=== PATIENT | male | born 1965 | race Caucasian/White ===

== ENCOUNTER 2018-09-20 13:46 | Observation (INO) | payer SELFPAY ==
[~2018-09-20] VITALS: Ht 185.4 cm; Wt 76.5 kg
--- NOTE | 2018-09-20 13:46 | NUR ---
PT UNABLE TO TELL ME PAST MEDICAL HISTORY.
[2018-09-20 14:01] LABS: BASOPHILS % (AUTO) 0 % (0-10); EOSINOPHILS # (AUTO) 0.1 10^3/uL (0.0-0.3); EOSINOPHILS % (AUTO) 2 % (0-10); HEMATOCRIT 42 % (40-54); HEMOGLOBIN 13.5 G/DL (13.3-17.7); LYMPHOCYTES # (AUTO) 1.4 X 10^3 (1.0-4.0); LYMPHOCYTES % (AUTO) 32 % (12-44); MEAN CORPUSCULAR HEMOGLOBIN 28 PG (25-34); MEAN CORPUSCULAR HGB CONC 32 G/DL (32-36); MEAN CORPUSCULAR VOLUME 87 FL (80-99); MEAN PLATELET VOLUME 10.7 FL (7.4-10.4); MONOCYTES # (AUTO) 0.5 X 10^3 (0.0-1.0); MONOCYTES % (AUTO) 11 % (0-12); NEUTROPHILS # (AUTO) 2.4 X 10^3 (1.8-7.8); NEUTROPHILS % (AUTO) 55 % (42-75); PLATELET COUNT 143 10^3/uL (130-400); RED CELL DISTRIBUTION WIDTH 13.1 % (10.0-14.5); WHITE BLOOD COUNT 4.3 10^3/uL (4.3-11.0)
[2018-09-20 14:14] LABS: ALANINE AMINOTRANSFERASE 16 U/L (0-55); ALBUMIN 3.5 GM/DL (3.2-4.5); ALKALINE PHOSPHATASE 77 U/L (40-136); AMYLASE 25 U/L (25-125); BILIRUBIN,TOTAL 0.3 MG/DL (0.1-1.0); BUN/CREATININE RATIO 16; CALCIUM 8.7 MG/DL (8.5-10.1); CARBON DIOXIDE 26 MMOL/L (21-32); CHLORIDE 106 MMOL/L (98-107); CREATININE SERUM 0.86 MG/DL (0.60-1.30); GFR ESTIMATED > 60; GLUCOSE 137 MG/DL (70-105); LIPASE 10 U/L (8-78); POTASSIUM 3.5 MMOL/L (3.6-5.0); SODIUM 142 MMOL/L (135-145)
[2018-09-20] MEDS ORDERED: DEXTROSE 50% 50 ML (IMS) SYR ONE (14:24)
--- NOTE | 2018-09-20 14:26 | NUR ---
PT WILL OPEN EYES WHEN TALKED TOO BUT MUMBLES WHEN HE TRYS TO SPEAK. MOVES ALL EXT.
[2018-09-20] MEDS ORDERED: DEXTROSE 50% 50 ML (IMS) SYR IV ONE (14:30)
--- NOTE | 2018-09-20 14:37 | Diagnostic Imaging Report ---
INDICATION: Unresponsive. Time of exam 2:28 PM The heart size is normal. The pulmonary vascularity is unremarkable. The lungs are clear. No infiltrate, effusion or pneumothorax is detected. Impression: No acute cardiopulmonary process is detected. Dictated by: Dictated on workstation # [id number]
--- NOTE | 2018-09-20 14:49 | NUR ---
RACHEL REPORTS PT IS TALKING TO HIM ET IS A/OX3
--- NOTE | 2018-09-20 15:02 | Diagnostic Imaging Report ---
CLINICAL INDICATION: Patient is unresponsive. Patient is diabetic. Face diaphoretic. EXAM: Axial CT scan of the brain performed without IV contrast. COMPARISON: None. FINDINGS: There is no definite CT evidence of acute cerebral infarct, intracranial hemorrhage, or gross mass effect. The brain parenchymal volume appears appropriate for patient's age. There are patchy and focal areas of low-attenuation white matter changes involving both cerebral hemispheres predominantly involving the posterior frontal lobes and parietal lobes. There is a possible area of low-attenuation involving the left middle cerebellar peduncle. There is normal [place]-white matter distinction. There is no significant midline shift or herniation. There is no evidence of hydrocephalus. The basal cisterns are unremarkable. The skull, extracranial soft tissue, and orbits are unremarkable. The paranasal sinuses are unremarkable. Temporal bones show no significant abnormality. IMPRESSION: 1: There is no definite CT evidence of interval acute cerebral infarction, intracranial hemorrhage, or mass seen. There are patchy areas of low attenuation changes involving both cerebral hemispheres with no comparison study to evaluate for chronicity. These areas have the appearance of being chronic given the low density appearance. If there is clinical concern for acute cerebral infarction, MRI of the brain would better evaluate. 2: Suspected chronic small vessel ischemic changes. Results of this report was discussed with Dr. Louis Givens via the telephone on 09/20/2018 at 1555 hrs. Dictated by: Dictated on workstation # [id number]
--- NOTE | 2018-09-20 15:10 | NUR ---
PT WILL WAKE UP MUMBLES ET WILL ANSWER SOME QUESTIONS. CONTINUES TO BE VERY DROWSY. RACHEL NOTIFIED.
--- NOTE | 2018-09-20 15:23 | NUR ---
PT TOLD RACHEL HIS NORMAL BLOOD SUGAR IS 300-700
--- NOTE | 2018-09-20 15:26 | ED General ---
General Chief Complaint: Glucose Problems Stated Complaint: DIABETIC ISSUES Nursing Triage Note: EMS CALLED TO PT'S HOUSE WHEN HE WAS FOUND UNRESPONSIVE. KNOWN DIABETIC. UPON EMS ARRIVAL PT UNRSPONSIVE WITH SNOROUS RESPIERATION. D50IV GIVEN. UPON ARRIVAL PT WILL OPEN HIS EYES WHEN TALKED TO BUT MUMBULES. VSS. PT FACE IS DIAPHORETIC. Nursing Sepsis Screen: No Definite Risk Source of Information: Patient, EMS Exam Limitations: No Limitations History of Present Illness Date Seen by Provider: September 20, 2018 Time Seen by Provider: 13:45 Initial Comments 52-year-old male patient was brought to the emergency room by [facility] for being found unresponsive with a blood sugar of 28 on arrival by EMS. They started an IV and gave half an amp of D50 and a liter of saline and the patient started to started her to come to. On arrival to the emergency room the patient was able to open his eyes and had purposeful movements but mumbled for speech. His initial blood sugar was normal. The patient is still diaphoretic at this time. He is a patient of [facility]. It is unsure of how long the patient was unresponsive. Associated Systoms: Diaphoresis Allergies and Home Medications Allergies Coded Allergies: Penicillins (Verified Allergy, Unknown, 09/20/18) Home Medications Unable to Obtain Active Prescriptions or Reported Meds Patient Home Medication List Home Medication List Reviewed: Yes Review of Systems Review of Systems Constitutional: see HPI; No chills, No fever Psychiatric/Neurological: See HPI, Other (lethargic) Hematologic/Lymphatic: See HPI, Other (hypoglycemia) All Other Systems Reviewed Negative Unless Noted: Yes Past Iosgych-Vrzqxi-Osqoym Hx Past Med/Social Hx: Reviewed Nursing Past Med/Soc Hx Patient Social History Recent Foreign Travel: No Contact w/Someone Who Travel: No Recent Infectious Disease Expo: No Family Medical History Reviewed Nursing Family Hx Physical Exam Vital Signs Vital Signs - First Documented 09/20/18 13:46 Temp 95.5 Pulse 76 Resp 16 B/P (MAP) 120/87 (98) Pulse Ox 97 O2 Delivery Room Air Capillary Refill : Less Than 3 Seconds Height, Weight, BMI Height: 5'8.00" Weight: 160lbs. oz. [id number]; BMI Method:Estimated General Appearance: No Apparent Distress, WD/WN HEENT: PERRL/EOMI, TMs Normal, Normal ENT Inspection, Pharynx Normal Neck: Full Range of Motion, Normal Inspection, Non Tender, Supple, Carotid Bruit Respiratory: Chest Non Tender, Lungs Clear, Normal Breath Sounds, No Accessory Muscle Use, No Respiratory Distress Cardiovascular: Regular Rate, Rhythm, No Edema, No Gallop, No JVD, No Murmur, Normal Peripheral Pulses Extremity: Normal Capillary Refill Neurologic/Psychiatric: Alert, Oriented x3, Normal Mood/Affect Skin: Normal Color, Warm/Dry Progress/Results/Core Measures Suspected Sepsis Recent Fever Within 48 Hours: No Infection Criteria Present: None New/Unexplained Altered Menta: No Sepsis Screen: No Definite Risk SIRS Temperature:95.5 Pulse: 76 Respiratory Rate: 16 Laboratory Tests 09/20/18 13:45: White Blood Count 4.3 Blood Pressure 120 /87 Mean: 98 Laboratory Tests 09/20/18 13:45: Creatinine 0.86, Platelet Count 143, Total Bilirubin 0.3 Results/Orders Lab Results Laboratory Tests Test 09/20/18 13:45 09/20/18 13:50 09/20/18 14:14 09/20/18 15:20 Range/Units White Blood Count 4.3 4.3-11.0 10^3/uL Red Blood Count 4.78 4.35-5.85 10^6/uL Hemoglobin 13.5 13.3-17.7 G/DL Hematocrit 42 40-54 % Mean Corpuscular Volume 87 80-99 FL Mean Corpuscular Hemoglobin 28 25-34 PG Mean Corpuscular Hemoglobin Concent 32 32-36 G/DL Red Cell Distribution Width 13.1 10.0-14.5 % Platelet Count 143 130-400 10^3/uL Mean Platelet Volume 10.7 H 7.4-10.4 FL Neutrophils (%) (Auto) 55 42-75 % Lymphocytes (%) (Auto) 32 12-44 % Monocytes (%) (Auto) 11 0-12 % Eosinophils (%) (Auto) 2 0-10 % Basophils (%) (Auto) 0 0-10 % Neutrophils # (Auto) 2.4 1.8-7.8 X 10^3 Lymphocytes # (Auto) 1.4 1.0-4.0 X 10^3 Monocytes # (Auto) 0.5 0.0-1.0 X 10^3 Eosinophils # (Auto) 0.1 0.0-0.3 10^3/uL Basophils # (Auto) 0.0 0.0-0.1 10^3/uL Sodium Level 142 135-145 MMOL/L Potassium Level 3.5 L 3.6-5.0 MMOL/L Chloride Level 106 98-107 MMOL/L Carbon Dioxide Level 26 21-32 MMOL/L Anion Gap 10 5-14 MMOL/L Blood Urea Nitrogen 14 7-18 MG/DL Creatinine 0.86 0.60-1.30 MG/DL Estimat Glomerular Filtration Rate > 60 BUN/Creatinine Ratio 16 Glucose Level 137 H 70-105 MG/DL Calcium Level 8.7 8.5-10.1 MG/DL Corrected Calcium 9.1 8.5-10.1 MG/DL Total Bilirubin 0.3 0.1-1.0 MG/DL Aspartate Amino Transf (AST/SGOT) 14 5-34 U/L Alanine Aminotransferase (ALT/SGPT) 16 0-55 U/L Alkaline Phosphatase 77 40-136 U/L Troponin I < 0.028 <0.028 NG/ML Total Protein 6.0 L 6.4-8.2 GM/DL Albumin 3.5 3.2-4.5 GM/DL Amylase Level 25 25-125 U/L Lipase 10 8-78 U/L Glucometer 128 H 106 182 H 70-110 MG/DL Test 09/20/18 16:32 09/20/18 20:49 09/20/18 21:05 Range/Units Glucometer 172 H 263 H 70-110 MG/DL Urine Color YELLOW Urine Clarity CLEAR Urine pH 7 5-9 Urine Specific [place] 1.015 L 1.016-1.022 Urine Protein 1+ H NEGATIVE Urine Glucose (UA) 4+ H NEGATIVE Urine Ketones NEGATIVE NEGATIVE Urine Nitrite NEGATIVE NEGATIVE Urine Bilirubin NEGATIVE NEGATIVE Urine Urobilinogen NORMAL NORMAL MG/DL Urine Leukocyte Esterase 1+ H NEGATIVE Urine RBC (Auto) NEGATIVE NEGATIVE Urine RBC 0-2 /HPF Urine WBC RARE /HPF Urine Squamous Epithelial Cells 0-2 /HPF Urine Crystals NONE /LPF Urine Bacteria NEGATIVE /HPF Urine Casts NONE /LPF Urine Mucus SMALL H /LPF Urine Culture Indicated NO Urine Opiates Screen NEGATIVE NEGATIVE Urine Oxycodone Screen NEGATIVE NEGATIVE Urine Methadone Screen NEGATIVE NEGATIVE Urine Propoxyphene Screen NEGATIVE NEGATIVE Urine Barbiturates Screen NEGATIVE NEGATIVE Ur Tricyclic Antidepressants Screen NEGATIVE NEGATIVE Urine Phencyclidine Screen NEGATIVE NEGATIVE Urine Amphetamines Screen POSITIVE H NEGATIVE Urine Methamphetamines Screen POSITIVE H NEGATIVE Urine Benzodiazepines Screen NEGATIVE NEGATIVE Urine Cocaine Screen NEGATIVE NEGATIVE Urine Cannabinoids Screen NEGATIVE NEGATIVE My Orders Orders - RACHEL REID Comprehensive Metabolic Panel (09/20/18 13:51) Lipase (09/20/18 13:51) Amylase (09/20/18 13:51) Ua Culture If Indicated (09/20/18 13:51) Ed Iv/Invasive Line Start (09/20/18 13:51) Cbc With Automated Diff (09/20/18 13:51) Ct Head Wo-R/O Stroke (09/20/18 14:17) Chest 1 View, Ap/Pa Only (09/20/18 14:17) Ekg Tracing (09/20/18 14:17) Troponin I (09/20/18 14:17) D50w (Emergency) Syringe (Dextrose 50% 5 (09/20/18 14:30) D50w (Emergency) Syringe (Dextrose 50% 5 (09/20/18 14:24) Medications Given in ED Current Medications Medications Dose Ordered Sig/Perico Route Start Time Stop Time Status Last Admin Dose Admin Dextrose 50 ml ONCE ONCE IV 09/20/18 14:30 09/20/18 14:31 DC 09/20/18 14:31 50 ML Vital Signs/I&O 09/20/18 09/20/18 09/20/18 09/20/18 13:46 15:55 17:01 17:02 Temp 95.5 96.5 Pulse 76 67 73 Resp 16 16 20 B/P (MAP) 120/87 (98) 117/82 (94) 130/80 Pulse Ox 97 99 O2 Delivery Room Air Room Air Room Air Room Air 09/20/18 09/20/18 19:19 20:00 Temp 97.2 97.2 Pulse 81 81 Resp 18 18 B/P (MAP) 145/81 (102) 145/81 (102) Pulse Ox 97 97 O2 Delivery Room Air Room Air Capillary Refill : Less Than 3 Seconds Blood Pressure Mean: 98 Point of Care Testing Finger Stick Blood Glucose: 182 Progress Note : Time: 15:50 Progress Note I have seen and evaluated the patient. He is more alert at this time and reports that his average blood sugar is 300-600. Dr. Winn discussed admission with Dr. Waldron at this time. Dr. Waldron agrees to admit the patient as an observation status to the fourth floor. She recommends using D5NS at 100 mL an hour and sliding scale insulin. Patient agrees with plan of care and plans for admission. ECG Initial ECG Impression Date: September 20, 2018 Initial ECG Impression Time: 14:23 Initial ECG Rate: 65 Initial ECG Rhythm: Normal Sinus Initial ECG Intervals: Normal Initial ECG Impression: Normal Initial ECG Comparisson: No Previous ECG Available Departure Communication (Admissions) Time/Spoke to Admitting Phy: 15:50 Chivo Impression Primary Impression: Hypoglycemic event in diabetes Disposition: ADMITTED INPATIENT Condition: Stable Admissions Decision to Admit Reason: Admit from ER (General) Decision to Admit/Date: September 20, 2018 Time/Decision to Admit Time: 16:13 Departure-Patient Inst. Referrals: NO,LOCAL PHYSICIAN (PCP/Family) Primary Care Physician Scripts Unable to Obtain Active Prescriptions or Reported Meds RACHEL REID September 20, 2018 15:26
--- OUTSIDE RECORDS SUMMARY | 2018-09-20 16:41 | XMS REPORT | Continuity of Care Document ---
Demographics x Preferred Language Unknown Marital Status Unknown Christian Affiliation Unknown Race Unknown Ethnic Group Unknown Author Organization Unknown Address Unknown Allergies There is no data. Medications There is no data. Problems There is no data. Procedures There is no data. Results There is no data. Encounters ACCT No. Visit Date/Time Discharge Status Pt. Type Provider Facility Loc./Unit Complaint [id number] 09/08/2018 12:50:00 09/08/2018 23:59:59 [facility]
--- NOTE | 2018-09-20 16:48 | NUR ---
LACEY GASTON WAS admitted to room 406-1, with an admitting diagnosis of HYPOGLYCEMIA, on 09/20/18 from ED via , accompanied by STAFF.LACEY GASTON introduced to surroundings, call light, bed controls, phone, TV, temperature control, lights, meal times, smoking policy, visitor policy, side rail policy, bathrooms and showers. Patient Rights given to patient in the handbook.LACEY GASTON verbalizes understanding that [facility] is not responsible for the loss or damage to any personal effects or valuables that are kept in the patients posession during their hospitalization. The following Patient Care Plans were discussed with the PT: Discharge Planning, KNOWLEDGE DEFICIT, INEFFECTIVE MANAGEMENT, and ANXIETY. LACEY GASTON verbalizes understanding of Interdisciplinary Patient Education.
[2018-09-20 17:02] VITALS: BP 130/80
[2018-09-20] MEDS ORDERED: CATHETER FLUSH 10 ML SYR IV PRN (17:15)
[2018-09-20] MEDS ORDERED: D5 NS 1000 ML IV SOLUTION 1,000 ML IV SCH (17:15)
[2018-09-20 19:19] VITALS: BP 145/81
[2018-09-20] MEDS ORDERED: inSUlin ASPART (NovoLOG) 1 UNIT/0.01 ML (CHARGE PER UNIT) SC SCH (19:30)
--- OUTSIDE RECORDS SUMMARY | 2018-09-20 19:31 | XMS REPORT | Continuity of Care Document ---
Demographics x Preferred Language Unknown Marital Status Unknown Rastafarian Affiliation Unknown Race Unknown Ethnic Group Unknown Author Organization Unknown Address Unknown Allergies There is no data. Medications There is no data. Problems There is no data. Procedures There is no data. Results There is no data. Encounters ACCT No. Visit Date/Time Discharge Status Pt. Type Provider Facility Loc./Unit Complaint [id number] 09/08/2018 12:50:00 09/08/2018 23:59:59 [facility]
[2018-09-20 20:00] VITALS: BP 145/81
[2018-09-20 21:17] LABS: BILIRUBIN,URINE NEGATIVE (NEGATIVE); CLARITY,URINE CLEAR; COLOR,URINE YELLOW; GLUCOSE, URINE (UA) 4+ (NEGATIVE); KETONES,URINE NEGATIVE (NEGATIVE); LEUKOCYTE ESTERASE ,URINE 1+ (NEGATIVE); NITRITE,URINE NEGATIVE (NEGATIVE); PH,URINE 7 (5-9); PROTEIN,URINE 1+ (NEGATIVE); UROBILINOGEN,URINE NORMAL (NORMAL)
--- NOTE | 2018-09-20 21:23 | NUR ---
pt requesting that his gabapentin be restarted for neuropathy-pt states he takes gabapentin 800 mg TID PO this rn called dr myers-she agreed to restart the gabapentin 800mg TID PO-order read back & she agreed
[2018-09-20 21:25] LABS: BACTERIA,URINE NEGATIVE /HPF; RBC,URINE 0-2 /HPF; SQUAMOUS EPITHELIAL CELL,UR 0-2 /HPF; WBC,URINE RARE /HPF
[2018-09-20 21:30] LABS: AMPHETAMINE SCREEN, URINE POSITIVE (NEGATIVE); BARBITURATE SCREEN URINE NEGATIVE (NEGATIVE); BENZODIAZEPINES SCREEN URINE NEGATIVE (NEGATIVE); CANNABINOID SCREEN, URINE NEGATIVE (NEGATIVE); COCAINE SCREEN URINE NEGATIVE (NEGATIVE); METHADONE STAT NEGATIVE (NEGATIVE); METHAMPHETAMINE SCREEN URINE S POSITIVE (NEGATIVE); OPIATE SCREEN URINE NEGATIVE (NEGATIVE); OXYCODONE STAT NEGATIVE (NEGATIVE); PROPOXYPHENE STAT NEGATIVE (NEGATIVE); TRICYCLIC ANTIDEPRESSANTS SCRE NEGATIVE (NEGATIVE)
[2018-09-20] MEDS ORDERED: GABAPENTIN 400 MG (NEURONTIN) CAP PO SCH (21:30)
--- NOTE | 2018-09-20 23:40 | NUR ---
2144-PT REQUESTED HS SNACK-2 PACKS OF GUILLAUME CRACKERS & A PEANUT BUTTER PACK GIVEN TO PT. 2149-PT CALLED THIS RN INTO THE ROOM. PT STATES THAT HE WILL BE LEAVING AMA. THIS RN SPOKE WITH PT, ADVISED HIM THAT IT WOULD BE IN HIS BEST INTEREST TO FOLLOW DR. IZAGUIRRE'S ORDERS TO STAY & BE TREATED. PT REPORTS "MY BLOOD SUGAR WAS IN THE 20'S, IT'S NOW UNDER CONTROL. THERE IS NO SINCE IN ME STAYING HERE AND CREATING A BILL FOR ME OR THE STATE [facility] TO NOT PAY. I HAVE HAD GOOD CARE HERE BUT I NEED TO LEAVE." PT GOES ON TO INFORM THIS RN THAT HIS GIRLFRIEND IS IN HER 20'S (REFERRING TO AGE) & THAT HES UP SET THAT SHE IS NOT BEEN IN TO SEE HIM. "I THINK SHE IS AT HOME HAVING A [employer] PART[employer] & CHEATING ON ME. I'M GOING TO BUST HER ASS." 2200-THIS RN CALLED DR. IZAGUIRRE TO INFORM HER THAT PT IS GOING AMA. 2211-PT SIGNED AMA PAPER AFTER THIS RN DISCUSSED THE FORM WITH THE PT. 2234-PT CALLED [place] [employer] FOR A RIDE-PT HUNG UP THE PHONE & SAID "FUCK IT I'M WALKING HOME, I'M NOT WAITING ON THEM" THIS RN ASKED THE PT IF HE WOULD WAIT LONG ENOUGH FOR THIS RN TO GET THE TELEPHONE NUMBER OF THE [employer] [facility] IN [facility]. PT STATED "NOPE I'M LEAVING THIS FUCKING PLACE. THANK YOU FOR ALL YOUR HELP" 2236-PT LEFT AMA
== END 2018-09-20 22:37 | disposition left against medical advice (07) ==
LOC: ER 13:48 → 4TH 16:00 → UNDOADMOB 16:00 → EEVIPCON 16:00 → 4TH 16:50 → UNDODISOB 22:37
PROVIDERS: ADMIT Family Medicine; ATTEND Family Medicine
DX: E11.65 Type 2 diabetes mellitus with hyperglycemia (principal); Z79.4 Long term (current) use of insulin; Z88.0 Allergy status to penicillin
CPT/HCPCS: 36415; 70450; 71045; 80053; 80306; 81000; 82150; 82962; 83690; 84484; 85025; 93005; 96374

== ENCOUNTER 2019-11-30 00:02 | Emergency (ER) | payer SELFPAY ==
[~2019-11-30] VITALS: Ht 185 cm; Wt 82.8 kg
--- OUTSIDE RECORDS SUMMARY | 2019-11-30 00:09 | XMS REPORT | Continuity of Care Document ---
Demographics x Preferred Language Unknown Marital Status Unknown Judaism Affiliation Unknown Race Unknown Ethnic Group Unknown Author Organization Unknown Address Unknown Phone Unavailable Allergies Active Description Code Type Severity Reaction Onset Reported/Identified Relationship to Patient Clinical Status Yes No Known Drug Allergies [id number] Drug Allergy Unknown N/A 09/20/2018 Yes Penicillins [id number] Drug Aller gy Unknown N/A 09/20/2018 Medications There is no data. Problems Date Dx Coded Attending Type Code Diagnosis Diagnosed By 09/20/2018 BENNY IZAGUIRRE MD, Ot E11.6 5 TYPE 2 DIABETES MELLITUS WITH HYPERGLYCE 09/20/2018 BENNY IZAGUIRRE MD, Ot Z79.4 CUSTODIAL (CURRENT) USE OF INSULIN 09/20/2018 BENNY IZAGUIRRE MD, Ot Z88.0 ALLERGY STATUS TO PENICILLIN Procedures There is no data. Results Test Result Range Complete blood count (CBC) with automate d white blood cell (WBC) differential - 09/20/18 13:45 Blood leukocytes automated count (number/volume) 4.3 10*3/uL 4.3-11.0 Blood erythrocytes automated count (number/volume) 4.78 10*6/uL 4.35-5.85 Venous blood hemoglobin measurement (mass/volume) 13.5 g/dL 13.3-17.7 Blood hematocrit (volume fraction) 42 % 40-54 Automated erythrocyte mean corpuscular volume 87 [ foz_us] 80-99 Automated erythrocyte mean corpuscular h emoglobin (mass per erythrocyte) 28 pg 25-34 Automated erythrocyte mean corpuscular h emoglobin concentration measurement (mass/volume) 32 g/dL 32-36 Automated erythrocyte distribution width ratio 13. 1 % 10.0- 14.5 Automated blood platelet count (count/volume) 143 10*3/uL 130-400 Automated blood platelet mean volume measurement 10.7 [foz_us] 7.4-10.4 Automated blood neutrophils/100 leukocytes 55 % 42-75 Automated blood lymphocytes/100 leukocytes 32 % 12-44 Blood monocytes/100 leukocytes 11 % 0-12 Automated blood eosinophils/100 leukocytes 2 % 0-10 Automated blood basophils/100 leukocytes 0 % 0-10 Blood neutrophils automated count (number/volume) 2.4 10*3 1.8-7.8 Blood lymphocytes automated count (number/volume) 1.4 10*3 1.0-4.0 Blood monocytes automated count (number/volume) 0. 5 10*3 0.0-1.0 Automated eosinophil count 0.1 10*3/uL 0 .0-0.3 Automated blood basophil count (count/volume) 0.0 10*3/uL 0.0-0.1 Comprehensive metabolic panel - 09/20/18 13:45 Serum or plasma sodium measurement (moles/volume) 142 mmol/L 135-145 Serum or plasma potassium measurement (moles/volume) 3.5 mmol/L 3.6-5.0 Serum or plasma chloride measurement (moles/volume) 106 mmol/L 98-107 Carbon dioxide 26 mmol/L 21-32 Serum or plasma anion gap determination (moles/volume) 10 mmol/L 5-14 Serum or plasma urea nitrogen measurement (mass/volume ) 14 mg/dL 7-18 Serum or plasma creatinine measurement (mass/volume) 0.86 mg/dL 0.60-1.30 Serum or plasma urea nitrogen/creatinine mass ratio 16 NRG Serum or plasma creatinine measurement w ith calculation of estimated glomerular filtration rate > NRG Serum or plasma glucose measurement (mass/volume) 137 mg/dL 70-105 Serum or plasma calcium measurement (mass/volume) 8.7 mg/dL 8.5-10.1 Serum or plasma total bilirubin measurement (mass/volu me) 0.3 mg/dL 0.1-1.0 Serum or plasma alkaline phosphatase sylvester surement (enzymatic activity/volume) 77 U/L 40-136 Serum or plasma aspartate aminotransfera se measurement (enzymatic activity/volume) 14 U/L 5-34 Serum or plasma alanine aminotransferase measurement (enzymatic activity/volume) 16 U/L 0-55 Serum or plasma protein measurement (mass/volume) 6.0 g/dL 6.4-8.2 Serum or plasma albumin measurement (mass/volume) 3.5 g/dL 3.2-4.5 CALCIUM CORRECTED 9.1 mg/dL 8.5-10.1 Serum or plasma amylase measurement (enz ymatic activity/volume) - 09/20/18 13:45 Serum or plasma amylase measurement (enzymatic activit y/volume) 25 U/L 25-125 Lipase - 09/20/18 13:45 Lipase 10 U/L 8-78 Serum or plasma troponin i.cardiac measu rement (mass/volume) - 09/20/18 13:45 Serum or plasma troponin i.cardiac measurement (mass/v olume) < ng/mL <0.028 Capillary blood glucose measurement by g lucometer (mass/volume) - 09/20/18 13:50 Capillary blood glucose measurement by glucometer (mas s/volume) 128 mg/dL 70-110 Capillary blood glucose measurement by g lucometer (mass/volume) - 09/20/18 14:14 Capillary blood glucose measurement by glucometer (mas s/volume) 106 mg/dL 70-110 Capillary blood glucose measurement by g lucometer (mass/volume) - 09/20/18 15:20 Capillary blood glucose measurement by glucometer (mas s/volume) 182 mg/dL 70-110 Capillary blood glucose measurement by g lucometer (mass/volume) - 09/20/18 16:32 Capillary blood glucose measurement by glucometer (mas s/volume) 172 mg/dL 70-110 Capillary blood glucose measurement by g lucometer (mass/volume) - 09/20/18 20:49 Capillary blood glucose measurement by glucometer (mas s/volume) 263 mg/dL 70-110 Complete urinalysis with reflex to cultu re - 09/20/18 21:05 Urine color determination YELLOW NRG Urine clarity determination CLEAR NR G Urine pH measurement by test strip 7 5-9 Specific gravity of urine by test strip 1.015 1.016-1.022 Urine protein assay by test strip, semi-quantitative 1+ NEGATIVE Urine glucose detection by automated test strip 4+ NEGATIVE Erythrocytes detection in urine sediment by light micr oscopy NEGATIVE NEGATIVE Urine ketones detection by automated test strip NE GATIVE NEGATIVE Urine nitrite detection by test strip NEGATIVE NEGATIVE Urine total bilirubin detection by test strip NEGA TIVE NEGATIVE Urine urobilinogen measurement by automated test strip (mass/volume) NORMAL NORMAL Urine leukocyte esterase detection by dipstick 1+ NEGATIVE Automated urine sediment erythrocyte cou nt by microscopy (number/high power field) [HPF] NRG Automated urine sediment leukocyte count by microscopy (number/high power field) RARE NRG Bacteria detection in urine sediment by light microsco py NEGATIVE NRG Squamous epithelial cells detection in u rine sediment by light microscopy 0-2 NRG Crystals detection in urine sediment by light microsco py NONE NRG Casts detection in urine sediment by light microscopy NONE NRG Mucus detection in urine sediment by light microscopy SMALL NRG Complete urinalysis with reflex to culture NO NRG Urine drug screening test - 09/20/18 21: 05 Urine phencyclidine detection by screening method NEGATIVE NEGATIVE Urine benzodiazepines detection by screening method NEGATIVE NEGATIVE Urine cocaine detection NEGATIVE NEGATI VE Urine amphetamines detection by screening method P OSITIVE NEGATIVE Urine methamphetamine detection by screening method POSITIVE NEGATIVE Urine cannabinoids detection by screening method N EGATIVE NEGATIVE Urine opiates detection by screening method NEGATI VE NEGATIVE Urine barbiturates detection NEGATIVE N EGATIVE Screening urine tricyclic antidepressants detection NEGATIVE NEGATIVE Urine methadone detection by screening method NEGA TIVE NEGATIVE Urine oxycodone detection NEGATIVE NEGA TIVE Urine propoxyphene detection NEGATIVE N EGATIVE LIPID PANEL - 02/08/19 10:59 CHOLESTEROL, TOTAL 199 mg/dL <200 HDL CHOLESTEROL 44 mg/dL >40 TRIGLYCERIDES 149 mg/dL <150 LDL-CHOLESTEROL 129 mg/dL (calc) NRG CHOL/HDLC RATIO 4.5 (calc) <5.0 NON HDL CHOLESTEROL 155 mg/dL (calc) <13 0 Encounters ACCT No. Visit Date/Time Discharge Status Pt. Type Provider Facility Loc./Unit Complaint [id number] 11/19/2019 13:20:00 11/19/2019 23:59: 59 [facility] Outpatient [facility] [id number] 02/08/2019 09:40:00 Document Registration [id number] 09/20/2018 16:00:00 019 22:37:00 DIS Inpatient BENNY IZAGUIRRE MD [facility] 4TH HYPOGLYCEMIC EVENT
[2019-11-30 00:11] VITALS: BP 129/89
[2019-11-30] MEDS ORDERED: INSU100V16 SQ (00:19)
[2019-11-30] MEDS ORDERED: GABA800T10 PO (00:19)
[2019-11-30] MEDS ORDERED: INSU100V6 SQ (00:19)
[2019-11-30] MEDS ORDERED: CLIN300C11 PO (00:26)
--- NOTE | 2019-11-30 01:07 | ED General ---
General Chief Complaint: Skin/Wound Problems Stated Complaint: RT FOOT PAIN,RT LEG SWOLLEN,DIABETIC Nursing Triage Note: RIGHT FOOT WOUND Nursing Sepsis Screen: No Definite Risk Source of Information: Patient Exam Limitations: No Limitations History of Present Illness Date Seen by Provider: Nov 30, 2019 Time Seen by Provider: 00:10 Initial Comments This 53-year-old gentleman with diabetes presents with a diabetic foot ulcer on the right distal foot. He is presently homeless and rides his bike and walks often. He has follow-up appointments scheduled with [facility] but his sister who has a medical background told him to be seen promptly for this worsening ulcer. The ulcer is about the size of a nickel on the plantar surface of his right foot. He denies any fever. He was prescribed clindamycin by the clinic and he is presently taking that. Allergies and Home Medications Allergies Coded Allergies: Penicillins (Verified Allergy, Unknown, 09/20/18) Home Medications Gabapentin 800 Mg Tablet, 800 MG PO TID, (Reported) Insulin Aspart 100 Unit/1 Ml Susp, 10 UNIT SQ AC, (Reported) Patient Home Medication List Home Medication List Reviewed: Yes Review of Systems Review of Systems Constitutional: no symptoms reported EENTM: no symptoms reported Respiratory: no symptoms reported Cardiovascular: no symptoms reported Gastrointestinal: no symptoms reported Genitourinary: no symptoms reported Musculoskeletal: no symptoms reported Skin: see HPI Psychiatric/Neurological: No Symptoms Reported Hematologic/Lymphatic: No Symptoms Reported Past Cnuehpk-Kimalt-Rjpoyk Hx Past Med/Social Hx: Reviewed Nursing Past Med/Soc Hx Patient Social History Alcohol Use: Denies Use Recreational Drug Use: No Smoking Status: Current Everyday Smoker Type Used: Cigarettes 2nd Hand Smoke Exposure: Yes Recent Foreign Travel: No Contact w/Someone Who Travel: No Recent Infectious Disease Expo: No Recent Hopitalizations: No Physical Abuse: No Sexual Abuse: No Mistreated: No Fear: No Immunizations Up To Date Tetanus Booster (TDap): Unknown Seasonal Allergies Seasonal Allergies: No Past Medical History Surgeries: No Respiratory: No Cardiac: No Neurological: No Genitourinary: No Gastrointestinal: No Musculoskeletal: No Endocrine: Yes Diabetes, Insulin dep HEENT: No Cancer: No Psychosocial: Yes Depression Integumentary: Yes (diabetic foot ulcer) Blood Disorders: No Adverse Reaction/Blood Tranf: No Family Medical History Patient reports no known family medical history. Physical Exam Vital Signs Vital Signs - First Documented 11/30/19 00:11 Temp 36.8 Pulse 96 Resp 18 B/P (MAP) 129/89 (102) Pulse Ox 98 O2 Delivery Room Air Capillary Refill : Less Than 3 Seconds Height, Weight, BMI Height: 6'1.00" Weight: 168lbs. 9.0oz. 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 Skin: Normal Color, Warm/Dry Progress/Results/Core Measures Suspected Sepsis Recent Fever Within 48 Hours: No Infection Criteria Present: Documented Infection New/Unexplained Altered Menta: No Sepsis Screen: No Definite Risk SIRS Temperature: Pulse: 96 Respiratory Rate: 18 Blood Pressure 129 /89 Mean: 102 Results/Orders Lab Results Laboratory Tests Test 11/30/19 00:26 Range/Units Glucometer 93 70-110 MG/DL My Orders Orders - MICHELLE VALLECILLO MD Foot, Right, 3 View (11/30/19 00:22) Accucheck Stat ONCE (11/30/19 00:22) Vital Signs/I&O 11/30/19 00:11 Temp 36.8 Pulse 96 Resp 18 B/P (MAP) 129/89 (102) Pulse Ox 98 O2 Delivery Room Air Capillary Refill : Less Than 3 Seconds Blood Pressure Mean: 102 Point of Care Testing Finger Stick Blood Glucose: 93 Blood Glucose Action Taken: Dr Vallecillo notified Progress Note : Progress Note No bony destruction was noted on x-rays. Patient was given contact information for the wound care clinic and encouraged to set up an appointment as soon as possible. He was encouraged to fill out director of patient financial services forms as well to expedite affordable care. Diagnostic Imaging Diagonstic Imaging: Xray Comments Right foot x-ray viewed by me. Report not yet available. No bony involvement identified. Ulcer evident on the x-ray. Departure Impression Primary Impression: Diabetic foot ulcer Qualified Codes: E11.621 - Type 2 diabetes mellitus with foot ulcer; L97.412 - Non-pressure chronic ulcer of right heel and midfoot with fat layer exposed Disposition: 01 HOME, SELF-CARE Condition: Improved Departure-Patient Inst. Decision time for Depature: 01:03 Referrals: [facility] (PCP/Family) Primary Care Physician ALEXSANDER SCRUGGS MD Patient Instructions: Diabetic Foot Ulcer (DC) Add. Discharge Instructions: Complete clindamycin as previously prescribed. Keep your follow-up appointment at the clinic and establish with wound care as soon as possible. Please complete the financial assistance package for the hospital and call the wound care clinic promptly in the morning to arrange an appointment. The wound care clinic is located on the first floor of the hospital and can be contacted at [phone]. Keep weight and pressure off of the ball of your foot as much as possible. Keep the wound clean and dry. Return to care if you have worsening symptoms including fevers. Keep your blood sugars tightly controlled. Avoid walking in bare feet, especially on dirty, hot, or sharp surfaces such as roads, lawns, etc. All discharge instructions reviewed with patient and/or family. Voiced understanding. Copy Copies To 1: MARCIE MCCULLOUGH DO Copies To 2: ALEXSANDER SCRUGGS MD, JOSHUA T MD Nov 30, 2019 01:06
--- NOTE | 2019-11-30 06:56 | Diagnostic Imaging Report ---
Indication: Right foot pain 3 views the right foot show no fracture, dislocation or osteolytic change. Impression: Negative right foot Dictated by: Dictated on workstation # [id number]
== END 2019-11-30 01:13 | disposition home or self-care (01) ==
LOC: EDUNIT# 00:02 → ER 00:06
DX: E11.621 Type 2 diabetes mellitus with foot ulcer (principal); L97.519 Non-pressure chronic ulcer of other part of right foot with unspecified severity; F17.210 Nicotine dependence, cigarettes, uncomplicated; Z88.0 Allergy status to penicillin; Z79.4 Long term (current) use of insulin
CPT/HCPCS: 73630; 82962

== ENCOUNTER 2020-09-02 12:04 | Inpatient (IN) | payer SELFPAY ==
[~2020-09-02] VITALS: Ht 185.5 cm; Wt 80.2 kg
[~2020-09-02 12:04] MED LIST: CLIN300C12 PO; GABA800T10 PO; INSU100V16 SQ; INSU100V6 SQ
[2020-09-02] MEDS ORDERED: ONDANSETRON 4 MG (ZOFRAN) ORAL DISSOLVE TAB PO PRN (13:30)
[2020-09-02] MEDS ORDERED: PHARMACY TO DOSE IV SCH (13:30)
[2020-09-02] MEDS ORDERED: CATHETER FLUSH 10 ML SYR IV PRN (13:45)
[2020-09-02 13:55] LABS: BASOPHILS % (AUTO) 0 % (0-10); EOSINOPHILS # (AUTO) 0.1 10^3/uL (0.0-0.3); EOSINOPHILS % (AUTO) 1 % (0-10); HEMATOCRIT 41 % (40-54); HEMOGLOBIN 13.3 g/dL (13.3-17.7); LYMPHOCYTES # (AUTO) 2.1 10^3/uL (1.0-4.0); LYMPHOCYTES % (AUTO) 35 % (12-44); MEAN CORPUSCULAR HEMOGLOBIN 29 pg (25-34); MEAN CORPUSCULAR HGB CONC 32 g/dL (32-36); MEAN CORPUSCULAR VOLUME 92 fL (80-99); MEAN PLATELET VOLUME 10.8 fL (9.0-12.2); MONOCYTES # (AUTO) 0.7 10^3/uL (0.0-1.0); MONOCYTES % (AUTO) 12 % (0-12); NEUTROPHILS # (AUTO) 3.1 10^3/uL (1.8-7.8); NEUTROPHILS % (AUTO) 52 % (42-75); PLATELET COUNT 166 10^3/uL (130-400); WHITE BLOOD COUNT 5.9 10^3/uL (4.3-11.0)
[2020-09-02] MEDS: NS IV 1000 ML 1,000 ML IV SCH (14:02)
[2020-09-02] MEDS: CEFEPIME INJECTION 1,000 MG in WATER (STERILE) FOR INJECTION 10 ML IV SCH ×2 (14:02→19:49)
[2020-09-02] MEDS: ACETAMINOPHEN 500 MG TAB (TYLENOL) PO SCH ×2 (14:07→21:14)
[2020-09-02 14:29] VITALS: BP 128/78
[2020-09-02 14:53] LABS: ALANINE AMINOTRANSFERASE 25 U/L (0-55); ALBUMIN 3.6 GM/DL (3.2-4.5); ALKALINE PHOSPHATASE 133 U/L (40-136); BILIRUBIN,TOTAL 0.4 MG/DL (0.1-1.0); BUN/CREATININE RATIO 12; CARBON DIOXIDE 26 MMOL/L (21-32); CHLORIDE 98 MMOL/L (98-107); CREATININE SERUM 1.15 MG/DL (0.60-1.30); GFR ESTIMATED > 60; GLUCOSE 374 MG/DL (70-105); POTASSIUM 4.1 MMOL/L (3.6-5.0); SODIUM 135 MMOL/L (135-145); TOTAL PROTEIN 7.1 GM/DL (6.4-8.2)
[2020-09-02] MEDS ORDERED: VANCOMYCIN 1500 MG/NS 500 ML IVPB IV NR ×2 (15:00)
[2020-09-02] MEDS ORDERED: INSU100I55 SQ (15:12)
[2020-09-02] MEDS ORDERED: INSU100I10 SQ (15:12)
[2020-09-02 15:37] VITALS: BP 130/79
[2020-09-02] MEDS: inSUlin ASPART (NovoLOG) 1 UNIT/0.01 ML (CHARGE PER UNIT) SC SCH ×2 (17:04→21:13)
--- NOTE | 2020-09-02 17:28 | Diagnostic Imaging Report ---
INDICATION: Diabetic wound FINDINGS: There is no soft tissue gas or opaque foreign body. No fracture or bony destructive process is apparent. We do note some swelling over the 5th toe. IMPRESSION: No gas or foreign body. Swelling about the 5th toe. No bony destruction or acute osseous pathology. Dictated by: Dictated on workstation # [id number]
--- NOTE | 2020-09-02 17:48 | Consultation - Surgery ---
History of Present Illness History of Present Illness Patient Consulted On(madyson/time) 09/02/20 17:43 Date Seen by Provider: Sep 02, 2020 Time Seen by Provider: 17:43 History of Present Illness Consult requested by Dr. Mares for left fifth toe ischemia Patient is a 54-year-old male diabetic insulin-dependent poorly controlled who has had 5 days of cellulitis and left fifth toe discoloration. Patient states that he was started on antibiotics which helped a little bit with the redness around the area however the toe continued to worsen. It was worsening today therefore he was admitted to the hospital after failing outpatient therapy. Patient states that he does have moderate pain if the toe was touched. Holding is still makes a little bit better. He has had a little bit of drainage from the area. He also has some warmth to the top of the foot where the redness is but he states. Patient states that his blood sugars have not been under control. He is insulin-dependent he states. Patient does not check his blood sugars very often he states and is not compliant. Patient also with recent methamphetamine and marijuana use 4 days ago. He has had regular use for multiple years. He also smokes approximately half a pack of cigarettes per day. Patient previously had to have right fourth toe amputated for similar reason he states. Currently he denies any nausea vomiting fever sweats chills shortness of breath or chest pain. Allergies and Home Medications Allergies Coded Allergies: Penicillins (Verified Allergy, Unknown, 09/20/18) Home Medications Clindamycin HCl 300 Mg Capsule, 300 MG PO QID, (Reported) FILLED 08-31-2020 #20 Last Action: Reviewed Insulin Aspart 100 Unit/1 Ml Insuln.pen, 6 UNIT SQ AC, (Reported) Last Action: Reviewed Insulin Glargine,Hum.rec.anlog 100 Unit/1 Ml Insuln.pen, 30 UNIT SQ HS, (Reported) Last Action: Reviewed Patient Home Medication List Home Medication List Reviewed: Yes Past Usfnknp-Sstvfh-Debnox Hx Patient Social History Smoking Status: Current Everyday Smoker Type Used: Cigarettes 2nd Hand Smoke Exposure: Yes Recent Hopitalizations: No Alcohol Use?: No Substance type: Methamphetamine, Marijuana Have you traveled recently?: No Immunizations Up To Date Tetanus Booster (TDap): Unknown Seasonal Allergies Seasonal Allergies: No Surgeries History of Surgeries: Yes (Right fourth toe amputation) Respiratory History of Respiratory Disorde: No Cardiovascular History of Cardiac Disorders: No Neurological History of Neurological Disord: No Genitourinary History of Genitourinary Disor: No Gastrointestinal History of Gastrointestinal Di: No Musculoskeletal History of Musculoskeletal Dis: No Endocrine History of Endocrine Disorders: Yes Endocrine Disorders: Diabetes, Insulin dep HEENT History of HEENT Disorders: No Cancer History of Cancer: No Psychosocial History of Psychiatric Problem: Yes Behavioral Health Disorders: Depression Integumentary History of Skin or Integumenta: Yes (diabetic foot ulcer) Blood Transfusions History of Blood Disorders: No Adverse Reaction to a Blood Tr: No Reviewed Nursing Assessment Reviewed/Agree w Nursing PMH: Yes Family Medical History Significant Family History: No Pertinent Family Hx Family Medial History: Patient reports no known family medical history. Review of Systems-General Constitutional: No chills, No diaphoresis EENTM: No blurred vision, No double vision Respiratory: No cough, No dyspnea on exertion Cardiovascular: No chest pain, No edema Gastrointestinal: No abdominal pain, No nausea, No vomiting Genitourinary: No decreased output, No discharge Musculoskeletal: other (Left foot pain) Skin: other (Cellulitis left dorsal foot, left fifth toe ischemic with ulceration) Psychiatric/Neurological: Denies Anxiety, Denies Depressed, Denies Emotional Problems All Other Systems Reviewed Negative Unless Noted: Yes (Negative excepted noted.) Physical Exam-General Problems Physical Exam Vital Signs Vital Signs - First Documented 09/02/20 09/02/20 14:28 14:29 Temp 36.5 Pulse 82 Resp 18 B/P (MAP) 128/78 (95) Pulse Ox 96 O2 Delivery Room Air Capillary Refill : General Appearance: no apparent distress, thin HEENT: PERRL/EOMI, normal ENT inspection Neck: non-tender, supple Respiratory: chest non-tender, no respiratory distress, no accessory muscle use Cardiovascular: regular rate, rhythm, no JVD Gastrointestinal: non tender, soft, no organomegaly Rectal: deferred Back: no CVA tenderness, no vertebral tenderness Extremities: other (Left dorsum of foot with cellulitis changes. 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 as tested, alert, normal mood/affect, or iented x 3 Skin: normal color, warm/dry Lymphatic: no adenopathy Data Review Labs Laboratory Tests 09/02/20 13:45: White Blood Count 5.9, Red Blood Count 4.52, Hemoglobin 13.3, Hematocrit 41, Mean Corpuscular Volume 92, Mean Corpuscular Hemoglobin 29, Mean Corpuscular Hemoglobin Concent 32, Red Cell Distribution Width 12.5, Platelet Count 166, Mean Platelet Volume 10.8, Immature Granulocyte % (Auto) 0, Neutrophils (%) ( Auto) 52, Lymphocytes (%) (Auto) 35, Monocytes (%) (Auto) 12, Eosinophils (%) (Auto) 1, Basophils (%) (Auto) 0, Neutrophils # (Auto) 3.1, Lymphocytes # (Auto) 2.1, Monocytes # (Auto) 0.7, Eosinophils # (Auto) 0.1, Basophils # (Auto) 0.0, Immature Granulocyte # (Auto) 0.0, Sodium Level 135, Potassium Level 4.1, Chloride Level 98, Carbon Dioxide Level 26, Anion Gap 11, Blood Urea Nitrogen 14, Creatinine 1.15, Estimat Glomerular Filtration Rate > 60, BUN/Creatinine Ratio 12, Glucose Level 374H, Calcium Level 9.0, Corrected Calcium 9.3, Total Bilirubin 0.4, Aspartate Amino Transf (AST/SGOT) 19, Alanine Aminotransferase (ALT/SGPT) 25, Alkaline Phosphatase 133, C-Reactive Protein High Sensitivity 4.72H, Total Protein 7.1, Albumin 3.6 09/02/20 15:42: Glucometer 305H Assessment/Plan Assessment/Plan Assessment/Plan Left foot cellulitis Left fifth ischemic toe with ulceration Insulin-dependent diabetes Tobacco abuse Illicit drug use Patient failed outpatient management with oral antibiotics. Patient has been started on antibiotics. I do not feel the left fifth toe is salvageable we discussed amputation left fifth toe all other indicated procedures. Patient understands risk and benefits and wishes to proceed. Patient n.p.o. after midnight. Patient needs to be have close glucose control. He is noncompliant outpatient reinforced the need to be monitoring and keeping this in check. Also discussed cessation of tobacco and illicit drugs. Patient n.p.o. after midnight for procedure tomorrow. ALLEN SILVERMAN DO Sep 02, 2020 17:48
--- NOTE | 2020-09-02 19:10 | Diagnostic Imaging Report ---
INDICATION: Diabetic with foot ulcer. FINDINGS: Real-time color Doppler imaging shows normal flow from the common femoral level through the popliteal level. Triphasic flow with normal peak velocities. There is monophasic flow noted in the anterior tibial artery with velocity of 106 cm/s. There is also monophasic flow at the dorsalis pedis artery in the foot with velocity of 55. The posterior tibial artery remains triphasic at 95 cm/s. IMPRESSION: The major vessels are widely patent. 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 Dictated by: Dictated on workstation # [id number]
[2020-09-02 19:35] VITALS: BP 109/67
[2020-09-03] VITALS (13 sets, daily range): BP systolic 96–131; BP diastolic 62–82
[2020-09-03] MEDS: CEFEPIME INJECTION 1,000 MG in WATER (STERILE) FOR INJECTION 10 ML IV SCH ×4 (01:13→19:42)
[2020-09-03] MEDS: VANCOMYCIN 1250 MG/NS 250 ML IVPB IV SCH ×4 (02:51→16:33)
[2020-09-03] MEDS: NS IV 1000 ML 1,000 ML IV SCH ×3 (02:51→19:42)
[2020-09-03] MEDS: ACETAMINOPHEN 500 MG TAB (TYLENOL) PO SCH ×3 (06:12→22:07)
[2020-09-03] MEDS: inSUlin ASPART (NovoLOG) 1 UNIT/0.01 ML (CHARGE PER UNIT) SC SCH ×4 (06:12→21:15)
[2020-09-03] MEDS ORDERED: PROPOFOL INJECTION 50 ML IV ONE (08:34)
[2020-09-03] MEDS ORDERED: MIDAZOLAM 2 MG/2 ML (VERSED) VIAL ONE (08:35)
[2020-09-03] MEDS ORDERED: LIDOCAINE/EPI 1%-1:100,000 (XYLOCAINE) 20ML ONE (08:39)
--- NOTE | 2020-09-03 08:59 | History & Physical ---
KAL DUMAS,MED STUDENT 09/03/20 0859: HPI History of Present Illness: Upon interview patient is sleepy but moderately conversational. He reports he has had noticed redness/change in color of his toe for around a week. He had been taking antibiotics as an outpatient to help with the infection, and says it may have helped a little but didn't resolve the problem. At follow up he was admitted to the hospital from clinic due to increasing discoloration/ischemia. Today he reports no pain, no other areas of discoloration/ischemia. Feels his L foot may be slightly swollen, but otherwise feels fine. Source: patient Exam Limitations: no limitations Attending Physician Cruz Love MD [facility] [place] Consult Date of Admission Sep 02, 2020 at 13:07 Home Medications Home Medications Reviewed patient Home Medication Reconciliation performed by pharmacy medication reconciliations manufacturing technician and/or nursing. Patients Allergies have been reviewed. Allergies Coded Allergies: Penicillins (Verified Allergy, Unknown, 09/20/18) WRB-Ettymk-Fqwuja Hx Patient Social History Smoking Status: Current Everyday Smoker 2nd Hand Smoke Exposure: Yes Recent Hopitalizations: No Alcohol Use?: No Substance type: Methamphetamine, Marijuana Tobacco type used: Cigarettes Have you traveled recently?: No Immunizations Up To Date Tetanus Booster (TDap): Unknown Past Medical History DM2 - insulin dependent Amputation of R 4th Toe Depression Hx Drug Use (Amphetamine/Marijuana) Family Medical History Significant Family History: No Pertinent Family Hx Family History: Patient reports no known family medical history. Review of Systems ([facility]) Constitutional: No chills, No diaphoresis, No fever, No malaise EENTM: No hearing loss, No vision loss Respiratory: No cough, No short of breath Cardiovascular: No chest pain, No edema Gastrointestinal: No abdominal pain, No constipation, No diarrhea, No nausea Genitourinary: No dysuria, No pain Musculoskeletal: No back pain, No joint swelling, No muscle pain Skin: change in color (red/dark discoloration of L fifth toe) Psychiatric/Neurological: Denies Anxiety, Denies Depressed, Denies Headache Reviewed Test Results Reviewed Test Results Lab Laboratory Tests Test 09/02/20 13:45 09/02/20 15:42 09/02/20 21:08 09/03/20 05:10 Range/Units White Blood Count 5.9 4.3-11.0 10^3/uL Red Blood Count 4.52 4.30-5.52 10^6/uL Hemoglobin 13.3 13.3-17.7 g/dL Hematocrit 41 40-54 % Mean Corpuscular Volume 92 80-99 fL Mean Corpuscular Hemoglobin 29 25-34 pg Mean Corpuscular Hemoglobin Concent 32 32-36 g/dL Red Cell Distribution Width 12.5 10.0-14.5 % Platelet Count 166 130-400 10^3/uL Mean Platelet Volume 10.8 9.0-12.2 fL Immature Granulocyte % (Auto) 0 % Neutrophils (%) (Auto) 52 42-75 % Lymphocytes (%) (Auto) 35 12-44 % Monocytes (%) (Auto) 12 0-12 % Eosinophils (%) (Auto) 1 0-10 % Basophils (%) (Auto) 0 0-10 % Neutrophils # (Auto) 3.1 1.8-7.8 10^3/uL Lymphocytes # (Auto) 2.1 1.0-4.0 10^3/uL Monocytes # (Auto) 0.7 0.0-1.0 10^3/uL Eosinophils # (Auto) 0.1 0.0-0.3 10^3/uL Basophils # (Auto) 0.0 0.0-0.1 10^3/uL Immature Granulocyte # (Auto) 0.0 0.0-0.1 10^3/uL Sodium Level 135 135-145 MMOL/L Potassium Level 4.1 3.6-5.0 MMOL/L Chloride Level 98 98-107 MMOL/L Carbon Dioxide Level 26 21-32 MMOL/L Anion Gap 11 5-14 MMOL/L Blood Urea Nitrogen 14 7-18 MG/DL Creatinine 1.15 0.60-1.30 MG/DL Estimat Glomerular Filtration Rate > 60 BUN/Creatinine Ratio 12 Glucose Level 374 H 70-105 MG/DL Calcium Level 9.0 8.5-10.1 MG/DL Corrected Calcium 9.3 8.5-10.1 MG/DL Total Bilirubin 0.4 0.1-1.0 MG/DL Aspartate Amino Transf (AST/SGOT) 19 5-34 U/L Alanine Aminotransferase (ALT/SGPT) 25 0-55 U/L Alkaline Phosphatase 133 40-136 U/L C-Reactive Protein High Sensitivity 4.72 H 0.00-0.50 MG/DL Total Protein 7.1 6.4-8.2 GM/DL Albumin 3.6 3.2-4.5 GM/DL Glucometer 305 H 120 H 202 H 70-110 MG/DL Radiology Date of Exam:09/02/20 US LEFT LOW EXT ARTERIAL [id number] INDICATION: Diabetic with foot ulcer. FINDINGS: Real-time color Doppler imaging shows normal flow from the common femoral level through the popliteal level. Triphasic flow with normal peak velocities. There is monophasic flow noted in the anterior tibial artery with velocity of 106 cm/s. There is also monophasic flow at the dorsalis pedis artery in the foot with velocity of 55. The posterior tibial artery remains triphasic at 95 cm/s. IMPRESSION: The major vessels are widely patent. 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 Dictated on workstation # [id number] Dict: 09/02/20 1631 Trans: 09/02/20 1909 [facility] [id number] Interpreted by: JOO CARDOZA MD Date of Exam:09/02/20 FOOT, LEFT, 2 VIEW INDICATION: Diabetic wound FINDINGS: There is no soft tissue gas or opaque foreign body. No fracture or bony destructive process is apparent. We do note some swelling over the 5th toe. IMPRESSION: No gas or foreign body. Swelling about the 5th toe. No bony destruction or acute osseous pathology. Dictated by: Dictated on workstation # [id number] Dict: 09/02/20 1720 Trans: 09/02/20 1741 AC [id number] Interpreted by: JOSE J JOLLY Electronically signed by: JOSE J JOLLY 09/02/20 1437 Physical Exam-([facility]) Physical Exam Vital Signs VS - Last 72 Hours, by Label 09/02/20 09/02/20 09/02/20 09/02/20 14:28 14:29 15:37 19:35 Temp 36.5 36.3 36.2 Pulse 82 78 79 Resp 18 14 18 B/P (MAP) 128/78 (95) 130/79 (96) 109/67 (81) Pulse Ox 96 97 97 O2 Delivery Room Air Room Air Room Air Room Air 09/02/20 09/03/20 09/03/20 09/03/20 19:50 00:12 03:57 07:57 Temp 36.6 36.2 35.9 Pulse 72 72 63 Resp 17 17 16 B/P (MAP) 131/82 (98) 122/78 (93) 113/72 (86) Pulse Ox 95 96 96 O2 Delivery Room Air Room Air Room Air Room Air 09/03/20 09/03/20 09/03/20 09/03/20 08:00 12:07 12:07 12:15 Temp 36.2 Resp 16 14 B/P (MAP) 103/63 (76) 96/62 (73) Pulse Ox 100 100 O2 Delivery Room Air OxyMask OxyMask OxyMask O2 Flow Rate 8 8 6 09/03/20 09/03/20 09/03/20 09/03/20 12:25 12:25 12:35 12:45 Resp 14 14 14 B/P (MAP) 113/77 (89) 120/77 (91) 114/75 (88) Pulse Ox 99 98 97 O2 Delivery OxyMask OxyMask OxyMask Room Air O2 Flow Rate 4 6 2 Capillary Refill : General Appearance: no apparent distress Eyes: Bilateral Eye Normal Inspection HEENT: No scleral icterus (R), No scleral icterus (L) Neck: non-tender, full range of motion Respiratory: lungs clear, normal breath sounds Cardiovascular: regular rate, rhythm, no edema, no JVD Gastrointestinal: normal bowel sounds, non tender Back: no CVA tenderness Extremities: normal range of motion, other (L fifth toe with inflammation/discoloration) Neurologic/Psychiatric: alert, normal mood/affect, oriented x 3 Assessment/Plan Assessment/Plan (1) Foot infection Status: Acute Assessment & Plan: Surgery consulted for Left fifth toe cellulitis/ulceration with ischemia, with plans for amputation. Patient currently on Vancomycin and Cefepime, without signs of disease spread or systemic infection. CRUZ LOVE MD 09/03/20 1554: HPI History of Present Illness: Time Seen by Provider: 14:00 Home Medications Allergies Coded Allergies: Penicillins (Verified Allergy, Unknown, 09/20/18) LBY-Bklera-Ihdyqd Hx Family Medical History Family History: Patient reports no known family medical history. Assessment/Plan Assessment/Plan Admission Status: Inpatient Order (span 2 midnights) Reason for Inpatient Admission: Osteomyelitis and surgery (1) Foot infection Status: Acute Assessment & Plan: Surgery consulted for Left fifth toe cellulitis/ulceration with ischemia, with plans for amputation. Patient currently on Vancomycin and Cefepime, without signs of disease spread or systemic infection. (2) Osteomyelitis due to type 2 diabetes mellitus Status: Acute Assessment & Plan: s/p amputation (3) Diabetes mellitus Status: Chronic Assessment & Plan: Possible other type of DMI than type II with thin body habitus and family history of juvenile diabetes. Diabetic diet, resume home insulin. Sliding scale insulin as needed. Qualifiers: Qualified Codes: E11.621 - Type 2 diabetes mellitus with foot ulcer; L97.509 - Non-pressure chronic ulcer of other part of unspecified foot with unspecified severity; Z79.4 - group home (current) use of insulin Supervisory-Addendum Brief Verification & Attestation Participated in pt care: history, MDM, physical Personally performed: exam, history, MDM Care discussed with: Medical Student Procedures: n/a I personally saw patient and did my own history and exam. I saw patient after surgery and foot was dressed. Patient denied concerns. KAL DUMAS,MED STUDENT Sep 03, 2020 08:59 CRUZ LOVE MD Sep 03, 2020 15:54
[2020-09-03] MEDS ORDERED: LACTATED RINGERS 1,000 ML IV SCH (11:05)
[2020-09-03] MEDS ORDERED: fentaNYL INJ 100 MCG/2 ML AMP ONE (11:29)
[2020-09-03] MEDS ORDERED: ONDANSETRON 4 MG/2 ML (SDV) Z0FRAN ONE (11:36)
[2020-09-03] MEDS ORDERED: SEVOFLURANE (ULTANE) 15 ML INHAL SOLN ONE (11:36)
[2020-09-03] MEDS ORDERED: LIDOCAINE PF 2% 5 ML (XYLOCAINE) VIAL ONE (11:36)
[2020-09-03] MEDS ORDERED: PHENYLEPHRINE 100 MCG/ML 10 ML (ANESTHESIA) SYR ONE (11:45)
[2020-09-03] MEDS: inSUlin ASPART (NovoLOG) 1 UNIT/0.01 ML (CHARGE PER UNIT) SQ SCH ×2 (13:14→16:33)
--- NOTE | 2020-09-03 16:45 | Anesthesia-General Post-Op ---
General Patient Condition Mental Status/LOC: Same as Preop Cardiovascular: Satisfactory Nausea/Vomiting: Absent Respiratory: Satisfactory Pain: Controlled Complications: Absent Post Op Complications Complications None Follow Up Care/Instructions Patient Instructions None needed. Anesthesia/Patient Condition Patient Condition Patient is doing well, no complaints, stable vital signs, no apparent adverse anesthesia problems. No complications reported per nursing. ELISEO STEELE CRNA Sep 03, 2020 16:45
[2020-09-03] MEDS ORDERED: KETOROLAC 30 MG/ML VIAL IVP PRN (20:30)
[2020-09-04 00:52] VITALS: BP 114/72
[2020-09-04] MEDS: CEFEPIME INJECTION 1,000 MG in WATER (STERILE) FOR INJECTION 10 ML IV SCH ×4 (00:56→18:29)
--- NOTE | 2020-09-04 00:59 | OPERATIVE REPORT ---
DATE OF SERVICE: 09/03/2020 PREOPERATIVE DIAGNOSIS: Left fifth toe open wound and ischemia. POSTOPERATIVE DIAGNOSIS: Left fifth toe open wound and ischemia. PROCEDURE: Left foot block and left fifth toe amputation. SURGEON: Allen Yun DO ANESTHESIA: LMA with left foot block. ESTIMATED BLOOD LOSS: Minimal. COMPLICATIONS: None. INDICATIONS: The patient is a 54-year-old male who is an insulin-dependent diabetic. He presented with ischemic and ulcerated left fifth toe. This does not appear to be salvageable. The patient was discussed management options and wished to proceed with procedure. Consent was signed and on the chart. DESCRIPTION OF PROCEDURE: The patient was taken to the operating suite. Left ankle and foot were prepped and draped in a sterile fashion. Timeout was performed. A left foot block was performed on the medial and lateral aspect of the ankle and on the proximal dorsum of the foot providing adequate nerve block. A 15 blade scalpel was then used to circumferentially cut around the left fifth toe at the base, removing all the ischemic appearing tissue. Cautery was then used to dissect down through the subcutaneous tissues to where the metatarsal head is and the left fifth toe was then amputated completely. No other evidence of any infection present. Good bleeding tissue present. The wound was then irrigated with copious amounts of irrigation and packed with iodoform gauze and sterile bandage was applied. The patient tolerated procedure well without any complications. He was taken to the recovery room in stable condition. Job ID: [id number] DocumentID: [id number] Dictated Date: 09/03/2020 22:01:00 Design Drafter Date: 09/04/2020 00:58:25 Dictated By: ALLEN YUN DO
[2020-09-04] MEDS ORDERED: TROUGH ORDER-PHARMACY XX NR (02:00)
[2020-09-04] MEDS: VANCOMYCIN 1250 MG/NS 250 ML IVPB IV SCH ×4 (02:10→15:33)
[2020-09-04 03:38] VITALS: BP 116/77
[2020-09-04] MEDS: NS IV 1000 ML 1,000 ML IV SCH ×2 (05:47→15:33)
[2020-09-04] MEDS: inSUlin ASPART (NovoLOG) 1 UNIT/0.01 ML (CHARGE PER UNIT) SC SCH ×4 (06:55→20:46)
[2020-09-04] MEDS: ACETAMINOPHEN 500 MG TAB (TYLENOL) PO SCH ×3 (06:56→21:40)
[2020-09-04] MEDS: inSUlin ASPART (NovoLOG) 1 UNIT/0.01 ML (CHARGE PER UNIT) SQ SCH ×3 (06:56→17:59)
[2020-09-04 08:22] LABS: HEMOGLOBIN 12.7 g/dL (13.3-17.7); MEAN PLATELET VOLUME 10.7 fL (9.0-12.2); WHITE BLOOD COUNT 5.4 10^3/uL (4.3-11.0)
--- NOTE | 2020-09-04 11:04 | Progress Note ---
KAL DUMAS,MED STUDENT 09/04/20 1104: Subjective Subjective/Events-last exam Reports he is doing well today, slept well. Normal appetite, denies nausea/vomiting. Pain in L foot is 4/10, but doesn't want any Tylenol/Toradol at this time. He is amenable to taking whatever insulin dosing is needed today. Review of Systems General: No Chills, No Night Sweats HEENT: No Head Aches Pulmonary: No Dyspnea Cardiovascular: No: Chest Pain, Palpitations Gastrointestinal: No: Nausea, Vomiting, Abdominal Pain Genitourinary: No Dysuria Musculoskeletal: foot pain (4/10 pain in L foot) Neurological: No: Weakness, Numbness Objective Exam Last Set of Vital Signs Vital Signs Date Time Temp Pulse Resp B/P (MAP) Pulse Ox O2 Delivery O2 Flow Rate FiO2 09/04/20 08:00 96 Room Air 09/04/20 03:38 36.4 73 16 116/77 (90) 09/03/20 12:35 2 Capillary Refill : I&O Intake and Output 09/04/20 00:00 Intake Total 3594.5 ml Output Total 550 ml Balance 3044.5 ml Intake Oral 1200 ml IV Total 2394.5 ml Output Urine Total 550 ml # Voids 3 General: Alert, Oriented X3, No Acute Distress HEENT: Atraumatic Neck: Supple, No JVD Lungs: Clear to Auscultation Heart: Regular Rate, Normal S1, Normal S2 Abdomen: Normal Bowel Sounds Extremities: No Edema, Other (L foot wrapped, no erythema/edema appreciated) Skin: No Rashes Neuro: Normal Speech, Normal Tone Psych/Mental Status: Mental Status NL, Mood NL Results/Procedures Lab Laboratory Tests 09/03/20 12:14: Glucometer 259H 09/03/20 16:17: Glucometer 316H 09/03/20 20:06: Glucometer 57*L 09/03/20 21:01: Glucometer 94 09/04/20 01:10: Vancomycin Level Trough 10.9 09/04/20 06:47: Glucometer 352H 09/04/20 08:17: White Blood Count 5.4, Red Blood Count 4.31, Hemoglobin 12.7L, Hematocrit 40, Mean Corpuscular Volume 92, Mean Corpuscular Hemoglobin 30, Mean Corpuscular Hemoglobin Concent 32, Red Cell Distribution Width 12.4, Platelet Count 180, Mean Platelet Volume 10.7 Microbiology 09/02/20 MRSA Screen - Final, Complete MRSA not isolated 09/02/20 Blood Culture - Preliminary, Resulted No growth Radiology Date of Exam:09/02/20 US LEFT LOW EXT ARTERIAL [id number] INDICATION: Diabetic with foot ulcer. FINDINGS: Real-time color Doppler imaging shows normal flow from the common femoral level through the popliteal level. Triphasic flow with normal peak velocities. There is monophasic flow noted in the anterior tibial artery with velocity of 106 cm/s. There is also monophasic flow at the dorsalis pedis artery in the foot with velocity of 55. The posterior tibial artery remains triphasic at 95 cm/s. IMPRESSION: The major vessels are widely patent. 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 Dictated on workstation # [id number] Dict: 09/02/20 1631 Trans: 09/02/20 1909 [facility] [id number] Interpreted by: JOO CARDOZA MD Date of Exam:09/02/20 FOOT, LEFT, 2 VIEW INDICATION: Diabetic wound FINDINGS: There is no soft tissue gas or opaque foreign body. No fracture or bony destructive process is apparent. We do note some swelling over the 5th toe. IMPRESSION: No gas or foreign body. Swelling about the 5th toe. No bony destruction or acute osseous pathology. Dictated by: Dictated on workstation # [id number] Dict: 09/02/20 1720 Trans: 09/02/20 174 [facility] [id number] Interpreted by: JOSE J JOLLY Electronically signed by: JOSE J JOLLY 09/02/20 483 Assessment/Plan Assessment/Plan (1) Foot infection Status: Acute Assessment & Plan: S/p amputation of L 5th toe. Patient currently on Vancomycin and Cefepime, without signs of disease spread or systemic infection. (2) Osteomyelitis due to type 2 diabetes mellitus Status: Acute Assessment & Plan: s/p amputation (3) Diabetes mellitus Status: Chronic Assessment & Plan: Possible other type of DMI than type II with thin body habitus and family history of juvenile diabetes. Diabetic diet, resume home insulin. Sliding scale insulin as needed. 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 Patient currently on Vancomycin and Cefepime, without signs of disease spread or systemic infection. 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 Supervisory-Addendum Brief Verification & Attestation Participated in pt care: history, MDM, physical Personally performed: exam Care discussed with: Medical Student Procedures: n/a I personally saw and examined this patient and did my own history and exam which confirmed that documented by the medical student. I directed the plan of care as documented. KAL DUMAS,MED STUDENT Sep 04, 2020 11:04 CRUZ LOVE MD Sep 04, 2020 15:16
[2020-09-04 11:28] VITALS: BP 118/71
--- NOTE | 2020-09-04 13:08 | Progress Note - Surgery ---
Subjective Date Seen by a Provider: Sep 04, 2020 Time Seen by a Provider: 13:06 Subjective/Events-last exam Patient states he is doing okay. He still has moderate pain in the left foot which he states is not under control. He like to have something stronger. No other complaints. He states the redness is improved. No new complaints. Denies any nausea vomiting fever sweats chills shortness of breath or chest pain. Objective Exam Vital Signs Date Time Temp Pulse Resp B/P (MAP) Pulse Ox O2 Delivery O2 Flow Rate FiO2 09/04/20 11:28 36.5 71 16 118/71 (87) 95 Room Air 09/04/20 08:00 96 Room Air 09/04/20 03:38 36.4 73 16 116/77 (90) 96 Room Air 09/04/20 00:52 36.9 72 16 114/72 (86) 96 Room Air 09/03/20 20:25 Room Air 09/03/20 19:27 36.5 77 16 121/71 (88) 98 Room Air 09/03/20 16:05 36.2 70 16 110/66 (81) 97 Room Air 09/03/20 13:46 36.4 69 14 114/65 (81) 96 Room Air I & O 09/04/20 07:00 Intake Total 2982.5 ml Output Total 1125 ml Balance 1857.5 ml Capillary Refill : General Appearance: No Apparent Distress, WD/WN HEENT: PERRL/EOMI Neck: Full Range of Motion Respiratory: Chest Non Tender, No Accessory Muscle Use, No Respiratory Distress Cardiovascular: Regular Rate, Rhythm, No JVD Gastrointestinal: normal bowel sounds, non tender Extremity: Other (Left fifth toe open wound after amputation nice and clean no signs of infection, surrounding erythema decreased) Neurologic/Psychiatric: Alert, Oriented x3, No Motor/Sensory Deficits, Normal Mood/Affect, 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 Norm as Tested Skin: Normal Color, Warm/Dry Lymphatic: No Adenopathy Results Lab Laboratory Tests 09/03/20 16:17: Glucometer 316H 09/03/20 20:06: Glucometer 57*L 09/03/20 21:01: Glucometer 94 09/04/20 01:10: Vancomycin Level Trough 10.9 09/04/20 06:47: Glucometer 352H 09/04/20 08:17: White Blood Count 5.4, Red Blood Count 4.31, Hemoglobin 12.7L, Hematocrit 40, Mean Corpuscular Volume 92, Mean Corpuscular Hemoglobin 30, Mean Corpuscular Hemoglobin Concent 32, Red Cell Distribution Width 12.4, Platelet Count 180, Mean Platelet Volume 10.7 09/04/20 11:31: Glucometer 356H Microbiology 09/02/20 MRSA Screen - Final, Complete MRSA not isolated 09/02/20 Blood Culture - Preliminary, Resulted No growth Assessment/Plan Assessment/Plan Assessment/Plan Left foot cellulitis Left fifth ischemic toe with ulceration, status post left fifth amputation Insulin-dependent diabetes Tobacco abuse Illicit drug use Patient with continued daily wound care. Wound looks good likely home tomorrow but will need close follow-up secondary to wound care needs. Likely need home health unless he has some me that can help him with dressing changes. Pain control ALLEN SILVERMAN DO Sep 04, 2020 13:08
[2020-09-04 16:07] VITALS: BP 119/76
--- NOTE | 2020-09-04 16:43 | Consultation-Cardiology ---
HPI-Cardiology Cardiology Consultation: Date of Consultation 09/04/20 Time Seen by a Provider: 12:30 Date of Admission Attending Physician Yaz Mares MD Admitting Physician [facility] Consulting Physician OLMAN AVILES MD, MA, FACP, FACC, [facility], [facility] Physician requesting consult: Dr Mares HPI: Chief Complaint: Reason for consultation: PAD HPI 54 yo man with DM II, insulin requiring, and chronic tobacco use who was admitted with several days of progressive discoloration of the L 5th toe, was diagnosed with osteomyelitis and has had that toe amputated. A noninvasive w/u has indicated severe ant tibial / dorsalis pedis disease on the L. The pt does not report any symptoms of claudication, but does note amputation of the 4th toe on the R under similar circumstances several years ago. Denies cp or palp or syncope or shortness of breath or swelling Review of Systems-Cardiology Review of Systems Constitutional: No malaise, No tiredness, No weight loss, No weight gain Eyes: No vision change Ears/Nose/Throat: No ear discharge, No nasal drainage, No recent hearing loss Respiratory: As described under HPI Cardiovascular: As described under HPI Gastrointestinal: No diarrhea, No nausea, No vomiting Genitourinary: No dysuria, No hematuria, No urine frequency changes Musculoskeletal: No back pain, No neck pain Skin: As described under HPI Psychiatric/Neurological: No seizure, No focal weakness, No syncope Hematologic: No bleeding abnormalities All Other Systems Reviewed Negative Unless Noted: Yes (Negative excepted noted.) ILY-Fpapuc-Qbfkix Hx Patient Social History Smoking Status: Current Everyday Smoker 2nd Hand Smoke Exposure: Yes Have you traveled recently?: No Alcohol Use?: No Substance type: Methamphetamine, Marijuana Pt feels they are or have been: No Tobacco type used: Cigarettes Immunizations Up To Date Tetanus Booster (TDap): Unknown Past Medical History PMH As described under Assessment. Family Medical History Family History: Patient reports no known family medical history. Allergies and Home Medications Allergies Coded Allergies: Penicillins (Verified Allergy, Unknown, 09/20/18) Home Medications Clindamycin HCl 300 Mg Capsule, 300 MG PO QID, (Reported) FILLED 08-31-2020 #20 Last Action: Held Insulin Aspart 100 Unit/1 Ml Insuln.pen, 6 UNIT SQ AC, (Reported) Last Action: Converted Insulin Glargine,Hum.rec.anlog 100 Unit/1 Ml Insuln.pen, 30 UNIT SQ HS, (Reported) Last Action: Converted Patient Home Medication List Home Medication List Reviewed: Yes Physical Exam-Cardiology Physical Exam Vital Signs/I&O 09/04/20 09/04/20 09/04/20 08:00 11:28 16:07 Temp 36.5 36.2 Pulse 71 75 Resp 16 20 B/P (MAP) 118/71 (87) 119/76 (90) Pulse Ox 96 95 96 O2 Delivery Room Air Room Air Room Air 09/04/20 00:00 Intake Total 2322.5 ml Output Total 550 ml Balance 1772.5 ml Capillary Refill : Constitutional: AAO x 3, well-developed, well-nourished HEENT: EOMI, hearing is well preserved; No xanthelasmas are seen Neck: carotid pulses are 2 + bilaterally, with good upstrokes Respiratory: No accessory muscle use; lungs clear to percussion, lungs clear to auscultation Cardiovascular: regular rate-rhythm, S1 and S2, systolic murmur (faint JOSELYN at card base) Gastrointestinal: No tender; soft; No guarding, No rebound; audible bowel sounds Extremities: No clubbing, No cyanosis, No significant edema Neurologic/Psychiatric: oriented x 3, other (moves all limbs equally) Skin: No rash on exposed areas, No ulcerations on exposed areas Lymphatic: no adenopathy Data Review Labs Laboratory Tests 09/03/20 20:06: Glucometer 57*L 09/03/20 21:01: Glucometer 94 09/04/20 01:10: Vancomycin Level Trough 10.9 09/04/20 06:47: Glucometer 352H 09/04/20 08:17: White Blood Count 5.4, Red Blood Count 4.31, Hemoglobin 12.7L, Hematocrit 40, Mean Corpuscular Volume 92, Mean Corpuscular Hemoglobin 30, Mean Corpuscular Hemoglobin Concent 32, Red Cell Distribution Width 12.4, Platelet Count 180, Mean Platelet Volume 10.7 09/04/20 11:31: Glucometer 356H 09/04/20 15:32: Glucometer 170H Microbiology 09/02/20 MRSA Screen - Final, Complete MRSA not isolated 09/02/20 Blood Culture - Preliminary, Resulted No growth Laboratory Tests 09/04/20 08:17 A/P-Cardiology Assessment/Admission Diagnosis PAD. Noninvasive w/u has indicated severe stenosis of the L ant tib / dorsalis pedis S/p L 5 toe amputation for osteomyelitis. Prior h/o R 4 toe amputation Chronic tobacco use (smokes cigarettes) Discussion and Recomendations * He appears to have severe PAD that appears to be contributing to his current condition (osteomyelitis of the L 5th toe that had to be amputated) * We recommend peripheral angio with possible ad hoc PCI * Rationale, procedure, risks, benefits, potential complications, and alternative of above procedures reviewed with him and questions answered. He understands and provides informed consent. Plan for tomorrow * I called Dr Mares on the phone and discussed the case with her OLMAN AVILES MD FACP FACC CCDS Sep 04, 2020 16:42
[2020-09-04 19:47] VITALS: BP 108/59
[2020-09-04] MEDS: HYDROcodone/APAP 5 MG/325 MG (LORTAB) TAB PO PRN (19:55)
[2020-09-04 23:56] VITALS: BP 118/75
[2020-09-05] VITALS (10 sets, daily range): BP systolic 100–138; BP diastolic 62–77
[2020-09-05] MEDS: CEFEPIME INJECTION 1,000 MG in WATER (STERILE) FOR INJECTION 10 ML IV SCH ×3 (00:30→14:05)
[2020-09-05] MEDS: NS IV 1000 ML 1,000 ML IV SCH ×2 (03:05→08:53)
[2020-09-05] MEDS: VANCOMYCIN 1250 MG/NS 250 ML IVPB IV SCH ×2 (03:05)
[2020-09-05] MEDS: HYDROcodone/APAP 5 MG/325 MG (LORTAB) TAB PO PRN (03:50)
[2020-09-05] MEDS: ACETAMINOPHEN 500 MG TAB (TYLENOL) PO SCH (05:47)
[2020-09-05] MEDS ORDERED: NS IV 1000 ML 1,000 ML IV SCH ×2 (06:00→09:15)
[2020-09-05 06:01] LABS: HEMOGLOBIN 12.3 g/dL (13.3-17.7); MEAN PLATELET VOLUME 10.7 fL (9.0-12.2); WHITE BLOOD COUNT 6.3 10^3/uL (4.3-11.0)
[2020-09-05 06:21] LABS: BUN/CREATININE RATIO 19; CALCIUM 7.9 MG/DL (8.5-10.1); CARBON DIOXIDE 28 MMOL/L (21-32); CHLORIDE 103 MMOL/L (98-107); CREATININE SERUM 0.96 MG/DL (0.60-1.30); GFR ESTIMATED > 60; GLUCOSE 164 MG/DL (70-105); POTASSIUM 4.1 MMOL/L (3.6-5.0); SODIUM 136 MMOL/L (135-145)
[2020-09-05] MEDS: inSUlin ASPART (NovoLOG) 1 UNIT/0.01 ML (CHARGE PER UNIT) SC SCH ×2 (06:27→11:25)
[2020-09-05] MEDS ORDERED: HEParin (CATH LAB) 2,000 ML IV ONE (06:34)
[2020-09-05] MEDS ORDERED: LIDOCAINE 1% INJ 20 ML 20 ML VIAL ONE (06:34)
[2020-09-05 06:50] LABS: INR 0.9 (0.8-1.4); PROTHROMBIN TIME PATIENT 12.2 SEC (12.2-14.7)
[2020-09-05] MEDS: inSUlin ASPART (NovoLOG) 1 UNIT/0.01 ML (CHARGE PER UNIT) SQ SCH ×2 (07:34→11:00)
[2020-09-05] MEDS ORDERED: fentaNYL INJ 100 MCG/2 ML AMP ONE (07:34)
[2020-09-05] MEDS ORDERED: MIDAZOLAM 5 MG/5 ML (VERSED) VIAL ONE (07:34)
[2020-09-05] MEDS ORDERED: NS IV 1000 ML 1,000 ML ONE (08:15)
[2020-09-05] MEDS ORDERED: PATIENT MAY USE OWN MEDS, ALL PO SCH (09:15)
--- NOTE | 2020-09-05 09:24 | Progress Note - Cardiology ---
Cardiology SOAP Progress Note Subjective: No cp or palp or syncope or shortness of breath No n/v/d No leg discomfort or discoloration Objective: I&O/Vital Signs 09/04/20 09/05/20 09/05/20 23:56 03:01 07:14 Temp 37.0 36.3 36.3 Pulse 74 68 63 Resp 16 16 16 B/P (MAP) 118/75 (89) 103/62 (76) 100/66 (77) Pulse Ox 95 95 93 O2 Delivery Room Air Room Air Room Air 09/04/20 23:59 Intake Total 2820 ml Output Total 2350 ml Balance 470 ml Weight (Pounds): 168 Weight (Ounces): 9.0 Weight (Calculated Kilograms): 76.692032 Constitutional: AAO x 3, well-developed, well-nourished Respiratory: No accessory muscle use; lungs clear to percussion, lungs clear to auscultation Cardiovascular: regular rate-rhythm, S1 and S2, systolic murmur (faint JOSELYN at card base) Gastrointestional: No tender; soft; No guarding, No rebound; audible bowel sounds Extremities: No clubbing, No cyanosis, No significant edema Neurologic/Psychiatric: oriented x 3, other (moves all limbs equally) Skin: No rash on exposed areas, No ulcerations on exposed areas Results/Procedures: Labs Laboratory Tests 09/04/20 11:31: Glucometer 356H 09/04/20 15:32: Glucometer 170H 09/04/20 20:24: Glucometer 373H 09/05/20 00:02: Glucometer 182H 09/05/20 05:14: White Blood Count 6.3, Red Blood Count 4.23L, Hemoglobin 12.3L, Hematocrit 39L, Mean Corpuscular Volume 92, Mean Corpuscular Hemoglobin 29, Mean Corpuscular Hemoglobin Concent 32, Red Cell Distribution Width 12.4, Platelet Count 185, Mean Platelet Volume 10.7, Prothrombin Time 12.2, INR Comment 0.9, Activated Partial Thromboplast Time 29, Sodium Level 136, Potassium Level 4.1, Chloride Level 103, Carbon Dioxide Level 28, Anion Gap 5, Blood Urea Nitrogen 18, Creatinine 0.96, Estimat Glomerular Filtration Rate > 60, BUN/Creatinine Ratio 19, Glucose Level 164H, Calcium Level 7.9L Microbiology 09/02/20 MRSA Screen - Final, Complete MRSA not isolated 09/02/20 Blood Culture - Preliminary, Resulted No growth A/P: Assessment: PAD (reported on u/s of 09/02/20, but not seen on peripheral angio of 09/05/20). - Noninvasive w/u (u/s on 09/02/20) has indicated trifurcation disease and severe stenosis of the L ant tib / dorsalis pedis - Peripheral angio of 09/05/20 does not show any significant PAD S/p L 5 toe amputation for osteomyelitis. Prior h/o R 4 toe amputation DM II, insulin requiring Chronic tobacco use (smokes cigarettes) Plan: * I discussed his angio findings with him (see above) * Advised to refrain from smoking immediately and completely * ASA 81 mg daily * Outpt f/u advised, given cardiac risk factors * Ok to d/c from cardiac standpoin OLMAN AVILES MD FACP FAC CCDS Sep 05, 2020 09:24
[2020-09-05] MEDS ORDERED: ACHD5005 PO (11:33)
--- NOTE | 2020-09-05 11:39 | D/C HH Face to Face Order ---
D/C Face to Face Orders Instructions for Patient Via [facility], Patient Instructions/FollowUp: Follow up with Dr. Yun as directed. Follow up with Dr. Diaz at [facility] on September 12 at 1:20 pm. Physician to follow Patient: Dr. Kumar Discharge Diet for Home: ADA Diet Patient Data-Allergies,Ht & Wt Patient Allergies: Coded Allergies: Penicillins (Verified Allergy, Unknown, 09/20/18) Height (Feet): 6 Height (Inches): 1.00 Weight (Pounds): 168 Weight (Ounces): 9.0 Home Health Need/Face to Face Date of Face to Face: Sep 05, 2020 Clinical Findings: Non or partial weight bearing I have seen Pt [id number]: Yes Discharged To: Home Diagnosis/Conditions: Osteomyelitis of left fifth toe, s/p amputation Uncontrolled diabetes Peripheral vascular disease Patient is Homebound due to: Pain w/ambulation Homebound Status Due to the above stated illness, injury or surgical procedure (medical condition or diagnosis) and associated clinical findings, the patient is ho mebound because of his/her inability to leave home except with aid of a supportive device and/or person AND leaving the home requires a considerable and taxing effort or is medically contraindicated. Pt req the following assistanc: Aid of another person Home Health Nursing Orders Home Health Services Order: Nursing Services, Physical Therapy-Evaluate & Treat Change dressing to foot daily- iodoform pack into wound, cover with adaptic, gauze, secure with kerlix/medipore tape. Weight bearing as tolerated. Home Health Infusion Therapy Line Start Date: Sep 02, 2020 Certify Stmt I certify that this patient is under my care and that I, a nurse practitioner or a physician; a access services assistant working with me, had a face to face encounter that - meets the physician face to face encounter requirements with this patient as dated. CRUZ LOVE MD Sep 05, 2020 11:39
[2020-09-05] MEDS ORDERED: ASPI-1238 PO (11:40)
--- NOTE | 2020-09-05 12:53 | Discharge Summary ---
KAL DUMSA,MED STUDENT 09/05/20 1240: Discharge Summary Hospital Course Problems/Diagnosis: (1) Foot infection Status: Acute Assessment & Plan: S/p amputation of L 5th toe. Patient currently on Vancomycin and Cefepime, without signs of disease spread or systemic infection. (2) Diabetes mellitus Status: Chronic Assessment & Plan: Levemir 30u Qhs, with Aspart sliding scale. Qualifiers: Qualified Codes: E11.621 - Type 2 diabetes mellitus with foot ulcer; L97.509 - Non-pressure chronic ulcer of other part of unspecified foot with unspecified severity; Z79.4 - emt intermediate (current) use of insulin (3) Osteomyelitis due to type 2 diabetes mellitus Status: Acute Assessment & Plan: S/p L 5th toe amputation. (4) ASCVD (arteriosclerotic cardiovascular disease) Status: Chronic Assessment & Plan: Cardiology consulted for left anterior tibial artery stenosis. No acute procedures, but started on ASA 81mg and advised of smoking cessation. Hospital Course Date of Admission: Sep 02, 2020 at 13:07 Admission Diagnosis : Family Physician/Provider: [facility] Date of Discharge: 09/05/20 Discharge Diagnosis: Osteomyelitis due to T2DM Hospital Course: Liam Terry is a 54yo male who presented with discoloration/ischemia of his left 5th toe for around a week, after failing outpatient antibiotic therapy. He was found to have osteomyelitis of his left 5th toe, and surgery proceeded with amputation. He was treated empirically with Vancomycin and Cefepime, and remained afebrile without signs of systemic spread. His hyperglycemia due to type 2 Diabetes Mellitus was treated with Detemir 30u Qhs and Aspart sliding scale. He had two episodes of hypoglycemia due to his NPO status for his procedures. Cardiology was consulted after lower extremity ultrasound showed trifurcation disease with high grade stenosis of anterior tibial and distal dorsalis pedis artery. No acute interventions were necessary during the hospitalization. On discharge advised about smoking cessation and to start taking Aspirin 81mg. Labs and Pending Lab Test: Laboratory Tests 09/04/20 15:32: Glucometer 170H 09/04/20 20:24: Glucometer 373H 09/05/20 00:02: Glucometer 182H 09/05/20 05:14: White Blood Count 6.3, Red Blood Count 4.23L, Hemoglobin 12.3L, Hematocrit 39L, Mean Corpuscular Volume 92, Mean Corpuscular Hemoglobin 29, Mean Corpuscular Hemoglobin Concent 32, Red Cell Distribution Width 12.4, Platelet Count 185, Mean Platelet Volume 10.7, Prothrombin Time 12.2, INR Comment 0.9, Activated Partial Thromboplast Time 29, Sodium Level 136, Potassium Level 4.1, Chloride Level 103, Carbon Dioxide Level 28, Anion Gap 5, Blood Urea Nitrogen 18, Creatinine 0.96, Estimat Glomerular Filtration Rate > 60, BUN/Creatinine Ratio 19, Glucose Level 164H, Calcium Level 7.9L 09/05/20 10:23: Glucometer 46*L Microbiology 09/02/20 MRSA Screen - Final, Complete MRSA not isolated 09/02/20 Blood Culture - Preliminary, Resulted No growth Home Meds Active Aspirin EC (Aspirin) 81 Mg Tablet.dr 81 Mg PO DAILY HYDROcodone/APAP 5 MG/325 MG TAB (Acetaminophen/Hydrocodone Bitart) 1 Tab Tab 1 Ea PO Q6HR PRN Reported Lantus Solostar (Insulin Glargine,Hum.rec.anlog) 100 Unit/1 Ml Insuln.pen 30 Unit SQ HS Insulin Aspart Flexpen (Insulin Aspart) 100 Unit/1 Ml Insuln.pen 6 Unit SQ AC Clindamycin HCl 300 Mg Capsule 300 Mg PO QID FILLED 08-31-2020 #20 Discharge Physical Examination Allergies: Coded Allergies: Penicillins (Verified Allergy, Unknown, 09/20/18) General Appearance: No Apparent Distress, WD/WN HEENT: PERRL/EOMI Respiratory: Lungs Clear, Normal Breath Sounds Cardiovascular: Regular Rate, Rhythm, No Edema Gastrointestinal: Normal Bowel Sounds, Non Tender, Soft Extremity: No Pedal Edema, Other (healing wound on L foot) Skin: Normal Color, Warm/Dry Neurologic/Psychiatric: Alert, Oriented x3 Discharge Summary Date of Admission Sep 02, 2020 at 13:07 Date of Discharge Discharge Date: Sep 05, 2020 CRUZ LOVE MD 09/05/20 1327: Discharge Summary Hospital Course Assessment/Pt DC Instructions Plan to complete previous course of clindamycin on d/c per Surgery recommendations. Weight bearing as tolerated. Home health ordered. Discharge Diet: ADA Diet Activity as Tolerated: Yes Discharge Physical Examination Allergies: Coded Allergies: Penicillins (Verified Allergy, Unknown, 09/20/18) Supervisory-Addendum Brief Verification & Attestation Participated in pt care: history, MDM, physical Personally performed: exam, history, MDM Care discussed with: Medical Student Procedures: n/a I saw and examined patient and agree with student documentation. KAL DUMAS,MED STUDENT Sep 05, 2020 12:40 CRUZ LOVE MD Sep 05, 2020 13:27
--- NOTE | 2020-09-05 16:09 | CARDIAC CATHETERIZATION ---
DATE OF SERVICE: 09/05/2020 PERIPHERAL ANGIOGRAPHY REPORT The patient is a 54-year-old gentleman who recently had amputation of the left fifth toe that was exhibiting ischemia and ulceration. 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 Accordingly, peripheral angiography was carried out and informed consent was obtained for peripheral angiography and possible ad hoc intervention. DESCRIPTION OF PROCEDURE: He was brought to the cardiac catheterization laboratory in a fasting state. Right groin was prepared and draped in the usual sterile fashion. Lidocaine 1% was used for local anesthesia. Modified Seldinger technique was used to advance a 5-Georgian sheath in right femoral artery. A 5-Georgian pigtail catheter was used to carry out abdominal aortic angiography. The pigtail catheter was then pulled back to just above the level of the aortoiliac bifurcation and bilateral leg artery angiography was carried out down to the level of the ankles. Subsequently, we used a 5-Georgian crossover catheter and advanced a Storq wire into the left superficial femoral artery. The crossover catheter was removed and we advanced a straight catheter into the distal part of the left superficial femoral artery and carried out selective angiography of the distal left superficial femoral artery and the trifurcation vessels down to the level of the ankles. The catheter was then removed. Angiography of the right femoral artery was carried out through the sheath. Mynx was used to achieve hemostasis. He tolerated the procedure well. ABDOMINAL AORTIC ANGIOGRAPHY: Abdominal aortic angiography did not indicate any significant abdominal aortic aneurysm or dissection. No abdominal aortic stenosis is seen. The aortoiliac bifurcation is intact and does not exhibit significant disease. BILATERAL LEG ARTERY ANGIOGRAPHY: Bilateral leg artery angiography did not indicate any significant disease of the iliac arteries, common femoral arteries, popliteal arteries, or the distal vessels of the legs. 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 Selective angiography did not indicate any significant disease of the left popliteal artery or of the trifurcation arteries on the left side. CONCLUSIONS: No significant peripheral arterial disease seen on this peripheral angiographic study. Job ID: [id number] DocumentID: [id number] Dictated Date: 09/05/2020 10:30:59 Sandwich Hand Date: 09/05/2020 16:08:15 Dictated By: OLMAN AVILES MD, MA, FACP, FACC,
--- NOTE | 2020-09-05 18:32 | Cardiac Procedure Note-CS/ASA ---
Pre-Procedure Note Pre-Op Procedure Note H&P Reviewed The H&P was reviewed, patient examined and no changes noted. Date H&P Reviewed: Sep 05, 2020 Time H&P Reviewed: 08:30 Conscious Sedation Pre-Proced Time 08:30 ASA Score 3 For ASA 3 and 4: Consider anesthesia and medical clearance. Also, for patients with a history of failed moderate sedation consider anesthesia. Airway Lungs Heart ASA score ASA 1: a normal healthy patient ASA 2: a patient with a mild systemic disease (mid diabetes, controlled hypertension, obesity ASA 3: a patient with a severe systemic disease that limits activity (angina, COPD, prior Myocardial infarction) ASA 4: a patient with an incapacitating disease that is a constant threat to life (CHF, renal failure) ASA 5: a moribund patient not expected to survive 24 hrs. (ruptured aneurysm) ASA 6: a declared brain- patient whose organs are being harvested. For emergent operations, add the letter E after the classification Mallampati Classification Grade 2 Sedation Plan Analgesia, Amnesia, Plan communicated to team members, Discussed options with patient/fam, Discussed risks with patient/fam The patient is an appropriate candidate to undergo the planned procedure, sedation, and anesthesia. The patient immediately re-assessed prior to indication. OLMAN AVILES MD FACP FAC CCDS Sep 05, 2020 18:32
== END 2020-09-05 15:00 | disposition home health service (06) | DRG 617 ==
LOC: 4TH 13:07 → EEVIPCON 13:07 → 4TH 13:27
PROVIDERS: ADMIT Family Medicine; ATTEND Family Medicine
PROC: 0Y6Y0Z0 Detachment at Left 5th Toe, Complete, Open Approach (ICD-10-PCS; principal; 2020-09-03 11:30)
PROC: B410YZZ Fluoroscopy of Abdominal Aorta using Other Contrast (ICD-10-PCS; 2020-09-05)
PROC: B41JYZZ Fluoroscopy of Other Lower Arteries using Other Contrast (ICD-10-PCS; 2020-09-05)
PROC: B41FYZZ Fluoroscopy of Right Lower Extremity Arteries using Other Contrast (ICD-10-PCS; 2020-09-05)
PROC: B41GYZZ Fluoroscopy of Left Lower Extremity Arteries using Other Contrast (ICD-10-PCS; 2020-09-05)
DX: E11.69 Type 2 diabetes mellitus with other specified complication (principal); M86.9 Osteomyelitis, unspecified; L03.116 Cellulitis of left lower limb; E11.51 Type 2 diabetes mellitus with diabetic peripheral angiopathy without gangrene; E11.621 Type 2 diabetes mellitus with foot ulcer; E11.65 Type 2 diabetes mellitus with hyperglycemia; L97.529 Non-pressure chronic ulcer of other part of left foot with unspecified severity; Z79.4 Long term (current) use of insulin; L03.032 Cellulitis of left toe; Z88.0 Allergy status to penicillin; F32.9 Major depressive disorder, single episode, unspecified; F17.210 Nicotine dependence, cigarettes, uncomplicated; I25.10 Atherosclerotic heart disease of native coronary artery without angina pectoris; F15.90 Other stimulant use, unspecified, uncomplicated
CPT/HCPCS: 36415; 73620; 75625; 75716; 80048; 80053; 80202; 82947; 85025; 85027; 85610; 85730; 86141; 87040; 87081; 93926

== ENCOUNTER 2021-01-22 14:17 | Inpatient (IN) | payer SELFPAY ==
[~2021-01-22] VITALS: Ht 185 cm; Wt 77.0 kg
[~2021-01-22 14:17] MED LIST changes: +ACHD5005 PO; +ASPI-1238 PO; +INSU100I10 SQ; +INSU100I55 SQ
--- NOTE | 2021-01-22 14:48 | ED GI ---
General Stated Complaint: DKA Source of Information: Patient Exam Limitations: Physical Impairments History of Present Illness Date Seen by Provider: Jan 22, 2021 Time Seen by Provider: 14:36 Initial Comments Patient is a 55-year-old male who presents to the emergency department with a chief complaint of concern for DKA. Patient states that he has been sick for a couple of days, dry heaving. He has not apparently used his insulin in 24 hours. He states he has not done this because he has been vomiting. History is difficult to obtain as the patient feels so sick and will not answer questions because he states that he is going to vomit. When I asked him if he is allergic to anything he says "I do not know" or "I can answer because I am about to vomit". Timing/Duration: 1-2 Days Severity/Quality: Severe Location: Generalized Abdomen Modifying Factors: Improves With Vomiting Associated Symptoms: Nausea/Vomiting Allergies and Home Medications Allergies Coded Allergies: Penicillins (Verified Allergy, Unknown, 09/20/18) Patient Home Medication List Home Medication List Reviewed: Yes Aspirin (Aspirin EC) 81 Mg Tablet.dr, 81 MG PO DAILY Prescribed by: CRUZ LOVE on 09/05/20 1140 Clindamycin HCl (Clindamycin HCl) 300 Mg Capsule, 300 MG PO QID, (Reported) Entered as Reported by: KAL MARTINEZ on 11/30/19 0026 Hydrocodone Bit/Acetaminophen (HYDROcodone/APAP 5 MG/325 MG TAB) 1 Tab Tab, 1 EA PO Q6HR PRN for pain Prescribed by: CRUZ LOVE on 09/05/20 1133 Insulin Aspart (Insulin Aspart Flexpen) 100 Unit/1 Ml Insuln.pen, 6 UNIT SQ AC, (Reported) Entered as Reported by: BRENDA RICHARDSON on 09/02/20 151 Insulin Glargine,Hum.rec.anlog (Lantus Solostar) 100 Unit/1 Ml Insuln.pen, 30 UNIT SQ HS, (Reported) Entered as Reported by: BRENDA RICHARDSON on 09/02/20 151 Review of Systems Review of Systems Constitutional: see HPI Gastrointestinal: Abdominal Pain, Nausea, Vomiting All Other Systems Reviewed Negative Unless Noted: Yes Past Bvstrod-Bkahsm-Dxojzz Hx Immunizations Up To Date Tetanus Booster (TDap): Unknown Seasonal Allergies Seasonal Allergies: No Past Medical History Surgeries: Yes (Right fourth toe amputation) Respiratory: No Currently Using CPAP: No Currently Using BIPAP: No Cardiac: No Neurological: No Genitourinary: No Gastrointestinal: No Musculoskeletal: No Endocrine: Yes Diabetes, Insulin dep HEENT: No Cancer: No Psychosocial: Yes Depression Integumentary: Yes (diabetic foot ulcer) Blood Disorders: No Adverse Reaction/Blood Tranf: No Family Medical History Patient reports no known family medical history. No Pertinent Family Hx Physical Exam Vital Signs Vital Signs - First Documented 01/22/21 14:49 Temp 36.4 Pulse 99 Resp 18 B/P (MAP) 141/84 (103) O2 Delivery Room Air Capillary Refill : Height/Weight/BMI Height: 6'1.00" Weight: 168lbs. 9.0oz. [id number]; 22.58 BMI Method:Estimated General Appearance: WD/WN, moderate distress HEENT: other (Dry oral mucosa) Neck: normal inspection Respiratory: lungs clear, normal breath sounds, no respiratory distress, no accessory muscle use Cardiovascular: regular rate, rhythm, tachycardia Gastrointestinal: soft, abnormal bowel sounds (Hypoactive), guarding, ten derness Extremities: normal range of motion, non-tender, normal inspection, no pedal edema, no calf tenderness Neurologic/Psychiatric: no motor/sensory deficits, alert, normal mood/affect, oriented x 3 Skin: normal color, warm/dry Progress/Results/Core Measures Results/Orders Lab Results Laboratory Tests Test 01/22/21 14:49 Range/Units White Blood Count 21.8 H 4.3-11.0 10^3/uL Red Blood Count 6.34 H 4.30-5.52 10^6/uL Hemoglobin 18.0 H 13.3-17.7 g/dL Hematocrit 55 H 40-54 % Mean Corpuscular Volume 86 80-99 fL Mean Corpuscular Hemoglobin 28 25-34 pg Mean Corpuscular Hemoglobin Concent 33 32-36 g/dL Red Cell Distribution Width 12.5 10.0-14.5 % Platelet Count 311 130-400 10^3/uL Mean Platelet Volume 11.6 9.0-12.2 fL Immature Granulocyte % (Auto) 0 % Neutrophils (%) (Auto) 86 H 42-75 % Lymphocytes (%) (Auto) 7 L 12-44 % Monocytes (%) (Auto) 7 0-12 % Eosinophils (%) (Auto) 0 0-10 % Basophils (%) (Auto) 0 0-10 % Neutrophils # (Auto) 18.7 H 1.8-7.8 X 10^3 Lymphocytes # (Auto) 1.5 1.0-4.0 X 10^3 Monocytes # (Auto) 1.5 H 0.0-1.0 X 10^3 Eosinophils # (Auto) 0.0 0.0-0.3 10^3/uL Basophils # (Auto) 0.0 0.0-0.1 10^3/uL Immature Granulocyte # (Auto) 0.1 0.0-0.1 10^3/uL Neutrophils % (Manual) 75 % Lymphocytes % (Manual) 9 % Monocytes % (Manual) 5 % Eosinophils % (Manual) 1 % Band Neutrophils 10 % Blood Morphology Comment NORMAL Sodium Level 128 L 135-145 MMOL/L Potassium Level 5.6 H 3.6-5.0 MMOL/L Chloride Level 80 L 98-107 MMOL/L Carbon Dioxide Level 8 *L 21-32 MMOL/L Anion Gap 40 H 5-14 MMOL/L Blood Urea Nitrogen 47 H 7-18 MG/DL Creatinine 3.57 H 0.60-1.30 MG/DL Estimat Glomerular Filtration Rate 18 BUN/Creatinine Ratio 13 Glucose Level 847 *H 70-105 MG/DL Calcium Level 9.9 8.5-10.1 MG/DL Corrected Calcium 9.7 8.5-10.1 MG/DL Total Bilirubin 0.5 0.1-1.0 MG/DL Aspartate Amino Transf (AST/SGOT) 15 5-34 U/L Alanine Aminotransferase (ALT/SGPT) 41 0-55 U/L Alkaline Phosphatase 201 H 40-136 U/L Total Protein 8.6 H 6.4-8.2 GM/DL Albumin 4.3 3.2-4.5 GM/DL Lipase 40 8-78 U/L Beta-Hydroxybutyrate (Chem panel) 13.92 H 0.00-0.27 MMOL/L My Orders Orders - CHANEL RONDON MD Ed Iv/Invasive Line Start (01/22/21 14:48) Cbc With Automated Diff (01/22/21 14:48) Comprehensive Metabolic Panel (01/22/21 14:48) Lipase (01/22/21 14:48) Chest 1 View, Ap/Pa Only (01/22/21 14:48) Beta Hydroxybutyrate (01/22/21 14:48) Arterial Blood Gas (01/22/21 14:48) Ns Iv 1000 Ml (Sodium Chloride 0.9%) (01/22/21 15:00) Ondansetron Injection (Zofran Injectio (01/22/21 15:00) Accucheck Stat ONCE (01/22/21 14:51) Insulin (Regular) Human (Novolin R (Per (01/22/21 15:00) Insulin (Regular) Human (Novolin R (Per (01/22/21 15:00) Manual Differential (01/22/21 14:49) Insulin Regular Drip (Myxredlin 100 Unit (01/22/21 15:45) Medications Given in ED Vital Signs/I&O 01/22/21 14:49 Temp 36.4 Pulse 99 Resp 18 B/P (MAP) 141/84 (103) O2 Delivery Room Air Progress Progress Note : Time: 15:52 Progress Note Reevaluated patient, resting comfortably, nausea is improved. Continuing to ask for water. We will keep the patient n.p.o. at this time so as not to induce more nausea and vomiting. Case was discussed with Dr. Love. Recommends DKA protocol, inpatient admission to the ICU. Patient remains a little bit tachycardic, a little hypertensive with a diastolic blood pressure of 103. No respiratory complaints. Critical Care Note Critical Care Start Time: 14:36 Stop Time: 15:54 Total Time (minutes) 40 minutes critical care time in the evaluation and management of this patient with DKA. Time includes fluid resuscitation, management of hyperglycemia with insulin bolus and insulin drip. Review of the medical record, interpretation of laboratory studies, discussion with admitting physician. Departure Communication (Admissions) Time/Spoke to Admitting Phy: 15:[address] Love Impression Primary Impression: DKA, type 2 Qualified Codes: E11.10 - Type 2 diabetes mellitus with ketoacidosis without coma Additional Impression: Acute renal failure Qualified Codes: N17.9 - Acute kidney failure, unspecified Disposition: ADMITTED INPATIENT Condition: Critical Admissions Decision to Admit Reason: Admit from ER (General) Decision to Admit/Date: Jan 22, 2021 Time/Decision to Admit Time: 15:54 Departure-Patient Inst. Referrals: [facility] (PCP/Family) Primary Care Physician CHANEL RONDON MD Jan 22, 2021 14:48
[2021-01-22] MEDS: NS IV 1000 ML 1,000 ML IV SCH ×2 (14:55→15:40)
[2021-01-22] MEDS ORDERED: inSUlin (REGULAR) HUMAN 1 UNIT/0.01 ML (CHARGE PER UNIT) SC SCH (15:00)
[2021-01-22] MEDS ORDERED: inSUlin (REGULAR) HUMAN 1 UNIT/0.01 ML (CHARGE PER UNIT) IV SCH (15:00)
[2021-01-22] MEDS ORDERED: ONDANSETRON 4 MG/2 ML (SDV) Z0FRAN IVP ONE (15:00)
[2021-01-22 15:05] LABS: BASOPHILS % (AUTO) 0 % (0-10); EOSINOPHILS % (AUTO) 0 % (0-10); HEMATOCRIT 55 % (40-54); LYMPHOCYTES # (AUTO) 1.5 X 10^3 (1.0-4.0); LYMPHOCYTES % (AUTO) 7 % (12-44); MEAN CORPUSCULAR HEMOGLOBIN 28 pg (25-34); MEAN CORPUSCULAR HGB CONC 33 g/dL (32-36); MEAN CORPUSCULAR VOLUME 86 fL (80-99); MEAN PLATELET VOLUME 11.6 fL (9.0-12.2); MONOCYTES # (AUTO) 1.5 X 10^3 (0.0-1.0); MONOCYTES % (AUTO) 7 % (0-12); NEUTROPHILS # (AUTO) 18.7 X 10^3 (1.8-7.8); NEUTROPHILS % (AUTO) 86 % (42-75); PLATELET COUNT 311 10^3/uL (130-400); WHITE BLOOD COUNT 21.8 10^3/uL (4.3-11.0)
[2021-01-22 15:09] LABS: ALBUMIN 4.3 GM/DL (3.2-4.5); POTASSIUM 5.6 MMOL/L (3.6-5.0)
[2021-01-22 15:10] LABS: CALCIUM 9.9 MG/DL (8.5-10.1)
[2021-01-22 15:11] LABS: TOTAL PROTEIN 8.6 GM/DL (6.4-8.2)
[2021-01-22 15:13] LABS: BILIRUBIN,TOTAL 0.5 MG/DL (0.1-1.0)
[2021-01-22 15:15] LABS: CREATININE SERUM 3.57 MG/DL (0.60-1.30)
[2021-01-22 15:16] LABS: BAND NEUTROPHILS 10 %; EOSINOPHILS % (MANUAL) 1 %; LYMPHOCYTES % (MANUAL) 9 %; MONOCYTES % (MANUAL) 5 %; NEUTROPHILS % (MANUAL) 75 %; RBC MORPH NORMAL
--- NOTE | 2021-01-22 15:25 | Diagnostic Imaging Report ---
HISTORY: Diabetic ketoacidosis COMPARISON: 09/20/2018 TECHNIQUE: Frontal view of the chest. FINDINGS: Lung volumes are large. No consolidation is seen. There is no pleural effusion or pneumothorax. The cardiac silhouette is normal in size. IMPRESSION: 1. Large lung volumes with no acute pulmonary abnormality. Dictated by: Dictated on workstation # [id number]
[2021-01-22 16:14] LABS: ABG BASE EXCESS -15.8 MMOL/L (-2.5-2.5); ABG OXYGEN SATURATION 62 % (94-100); ABG PCO2 39 MMHG (35-45); ABG TCO2 13.3 MMOL/L (21.0-31.0)
[2021-01-22 16:16] LABS: ABG PH 7.11 (7.37-7.43); ABG PO2 39 MMHG (79-93); VENTILATOR NO
[2021-01-22 16:17] LABS: ALLENS TEST POSITIVE; PATIENT TEMP 97.5
[2021-01-22 17:00] VITALS: BP 129/88
[2021-01-22] MEDS ORDERED: POTASSIUM CL 10MEQ/50ML IVPB 50 ML IV SCH ×2 (17:15)
[2021-01-22] MEDS ORDERED: D5 1/2 NS 1000 ML IV SOLUTION 1,000 ML IV SCH (17:15)
[2021-01-22] MEDS ORDERED: 1/2 NS IV SOLUTION 1,000 ML IV SCH (17:15)
[2021-01-22] MEDS ORDERED: ONDANSETRON 4 MG/2 ML (SDV) Z0FRAN IV PRN (17:15)
[2021-01-22] MEDS ORDERED: CATHETER FLUSH 10 ML SYR IV PRN (17:30)
[2021-01-22 17:42] LABS: POTASSIUM 4.3 MMOL/L (3.6-5.0)
[2021-01-22 17:47] LABS: CREATININE SERUM 2.72 MG/DL (0.60-1.30)
--- NOTE | 2021-01-22 17:54 | Tele-ICU Consult ---
History of Present Illness History of Present Illness Date Seen by Provider: Jan 22, 2021 Time Seen by Provider: 17:21 Date of Admission Allergies and Home Medications Allergies Coded Allergies: Penicillins (Verified Allergy, Unknown, 09/20/18) Home Medications Aspirin 81 Mg Tablet.dr, 81 MG PO DAILY Prescribed by: CRUZ LOVE on 09/05/20 1140 Clindamycin HCl 300 Mg Capsule, 300 MG PO QID, (Reported) FILLED 08-31-2020 #20 Hydrocodone Bit/Acetaminophen 1 Tab Tab, 1 EA PO Q6HR PRN for pain Prescribed by: CRUZ LOVE on 09/05/20 1133 Insulin Aspart 100 Unit/1 Ml Insuln.pen, 6 UNIT SQ AC, (Reported) Insulin Glargine,Hum.rec.anlog 100 Unit/1 Ml Insuln.pen, 30 UNIT SQ HS, (Reported) Past Medical/Social/Family Hx Patient Social History Tobacco Use?: Yes Tobacco type used: Cigarettes Smoking Status: Current Everyday Smoker Substance use?: No Alcohol Use?: No Pt stated abuse/neglect: No Immunizations Up To Date Tetanus Booster (TDap): Unknown Hepatitis A: No Hepatitis B: No TB Skin Test: None Current Status Advance Directives: No Communicates: Verbally Primary Language: Liberian Preferred Spoken Language: Liberian Is interpretation needed?: No Past Medical History DM2 - insulin dependent Amputation of R 4th Toe Depression Hx Drug Use (Amphetamine/Marijuana) Review of Systems Constitutional: see HPI Sepsis Event Evaluation Height, Weight, BMI Height: 6'1.00" Weight: 168lbs. 9.0oz. 76.207038zj; 22.00 BMI Method:Estimated Exam Exam Patient acknowledged, consented, and participated in this virtual visit which was conducted using real time audio/video Vital Signs Date Time Temp Pulse Resp B/P (MAP) Pulse Ox O2 Delivery O2 Flow Rate FiO2 01/22/21 17:30 104 13 Room Air 01/22/21 17:15 107 14 Room Air 01/22/21 17:13 105 01/22/21 17:00 107 16 129/88 98 Room Air 01/22/21 17:00 106 16 114/84 96 Room Air 01/22/21 16:45 125/80 01/22/21 14:49 36.4 99 18 141/84 (103) Room Air Height & Weight Height: 6'1.00" Weight: 168lbs. 9.0oz. 76.233630ur; 22.00 BMI Method:Estimated General Appearance: No Apparent Distress Capillary Refill: Less Than 3 Seconds Gastrointestinal: soft, abnormal bowel sounds (Hypoactive), guarding, tenderness Results Lab Laboratory Tests 01/22/21 14:49 01/22/21 17:20 Assessment/Plan Assessment/Plan (Tele-ICU Physician , consultation) Available chart/ vitals / labs / Images reviewed H&P is from ER notes Patient's information available about PMH, Shx, Fhx allergy reviewed in EMR. ROS as per chart and RN report Now in ICU, hemodynamically stable but RR 28 Video assessment done using teleICU camera, rest of exam as per RN Discussed with RN. A/P DKA *Insulin drip continue to monitor for resolution of acidosis, AG and electrolytes. Continue hydration. *Tx Gastroparesis JOEL - dehydration - cont IVF - follow closely Hyperkalemia due to JOEL - treated - follow closely Leukocytosis - reactive,? chest x-ray was normal , UApending >off ABX , follow Pseudo Hyponatremia - follow Encephalopathy - due to above - semms improved , as per RN answering questions appropriatly - follow Plans in collaboration with bedside consultants and IM MDs. Discussed with RN to reach out if any questions or concerns A total of 28 minutes of critical care time was devoted to this patient today, required to treat and/or prevent further deterioration of critical care condition ( as above ) . JOSE ROWE MD Jan 22, 2021 17:54
--- NOTE | 2021-01-24 16:17 | Short Stay Summary ---
HPI History of Present Illness: Patient admitted for severe DKA, but left against medical advice before being seen. Time Seen by Provider: 00:00 (Not seen, left AMA prior to being seen) Attending Physician Cruz Mares MD [facility] [place] Date of Admission Jan 22, 2021 at 15:47 Home Medications Home Medications Reviewed patient Home Medication Reconciliation performed by pharmacy medication reconciliations plumbing technician and/or nursing. Patients Allergies have been reviewed. 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 Review of Systems ([facility]) Constitutional: other (unable to obtain) Physical Exam-([facility]) Physical Exam Vital Signs VS - Last 72 Hours, by Label 01/22/21 01/22/21 01/22/21 01/22/21 14:49 16:45 17:00 17:00 Temp 36.4 Pulse 99 106 107 Resp 18 16 16 B/P (MAP) 141/84 (103) 125/80 114/84 129/88 Pulse Ox 96 98 O2 Delivery Room Air Room Air Room Air 01/22/21 01/22/21 01/22/21 17:13 17:15 17:30 Pulse 105 107 104 Resp 14 13 B/P (MAP) O2 Delivery Room Air Room Air Capillary Refill : Less Than 3 Seconds General Appearance: other (left before being examined) Short Stay Diagnosis Discharge Diagnosis-Short Stay Admission Diagnosis DKA Final Discharge Diagnosis DKA Left against medical advice Conclusion Plan Patient admitted to ICU on DKA protocol, left AMA reportedly due to not being allowed to eat when his glucose was still over 700 and pH of 7.11. Assessment/Plan Assessment/Plan (1) Diabetes mellitus Status: Chronic (2) DKA, type 2 Status: Acute Qualifiers: Qualified Codes: E11.10 - Type 2 diabetes mellitus with ketoacidosis without coma CRUZ MARES MD Jan 24, 2021 16:17
== END 2021-01-22 18:31 | disposition left against medical advice (07) | DRG 638 ==
LOC: EDUNIT# 14:17 → ER 14:19 → ICU 15:47
PROVIDERS: ADMIT Family Medicine; ATTEND Family Medicine
DX: E11.10 Type 2 diabetes mellitus with ketoacidosis without coma (principal); N17.9 Acute kidney failure, unspecified; G93.40 Encephalopathy, unspecified; F32.9 Major depressive disorder, single episode, unspecified; E87.5 Hyperkalemia; F17.210 Nicotine dependence, cigarettes, uncomplicated; Z79.4 Long term (current) use of insulin; Z79.82 Long term (current) use of aspirin; Z89.421 Acquired absence of other right toe(s); Z88.0 Allergy status to penicillin
CPT/HCPCS: 36415; 71045; 80048; 80053; 82010; 82805; 83690; 85007; 85027; 87081; 99291

== ENCOUNTER 2021-01-24 05:18 | Emergency (ER) | payer SELFPAY ==
[~2021-01-24] VITALS: Ht 185 cm; Wt 77.0 kg
[2021-01-24] MEDS ORDERED: NS IV 1000 ML 1,000 ML IV SCH ×2 (05:30→06:00)
[2021-01-24 05:31] LABS: BASOPHILS % (AUTO) 0 % (0-10); EOSINOPHILS # (AUTO) 0.1 10^3/uL (0.0-0.3); EOSINOPHILS % (AUTO) 0 % (0-10); HEMATOCRIT 45 % (40-54); HEMOGLOBIN 14.6 g/dL (13.3-17.7); LYMPHOCYTES # (AUTO) 1.6 10^3/uL (1.0-4.0); LYMPHOCYTES % (AUTO) 9 % (12-44); MEAN CORPUSCULAR HEMOGLOBIN 29 pg (25-34); MEAN CORPUSCULAR HGB CONC 32 g/dL (32-36); MEAN CORPUSCULAR VOLUME 89 fL (80-99); MEAN PLATELET VOLUME 12.5 fL (9.0-12.2); MONOCYTES # (AUTO) 1.7 10^3/uL (0.0-1.0); MONOCYTES % (AUTO) 10 % (0-12); NEUTROPHILS # (AUTO) 14.1 10^3/uL (1.8-7.8); NEUTROPHILS % (AUTO) 80 % (42-75); PLATELET COUNT 210 10^3/uL (130-400); WHITE BLOOD COUNT 17.7 10^3/uL (4.3-11.0)
--- NOTE | 2021-01-24 05:37 | ED General ---
General Stated Complaint: DKA Source of Information: Patient (EXTREMELY LIMITED AND DIFFICULT HISTORIAN. SELECTIVELY ANSWERS A FEW QUESTIONS), EMS, Old Records (ALL PMH IS FROM OLD RECORDS) (DEDRICK PALOMINO DO) History of Present Illness Date Seen by Provider: Jan 24, 2021 Time Seen by Provider: 05:22 Initial Comments PT ARRIVES VIA EMS PT IS HOMELESS, BUT WAS PICKED UP FROM A RESIDENCE--PT STATES IT WAS A FRIEND'S HOUSE PT IS DIABETIC, NON-COMPLIANT PT WAS ADMITTED HERE YESTERDAY 01/22/21 FOR DKA AND THEN LEFT AMA SHORTLY AFTER ADMITTED TO THE FLOOR. PT STATES HE LEFT "BECAUSE I NEEDED SOMETHING TO DRINK" EMS REPORTS THAT HE HAS NOT EATEN ALL DAY YESTERDAY OR TODAY, AND HAS BEEN DRINKING NOTHING BUT ICE WATER--PT WANTING WATER TO DRINK ON ARRIVAL PT REPORTED TO EMS THAT HE HAS BEEN "VOMITING ALL NIGHT" --EMS REPORT THAT TRASH CAN AT THE RESIDENCE HAD A SMALL AMOUNT OF EMESIS IN IT. GLUCOMETER READS "HIGH" ON ARRIVAL HERE PT DOES ADMIT THAT HE HAS SMOKED METH SINCE HE LEFT THE HOSPITAL. NO OTHER RELEVANT INFORMATION IS OBTAINABLE FROM PT AT THIS TIME ABOUT CURRENT SYMPTOMS--PT GIVES MINIMAL ANSWERS TO MOST QUESTIONS IS UNKNOWN WHEN HE LAST TOOK ANY MEDICATIONS PT STATES HE HAS NOT HAD COVID-19 VACCINE. PCP: [facility] (DEDRICK PALOMINO DO) Allergies and Home Medications Allergies Coded Allergies: Penicillins (Verified Allergy, Unknown, 09/20/18) Patient Home Medication List Home Medication List Reviewed: Yes (DEDRICK PALOMINO DO) Aspirin (Aspirin EC) 81 Mg Tablet.dr, 81 MG PO DAILY Prescribed by: CRUZ LOVE on 09/05/20 1140 Clindamycin HCl (Clindamycin HCl) 300 Mg Capsule, 300 MG PO QID, (Reported) Entered as Reported by: KAL MARTINEZ on 11/30/19 0026 Hydrocodone Bit/Acetaminophen (HYDROcodone/APAP 5 MG/325 MG TAB) 1 Tab Tab, 1 EA PO Q6HR PRN for pain Prescribed by: CRUZ LOVE on 09/05/20 1133 Insulin Aspart (Insulin Aspart Flexpen) 100 Unit/1 Ml Insuln.pen, 6 UNIT SQ AC, (Reported) Entered as Reported by: BRENDA RICHARDSON on 09/02/20 1512 Insulin Glargine,Hum.rec.anlog (Lantus Solostar) 100 Unit/1 Ml Insuln.pen, 30 UNIT SQ HS, (Reported) Entered as Reported by: BRENDA RICHARDSON on 09/02/20 1512 Review of Systems Review of Systems Constitutional: malaise, other (VERY LIMITED INFORMATION FROM PT) Gastrointestinal: see HPI (DEDRICK PALOMINO DO) Past Agxsysc-Qhncpb-Umywjo Hx Patient Social History Tobacco Use?: Yes Substance use?: Yes Substance type: Amphetamines, Methamphetamine Alcohol Use?: No (DENIES) (DEDRICK PALOMINO DO) Immunizations Up To Date Tetanus Booster (TDap): Unknown (DEDRICK PALOMINO DO) Seasonal Allergies Seasonal Allergies: No (DEDRICK PALOMINO DO) Past Medical History Surgery/Hospitalization HX: ABDOMINAL AORTA AND PERIPHERAL ARTERY CATH 08/2020 ABDOMINAL AORTIC ANGIOGRAPHY: Abdominal aortic angiography did not indicate any significant abdominal aortic aneurysm or dissection. No abdominal aortic stenosis is seen. The aortoiliac bifurcation is intact and does not exhibit significant disease. BILATERAL LEG ARTERY ANGIOGRAPHY: Bilateral leg artery angiography did not indicate any significant disease of the iliac arteries, common femoral arteries, popliteal arteries, or the distal vessels of the legs. 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 Selective angiography did not indicate any significant disease of the left popliteal artery or of the trifurcation arteries on the left side. CONCLUSIONS: No significant peripheral arterial disease seen on this peripheral angiographic study. Surgeries: Yes (Right fourth toe amputation) Amputation, Orthopedic Respiratory: No Currently Using CPAP: No Currently Using BIPAP: No Cardiac: No Neurological: Yes Neuropathy Genitourinary: No Gastrointestinal: No Musculoskeletal: Yes (RIGHT 4TH TOE AMPUTATION) Endocrine: Yes (DKA; NON-COMPLIANCE) Diabetes, Insulin dep HEENT: No Cancer: No Psychosocial: Yes (SUBSTANCE ABUSE) Depression Integumentary: Yes (diabetic foot ulcer) Blood Disorders: No Adverse Reaction/Blood Tranf: No (DEDRICK PALOMINO DO) Family Medical History Patient reports no known family medical history. No Pertinent Family Hx (DEDRICK PALOMINO DO) Physical Exam Vital Signs Vital Signs - First Documented 01/24/21 05:21 Temp 35.9 Pulse 108 Resp 22 B/P (MAP) 99/77 (84) Pulse Ox 93 O2 Delivery Room Air (CHANEL RONDON MD) Vital Signs Capillary Refill : (DEDRICK PALOMINO DO) Height, Weight, BMI Height: 6'1.00" Weight: 168lbs. 9.0oz. [id number]; 22.00 BMI Method:Estimated General Appearance: WD/WN, Other (MOANING, THRASHING ALL OVER, KEEPS EYES CLOSED; UNKEMPT/DIRTY, ONLY WEARING ONE SHOE; SPEECH IS SOMEWHAT MUMBLED WHEN HE DOES TALK, BUT DOES ANSWER QUESTIONS APPROPRIATELY/DOES NOT APPEAR CONFUSED. ) HEENT: Other (EDENTULOULS; ORAL MUCOSA VERY DRY) Neck: Normal Inspection Respiratory: Normal Breath Sounds, No Accessory Muscle Use, No Respiratory Distress, Other (MILD HYPERVENTILATION) Cardiovascular: Regular Rate, Rhythm, No Murmur Gastrointestinal: No Organomegaly, No Pulsatile Mass, Soft, Tenderness (EPIGASTRIC TENDERNESS) Extremity: No Pedal Edema Neurologic/Psychiatric: Alert, Oriented x3 (GROSSLY ORIENTED, BUT IS DIFFICULT TO GET INFORMATION FROM PT. ), No Motor/Sensory Deficits (GROSSLY INTACT), Other (BEHAVIOR NOTED ABOVE) Skin: Normal Color, Warm/Dry (DEDRICK PALOMINO DO) Focused Exam Lactate Level 01/24/21 05:41: Lactic Acid Level 2.82*H 01/24/21 07:44: Lactic Acid Level 2.32*H 01/24/21 09:55: Lactic Acid Level 2.31*H (CHANEL RONDON MD) Lactic Acid Level Laboratory Tests Test 01/24/21 05:41 01/24/21 07:44 01/24/21 09:55 Lactic Acid Level 2.82 MMOL/L (0.50-2.00) *H 2.32 MMOL/L (0.50-2.00) *H 2.31 MMOL/L (0.50-2.00) *H (CHANEL RONDON MD) Progress/Results/Core Measures Suspected Sepsis SIRS Temperature: Pulse: Respiratory Rate: Laboratory Tests 01/24/21 05:23: White Blood Count 17.7H Blood Pressure / Mean: 01/24/21 05:41: Lactic Acid Level 2.82*H 01/24/21 07:44: Lactic Acid Level 2.32*H 01/24/21 09:55: Lactic Acid Level 2.31*H Laboratory Tests 01/24/21 05:23: Creatinine 5.06#H, Platelet Count 210, Total Bilirubin 0.4 01/24/21 07:21: Creatinine 4.46#H 01/24/21 09:34: Creatinine 4.24H (DEDRICK PALOMINO DO) Results/Orders Lab Results Laboratory Tests Test 01/24/21 05:23 01/24/21 05:27 01/24/21 05:28 01/24/21 05:41 Range/Units White Blood Count 17.7 H 4.3-11.0 10^3/uL Red Blood Count 5.06 4.30-5.52 10^6/uL Hemoglobin 14.6 13.3-17.7 g/dL Hematocrit 45 40-54 % Mean Corpuscular Volume 89 80-99 fL Mean Corpuscular Hemoglobin 29 25-34 pg Mean Corpuscular Hemoglobin Concent 32 32-36 g/dL Red Cell Distribution Width 12.6 10.0-14.5 % Platelet Count 210 130-400 10^3/uL Mean Platelet Volume 12.5 H 9.0-12.2 fL Immature Granulocyte % (Auto) 1 % Neutrophils (%) (Auto) 80 H 42-75 % Lymphocytes (%) (Auto) 9 L 12-44 % Monocytes (%) (Auto) 10 0-12 % Eosinophils (%) (Auto) 0 0-10 % Basophils (%) (Auto) 0 0-10 % Neutrophils # (Auto) 14.1 H 1.8-7.8 10^3/uL Lymphocytes # (Auto) 1.6 1.0-4.0 10^3/uL Monocytes # (Auto) 1.7 H 0.0-1.0 10^3/uL Eosinophils # (Auto) 0.1 0.0-0.3 10^3/uL Basophils # (Auto) 0.0 0.0-0.1 10^3/uL Immature Granulocyte # (Auto) 0.2 H 0.0-0.1 10^3/uL Percent Immature Platelet Fraction 7.8 H 0.0-7.6 % Erythrocyte Sedimentation Rate 4 0-30 MM/HR Sodium Level 109 #*L 135-145 MMOL/L Potassium Level 7.2 #*H 3.6-5.0 MMOL/L Chloride Level 67 L 98-107 MMOL/L Carbon Dioxide Level < 5 *L 21-32 MMOL/L Anion Gap 37 H 5-14 MMOL/L Blood Urea Nitrogen 93 H 7-18 MG/DL Creatinine 5.06 #H 0.60-1.30 MG/DL Estimat Glomerular Filtration Rate 12 BUN/Creatinine Ratio 18 Glucose Level 1175 *H 70-105 MG/DL Calcium Level 7.5 L 8.5-10.1 MG/DL Corrected Calcium 8.1 L 8.5-10.1 MG/DL Magnesium Level 3.2 H 1.6-2.4 MG/DL Total Bilirubin 0.4 0.1-1.0 MG/DL Aspartate Amino Transf (AST/SGOT) 38 H 5-34 U/L Alanine Aminotransferase (ALT/SGPT) 34 0-55 U/L Alkaline Phosphatase 164 H 40-136 U/L Lactate Dehydrogenase 286 H 125-220 U/L Troponin I < 0.028 <0.028 NG/ML C-Reactive Protein High Sensitivity 2.32 H 0.00-0.50 MG/DL Total Protein 5.8 L 6.4-8.2 GM/DL Albumin 3.2 3.2-4.5 GM/DL Amylase Level 172 H 25-125 U/L Lipase 334 H 8-78 U/L Procalcitonin 3.34 H <0.10 NG/ML Serum Alcohol < 10 <10 MG/DL Blood Gas Puncture Site LEFT RADIAL Blood Gas Patient Temperature 35.9 Arterial Blood pH 6.92 *L 7.37-7.43 Arterial Blood Partial Pressure CO2 25 L 35-45 MMHG Arterial Blood Partial Pressure O2 51 L 79-93 MMHG Arterial Blood HCO3 5 *L 23-27 MMOL/L Arterial Blood Total CO2 5.7 *L 21.0-31.0 MMOL/L Arterial Blood Oxygen Saturation 75 L 94-100 % Arterial Blood Base Excess -25.1 L -2.5-2.5 MMOL/L Waqar Test YES-POS Blood Gas Ventilator Setting NO Blood Gas Inspired Oxygen ROOM AIR Influenza Type A Antigen NEGATIVE NEGATIVE Influenza Type B Antigen NEGATIVE NEGATIVE Lactic Acid Level 2.82 *H 0.50-2.00 MMOL/L Test 01/24/21 06:23 01/24/21 07:21 01/24/21 07:35 01/24/21 07:44 Range/Units Urine Color YELLOW Urine Clarity CLEAR Urine pH 5.5 5-9 Urine Specific Chestnut 1.025 H 1.016-1.022 Urine Protein NEGATIVE NEGATIVE Urine Glucose (UA) 3+ H NEGATIVE Urine Ketones 2+ H NEGATIVE Urine Nitrite NEGATIVE NEGATIVE Urine Bilirubin NEGATIVE NEGATIVE Urine Urobilinogen 0.2 < = 1.0 MG/DL Urine Leukocyte Esterase NEGATIVE NEGATIVE Urine RBC (Auto) 2+ H NEGATIVE Urine RBC 2-5 H /HPF Urine WBC 0-2 /HPF Urine Squamous Epithelial Cells 0-2 /HPF Urine Crystals NONE /LPF Urine Bacteria NEGATIVE /HPF Urine Casts PRESENT /LPF Urine Hyaline Casts 0-2 H /LPF Urine Red Blood Cell Casts 0-2 H /LPF Urine Mucus SMALL H /LPF Urine Yeast FEW H /HPF Urine Culture Indicated NO Urine Opiates Screen NEGATIVE NEGATIVE Urine Oxycodone Screen NEGATIVE NEGATIVE Urine Methadone Screen NEGATIVE NEGATIVE Urine Propoxyphene Screen NEGATIVE NEGATIVE Urine Barbiturates Screen NEGATIVE NEGATIVE Ur Tricyclic Antidepressants Screen NEGATIVE NEGATIVE Urine Phencyclidine Screen NEGATIVE NEGATIVE Urine Amphetamines Screen POSITIVE H NEGATIVE Urine Methamphetamines Screen POSITIVE H NEGATIVE Urine Benzodiazepines Screen NEGATIVE NEGATIVE Urine Cocaine Screen NEGATIVE NEGATIVE Urine Cannabinoids Screen NEGATIVE NEGATIVE Sodium Level 115 *L 135-145 MMOL/L Potassium Level 5.2 H 3.6-5.0 MMOL/L Chloride Level 78 #L 98-107 MMOL/L Carbon Dioxide Level < 5 *L 21-32 MMOL/L Anion Gap 32 H 5-14 MMOL/L Blood Urea Nitrogen 89 H 7-18 MG/DL Creatinine 4.46 #H 0.60-1.30 MG/DL Estimat Glomerular Filtration Rate 14 BUN/Creatinine Ratio 20 Glucose Level 1013 *H 70-105 MG/DL Calcium Level 6.8 L 8.5-10.1 MG/DL SARS-CoV-2 RNA (RT-PCR) Not Detected Not Detecte Lactic Acid Level 2.32 *H 0.50-2.00 MMOL/L Test 01/24/21 09:34 01/24/21 09:55 Range/Units Sodium Level 116 *L 135-145 MMOL/L Potassium Level 4.5 3.6-5.0 MMOL/L Chloride Level 81 L 98-107 MMOL/L Carbon Dioxide Level 5 *L 21-32 MMOL/L Anion Gap 30 H 5-14 MMOL/L Blood Urea Nitrogen 88 H 7-18 MG/DL Creatinine 4.24 H 0.60-1.30 MG/DL Estimat Glomerular Filtration Rate 15 BUN/Creatinine Ratio 21 Glucose Level 862 *H 70-105 MG/DL Calcium Level 6.4 L 8.5-10.1 MG/DL Lactic Acid Level 2.31 *H 0.50-2.00 MMOL/L (CHANEL RONDON MD) My Orders Orders - CHANEL RONDON MD Insulin Regular Drip (Myxredlin 100 Unit (01/24/21 06:15) Insulin (Regular) Human (Novolin R (Per (01/24/21 11:00) Insulin (Regular) Human (Novolin R (Per (01/24/21 06:17) Catheter(Urinary) Care .0300, 1500 (01/24/21 06:21) Insulin (Regular) Human (Novolin R (Per (01/24/21 06:31) Basic Metabolic Panel (01/24/21 07:15) Covid 19 Inhouse Test (01/24/21 07:30) 1/2 Ns Iv Solution (0.45% Sodium Chlorid (01/24/21 08:00) Basic Metabolic Panel (01/24/21 09:30) Lidocaine 2% Viscous 15 Ml (Xylocaine Vi (01/24/21 09:00) Antacid Suspension (Mylanta Suspension (01/24/21 09:00) Lorazepam Injection (Ativan Injection) (01/24/21 09:00) Ondansetron Injection (Zofran Injectio (01/24/21 09:00) (CHANEL RONDON MD) Medications Given in ED Current Medications Medications Dose Ordered Sig/Perico Route Start Time Stop Time Status Last Admin Dose Admin Al Hydrox/Mg Hydrox/Simethicone 30 ml ONCE ONCE PO 01/24/21 09:00 01/24/21 09:01 DC 01/24/21 08:54 30 ML Lidocaine HCl 5 ml ONCE ONCE PO 01/24/21 09:00 01/24/21 09:01 DC 01/24/21 08:54 5 ML Lorazepam 1 mg ONCE ONCE IVP 01/24/21 09:00 01/24/21 09:01 DC 01/24/21 08:55 1 MG Ondansetron HCl 8 mg ONCE ONCE IVP 01/24/21 05:45 01/24/21 05:58 DC 01/24/21 05:55 8 MG Ondansetron HCl 8 mg ONCE ONCE IVP 01/24/21 09:00 01/24/21 09:01 DC 01/24/21 08:58 8 MG (CHANEL RONDON MD) Vital Signs/I&O 01/24/21 01/24/21 01/24/21 01/24/21 05:21 07:20 08:33 09:30 Temp 35.9 Pulse 108 71 73 72 Resp 22 20 20 18 B/P (MAP) 99/77 (84) 97/83 99/46 99/71 Pulse Ox 93 100 100 100 O2 Delivery Room Air Room Air Room Air Room Air 01/24/21 11:12 Pulse 75 Resp 20 B/P (MAP) 98/75 Pulse Ox 96 O2 Delivery Room Air (CHANEL RONDON MD) Vital Signs/I&O Capillary Refill : (DEDRICK PALOMINO DO) Progress Note : Progress Note ACCUCHECK "HIGH" ON ARRIVAL PT REPEATEDLY WANTING WATER, YET C/O NAUSEA GIVEN ZOFRAN AND IV FLUIDS 0600--CARE TURNED OVER TO DR. RONDON AT SHIFT CHANGE. LAB PENDING (DEDRICK PALOMINO DO) Progress Note #1: Time: 06:21 Progress Note Patient care assumed at shift change from Dr. Palomino. Patient was admitted by me 48 hours ago for DKA and per review of the medical record ultimately ended up leaving the next day AGAINST MEDICAL ADVICE. Patient states that he is continued to have abdominal pain, nausea and vomiting. Thinks the last time that he urinated was may be "a couple of days ago". Is a poor historian. Former methamphetamine abuser. Homeless. States that he is confused right now as to where he is. Cannot name the hospital. Denies headache. Is asking for water. Clinically appears very ill with a systolic blood pressure 104. Heart rate 88. Slightly tachypneic. Follows commands on exam. Heart is regular rhythm. Lungs are clear. Abdomen mildly diffusely tender without rebound or involuntary guarding. No swelling in his legs. Very dry oral mucosa. Calling [facility] at this time for further assistance in the management of this critically ill patient. Progress Note #2: Time: 06:52 Progress Note Calls made to S @ [facility], at capacity [facility] and [facility], at capacity 0636, at capacity. 0645 call made to [facility] [place], they will start working on bed availability with Air transport at shift change (0700). should start hearing back by 0730/0745. At this point patient has received about 3L of NS. starting 1/2NS at 150 per our hospital DKA protocol. Plan on repeat BMP at 0715 Progress Note #3: Time: 07:54 Progress Note Moving the right direction on repeat BMP. Sodium improving as well as potassium and chloride. Serum blood sugar down to 1013. IVF started at 1/2NS at 250ml/hr per ICU DKA protocol. AG 37 -> 32. creatinine down to 4. Awaiting Covid test to call back to [facility] and update them and see if they have found an available bed. Progress Note #4: Time: 08:33 Progress Note discussed with [facility], actively looking for beds at 0803. Rapid covid at this time negative and they are notified, WIll repeat another BMP at 0930. Progress Note #5: Time: 10:01 Progress Note second Q2H BMP results show increased sodium, blood sugar down to the 800's. gap down to 30. CO2=5 now not less than 5. VS remain stable-radha. with systolics about 98 mmHg. HR not tachy. renal function again, a tad bit improved. Still awaiting placement. [facility] continues to work on it. Possibly a bed may come available here in the ICU although with significantly impaired renal function he may still be better off in an institution with Nephrology capabilities. He was given 8mg zofran, some viscous lidocaine and maalox for sore throat and 1mg ativan. Hes now resting comfortably, not nearly as agitated. Progress Note #6: Time: 11:45 Progress Note Received a call from [facility] at this time, ICU bed opened up for availability. Discussed with Dr. Aponte who graciously accepts the patient for transfer. (CHANEL RONDON MD) ECG Initial ECG Impression Date: Jan 24, 2021 Initial ECG Impression Time: 05:35 Initial ECG Rate: 84 Initial ECG Rhythm: Normal Sinus (IVCD, INFERIOR Q WAVES) Initial ECG Comparisson: Changed (FROM 2018) (DEDRICK PALOMINO DO) Initial ECG Intervals LA 69 QRS 140 QTc 559 Comment peaked T waves (CHANEL RONDON MD) Diagnostic Imaging Diagonstic Imaging: Xray Plain Films/CT/US/NM/MRI: chest Comments [facility] [place] NAME: LACEY GASTON [facility] REC#: [id number] PT STATUS: REG ER : 1965 PHYSICIAN: DEDRICK PALOMINO DO ADMIT DATE: 01/24/21/ER Draft Date of Exam:01/24/21 CHEST 1 VIEW, AP/PA ONLY INDICATION: Leukocytosis. TECHNIQUE: Single view chest 5:59 AM. CORRELATION STUDY: 01/22/2021 FINDINGS: The heart size, mediastinal configuration and pulmonary vascularity are within normal limits. The lungs are clear with no consolidating infiltrate. There is no significant effusion or pneumothorax. Stomach is distended with gas and likely fluid. IMPRESSION: 1. Negative for acute abnormality of the chest. Dictated on workstation # [id number] Dict: 01/24/21618 Trans: 01/24/21618 DO [id number] Interpreted by: MADYSON RUTHERFORD DO Electronically signed by: (CHANEL RONDON MD) Critical Care Note Critical Care Start Time: 06:10 Stop Time: 11:30 Total Time (minutes) 2 hours minutes of critical care time in the evaluation and management of this patient in severe DKA. Time includes review of the medical record, including most recent admission 48 hours ago, evaluation of the patient, initial fluid resuscitation, initiation of insulin bolus and drip, review and interpretation of laboratory studies, discussion with [facility] regarding any additional management necessary. Re-evaluations of serial labs. ongoing fluid resuscitation. Time also includes discussion with multiple hospitals in search of a critical care bed with nephrology capabilities as well as discussion with [facility] for their assistance in finding a bed. (CHANEL RONDON MD) Departure Impression Primary Impression: Diabetic keto-acidosis Qualified Codes: E10.10 - Type 1 diabetes mellitus with ketoacidosis without coma Additional Impressions: Acute renal failure Qualified Codes: N17.9 - Acute kidney failure, unspecified Methamphetamine abuse Disposition: 02 XFER SHT-TRM HOSP Condition: Critical Transfer Transfer Reason: Exceeds level of care Time Spoke to Accepting Phy: 11:40 Transfer Progress Notes Discussed with Dr Aponte Transfer Facility: [facility] Method of Transfer: EMS (CHANEL RONDON MD) Departure-Patient Inst. Referrals: [facility] (PCP/Family) Primary Care Physician DEDRICK PALOMINO DO Jan 24, 2021 05:37 CHANEL RONDON MD Jan 24, 2021 06:24
[2021-01-24] MEDS ORDERED: ONDANSETRON 4 MG/2 ML (SDV) Z0FRAN IVP ONE ×2 (05:45→09:00)
[2021-01-24 05:51] LABS: ABG BASE EXCESS -25.1 MMOL/L (-2.5-2.5); ABG OXYGEN SATURATION 75 % (94-100); ABG PCO2 25 MMHG (35-45); ABG PO2 51 MMHG (79-93)
[2021-01-24] MEDS ORDERED: ONDANSETRON 4 MG/2 ML (SDV) Z0FRAN ONE (05:54)
[2021-01-24 05:57] LABS: ABG PH 6.92 (7.37-7.43)
[2021-01-24 05:58] LABS: ABG TCO2 5.7 MMOL/L (21.0-31.0); ALLENS TEST YES-POS; INSPIRED O2 ROOM AIR; PATIENT TEMP 35.9; VENTILATOR NO
[2021-01-24 06:01] LABS: ALBUMIN 3.2 GM/DL (3.2-4.5); CHLORIDE 67 MMOL/L (98-107)
[2021-01-24 06:02] LABS: AMYLASE 172 U/L (25-125); CALCIUM 7.5 MG/DL (8.5-10.1)
[2021-01-24 06:03] LABS: TOTAL PROTEIN 5.8 GM/DL (6.4-8.2)
[2021-01-24 06:05] LABS: BILIRUBIN,TOTAL 0.4 MG/DL (0.1-1.0)
[2021-01-24 06:06] LABS: ALKALINE PHOSPHATASE 164 U/L (40-136)
[2021-01-24 06:07] LABS: CREATININE SERUM 5.06 MG/DL (0.60-1.30); GFR ESTIMATED 12
[2021-01-24 06:08] LABS: BUN/CREATININE RATIO 18; SODIUM 109 MMOL/L (135-145)
[2021-01-24 06:09] LABS: CARBON DIOXIDE < 5 MMOL/L (21-32); MAGNESIUM 3.2 MG/DL (1.6-2.4); POTASSIUM 7.2 MMOL/L (3.6-5.0)
[2021-01-24 06:10] LABS: ALANINE AMINOTRANSFERASE 34 U/L (0-55); LIPASE 334 U/L (8-78)
[2021-01-24 06:15] LABS: GLUCOSE 1175 MG/DL (70-105)
[2021-01-24] MEDS ORDERED: inSUlin (REGULAR) HUMAN 1 UNIT/0.01 ML (CHARGE PER UNIT) ONE (06:17)
--- NOTE | 2021-01-24 06:20 | Diagnostic Imaging Report ---
INDICATION: Leukocytosis. TECHNIQUE: Single view chest 5:59 AM. CORRELATION STUDY: 01/22/2021 FINDINGS: The heart size, mediastinal configuration and pulmonary vascularity are within normal limits. The lungs are clear with no consolidating infiltrate. There is no significant effusion or pneumothorax. Stomach is distended with gas and likely fluid. IMPRESSION: 1. Negative for acute abnormality of the chest. Dictated by: Dictated on workstation # [id number]
[2021-01-24] MEDS ORDERED: inSUlin (REGULAR) HUMAN 1 UNIT/0.01 ML (CHARGE PER UNIT) IV STA (06:31)
[2021-01-24 06:35] LABS: BILIRUBIN,URINE NEGATIVE (NEGATIVE); CLARITY,URINE CLEAR; COLOR,URINE YELLOW; GLUCOSE, URINE (UA) 3+ (NEGATIVE); KETONES,URINE 2+ (NEGATIVE); LEUKOCYTE ESTERASE ,URINE NEGATIVE (NEGATIVE); NITRITE,URINE NEGATIVE (NEGATIVE); PH,URINE 5.5 (5-9); PROTEIN,URINE NEGATIVE (NEGATIVE)
[2021-01-24 06:45] LABS: AMPHETAMINE SCREEN, URINE POSITIVE (NEGATIVE); BACTERIA,URINE NEGATIVE /HPF; BENZODIAZEPINES SCREEN URINE NEGATIVE (NEGATIVE); COCAINE SCREEN URINE NEGATIVE (NEGATIVE); HYALINE CASTS, URINE 0-2 /LPF; METHAMPHETAMINE SCREEN URINE S POSITIVE (NEGATIVE); RED BLOOD CELL CASTS,URINE 0-2 /LPF; SQUAMOUS EPITHELIAL CELL,UR 0-2 /HPF; WBC,URINE 0-2 /HPF; YEAST,URINE FEW /HPF
[2021-01-24 06:46] LABS: BARBITURATE SCREEN URINE NEGATIVE (NEGATIVE); CANNABINOID SCREEN, URINE NEGATIVE (NEGATIVE); METHADONE STAT NEGATIVE (NEGATIVE); OPIATE SCREEN URINE NEGATIVE (NEGATIVE); OXYCODONE STAT NEGATIVE (NEGATIVE); PROPOXYPHENE STAT NEGATIVE (NEGATIVE); TRICYCLIC ANTIDEPRESSANTS SCRE NEGATIVE (NEGATIVE)
[2021-01-24 07:37] LABS: CHLORIDE 78 MMOL/L (98-107); POTASSIUM 5.2 MMOL/L (3.6-5.0)
[2021-01-24 07:38] LABS: CALCIUM 6.8 MG/DL (8.5-10.1)
[2021-01-24 07:43] LABS: CREATININE SERUM 4.46 MG/DL (0.60-1.30); GFR ESTIMATED 14
[2021-01-24 07:44] LABS: BUN/CREATININE RATIO 20
[2021-01-24 07:47] LABS: CARBON DIOXIDE < 5 MMOL/L (21-32); SODIUM 115 MMOL/L (135-145)
[2021-01-24 07:54] LABS: GLUCOSE 1013 MG/DL (70-105)
[2021-01-24] MEDS ORDERED: 1/2 NS IV SOLUTION 1,000 ML IV SCH (08:00)
[2021-01-24] MEDS ORDERED: LIDOCAINE 2% VISCOUS 15 ML UDC PO ONE (09:00)
[2021-01-24] MEDS ORDERED: ANTACID SUSP 30 ML UDC (MYLANTA) PO ONE (09:00)
[2021-01-24] MEDS ORDERED: LORazepam INJ 2 MG/ML (ATIVAN) VIAL IVP ONE (09:00)
[2021-01-24 09:51] LABS: POTASSIUM 4.5 MMOL/L (3.6-5.0)
[2021-01-24 09:52] LABS: CALCIUM 6.4 MG/DL (8.5-10.1)
[2021-01-24 09:56] LABS: CREATININE SERUM 4.24 MG/DL (0.60-1.30)
[2021-01-24] MEDS ORDERED: inSUlin (REGULAR) HUMAN 1 UNIT/0.01 ML (CHARGE PER UNIT) IV SCH (11:00)
[2021-01-24] MEDS ORDERED: 1/2 NS IV SOLUTION 1,000 ML IV ONE (12:17)
[2021-01-24 12:30] VITALS: BP 100/77
== END 2021-01-24 13:02 | disposition short-term general hospital (02) ==
LOC: EDUNIT# 05:18 → ER 05:19
DX: E10.10 Type 1 diabetes mellitus with ketoacidosis without coma (principal); N17.9 Acute kidney failure, unspecified; F15.10 Other stimulant abuse, uncomplicated; E10.40 Type 1 diabetes mellitus with diabetic neuropathy, unspecified; Z86.31 Personal history of diabetic foot ulcer; Z91.14 Patient's other noncompliance with medication regimen; Z88.0 Allergy status to penicillin; Z79.82 Long term (current) use of aspirin; Z20.822 Contact with and (suspected) exposure to COVID-19
CPT/HCPCS: 51702; 71045; 80048; 80053; 80306; 81000; 82150; 82805; 83605; 83615; 83690; 83735; 84145; 84484; 85025; 85652; 86141; 87040; 87635; 87636; 87804; 93005; 93041; 99291; G0480; 36415; 80320

== ENCOUNTER 2021-07-14 14:49 | Inpatient (IN) | payer SELFPAY ==
[~2021-07-14] VITALS: Ht 185.5 cm; Wt 81.4 kg
[~2021-07-14 14:49] MED LIST changes: +CLIN-144 PO; -CLIN300C12 PO
[2021-07-14 14:53] VITALS: BP 121/95
[2021-07-14] MEDS ORDERED: ONDANSETRON 4 MG/2 ML (SDV) Z0FRAN ONE (14:58)
[2021-07-14] MEDS ORDERED: LACTATED RINGERS 1,000 ML IV ONE (14:58)
[2021-07-14 15:12] LABS: BASOPHILS % (AUTO) 0 % (0-10); EOSINOPHILS % (AUTO) 0 % (0-10); HEMATOCRIT 47 % (40-54); HEMOGLOBIN 15.8 g/dL (13.3-17.7); LYMPHOCYTES # (AUTO) 1.3 X 10^3 (1.0-4.0); LYMPHOCYTES % (AUTO) 15 % (12-44); MEAN CORPUSCULAR HEMOGLOBIN 29 pg (25-34); MEAN CORPUSCULAR HGB CONC 34 g/dL (32-36); MEAN CORPUSCULAR VOLUME 87 fL (80-99); MEAN PLATELET VOLUME 10.8 fL (9.0-12.2); MONOCYTES # (AUTO) 0.7 X 10^3 (0.0-1.0); MONOCYTES % (AUTO) 8 % (0-12); NEUTROPHILS # (AUTO) 6.7 X 10^3 (1.8-7.8); NEUTROPHILS % (AUTO) 77 % (42-75); PLATELET COUNT 318 10^3/uL (130-400); WHITE BLOOD COUNT 8.8 10^3/uL (4.3-11.0)
[2021-07-14] MEDS ORDERED: LACTATED RINGERS 1,000 ML IV SCH (15:15)
[2021-07-14 15:19] LABS: ALBUMIN 4.5 GM/DL (3.2-4.5); CHLORIDE 102 MMOL/L (98-107); POTASSIUM 5.4 MMOL/L (3.6-5.0); SODIUM 135 MMOL/L (135-145)
[2021-07-14 15:20] LABS: INR 0.9 (0.8-1.4); PROTHROMBIN TIME PATIENT 12.8 SEC (12.2-14.7)
[2021-07-14 15:21] LABS: CALCIUM 9.8 MG/DL (8.5-10.1)
[2021-07-14 15:22] LABS: GLUCOSE 338 MG/DL (70-105); TOTAL PROTEIN 8.5 GM/DL (6.4-8.2)
[2021-07-14 15:23] LABS: CARBON DIOXIDE 13 MMOL/L (21-32)
[2021-07-14 15:24] LABS: BILIRUBIN,TOTAL 0.5 MG/DL (0.1-1.0)
[2021-07-14 15:26] LABS: ALKALINE PHOSPHATASE 88 U/L (40-136); CREATININE SERUM 1.81 MG/DL (0.60-1.30); GFR ESTIMATED 44
[2021-07-14 15:27] LABS: ACETAMINOPHEN < 10 UG/ML (10-30); BUN/CREATININE RATIO 13
[2021-07-14 15:28] LABS: SALICYLATE < 5.0 MG/DL (5.0-20.0)
[2021-07-14 15:29] LABS: ALANINE AMINOTRANSFERASE 24 U/L (0-55)
[2021-07-14] MEDS ORDERED: PROMETHAZINE INJ 25 MG/ML (PHENERGAN) AMP ONE (15:49)
[2021-07-14] MEDS ORDERED: PROMETHAZINE INJ 25 MG/ML (PHENERGAN) AMP IVP ONE (16:00)
[2021-07-14] MEDS: D5 1/2 NS 1000 ML IV SOLUTION 1,000 ML IV SCH ×3 (16:01→21:39)
[2021-07-14] MEDS ORDERED: BISACODYL 10 MG SUPP (DULCOLAX) PR PRN ×2 (17:15)
[2021-07-14] MEDS ORDERED: diphenhydrAMINE 25 MG TAB (BENADRYL) PO PRN ×2 (17:15)
[2021-07-14] MEDS ORDERED: MILK OF MAGNESIA 400 MG/5 ML 30 ML UDC PO PRN ×2 (17:15)
[2021-07-14] MEDS ORDERED: diphenhydrAMINE 50 MG/ML INJ (BENADRYL) IVP PRN ×2 (17:15)
[2021-07-14] MEDS ORDERED: CALCIUM CARBONATE 500 MG (TUMS) TAB.CHEW PO PRN ×2 (17:15)
[2021-07-14] MEDS ORDERED: ENOXAPARIN 40 MG/0.4 ML (LOVENOX) SYR SC SCH (17:15)
[2021-07-14] MEDS ORDERED: morphine INJ 4 MG/ML 1 ML (VIAL/SYRINGE) IV PRN ×2 (17:15)
[2021-07-14] MEDS ORDERED: POTASSIUM CL 10MEQ/50ML IVPB 50 ML IV SCH ×3 (17:15)
[2021-07-14] MEDS ORDERED: ANTACID SUSP 30 ML UDC (MYLANTA) PO PRN ×2 (17:15)
[2021-07-14] MEDS ORDERED: ONDANSETRON 4 MG (ZOFRAN) ORAL DISSOLVE TAB PO PRN ×2 (17:15)
[2021-07-14] MEDS ORDERED: polyethylene glycoL POWDER 17 GM (MIRALAX) PACK PO PRN ×2 (17:15)
[2021-07-14] MEDS ORDERED: ONDANSETRON 4 MG/2 ML (SDV) Z0FRAN IV PRN ×2 (17:15)
[2021-07-14] MEDS ORDERED: NS IV 1000 ML 1,000 ML IV SCH ×2 (17:15)
[2021-07-14] MEDS ORDERED: MELATONIN 3 MG TABLET PO PRN ×2 (17:15)
[2021-07-14] MEDS ORDERED: D5 1/2 NS 1000 ML IV SOLUTION 1,000 ML IV SCH ×2 (17:15)
[2021-07-14] MEDS ORDERED: 1/2 NS IV SOLUTION 1,000 ML IV SCH (17:15)
[2021-07-14] MEDS ORDERED: ALPRAZolam 0.25 MG (XANAX) TAB PO PRN ×2 (17:15)
[2021-07-14] MEDS ORDERED: ACETAMINOPHEN 325 MG TABLET PO PRN ×2 (17:15)
[2021-07-14] MEDS ORDERED: LACTULOSE SYRUP 10GM/15ML (ENULOSE) 30ML UDC PO PRN ×2 (17:15)
[2021-07-14] MEDS: ENOXAPARIN 40 MG/0.4 ML (LOVENOX) SYR SC SCH (18:07)
[2021-07-14 18:12] LABS: POTASSIUM 4.1 MMOL/L (3.6-5.0)
[2021-07-14] MEDS: 1/2 NS IV SOLUTION 1,000 ML IV SCH ×2 (18:12→20:23)
[2021-07-14 18:13] LABS: CALCIUM 9.2 MG/DL (8.5-10.1)
[2021-07-14 18:18] LABS: CREATININE SERUM 1.46 MG/DL (0.60-1.30)
--- NOTE | 2021-07-14 18:29 | ED General ---
General Stated Complaint: HIGH BLOOD SUGAR 457 - VOMITING Source of Information: Patient Exam Limitations: No Limitations History of Present Illness Date Seen by Provider: Jul 14, 2021 Time Seen by Provider: 15:04 Initial Comments To ER by private vehicle accompanied by his girlfriend with reports of high blood sugar. Earlier today it was found to be too high to read. He then took 10 units of NovoLog and 20 units of Levemir at about 11 AM. Girlfriend then rechecked it about an hour prior to arrival here and found it to be 450. He is not had anything to eat today. He did have some vomiting earlier but no abdominal pain no diarrhea. Timing/Duration: 1-2 Days Severity: Moderate Associated Systoms: Nausea/Vomiting Allergies and Home Medications Allergies Coded Allergies: Penicillins (Verified Allergy, Unknown, 09/20/18) Patient Home Medication List Home Medication List Reviewed: Yes Aspirin (Aspirin EC) 81 Mg Tablet.dr, 81 MG PO DAILY Prescribed by: CRUZ LOVE on 09/05/20 1140 Clindamycin HCl (Clindamycin HCl) 300 Mg Capsule, 300 MG PO QID, (Reported) Entered as Reported by: KAL MARTINEZ on 11/30/19 0026 Hydrocodone Bit/Acetaminophen (HYDROcodone/APAP 5 MG/325 MG TAB) 1 Tab Tab, 1 EA PO Q6HR PRN for pain Prescribed by: CRUZ LOVE on 09/05/20 1133 Insulin Aspart (Insulin Aspart Flexpen) 100 Unit/1 Ml Insuln.pen, 6 UNIT SQ AC, (Reported) Entered as Reported by: BRENDA RICHARDSON on 09/02/20 1512 Insulin Glargine,Hum.rec.anlog (Lantus Solostar) 100 Unit/1 Ml Insuln.pen, 30 UNIT SQ HS, (Reported) Entered as Reported by: BRENDA RICHARDSON on 09/02/20 151 Review of Systems Review of Systems Constitutional: see HPI EENTM: see HPI Respiratory: no symptoms reported Cardiovascular: no symptoms reported Gastrointestinal: nausea, vomiting Genitourinary: no symptoms reported Musculoskeletal: no symptoms reported Skin: no symptoms reported Psychiatric/Neurological: No Symptoms Reported Hematologic/Lymphatic: No Symptoms Reported Immunological/Allergic: no symptoms reported Past Vvwntxj-Gzxmrg-Yjrdnf Hx Immunizations Up To Date Tetanus Booster (TDap): Unknown Seasonal Allergies Seasonal Allergies: No Past Medical History Surgery/Hospitalization HX: ABDOMINAL AORTA AND PERIPHERAL ARTERY CATH 08/2020 ABDOMINAL AORTIC ANGIOGRAPHY: Abdominal aortic angiography did not indicate any significant abdominal aortic aneurysm or dissection. No abdominal aortic stenosis is seen. The aortoiliac bifurcation is intact and does not exhibit significant disease. BILATERAL LEG ARTERY ANGIOGRAPHY: Bilateral leg artery angiography did not indicate any significant disease of the iliac arteries, common femoral arteries, popliteal arteries, or the distal vessels of the legs. 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 Selective angiography did not indicate any significant disease of the left popliteal artery or of the trifurcation arteries on the left side. CONCLUSIONS: No significant peripheral arterial disease seen on this peripheral angiographic study. Surgeries: Yes (Right fourth toe amputation) Amputation, Orthopedic Respiratory: No Currently Using CPAP: No Currently Using BIPAP: No Cardiac: No Neurological: Yes Neuropathy Genitourinary: No Gastrointestinal: No Musculoskeletal: Yes (RIGHT 4TH TOE AMPUTATION) Endocrine: Yes (DKA; NON-COMPLIANCE) Diabetes, Insulin dep HEENT: No Cancer: No Psychosocial: Yes (SUBSTANCE ABUSE) Depression Integumentary: Yes (diabetic foot ulcer) Blood Disorders: No Adverse Reaction/Blood Tranf: No Family Medical History Patient reports no known family medical history. No Pertinent Family Hx Physical Exam Vital Signs Vital Signs - First Documented 07/14/21 14:53 Temp 36.0 Pulse 99 Resp 19 B/P (MAP) 121/95 (104) Pulse Ox 100 Capillary Refill : Height, Weight, BMI Height: 6'1.00" Weight: 168lbs. 9.0oz. 76.108463sy; 22.00 BMI Method:Estimated General Appearance: No Apparent Distress, WD/WN, Other (Lethargic. Does not answer questions. Opens his eyes when asked to and then closes his eyes again and does not participate in conversation.) Eyes: Bilateral Eye Normal Inspection, Bilateral Eye PERRL, Bilateral Eye EOMI HEENT: PERRL/EOMI, TMs Normal Neck: Full Range of Motion, Normal Inspection Respiratory: Normal Breath Sounds, No Accessory Muscle Use, No Respiratory Distress Cardiovascular: Regular Rate, Rhythm, Normal Peripheral Pulses Gastrointestinal: Normal Bowel Sounds, Non Tender, Soft Extremity: Normal Capillary Refill, Normal Inspection Neurologic/Psychiatric: Oriented x3 Skin: Normal Color, Warm/Dry Progress/Results/Core Measures Suspected Sepsis SIRS Temperature: Pulse: Respiratory Rate: Laboratory Tests 07/14/21 15:06: White Blood Count 8.8 Blood Pressure / Mean: Laboratory Tests 07/14/21 15:06: Creatinine 1.81H, INR Comment 0.9, Platelet Count 318, Total Bilirubin 0.5 Results/Orders Lab Results Laboratory Tests Test 07/14/21 15:06 Range/Units White Blood Count 8.8 4.3-11.0 10^3/uL Red Blood Count 5.42 4.30-5.52 10^6/uL Hemoglobin 15.8 13.3-17.7 g/dL Hematocrit 47 40-54 % Mean Corpuscular Volume 87 80-99 fL Mean Corpuscular Hemoglobin 29 25-34 pg Mean Corpuscular Hemoglobin Concent 34 32-36 g/dL Red Cell Distribution Width 13.4 10.0-14.5 % Platelet Count 318 130-400 10^3/uL Mean Platelet Volume 10.8 9.0-12.2 fL Immature Granulocyte % (Auto) 0 % Neutrophils (%) (Auto) 77 H 42-75 % Lymphocytes (%) (Auto) 15 12-44 % Monocytes (%) (Auto) 8 0-12 % Eosinophils (%) (Auto) 0 0-10 % Basophils (%) (Auto) 0 0-10 % Neutrophils # (Auto) 6.7 1.8-7.8 X 10^3 Lymphocytes # (Auto) 1.3 1.0-4.0 X 10^3 Monocytes # (Auto) 0.7 0.0-1.0 X 10^3 Eosinophils # (Auto) 0.0 0.0-0.3 10^3/uL Basophils # (Auto) 0.0 0.0-0.1 10^3/uL Immature Granulocyte # (Auto) 0.0 0.0-0.1 10^3/uL Prothrombin Time 12.8 12.2-14.7 SEC INR Comment 0.9 0.8-1.4 Sodium Level 135 135-145 MMOL/L Potassium Level 5.4 H 3.6-5.0 MMOL/L Chloride Level 102 98-107 MMOL/L Carbon Dioxide Level 13 L 21-32 MMOL/L Anion Gap 20 H 5-14 MMOL/L Blood Urea Nitrogen 24 H 7-18 MG/DL Creatinine 1.81 H 0.60-1.30 MG/DL Estimat Glomerular Filtration Rate 44 BUN/Creatinine Ratio 13 Glucose Level 338 H 70-105 MG/DL Calcium Level 9.8 8.5-10.1 MG/DL Corrected Calcium 9.4 8.5-10.1 MG/DL Total Bilirubin 0.5 0.1-1.0 MG/DL Aspartate Amino Transf (AST/SGOT) 24 5-34 U/L Alanine Aminotransferase (ALT/SGPT) 24 0-55 U/L Alkaline Phosphatase 88 40-136 U/L Total Creatine Kinase 93 30-200 U/L Total Protein 8.5 H 6.4-8.2 GM/DL Albumin 4.5 3.2-4.5 GM/DL Salicylates Level < 5.0 L 5.0-20.0 MG/DL Acetaminophen Level < 10 L 10-30 UG/ML Serum Alcohol < 10 <10 MG/DL My Orders Orders - BENJAMIN EDWARDS APRN Ua Culture If Indicated (07/14/21 15:03) Drug Screen Stat (Urine) (07/14/21 15:03) Alcohol (07/14/21 15:03) Protime With Inr (07/14/21 15:03) Cbc With Automated Diff (07/14/21 15:03) Comprehensive Metabolic Panel (07/14/21 15:03) Ed Iv/Invasive Line Start (07/14/21 15:03) Acetaminophen (07/14/21 15:03) Salicylate (07/14/21 15:03) Accucheck Stat ONCE (07/14/21 15:03) Beta Hydroxybutyrate (07/14/21 15:03) Lactated Ringers (Lr 1000 Ml Iv Solution (07/14/21 15:15) Creatine Kinase (07/14/21 15:11) Insulin Regular Drip (Myxredlin 100 Unit (07/14/21 15:45) D5 1/2 Ns 1000 Ml Iv Solution (Dextrose (07/14/21 15:45) Ed Admission (Communication) (07/14/21 15:41) Medications Given in ED Current Medications Medications Dose Ordered Sig/Perico Route Start Time Stop Time Status Last Admin Dose Admin Lactated Ringer's 1,000 ml @ ud STK-MED ONCE IV 07/14/21 14:58 07/14/21 15:01 DC 07/14/21 15:00 1,000 MLS/HR Ondansetron HCl 4 mg STK-MED ONCE .ROUTE 07/14/21 14:58 07/14/21 15:01 DC 07/14/21 15:00 8 MG Vital Signs/I&O 07/14/21 14:53 Temp 36.0 Pulse 99 Resp 19 B/P (MAP) 121/95 (104) Pulse Ox 100 Capillary Refill : Departure Communication (Admissions) [id number] will admit to ICU. He is getting an insulin drip started at 3 units/h with D5 half-normal at 250 mils an hour. Impression Primary Impression: Diabetic keto-acidosis Disposition: ADMITTED INPATIENT Condition: Stable Admissions Decision to Admit Reason: Admit from ER (General) Decision to Admit/Date: Jul 14, 2021 Time/Decision to Admit Time: 15:41 Departure-Patient Inst. Referrals: THEODORE MEDLEY MD (PCP/Family) Primary Care Physician BENJAMIN EDWARDS APRN Jul 14, 2021 15:06
[2021-07-14] MEDS: POTASSIUM CL 10MEQ/50ML IVPB 50 ML IV SCH ×3 (18:50→22:56)
[2021-07-14] MEDS ORDERED: METOCLOPRAMIDE INJ 10 MG/2 ML (REGLAN) IVP ONE (19:15)
[2021-07-14] MEDS ORDERED: METOCLOPRAMIDE INJ 10 MG/2 ML (REGLAN) ONE (20:14)
[2021-07-14] MEDS: DOCUSATE SODIUM 100 MG (COLACE) CAP PO SCH (20:19)
[2021-07-14] MEDS: SENNOSIDES 8.6 MG (SENOKOT) TAB PO SCH (20:20)
[2021-07-14] MEDS ORDERED: SENNOSIDES 8.6 MG (SENOKOT) TAB PO SCH (21:00)
[2021-07-14] MEDS ORDERED: DOCUSATE SODIUM 100 MG (COLACE) CAP PO SCH (21:00)
[2021-07-14 21:15] LABS: CALCIUM 8.5 MG/DL (8.5-10.1); CREATININE SERUM 1.32 MG/DL (0.60-1.30); POTASSIUM 4.4 MMOL/L (3.6-5.0)
[2021-07-14 23:19] LABS: POTASSIUM 4.2 MMOL/L (3.6-5.0)
[2021-07-14 23:20] LABS: CALCIUM 8.8 MG/DL (8.5-10.1)
[2021-07-14 23:24] LABS: CREATININE SERUM 1.25 MG/DL (0.60-1.30)
[2021-07-15] MEDS: POTASSIUM CL 10MEQ/50ML IVPB 50 ML IV SCH ×6 (00:55→11:41)
[2021-07-15] MEDS: 1/2 NS IV SOLUTION 1,000 ML IV SCH ×6 (00:56→21:18)
[2021-07-15] MEDS: D5 1/2 NS 1000 ML IV SOLUTION 1,000 ML IV SCH ×5 (02:07→17:23)
[2021-07-15 04:37] LABS: BASOPHILS % (AUTO) 0 % (0-10); EOSINOPHILS % (AUTO) 0 % (0-10); HEMATOCRIT 40 % (40-54); HEMOGLOBIN 13.7 g/dL (13.3-17.7); LYMPHOCYTES % (AUTO) 19 % (12-44); MEAN CORPUSCULAR HEMOGLOBIN 29 pg (25-34); MEAN CORPUSCULAR HGB CONC 34 g/dL (32-36); MEAN CORPUSCULAR VOLUME 84 fL (80-99); MEAN PLATELET VOLUME 10.7 fL (9.0-12.2); MONOCYTES % (AUTO) 10 % (0-12); NEUTROPHILS # (AUTO) 7.3 10^3/uL (1.8-7.8); NEUTROPHILS % (AUTO) 71 % (42-75); PLATELET COUNT 271 10^3/uL (130-400); WHITE BLOOD COUNT 10.4 10^3/uL (4.3-11.0)
[2021-07-15 04:50] LABS: ALBUMIN 3.4 GM/DL (3.2-4.5); POTASSIUM 3.8 MMOL/L (3.6-5.0)
[2021-07-15 04:51] LABS: CALCIUM 8.4 MG/DL (8.5-10.1)
[2021-07-15 04:52] LABS: TOTAL PROTEIN 6.1 GM/DL (6.4-8.2)
[2021-07-15 04:54] LABS: BILIRUBIN,TOTAL 0.6 MG/DL (0.1-1.0)
[2021-07-15 04:56] LABS: CREATININE SERUM 1.2 MG/DL (0.60-1.30)
[2021-07-15] MEDS ORDERED: NS IV 1000 ML 1,000 ML ONE (04:57)
[2021-07-15] MEDS: DOCUSATE SODIUM 100 MG (COLACE) CAP PO SCH ×2 (08:18→21:18)
[2021-07-15] MEDS: SENNOSIDES 8.6 MG (SENOKOT) TAB PO SCH ×2 (08:18→21:18)
[2021-07-15] MEDS: PANTOPRAZOLE 40 MG (PROTONIX) TAB PO SCH (08:25)
[2021-07-15 08:38] LABS: POTASSIUM 3.8 MMOL/L (3.6-5.0)
[2021-07-15 08:39] LABS: CALCIUM 8.1 MG/DL (8.5-10.1)
[2021-07-15 08:44] LABS: CREATININE SERUM 1.08 MG/DL (0.60-1.30)
--- NOTE | 2021-07-15 08:55 | Tele-ICU Consult ---
History of Present Illness History of Present Illness Date Seen by Provider: Jul 14, 2021 Time Seen by Provider: 17:14 Date of Admission Allergies and Home Medications Allergies Coded Allergies: Penicillins (Verified Allergy, Unknown, 09/20/18) Home Medications Aspirin 81 Mg Tablet.dr, 81 MG PO DAILY Prescribed by: CRUZ LOVE on 09/05/20 1140 Clindamycin HCl 300 Mg Capsule, 300 MG PO QID, (Reported) FILLED 08-31-2020 #20 Hydrocodone Bit/Acetaminophen 1 Tab Tab, 1 EA PO Q6HR PRN for pain Prescribed by: CRUZ LOVE on 09/05/20 1133 Insulin Aspart 100 Unit/1 Ml Insuln.pen, 6 UNIT SQ AC, (Reported) Insulin Glargine,Hum.rec.anlog 100 Unit/1 Ml Insuln.pen, 30 UNIT SQ HS, (Reported) Past Medical/Social/Family Hx Patient Social History Tobacco Use?: Yes Tobacco type used: Cigarettes Smoking Status: Current Everyday Smoker Substance use?: No Alcohol Use?: No Pt stated abuse/neglect: No Immunizations Up To Date Influenza Vaccine Up-to-Date: No; Not Current First/Initial COVID19 Vaccinat: 2020 PFITZER Tetanus Booster (TDap): Unknown Hepatitis A: No Hepatitis B: No TB Skin Test: None Current Status Advance Directives: No Communicates: Verbally Primary Language: French Preferred Spoken Language: French Is interpretation needed?: No Past Medical History 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 9.0oz. 76.046731gs; 22.43 BMI Method:Estimated Exam Exam Patient acknowledged, consented, and participated in this virtual visit which was conducted using real time audio/video Vital Signs Date Time Temp Pulse Resp B/P (MAP) Pulse Ox O2 Delivery O2 Flow Rate FiO2 07/15/21 07:42 37.6 07/15/21 07:00 87 07/15/21 06:00 86 14 120/73 95 Room Air 07/15/21 05:00 85 12 117/71 97 Room Air 07/15/21 04:00 87 16 135/77 96 Room Air 07/15/21 03:40 98 Room Air 07/15/21 03:00 91 17 96/62 95 Room Air 07/15/21 02:00 91 22 119/72 96 Room Air 07/15/21 01:00 94 07/15/21 01:00 94 15 113/71 96 Room Air 07/15/21 00:14 98 Room Air 07/15/21 00:00 94 14 133/79 95 Room Air 07/14/21 23:00 97 19 135/83 96 Room Air 07/14/21 22:00 98 14 129/77 95 Room Air 07/14/21 21:00 99 17 159/87 98 Room Air 07/14/21 20:29 95 Room Air 07/14/21 20:00 98 22 135/82 95 Room Air 07/14/21 19:30 36.4 07/14/21 19:00 98 12 148/78 98 Room Air 07/14/21 19:00 98 07/14/21 18:45 99 14 155/77 98 Room Air 07/14/21 18:30 99 15 157/87 97 Room Air 07/14/21 18:15 101 138/83 97 Room Air 07/14/21 18:00 101 149/85 97 Room Air 07/14/21 17:45 103 57 118/72 95 Room Air 07/14/21 17:30 101 26 132/87 97 Room Air 07/14/21 17:23 102 35 125/84 98 Room Air 07/14/21 17:15 104 108 98 Room Air 07/14/21 17:12 97 Room Air 07/14/21 17:00 105 15 139/84 97 Room Air 07/14/21 16:58 106 07/14/21 16:51 106 18 126/89 07/14/21 16:11 105 11 157/94 99 07/14/21 14:53 36.0 99 19 121/95 (104) 100 I & O 07/15/21 07:00 Intake Total 3175 ml Output Total 1200 ml Balance 1975 ml Height & Weight Height: 6'1.00" Weight: 168lbs. 9.0oz. 76.772804al; 22.43 BMI Method:Estimated General Appearance: No Apparent Distress, WD/WN, Other (Lethargic. Does not answer questions. Opens his eyes when asked to and then closes his eyes again and does not participate in conversation.) HEENT: PERRL/EOMI, TMs Normal Neck: Full Range of Motion, Normal Inspection Respiratory: Normal Breath Sounds, No Accessory Muscle Use, No Respiratory Distress Cardiovascular: Regular Rate, Rhythm, Normal Peripheral Pulses Capillary Refill: Less Than 3 Seconds Extremity: Normal Capillary Refill, Normal Inspection Neurologic/Psychiatric: Oriented x3 Skin: Normal Color, Warm/Dry Results Lab Laboratory Tests 07/14/21 15:06 07/14/21 17:45 07/14/21 20:51 07/14/21 23:03 07/15/21 04:05 07/15/21 08:15 Assessment/Plan Assessment/Plan (Tele-ICU Physician , consultation) Available chart/ vitals / labs / Images reviewed H&P is from ER notes Patient's information available about PMH, Shx, Fhx allergy reviewed in EMR. ROS as per chart and RN report Now in ICU, hemodynamically stable Video assessment done using teleICU camera, rest of exam as per RN Discussed with RN. Consultants: Hospital course: 07/14 ER to ICU with DKA A/P DKA *Insulin drip continue to monitor for resolution of acidosis, AG and electrolytes. Continue hydration. JOEL - dehydration - cont IVF - follow closely Hyperkalemia due to JOEL - mild - follow closely no cxr or UA available , not febrile , WBC WNL >off ABX , follow Lines : (Central Line Necessity Reviewed) Gomez: OG: Nutrition: Analgesia: Anxiety/ delirium VTE Prophylaxis: Stress Ulcer Prophylaxis: ppi Plans in collaboration with bedside consultants and IM MDs. Discussed with RN to reach out if any questions or concerns A total of 20 minutes of critical care time was devoted to this patient today, required to treat and/or prevent further deterioration of critical care condition ( as above ) . JOSE ROWE MD Jul 15, 2021 08:55
[2021-07-15] MEDS ORDERED: PANTOPRAZOLE 40 MG (PROTONIX) TAB PO SCH (09:00)
--- NOTE | 2021-07-15 10:37 | History & Physical-Hospitalist ---
JOSHUA RICKS 07/15/21 1037: History of Present Illness HPI/Chief Complaint CC: Hyperglycemia, Vomiting HPI: This is a 55 yo M who presented to the ER on 07/14/2021 with elevated blood sugar. Patient reported that his blood sugar earlier in the day was high in which he took 10 units Novolog and 20 units Levemir at 11:00am. He rechecked blood sugars 1 hour prior to arrival at ER and was at 450. Patient did have vomiting the day that he presented, no abdominal pain or diarrhea. Patient was resting heavily when I entered the room. Was able to answer a few questions saying that he is still tired, though feels better compared to yesterday. Still having emesis. Patient reports previously being hospitalized once for DKA. Glucose is decreasing to normal, glucose 150 as of 07/15 in the am. Source: patient Exam Limitations: no limitations Date Seen 07/15/21 Attending Physician Renetta Crowley DO PCP Medardo Chavez MD Referring Physician Date of Admission Jul 14, 2021 at 15:42 Home Medications & Allergies Home Medications Reviewed patient Home Medication Reconciliation performed by pharmacy medication reconciliations auto repair technician and/or nursing. Patients Allergies have been reviewed. Allergies Allergies Coded Allergies Penicillins (Verified Allergy, Unknown, 09/20/18) Past Bnzwwbv-Hyubef-Qanohq Hx Patient Social History Tobacco Use?: Yes Tobacco type used: Cigarettes Smoking Status: Current Everyday Smoker Substance use?: No Alcohol Use?: No Pt feels they are or have been: No Immunizations Up To Date First/Initial COVID19 Vaccinat: 2020 PFITZER Tetanus Booster (TDap): Unknown Hepatitis A: No Hepatitis B: No Seasonal Allergies Seasonal Allergies: No Current Status Advance Directives: No Communicates: Verbally Primary Language: Monegasque Preferred Spoken Language: Monegasque Is interpretation needed?: No Past Medical History Surgeries: Amputation, Orthopedic Currently Using CPAP: No Currently Using BIPAP: No Neuropathy Diabetes, Insulin dep Depression Blood Disorders: No Adverse Reaction/Blood Tranf: No 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 No Pertinent Family Hx Review of Systems Constitutional: No chills, No diaphoresis, No dizziness; malaise EENTM: No hearing loss, No blurred vision Cardiovascular: No chest pain, No edema, No palpitations Gastrointestinal: No abdominal pain, No constipation; vomiting Genitourinary: No decreased output, No dysuria Musculoskeletal: No back pain, No muscle pain Skin: No change in color, No dryness Psychiatric/Neurological: No Symptoms Reported Physical Exam Physical Exam Vital Signs Vital Signs - First Documented 07/14/21 07/14/21 14:53 17:00 Temp 36.0 Pulse 99 Resp 19 B/P (MAP) 121/95 (104) Pulse Ox 100 O2 Delivery Room Air Capillary Refill : Less Than 3 Seconds Height, Weight, BMI Height: 6'1.00" Weight: 168lbs. 9.0oz. 76.949422xi; 22.43 BMI Method:Estimated Respiratory: Chest Non Tender, Lungs Clear, Normal Breath Sounds, No Accessory Muscle Use, No Respiratory Distress Cardiovascular: Regular Rate, Rhythm, No Edema Gastrointestinal: Normal Bowel Sounds, No Organomegaly Neurologic/Psychiatric: Other (Mostly sleeping and still tired) Skin: Normal Color, Warm/Dry Results Results/Procedures Labs Laboratory Tests 07/14/21 15:06 07/14/21 17:45 07/14/21 20:51 07/14/21 23:03 07/15/21 04:05 07/15/21 08:15 07/15/21 12:19 Patient resulted labs reviewed. Assessment/Plan Admission Diagnosis Diabetic Ketoacidosis Hyperglycemia Hyperkalemia Assessment and Plan Assessment: Diabetic Ketoacidosis Hyperglycemia- Glucose 338 on admission Hyperkalemia Plan: 07/15 Continue DKA protocol Glucose trending down (150 on 07/15 at 08:33am) Potassium in normal range (3.8 on 07/15) Continue Supportive Care Transfer to med/surg floor from ICU CARLINERENETTA DO 07/16/21 0516: History of Present Illness HPI/Chief Complaint Chief Complaint: DKA HPI: This is a 55yoWM clinic patient of [facility] who presented with too high blood sugar to read on his glucometer. He was found to have DKA. Pt is currently on an insulin drip. His gap is closed but Bicarb remains at 17. He doesn't want to talk to me at all Source: patient Exam Limitations: no limitations Time Seen by a Provider: 10:00 Past Pffwjou-Qwyjtx-Psjhba Hx Patient Social History Marrital Status: single Employed/Student: unemployed Smoking Status: Current Everyday Smoker Past Medical History High Cholesterol, Hypertension Diabetes, Insulin dep Family Medical History Patient reports no known family medical history. Review of Systems ROS-Unable to Obtain: Refuses to answer Constitutional: see HPI, malaise, weakness Physical Exam Physical Exam General Appearance: No Apparent Distress, Chronically ill Eyes: Right Eye Normal Inspection, Right Eye PERRL HEENT: PERRL/EOMI, Normal ENT Inspection, Pharynx Normal, Moist Mucous Membranes Neck: Full Range of Motion, Normal Inspection, Non Tender Respiratory: Chest Non Tender, Lungs Clear, Normal Breath Sounds, No Accessory Muscle Use, No Respiratory Distress Cardiovascular: Regular Rate, Rhythm, No Edema, No Gallop, No JVD, No Murmur, Normal Peripheral Pulses Gastrointestinal: Normal Bowel Sounds, No Organomegaly, No Pulsatile Mass, Non Tender, Soft Back: Normal Inspection, No CVA Tenderness, No Vertebral Tenderness Extremity: Normal Capillary Refill, Normal Inspection, Normal Range of Motion, Non Tender, No Calf Tenderness, No Pedal Edema Neurologic/Psychiatric: Alert, Oriented x3, No Motor/Sensory Deficits, Normal Mood/Affect Skin: Normal Color, Warm/Dry Lymphatic: No Adenopathy Assessment/Plan Admission Diagnosis Assessment: DKA Plan: Insulin drip Admission Status: Inpatient Order (span 2 midnights) Reason for Inpatient Admission: DKA Diagnosis/Problems Diagnosis/Problems (1) Diabetic keto-acidosis Status: Acute Supervisory-Addendum Brief Verification & Attestation Participated in pt care: history, MDM, physical Personally performed: exam, history, MDM, supervision of care Care discussed with: Medical Student Procedures: n/a Results interpretation: Verified all documentation Verification and Attestation of Medical Student E/M Service A medical student performed and documented this service in my presence. I reviewed and verified all information documented by the medical student and made modifications to such information, when appropriate. I personally performed the physical exam and medical decision making. Renetta Crowley Jul 16, 2021,05:16 JOSHUA RICKS Jul 15, 2021 10:37 RENETTA CROWLEY DO Jul 16, 2021 05:16
--- NOTE | 2021-07-15 11:00 | Tele-ICU Progress Note ---
Subjective Date Seen by a Provider: Jul 15, 2021 Time Seen by a Provider: 11:00 Sepsis Event Evaluation Height, Weight, BMI Height: 6'1.00" Weight: 168lbs. 9.0oz. [id number]; 22.43 BMI Method:Estimated Exam Exam Patient acknowledged, consented, and participated in this virtual visit which was conducted using real time audio/video Vital Signs Date Time Temp Pulse Resp B/P (MAP) Pulse Ox O2 Delivery O2 Flow Rate FiO2 07/15/21 08:00 82 16 115/77 95 Room Air 07/15/21 08:00 Room Air 07/15/21 07:42 37.6 07/15/21 07:00 86 15 127/68 95 Room Air 07/15/21 07:00 87 07/15/21 06:00 86 14 120/73 95 Room Air 07/15/21 05:00 85 12 117/71 97 Room Air 07/15/21 04:00 87 16 135/77 96 Room Air 07/15/21 03:40 98 Room Air 07/15/21 03:00 91 17 96/62 95 Room Air 07/15/21 02:00 91 22 119/72 96 Room Air 07/15/21 01:00 94 07/15/21 01:00 94 15 113/71 96 Room Air 07/15/21 00:14 98 Room Air 07/15/21 00:00 94 14 133/79 95 Room Air 07/14/21 23:00 97 19 135/83 96 Room Air 07/14/21 22:00 98 14 129/77 95 Room Air 07/14/21 21:00 99 17 159/87 98 Room Air 07/14/21 20:29 95 Room Air 07/14/21 20:00 98 22 135/82 95 Room Air 07/14/21 19:30 36.4 07/14/21 19:00 98 12 148/78 98 Room Air 07/14/21 19:00 98 07/14/21 18:45 99 14 155/77 98 Room Air 07/14/21 18:30 99 15 157/87 97 Room Air 07/14/21 18:15 101 138/83 97 Room Air 07/14/21 18:00 101 149/85 97 Room Air 07/14/21 17:45 103 57 118/72 95 Room Air 07/14/21 17:30 101 26 132/87 97 Room Air 07/14/21 17:23 102 35 125/84 98 Room Air 07/14/21 17:15 104 108 98 Room Air 07/14/21 17:12 97 Room Air 07/14/21 17:00 105 15 139/84 97 Room Air 07/14/21 16:58 106 07/14/21 16:51 106 18 126/89 07/14/21 16:11 105 11 157/94 99 07/14/21 14:53 36.0 99 19 121/95 (104) 100 I & O 07/15/21 07:00 Intake Total 3175 ml Output Total 1200 ml Balance 1975 ml Height & Weight Height: 6'1.00" Weight: 168lbs. 9.0oz. 76.699657wd; 22.43 BMI Method:Estimated General Appearance: No Apparent Distress, WD/WN, Other (Lethargic. Does not answer questions. Opens his eyes when asked to and then closes his eyes again and does not participate in conversation.) HEENT: PERRL/EOMI, TMs Normal Neck: Full Range of Motion, Normal Inspection Respiratory: Normal Breath Sounds, No Accessory Muscle Use, No Respiratory Distress Cardiovascular: Regular Rate, Rhythm, Normal Peripheral Pulses Capillary Refill: Less Than 3 Seconds Extremity: Normal Capillary Refill, Normal Inspection Neurologic/Psychiatric: Oriented x3 Skin: Normal Color, Warm/Dry Results Lab Laboratory Tests 07/14/21 15:06 07/14/21 17:45 07/14/21 20:51 07/14/21 23:03 07/15/21 04:05 07/15/21 08:15 Assessment/Plan Assessment/Plan (Tele-ICU Physician , Progress Note ) Available chart/ vitals / labs / Images reviewed Video assessment done using teleICU camera, rest of exam as per RN Discussed with RN , EXAM PER RN Events overnight : beter Afebrile FiO2 - 2l I/O = Drips: Pressors: , hemodynamically stable Consultants: Milton gottlieb Hospital course: (07/09) 80 Y/O Male S/P Exploratory Laparotomy with Repair of Strangulated Hernia and repair of Small Bowel Obstruction. He reains Intubated post operatively. 07/12 EXTUBATED 07/13 - mild CO2 retention , refused CPAP 3/8 - Left lower quadrant incisional hematoma - s/p eavcuation , LOVENOX ON HOLD A/P Acute resp failure post po extubated 07/12 - on NC 4 L , mild CO2 retention , refused CPAP, minimal needs for opioids -CONSIDER DIURESIS Large ventral hernia, -s/p hernia repair surgery with bowel resection done on July 09, [address] 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 - AC with LOVENOX 120 bid ,- ON HOLD 07/14 - Eliquis when OK with Sx +cards - EF 40 to 45% Mild pulm HTN - per ECHO PA pressure of 40 to 45 mmHg. 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 Discussed with RN to reach out if any questions or concerns A total of33 minutes of critical care time was devoted to this patient today, required to treat and/or prevent further deterioration of critical care condition ( as above) JOSE ROWE MD Jul 15, 2021 11:00
[2021-07-15 12:36] LABS: POTASSIUM 3.8 MMOL/L (3.6-5.0)
[2021-07-15] MEDS: inSUlin ASPART (NovoLOG) 1 UNIT/0.01 ML (CHARGE PER UNIT) SC SCH ×2 (16:19→20:58)
[2021-07-15] MEDS: ENOXAPARIN 40 MG/0.4 ML (LOVENOX) SYR SC SCH (17:23)
[2021-07-15 17:45] LABS: POTASSIUM 3.9 MMOL/L (3.6-5.0)
[2021-07-15 17:47] LABS: CALCIUM 8.1 MG/DL (8.5-10.1)
[2021-07-15 17:51] LABS: CREATININE SERUM 0.94 MG/DL (0.60-1.30)
[2021-07-16] MEDS: 1/2 NS IV SOLUTION 1,000 ML IV SCH ×4 (01:43→13:24)
[2021-07-16] MEDS: D5 1/2 NS 1000 ML IV SOLUTION 1,000 ML IV SCH ×4 (01:43→13:25)
[2021-07-16 04:38] LABS: BASOPHILS % (AUTO) 0 % (0-10); EOSINOPHILS % (AUTO) 0 % (0-10); HEMATOCRIT 39 % (40-54); HEMOGLOBIN 13.1 g/dL (13.3-17.7); LYMPHOCYTES # (AUTO) 3.1 10^3/uL (1.0-4.0); LYMPHOCYTES % (AUTO) 35 % (12-44); MEAN CORPUSCULAR HEMOGLOBIN 28 pg (25-34); MEAN CORPUSCULAR HGB CONC 33 g/dL (32-36); MEAN CORPUSCULAR VOLUME 85 fL (80-99); MEAN PLATELET VOLUME 10.1 fL (9.0-12.2); MONOCYTES % (AUTO) 12 % (0-12); NEUTROPHILS # (AUTO) 4.5 10^3/uL (1.8-7.8); NEUTROPHILS % (AUTO) 53 % (42-75); PLATELET COUNT 227 10^3/uL (130-400); WHITE BLOOD COUNT 8.7 10^3/uL (4.3-11.0)
[2021-07-16 05:00] LABS: ALBUMIN 2.9 GM/DL (3.2-4.5)
[2021-07-16 05:01] LABS: POTASSIUM 3.3 MMOL/L (3.6-5.0)
[2021-07-16 05:02] LABS: CALCIUM 8.3 MG/DL (8.5-10.1)
[2021-07-16 05:03] LABS: TOTAL PROTEIN 5.4 GM/DL (6.4-8.2)
[2021-07-16 05:05] LABS: BILIRUBIN,TOTAL 0.6 MG/DL (0.1-1.0)
[2021-07-16 05:07] LABS: CREATININE SERUM 0.87 MG/DL (0.60-1.30)
[2021-07-16 05:45] LABS: PHOSPHORUS 1.6 MG/DL (2.3-4.7)
[2021-07-16 05:47] LABS: MAGNESIUM 1.9 MG/DL (1.6-2.4)
[2021-07-16] MEDS ORDERED: KCL 20 MEQ TAB (K-DUR) PO SCH (06:00)
[2021-07-16] MEDS ORDERED: POTASSIUM CL 10MEQ/50ML IVPB 50 ML IV SCH (06:00)
[2021-07-16] MEDS ORDERED: MAGNESIUM 1 GM/100 ML IVPB 100 ML IV SCH (06:00)
[2021-07-16] MEDS: inSUlin ASPART (NovoLOG) 1 UNIT/0.01 ML (CHARGE PER UNIT) SC SCH ×2 (06:31→11:00)
[2021-07-16] MEDS ORDERED: POTASSIUM PHOSPHATE INJ 30 MM in NS (IVPB) 250 ML IV ONE (07:00)
[2021-07-16] MEDS: PANTOPRAZOLE 40 MG (PROTONIX) TAB PO SCH (07:42)
[2021-07-16] MEDS: SENNOSIDES 8.6 MG (SENOKOT) TAB PO SCH (07:48)
[2021-07-16] MEDS: DOCUSATE SODIUM 100 MG (COLACE) CAP PO SCH (07:48)
--- NOTE | 2021-07-16 07:57 | Progress Note - Hospitalist ---
Subjective HPI/CC On Admission Chief Complaint: DKA HPI: This is a 55yoWM clinic patient of [facility] who presented with too high blood sugar to read on his glucometer. He was found to have DKA. Pt is currently on an insulin drip. His gap is closed but Bicarb remains at 17. He doesn't want to talk to me at all Objective Exam Vital Signs Vital Signs Date Time Temp Pulse Resp B/P (MAP) Pulse Ox O2 Delivery O2 Flow Rate FiO2 07/16/21 10:00 74 8 109/64 95 Room Air 07/16/21 08:00 37.2 Capillary Refill : Less Than 3 Seconds Results/Procedures Lab Laboratory Tests 07/15/21 12:19 07/15/21 17:00 07/16/21 04:30 Patient resulted labs reviewed. Diagnosis/Problems Diagnosis/Problems (1) Diabetic keto-acidosis Status: Acute GORDON CROWLYE DO Jul 16, 2021 07:57
--- NOTE | 2021-07-16 08:13 | Tele-ICU Progress Note ---
Subjective Date Seen by a Provider: Jul 16, 2021 Time Seen by a Provider: 08:13 Subjective/Events-last exam This patient who has a type 2 diabetes mellitus on insulin but apparently noncompliant presented to the emergency room with a complaint of he has a high blood sugar readings and found to have a DKA. He is started on IV fluids and IV insulin drip. Currently his anion gap closed. He is off the insulin drip. He denies any nausea overnight vomiting however he has occasional hiccups. Looks comfortable. I made a video visit and discussed with the patient. Review of Systems ROS PER RN Sepsis Event Evaluation Height, Weight, BMI Height: 6'1.00" Weight: 168lbs. 9.0oz. 76.074402cq; 22.43 BMI Method:Estimated Exam Exam Patient acknowledged, consented, and participated in this virtual visit which was conducted using real time audio/video Vital Signs Date Time Temp Pulse Resp B/P (MAP) Pulse Ox O2 Delivery O2 Flow Rate FiO2 07/16/21 07:49 Room Air 07/16/21 07:00 74 07/16/21 07:00 72 24 126/70 95 Room Air 07/16/21 06:00 71 14 110/73 95 Room Air 07/16/21 05:00 71 13 99/58 95 Room Air 07/16/21 04:00 70 15 103/68 95 Room Air 07/16/21 03:34 Room Air 07/16/21 03:00 73 14 111/73 94 Room Air 07/16/21 02:00 73 15 115/60 94 Room Air 07/16/21 01:00 77 13 98/66 96 Room Air 07/16/21 01:00 77 07/16/21 00:00 Room Air 07/16/21 00:00 75 14 141/82 94 Room Air 07/15/21 23:00 74 14 106/67 95 Room Air 07/15/21 22:00 75 14 133/93 96 Room Air 07/15/21 21:00 71 14 116/65 95 Room Air 07/15/21 20:00 Room Air 07/15/21 20:00 70 17 126/72 95 Room Air 07/15/21 19:26 36.7 07/15/21 19:00 77 13 144/81 95 Room Air 07/15/21 19:00 77 07/15/21 18:00 75 9 103/65 96 Room Air 07/15/21 17:00 80 7 140/83 94 Room Air 07/15/21 16:05 Room Air 07/15/21 16:00 76 21 120/68 97 Room Air 07/15/21 15:34 37.1 07/15/21 15:00 75 14 117/71 95 Room Air 07/15/21 14:15 75 15 126/75 95 Room Air 07/15/21 14:00 80 81 125/77 96 Room Air 07/15/21 13:30 75 07/15/21 13:00 76 32 140/86 95 Room Air 07/15/21 12:10 Room Air 07/15/21 12:00 37.4 07/15/21 12:00 79 17 99/63 95 Room Air 07/15/21 11:00 77 15 124/70 95 Room Air 07/15/21 10:00 81 18 112/70 95 Room Air 07/15/21 09:00 79 12 110/70 97 Room Air I & O 07/16/21 07:00 Intake Total 950 ml Output Total 1425 ml Balance -475 ml Height & Weight Height: 6'1.00" Weight: 168lbs. 9.0oz. 76.034304lf; 22.43 BMI Method:Estimated General Appearance: No Apparent Distress, Chronically ill HEENT: PERRL/EOMI, Normal ENT Inspection, Pharynx Normal, Moist Mucous Membranes Neck: Full Range of Motion, Normal Inspection, Non Tender Respiratory: Chest Non Tender, Lungs Clear, Normal Breath Sounds, No Accessory Muscle Use, No Respiratory Distress Cardiovascular: Regular Rate, Rhythm, No Edema, No Gallop, No JVD, No Murmur, Normal Peripheral Pulses Capillary Refill: Less Than 3 Seconds Extremity: Normal Capillary Refill, Normal Inspection, Normal Range of Motion, Non Tender, No Calf Tenderness, No Pedal Edema Neurologic/Psychiatric: Alert, Oriented x3, No Motor/Sensory Deficits, Normal Mood/Affect Skin: Normal Color, Warm/Dry Lymphatic: No Adenopathy Other comments PE PER RN Results Lab Laboratory Tests 07/14/21 15:06 07/14/21 17:45 07/14/21 20:51 07/14/21 23:03 07/15/21 04:05 07/15/21 08:15 07/15/21 12:19 07/15/21 17:00 07/16/21 04:30 Assessment/Plan Assessment/Plan 1. Acute diabetic ketoacidosis secondary to noncompliance of with his med patient's currently improving. Neck 2. From critical care point of view he may be transferred out of the ICU or discharge per primary care physician. Critical Care: Critically Ill Patient Time spent with patient (mins): 15 KELLY JOSÉ MD Jul 16, 2021 08:13
[2021-07-16] MEDS ORDERED: METOCLOPRAMIDE INJ 10 MG/2 ML (REGLAN) IVP PRN (08:15)
--- NOTE | 2021-07-16 10:30 | Discharge Summary ---
Discharge Summary Hospital Course Was the Problem List Reviewed?: Yes Problems/Dx: (1) Diabetic keto-acidosis Status: Acute Hospital Course Date of Admission: Jul 14, 2021 at 15:42 Admission Diagnosis : Family Physician/Provider: Medardo Chavez MD Date of Discharge: 07/16/21 Discharge Diagnosis: DKA Hospital Course: Pt had an uneventful hospital course. He was admitted for DKA. He underwent insulin drip with aggressive management and IV fluids. He was deemed stable from discharge. We restarted his insulin and he has severe noncompliance. He will be dischared in improved condition Labs and Pending Lab Test: Laboratory Tests 07/15/21 10:43: Glucometer 116H 07/15/21 11:36: Glucometer 111H 07/15/21 12:19: Sodium Level 135, Potassium Level 3.8, Chloride Level 109H, Carbon Dioxide Level 20L, Anion Gap 6, Blood Urea Nitrogen 10, Creatinine 1.00, Estimat Glomerular Filtration Rate 90, BUN/Creatinine Ratio 10, Glucose Level 139H, Calcium Level 8.0L 07/15/21 12:32: Glucometer 128H 07/15/21 13:50: Glucometer 179H 07/15/21 14:58: Glucometer 182H 07/15/21 16:05: Glucometer 148H 07/15/21 17:00: Sodium Level 133L, Potassium Level 3.9, Chloride Level 106, Carbon Dioxide Level 18L, Anion Gap 9, Blood Urea Nitrogen 8, Creatinine 0.94, Estimat Glomerular Filtration Rate 97, BUN/Creatinine Ratio 9, Glucose Level 166H, Calcium Level 8.1L 07/15/21 20:26: Glucometer 172H 07/16/21 04:30: White Blood Count 8.7, Red Blood Count 4.66, Hemoglobin 13.1L, Hematocrit 39L, Mean Corpuscular Volume 85, Mean Corpuscular Hemoglobin 28, Mean Corpuscular Hemoglobin Concent 33, Red Cell Distribution Width 14.0, Platelet Count 227, Mean Platelet Volume 10.1, Immature Granulocyte % (Auto) 0, Neutrophils (%) (Auto) 53, Lymphocytes (%) (Auto) 35, Monocytes (%) (Auto) 12, Eosinophils (%) (Auto) 0, Basophils (%) (Auto) 0, Neutrophils # (Auto) 4.5, Lymphocytes # (Auto) 3.1, Monocytes # (Auto) 1.0, Eosinophils # (Auto) 0.0, Basophils # (Auto) 0.0, Immature Granulocyte # (Auto) 0.0, Sodium Level 136, Potassium Level 3.3L, Chlo ride Level 107, Carbon Dioxide Level 20L, Anion Gap 9, Blood Urea Nitrogen 7, Creatinine 0.87, Estimat Glomerular Filtration Rate 103, BUN/Creatinine Ratio 8, Glucose Level 66L, Calcium Level 8.3L, Corrected Calcium 9.2, Phosphorus Level 1.6L, Magnesium Level 1.9, Total Bilirubin 0.6, Aspartate Amino Transf (AST/SGOT) 11, Alanine Aminotransferase (ALT/SGPT) 8, Alkaline Phosphatase 58, Total Protein 5.4L, Albumin 2.9L 07/16/21 06:01: Glucometer 89 Home Meds Active Reported Lantus Solostar (Insulin Glargine,Hum.rec.anlog) 100 Unit/1 Ml Insuln.pen 25 Unit SQ HS Insulin Aspart Flexpen (Insulin Aspart) 100 Unit/1 Ml Insuln.pen 10 Unit SQ AC Assessment/Pt Instructions PCP in 1 week Discharge Planning: <30 minutes discharge planning Discharge Instructions Discharge Diet: ADA Diet Activity as Tolerated: Yes Discharge Physical Examination Vital Signs Vital Signs Date Time Temp Pulse Resp B/P (MAP) Pulse Ox O2 Delivery O2 Flow Rate FiO2 07/16/21 10:00 74 8 109/64 95 Room Air 07/16/21 08:00 37.2 General Appearance: No Apparent Distress, WD/WN, Chronically ill Allergies: Coded Allergies: Penicillins (Verified Allergy, Unknown, 09/20/18) Discharge Summary Date of Admission Jul 14, 2021 at 15:42 Date of Discharge Discharge Date: Jul 16, 2021 Admission Diagnosis Assessment: DKA Plan: Insulin drip Discharge Diagnosis (1) Diabetic keto-acidosis Status: Acute GORDON CROWLEY DO Jul 16, 2021 10:30
== END 2021-07-16 14:00 | disposition home or self-care (01) | DRG 638 ==
LOC: EDUNIT# 14:49 → ER 14:51 → ICU 15:42
PROVIDERS: ADMIT Internal Medicine; ATTEND Internal Medicine
DX: E11.10 Type 2 diabetes mellitus with ketoacidosis without coma (principal); N17.9 Acute kidney failure, unspecified; E86.0 Dehydration; E11.40 Type 2 diabetes mellitus with diabetic neuropathy, unspecified; E87.5 Hyperkalemia; F17.210 Nicotine dependence, cigarettes, uncomplicated; Z79.4 Long term (current) use of insulin; Z89.421 Acquired absence of other right toe(s); Z88.0 Allergy status to penicillin; Z79.82 Long term (current) use of aspirin
CPT/HCPCS: 36415; 80048; 80053; 80320; 80329; 82010; 82550; 82947; 83036; 83735; 84100; 85025; 85610

== ENCOUNTER 2021-09-26 14:48 | Inpatient (IN) | payer SELFPAY ==
[~2021-09-26] VITALS: Ht 175 cm; Wt 82.0 kg
[2021-09-26] MEDS ORDERED: LACTATED RINGERS 1,000 ML IV STA (15:10)
--- NOTE | 2021-09-26 15:19 | ED General ---
General Stated Complaint: N/V Source of Information: Patient Exam Limitations: No Limitations History of Present Illness Date Seen by Provider: September 26, 2021 Time Seen by Provider: 15:14 Initial Comments Patient is a 55-year-old male who presents to ED for generalized weakness, nausea vomiting. Unclear how long his symptoms have started. Difficulty obtaini ng history from patient. Patient is slightly disoriented but does respond to pain and stimuli. He states he has been urinating "a lot" . history of DKA and states he is concerned that he is currently in DKA. Denies of any drug use or alcohol use. States he feels weak throughout. Denies headache, chest pain, Nasir pain, diarrhea. Patient was brought to ED by a friend. Patient contacted friend who picked him up at his house. Allergies and Home Medications Allergies Coded Allergies: Penicillins (Verified Allergy, Unknown, 09/20/18) Patient Home Medication List Home Medication List Reviewed: Yes Insulin Aspart (Insulin Aspart Flexpen) 100 Unit/1 Ml Insuln.pen, 10 UNIT SQ AC, (Reported) Entered as Reported by: BRENDA RICHARDSON on 09/02/201511 Insulin Glargine,Hum.rec.anlog (Lantus Solostar) 100 Unit/1 Ml Insuln.pen, 25 UNIT SQ HS, (Reported) Entered as Reported by: BRENDA RICHARDSON on 09/02/201511 Review of Systems Review of Systems Constitutional: No chills, No diaphoresis, No malaise, No weakness EENTM: No blurred vision, No double vision Respiratory: No cough, No dyspnea on exertion Cardiovascular: No chest pain, No edema Gastrointestinal: No abdominal pain, No diarrhea; nausea, vomiting Genitourinary: No decreased output; frequency Musculoskeletal: No back pain, No joint pain Skin: No change in color, No change in hair/nails All Other Systems Reviewed Negative Unless Noted: Yes Past Pfhinhj-Evnrrj-Vzctns Hx Immunizations Up To Date Tetanus Booster (TDap): Unknown First/Initial COVID19 Vaccinat: 2020 PFITZER Seasonal Allergies Seasonal Allergies: No Past Medical History Surgery/Hospitalization HX: IDDM Surgeries: Yes (Right fourth toe amputation) Amputation, Orthopedic Respiratory: No Currently Using CPAP: No Currently Using BIPAP: No Cardiac: No High Cholesterol, Hypertension Neurological: Yes Neuropathy Genitourinary: No Gastrointestinal: No Musculoskeletal: Yes (RIGHT 4TH TOE AMPUTATION) Endocrine: Yes (DKA; NON-COMPLIANCE) Diabetes, Insulin dep HEENT: No Cancer: No Psychosocial: Yes (SUBSTANCE ABUSE) Depression Integumentary: Yes (diabetic foot ulcer) Blood Disorders: No Adverse Reaction/Blood Tranf: No Family Medical History Patient reports no known family medical history. No Pertinent Family Hx Physical Exam Vital Signs Vital Signs - First Documented 09/26/21 15:03 Temp 35.9 Pulse 97 Resp 18 B/P (MAP) 144/74 (97) Pulse Ox 98 O2 Delivery Room Air Capillary Refill : Height, Weight, BMI Height: 6'1.00" Weight: 168lbs. 9.0oz. 76.326401ls; 22.43 BMI Method:Estimated General Appearance: No Apparent Distress, WD/WN Eyes: Bilateral Eye Normal Inspection, Bilateral Eye PERRL, Bilateral Eye EOMI HEENT: PERRL/EOMI, TMs Normal, Normal ENT Inspection Neck: Full Range of Motion, Normal Inspection Cardiovascular: Regular Rate, Rhythm, No Edema, No Gallop, No JVD Gastrointestinal: Normal Bowel Sounds, No Organomegaly, No Pulsatile Mass, Non Tender, Soft Back: Normal Inspection; No No CVA Tenderness; No Vertebral Tenderness Extremity: Normal Capillary Refill Neurologic/Psychiatric: Disoriented Skin: Normal Color, Warm/Dry Focused Exam Lactate Level 09/26/21 15:35: Lactic Acid Level 3.36*H Lactic Acid Level Laboratory Tests Test 09/26/21 15:35 Lactic Acid Level 3.36 MMOL/L (0.50-2.00) *H Progress/Results/Core Measures Suspected Sepsis SIRS Temperature: Pulse: Respiratory Rate: Laboratory Tests 09/26/21 15:12: White Blood Count 11.5H Blood Pressure / Mean: 09/26/21 15:35: Lactic Acid Level 3.36*H Laboratory Tests 09/26/21 15:12: Creatinine 2.36H, Platelet Count 278, Total Bilirubin 0.7 Results/Orders Lab Results Laboratory Tests Test 09/26/21 15:12 09/26/21 15:23 09/26/21 15:35 Range/Units White Blood Count 11.5 H 4.3-11.0 10^3/uL Red Blood Count 5.77 H 4.30-5.52 10^6/uL Hemoglobin 16.7 13.3-17.7 g/dL Hematocrit 52 40-54 % Mean Corpuscular Volume 90 80-99 fL Mean Corpuscular Hemoglobin 29 25-34 pg Mean Corpuscular Hemoglobin Concent 32 32-36 g/dL Red Cell Distribution Width 12.1 10.0-14.5 % Platelet Count 278 130-400 10^3/uL Mean Platelet Volume 11.3 9.0-12.2 fL Immature Granulocyte % (Auto) 0 % Neutrophils (%) (Auto) 84 H 42-75 % Lymphocytes (%) (Auto) 10 L 12-44 % Monocytes (%) (Auto) 5 0-12 % Eosinophils (%) (Auto) 0 0-10 % Basophils (%) (Auto) 0 0-10 % Neutrophils # (Auto) 9.7 H 1.8-7.8 10^3/uL Lymphocytes # (Auto) 1.1 1.0-4.0 10^3/uL Monocytes # (Auto) 0.6 0.0-1.0 10^3/uL Eosinophils # (Auto) 0.0 0.0-0.3 10^3/uL Basophils # (Auto) 0.0 0.0-0.1 10^3/uL Immature Granulocyte # (Auto) 0.1 0.0-0.1 10^3/uL Sodium Level 131 L 135-145 MMOL/L Potassium Level 5.4 H 3.6-5.0 MMOL/L Chloride Level 86 L 98-107 MMOL/L Carbon Dioxide Level 11 L 21-32 MMOL/L Anion Gap 34 H 5-14 MMOL/L Blood Urea Nitrogen 33 H 7-18 MG/DL Creatinine 2.36 H 0.60-1.30 MG/DL Estimat Glomerular Filtration Rate 32 BUN/Creatinine Ratio 14 Glucose Level 798 *H 70-105 MG/DL Calcium Level 10.1 8.5-10.1 MG/DL Corrected Calcium 9.9 8.5-10.1 MG/DL Total Bilirubin 0.7 0.1-1.0 MG/DL Aspartate Amino Transf (AST/SGOT) 35 H 5-34 U/L Alanine Aminotransferase (ALT/SGPT) 47 0-55 U/L Alkaline Phosphatase 163 H 40-136 U/L Total Protein 8.0 6.4-8.2 GM/DL Albumin 4.2 3.2-4.5 GM/DL Lipase 22 8-78 U/L Beta-Hydroxybutyrate (Chem panel) 12.30 H 0.00-0.27 MMOL/L Serum Alcohol < 10 <10 MG/DL Blood Gas Puncture Site RIGHT RADIAL Blood Gas Patient Temperature 35.9 Arterial Blood pH 7.21 *L 7.37-7.43 Arterial Blood Partial Pressure CO2 27 L 35-45 MMHG Arterial Blood Partial Pressure O2 114 H 79-93 MMHG Arterial Blood HCO3 11 *L 23-27 MMOL/L Arterial Blood Total CO2 11.3 L 21.0-31.0 MMOL/L Arterial Blood Oxygen Saturation 97 94-100 % Arterial Blood Base Excess -16.1 L -2.5-2.5 MMOL/L Waqar Test POSITIVE Blood Gas Ventilator Setting NO Blood Gas Inspired Oxygen N/A Lactic Acid Level 3.36 *H 0.50-2.00 MMOL/L My Orders Orders - TSERING GALVAN Accucheck Stat ONCE (09/26/21 15:06) Cbc With Automated Diff (09/26/21 15:10) Comprehensive Metabolic Panel (09/26/21 15:10) Lipase (09/26/21 15:10) Ua Culture If Indicated (09/26/21 15:10) Drug Screen Stat (Urine) (09/26/21 15:10) Alcohol (09/26/21 15:10) Beta Hydroxybutyrate (09/26/21 15:10) Lactated Ringers (Lr 1000 Ml Iv Solution (09/26/21 15:10) Arterial Blood Gas (09/26/21 15:27) Lactic Acid Analyzer (09/26/21 15:32) Insulin (Regular) Human (Novolin R (Per (09/26/21 15:45) Ondansetron Injection (Zofran Injectio (09/26/21 16:00) Insulin (Regular) Human (Novolin R (Per (09/26/21 15:58) Medications Given in ED Current Medications Medications Dose Ordered Sig/Perico Route Start Time Stop Time Status Last Admin Dose Admin Insulin Human Regular 10 unit ONCE ONCE SC 09/26/21 15:45 09/26/21 16:03 DC 09/26/21 16:01 10 UNIT Ondansetron HCl 4 mg ONCE ONCE IVP 09/26/21 16:00 09/26/21 16:01 DC 09/26/21 16:00 4 MG Vital Signs/I&O 09/26/21 15:03 Temp 35.9 Pulse 97 Resp 18 B/P (MAP) 144/74 (97) Pulse Ox 98 O2 Delivery Room Air Capillary Refill : Critical Care Note Critical Care Start Time: 13:30 Stop Time: 16:13 Total Time (minutes) 43 Departure Communication (PCP) Patient noncompliant diabetic poor historian with generalized weakness vomiting. Patient initial blood sugar 798. Beta hydroxybutyrate 12.5. Acute kidney injury creatinine 2.26. Patient is dehydrated with a pH of 7.21 with bicarb of 11. Patient was given initial 10 units of subcutaneous insulin. Patient was started on insulin drip protocol. Patient was started on liter of fluid. Patient was discussed with Dr. Jimenez accepts patient in the ICU for DKA protocol. Orders were placed. Patient agrees with admission. Patient was slightly hypotensive but managing a map over 65. Last blood pressure at 416 was 108/60. Was given Zofran for episode of vomiting here. Patient appears in DKA. Impression Primary Impression: DKA, type 2 Additional Impression: JOEL (acute kidney injury) Disposition: ADMITTED INPATIENT Condition: Critical Admissions Decision to Admit Reason: Admit from ER (General) Decision to Admit/Date: September 26, 2021 Time/Decision to Admit Time: 15:49 Departure-Patient Inst. Referrals: THEODORE MEDLEY MD (PCP/Family) Primary Care Physician TSERING GALVAN September 26, 2021 15:19
[2021-09-26 15:21] LABS: BASOPHILS % (AUTO) 0 % (0-10); EOSINOPHILS % (AUTO) 0 % (0-10); HEMATOCRIT 52 % (40-54); HEMOGLOBIN 16.7 g/dL (13.3-17.7); LYMPHOCYTES # (AUTO) 1.1 10^3/uL (1.0-4.0); LYMPHOCYTES % (AUTO) 10 % (12-44); MEAN CORPUSCULAR HEMOGLOBIN 29 pg (25-34); MEAN CORPUSCULAR HGB CONC 32 g/dL (32-36); MEAN CORPUSCULAR VOLUME 90 fL (80-99); MEAN PLATELET VOLUME 11.3 fL (9.0-12.2); MONOCYTES # (AUTO) 0.6 10^3/uL (0.0-1.0); MONOCYTES % (AUTO) 5 % (0-12); NEUTROPHILS # (AUTO) 9.7 10^3/uL (1.8-7.8); NEUTROPHILS % (AUTO) 84 % (42-75); PLATELET COUNT 278 10^3/uL (130-400); WHITE BLOOD COUNT 11.5 10^3/uL (4.3-11.0)
[2021-09-26 15:34] LABS: ALBUMIN 4.2 GM/DL (3.2-4.5); CHLORIDE 86 MMOL/L (98-107); POTASSIUM 5.4 MMOL/L (3.6-5.0); SODIUM 131 MMOL/L (135-145)
[2021-09-26 15:35] LABS: ABG BASE EXCESS -16.1 MMOL/L (-2.5-2.5); ABG OXYGEN SATURATION 97 % (94-100); ABG PCO2 27 MMHG (35-45); ABG PO2 114 MMHG (79-93); ABG TCO2 11.3 MMOL/L (21.0-31.0)
[2021-09-26 15:35] LABS: CALCIUM 10.1 MG/DL (8.5-10.1)
[2021-09-26 15:36] LABS: ABG PH 7.21 (7.37-7.43)
[2021-09-26 15:37] LABS: ALLENS TEST POSITIVE; PATIENT TEMP 35.9; VENTILATOR NO
[2021-09-26 15:37] LABS: CARBON DIOXIDE 11 MMOL/L (21-32)
[2021-09-26 15:38] LABS: BILIRUBIN,TOTAL 0.7 MG/DL (0.1-1.0)
[2021-09-26 15:40] LABS: ALKALINE PHOSPHATASE 163 U/L (40-136); CREATININE SERUM 2.36 MG/DL (0.60-1.30); GFR ESTIMATED 32
[2021-09-26 15:41] LABS: BUN/CREATININE RATIO 14
[2021-09-26 15:43] LABS: ALANINE AMINOTRANSFERASE 47 U/L (0-55); LIPASE 22 U/L (8-78)
[2021-09-26] MEDS ORDERED: inSUlin (REGULAR) HUMAN 1 UNIT/0.01 ML (CHARGE PER UNIT) IV ONE (15:45)
[2021-09-26] MEDS ORDERED: inSUlin (REGULAR) HUMAN 1 UNIT/0.01 ML (CHARGE PER UNIT) SC ONE (15:45)
[2021-09-26 15:46] LABS: GLUCOSE 798 MG/DL (70-105)
[2021-09-26] MEDS ORDERED: inSUlin (REGULAR) HUMAN 1 UNIT/0.01 ML (CHARGE PER UNIT) ONE (15:58)
[2021-09-26] MEDS ORDERED: ONDANSETRON 4 MG/2 ML (SDV) Z0FRAN IVP ONE ×2 (16:00→17:45)
[2021-09-26] MEDS ORDERED: 1/2 NS IV SOLUTION 1,000 ML IV ONE (16:54)
[2021-09-26] MEDS ORDERED: D5 1/2 NS 1000 ML IV SOLUTION 1,000 ML IV ONE (16:54)
[2021-09-26] MEDS ORDERED: POTASSIUM CL 10MEQ/50ML IVPB 50 ML IV ONE (16:54)
--- NOTE | 2021-09-26 16:55 | Tele-ICU Consult ---
History of Present Illness History of Present Illness Date Seen by Provider: September 26, 2021 Time Seen by Provider: 16:49 History of Present Illness 55 M with DM1, Hx of DKA, presents with weakness, nausea, vomiting, polyuria, Hx of DKA, no CP, no SOB In ED LA 3.36, glu 798, HCO3 11, BOH elevated at 12 started on DKA protocol will admit to ICU and follow DKA protocol Allergies and Home Medications Allergies Coded Allergies: Penicillins (Verified Allergy, Unknown, 09/20/18) Home Medications Insulin Aspart 100 Unit/1 Ml Insuln.pen, 10 UNIT SQ AC, (Reported) Insulin Glargine,Hum.rec.anlog 100 Unit/1 Ml Insuln.pen, 25 UNIT SQ HS, (Reported) Past Medical/Social/Family Hx Patient Social History Tobacco Use?: Yes Tobacco type used: Cigarettes Smoking Status: Current Everyday Smoker Use of E-Cig and/or Vaping dev: No Substance use?: Unable to obtain Alcohol Use?: No Pt stated abuse/neglect: Unable to obtain Immunizations Up To Date First/Initial COVID19 Vaccinat: 2020 PFITZER Second COVID19 Vaccination Jeffery: 2020 PFITZER Tetanus Booster (TDap): Unknown Hepatitis A: No Hepatitis B: No TB Skin Test: None Current Status Advance Directives: No Primary Language: Persian Preferred Spoken Language: Persian Implanted or Applied Medical D: None Past Medical History 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 9.0oz. 76.794864gi; 26.00 BMI Method:Estimated Lactic Acid Level Laboratory Tests Test 09/26/21 15:35 Lactic Acid Level 3.36 MMOL/L (0.50-2.00) *H Exam Exam Patient acknowledged, consented, and participated in this virtual visit which was conducted using real time audio/video Vital Signs Date Time Temp Pulse Resp B/P (MAP) Pulse Ox O2 Delivery O2 Flow Rate FiO2 09/26/21 15:03 35.9 97 18 144/74 (97) 98 Room Air Height & Weight Height: 6'1.00" Weight: 168lbs. 9.0oz. 76.381498td; 26.00 BMI Method:Estimated General Appearance: No Apparent Distress, WD/WN, Moderate Distress HEENT: PERRL/EOMI, TMs Normal, Normal ENT Inspection Neck: Full Range of Motion, Normal Inspection Cardiovascular: Regular Rate, Rhythm, No Edema, No Gallop, No JVD Capillary Refill: Less Than 3 Seconds Gastrointestinal: other (vomited x [address] MICU) Extremity: Normal Capillary Refill Neurologic/Psychiatric: Disoriented, Other (lethargic) Skin: Normal Color, Warm/Dry Results Lab Laboratory Tests 09/26/21 15:12 Assessment/Plan Assessment/Plan moderate DKA, will continue on DKA protocol Critical Care: Critically Ill Patient Time spent with patient (mins): 25 COLBY TORRES MD September 26, 2021 16:55
[2021-09-26] MEDS ORDERED: CATHETER FLUSH 10 ML SYR IV PRN (17:00)
[2021-09-26] MEDS ORDERED: NS IV 1000 ML 1,000 ML IV SCH (17:00)
[2021-09-26] MEDS: 1/2 NS IV SOLUTION 1,000 ML IV SCH ×2 (17:12→21:06)
[2021-09-26] MEDS: POTASSIUM CL 10MEQ/50ML IVPB 50 ML IV SCH ×2 (17:13→17:14)
--- NOTE | 2021-09-26 17:38 | Tele-ICU Progress Note ---
Subjective Date Seen by a Provider: September 26, 2021 Time Seen by a Provider: 17:33 Subjective/Events-last exam called for vomiting, has DKA, will order Zofran, EKG to check QTc interval, also vomitus has coffee ground appearance, will place on IV PPI Abilio Torres MD Sepsis Event Evaluation Height, Weight, BMI Height: 6'1.00" Weight: 168lbs. 9.0oz. 76.227992pl; 26.00 BMI Method:Estimated Focused Exam Lactate Level 09/26/21 15:35: Lactic Acid Level 3.36*H Lactic Acid Level Laboratory Tests Test 09/26/21 15:35 Lactic Acid Level 3.36 MMOL/L (0.50-2.00) *H Exam Exam Patient acknowledged, consented, and participated in this virtual visit which was conducted using real time audio/video Vital Signs Date Time Temp Pulse Resp B/P (MAP) Pulse Ox O2 Delivery O2 Flow Rate FiO2 09/26/21 17:16 96 14 92 Room Air 09/26/21 17:13 95 09/26/21 16:46 35.9 88 18 98/53 98 Room Air 09/26/21 15:03 35.9 97 18 144/74 (97) 98 Room Air Height & Weight Height: 6'1.00" Weight: 168lbs. 9.0oz. 76.824425jv; 26.00 BMI Method:Estimated General Appearance: No Apparent Distress, WD/WN, Moderate Distress HEENT: PERRL/EOMI, TMs Normal, Normal ENT Inspection Neck: Full Range of Motion, Normal Inspection Cardiovascular: Regular Rate, Rhythm, No Edema, No Gallop, No JVD Capillary Refill: Less Than 3 Seconds Gastrointestinal: other (vomited x [address] to MICU) Extremity: Normal Capillary Refill Neurologic/Psychiatric: Disoriented, Other (lethargic) Skin: Normal Color, Warm/Dry Results Lab Laboratory Tests 09/26/21 15:12 Assessment/Plan Assessment/Plan do EKG to check QTc then give IV Zofran, start IV Pepcid dose corrected for elevated Cr, 10 mg IV bid continue on DKA protocol Critical Care: Critically Ill Patient COLBY TORRES MD September 26, 2021 17:38
[2021-09-26 17:59] LABS: CALCIUM 9.7 MG/DL (8.5-10.1)
[2021-09-26] MEDS ORDERED: ONDANSETRON 4 MG/2 ML (SDV) Z0FRAN ONE (18:04)
[2021-09-26 18:35] LABS: POTASSIUM 6.1 MMOL/L (3.6-5.0)
[2021-09-26 18:58] LABS: ABG BASE EXCESS -13.2 MMOL/L (-2.5-2.5); ABG OXYGEN SATURATION 97 % (94-100); ABG PCO2 31 MMHG (35-45); ABG PO2 95 MMHG (79-93); ABG TCO2 13.7 MMOL/L (21.0-31.0)
[2021-09-26 18:59] LABS: BILIRUBIN,URINE NEGATIVE (NEGATIVE); CLARITY,URINE CLEAR; COLOR,URINE YELLOW; GLUCOSE, URINE (UA) 3+ (NEGATIVE); KETONES,URINE 3+ (NEGATIVE); LEUKOCYTE ESTERASE ,URINE NEGATIVE (NEGATIVE); NITRITE,URINE NEGATIVE (NEGATIVE); PROTEIN,URINE NEGATIVE (NEGATIVE)
[2021-09-26 19:04] LABS: ABG PH 7.24 (7.37-7.43); ALLENS TEST POSITIVE; PATIENT TEMP 36.6; VENTILATOR NO
[2021-09-26 19:11] LABS: BACTERIA,URINE NEGATIVE /HPF
[2021-09-26 19:35] LABS: AMPHETAMINE SCREEN, URINE POSITIVE (NEGATIVE); BARBITURATE SCREEN URINE NEGATIVE (NEGATIVE); BENZODIAZEPINES SCREEN URINE NEGATIVE (NEGATIVE); CANNABINOID SCREEN, URINE NEGATIVE (NEGATIVE); COCAINE SCREEN URINE NEGATIVE (NEGATIVE); METHADONE STAT NEGATIVE (NEGATIVE); OPIATE SCREEN URINE NEGATIVE (NEGATIVE); OXYCODONE STAT NEGATIVE (NEGATIVE); PROPOXYPHENE STAT NEGATIVE (NEGATIVE); TRICYCLIC ANTIDEPRESSANTS SCRE NEGATIVE (NEGATIVE)
[2021-09-26 20:02] LABS: CALCIUM 9.2 MG/DL (8.5-10.1); POTASSIUM 4.8 MMOL/L (3.6-5.0)
[2021-09-26 20:30] LABS: CREATININE SERUM 1.72 MG/DL (0.60-1.30)
[2021-09-26] MEDS: FAMOTIDINE 20MG/2ML IV (PEPCID) IVP SCH (21:08)
[2021-09-26] MEDS: CATHETER FLUSH 10 ML SYR IV SCH (22:21)
[2021-09-27 01:13] LABS: POTASSIUM 4.2 MMOL/L (3.6-5.0)
[2021-09-27 01:14] LABS: CALCIUM 8.8 MG/DL (8.5-10.1)
[2021-09-27 01:19] LABS: CREATININE SERUM 1.62 MG/DL (0.60-1.30)
[2021-09-27] MEDS: 1/2 NS IV SOLUTION 1,000 ML IV SCH ×5 (01:24→16:15)
[2021-09-27] MEDS: D5 1/2 NS 1000 ML IV SOLUTION 1,000 ML IV SCH ×4 (02:00→17:02)
[2021-09-27 04:44] LABS: BASOPHILS % (AUTO) 0 % (0-10); EOSINOPHILS % (AUTO) 0 % (0-10); HEMATOCRIT 42 % (40-54); HEMOGLOBIN 14.5 g/dL (13.3-17.7); LYMPHOCYTES # (AUTO) 1.9 10^3/uL (1.0-4.0); LYMPHOCYTES % (AUTO) 13 % (12-44); MEAN CORPUSCULAR HEMOGLOBIN 29 pg (25-34); MEAN CORPUSCULAR HGB CONC 34 g/dL (32-36); MEAN CORPUSCULAR VOLUME 85 fL (80-99); MEAN PLATELET VOLUME 10.9 fL (9.0-12.2); MONOCYTES # (AUTO) 1.1 10^3/uL (0.0-1.0); MONOCYTES % (AUTO) 7 % (0-12); NEUTROPHILS % (AUTO) 80 % (42-75); PLATELET COUNT 248 10^3/uL (130-400)
[2021-09-27 05:11] LABS: ALBUMIN 3.3 GM/DL (3.2-4.5); POTASSIUM 3.9 MMOL/L (3.6-5.0)
[2021-09-27 05:12] LABS: CALCIUM 8.5 MG/DL (8.5-10.1)
[2021-09-27 05:13] LABS: BAND NEUTROPHILS 6 %; BASOPHILS % (MANUAL) 0 %; EOSINOPHILS % (MANUAL) 0 %; LYMPHOCYTES % (MANUAL) 13 %; MONOCYTES % (MANUAL) 7 %; NEUTROPHILS % (MANUAL) 72 %; RBC MORPH NORMAL
[2021-09-27 05:14] LABS: TOTAL PROTEIN 6.3 GM/DL (6.4-8.2)
[2021-09-27 05:15] LABS: REACTIVE LYMPHOCYTES 2 %
[2021-09-27 05:16] LABS: BILIRUBIN,TOTAL 0.5 MG/DL (0.1-1.0)
[2021-09-27 05:17] LABS: CREATININE SERUM 1.55 MG/DL (0.60-1.30); PHOSPHORUS 2.1 MG/DL (2.3-4.7)
[2021-09-27 05:21] LABS: MAGNESIUM 1.9 MG/DL (1.6-2.4)
[2021-09-27] MEDS: POTASSIUM CL 10MEQ/50ML IVPB 50 ML IV SCH ×7 (05:34→17:03)
[2021-09-27] MEDS: CATHETER FLUSH 10 ML SYR IV SCH ×3 (05:39→21:46)
[2021-09-27] MEDS: FAMOTIDINE 20MG/2ML IV (PEPCID) IVP SCH ×2 (08:07→21:46)
[2021-09-27 09:34] LABS: CALCIUM 8.5 MG/DL (8.5-10.1); CREATININE SERUM 1.59 MG/DL (0.60-1.30); POTASSIUM 3.5 MMOL/L (3.6-5.0)
--- NOTE | 2021-09-27 09:37 | Tele-ICU Progress Note ---
Subjective Date Seen by a Provider: September 27, 2021 Time Seen by a Provider: 07:52 Subjective/Events-last exam This virtual visit was conducted using real time audio/video. Thank you for asking us to see this patient for DKA Recent events: Much improved overnight. No further vomiting. PE: VSS. Appears comfortable. O2 sat 95% on RA HEENT: No obvious masses, adenopathy or JVD. Chest: clear to auscultation. CV: RRR S1 S2 No murmur or added sounds. Abd: Non-tender. Bowel sounds Y. : Unremarkable. Gomez N. CHEMICAL RESEARCH TECHNICIAN/psychiatric: Grossly intact. No obvious focal findings. Extremities: No edema. Capillary refill < 3 seconds. Skin: unremarkable. Results: Elevated WCC 15, BG 187. AG normal. Available chart/ vitals / labs / images reviewed. Video assessment done using teleICU camera, rest of exam as per RN. A/P: Critical Care: critically ill patient. Cont. D5/NS, IV insulin for 24 hr, pepcid. Discussed with RN Almaz. Asked RN to reach out to eICU if any questions or concerns later. Time spent with patient/coordination of care with other health professionals (mins): 18 Sepsis Event Evaluation Height, Weight, BMI Height: 6'1.00" Weight: 168lbs. 9.0oz. 76.865044xx; 26.44 BMI Method:Estimated Focused Exam Lactate Level 09/26/21 19:40: Lactic Acid Level 2.13*H 09/26/21 21:50: Lactic Acid Level 2.15*H 09/26/21 23:59: Lactic Acid Level 1.68 Exam Exam Patient acknowledged, consented, and participated in this virtual visit which was conducted using real time audio/video Vital Signs Date Time Temp Pulse Resp B/P (MAP) Pulse Ox O2 Delivery O2 Flow Rate FiO2 09/27/21 08:30 Room Air 09/27/21 08:26 93 Room Air 09/27/21 08:00 86 8 98/70 95 Nasal Cannula 2.00 09/27/21 08:00 36.2 09/27/21 07:00 89 17 123/70 Nasal Cannula 2.00 09/27/21 07:00 87 09/27/21 06:00 92 26 129/75 Nasal Cannula 2.00 09/27/21 05:00 92 11 126/77 Nasal Cannula 2.00 09/27/21 04:00 95 Room Air 09/27/21 04:00 98 11 134/77 Nasal Cannula 2.00 09/27/21 03:00 105 22 136/83 93 Nasal Cannula 2.00 09/27/21 02:00 96 15 135/73 94 Nasal Cannula 2.00 09/27/21 01:00 90 09/27/21 01:00 91 13 118/62 97 Nasal Cannula 2.00 09/27/21 00:00 92 15 127/75 96 Nasal Cannula 2.00 09/26/21 23:59 95 Nasal Cannula 2.00 09/26/21 23:00 93 13 120/69 96 Nasal Cannula 2.00 09/26/21 22:00 98 14 156/84 98 Nasal Cannula 2.00 09/26/21 21:00 91 18 121/75 97 Nasal Cannula 2.00 09/26/21 20:00 96 14 122/73 92 Nasal Cannula 2.00 09/26/21 20:00 95 Nasal Cannula 2.00 09/26/21 19:50 36.3 Nasal Cannula 2.00 09/26/21 19:13 Nasal Cannula 2.00 09/26/21 19:00 90 09/26/21 19:00 88 18 126/75 95 Room Air 09/26/21 18:00 100 22 144/82 95 Room Air 09/26/21 17:16 96 14 92 Room Air 09/26/21 17:13 95 09/26/21 17:00 36.2 09/26/21 16:50 Room Air 09/26/21 16:46 35.9 88 18 98/53 98 Room Air 09/26/21 15:03 35.9 97 18 144/74 (97) 98 Room Air I & O 09/27/21 06:59 Intake Total 2000 ml Output Total 2600 ml Balance -600 ml Height & Weight Height: 6'1.00" Weight: 168lbs. 9.0oz. 76.353100rs; 26.44 BMI Method:Estimated General Appearance: No Apparent Distress, WD/WN HEENT: PERRL/EOMI, TMs Normal, Normal ENT Inspection Neck: Full Range of Motion, Normal Inspection Cardiovascular: Regular Rate, Rhythm, No Edema, No Gallop, No JVD Capillary Refill: Less Than 3 Seconds Gastrointestinal: other (vomited x [address] to MICU) Extremity: Normal Capillary Refill Neurologic/Psychiatric: Disoriented Skin: Normal Color, Warm/Dry Results Lab Laboratory Tests 09/26/21 15:12 09/26/21 17:29 09/26/21 19:40 09/27/21 00:55 09/27/21 04:15 Assessment/Plan Assessment/Plan See free text. Critical Care: Critically Ill Patient ZAHEER DECKER MD September 27, 2021 09:37
--- NOTE | 2021-09-27 11:43 | History & Physical-Hospitalist ---
History of Present Illness HPI/Chief Complaint Patient is a 55-year-old male who presents to ED for generalized weakness, nausea vomiting. Unclear how long his symptoms have started. Difficulty obtaining history from patient. Patient is slightly disoriented but does respond to pain and stimuli. He states he has been urinating "a lot" . history of DKA and states he is concerned that he is currently in DKA. Denies of any drug use or alcohol use. States he feels weak throughout. Denies headache, chest pain,, diarrhea. Patient was brought to ED by a friend. Patient contacted friend who picked him up at his house. Upon my arrival the patient was no more forthcoming with any information. He laid in bed with eyes closed is giving 1 or 2 word answers. He has been short with staff and there has been no evidence for confusion per their report. Date Seen 09/27/21 Time Seen by a Provider: 07:00 Attending Physician Medardo Chavez MD PCP Admitting Physician: Paco Leyva MD Attending Physician: Paco Leyva MD Referring Physician Date of Admission September 26, 2021 at 16:05 Home Medications & Allergies Home Medications Reviewed patient Home Medication Reconciliation performed by pharmacy medication reconciliations senior service technician and/or nursing. Patients Allergies have been reviewed. Allergies Allergies Coded Allergies Penicillins (Verified Allergy, Unknown, 09/20/18) Past Dqkeczr-Ylsgkl-Jklvzx Hx Patient Social History Tobacco Use?: Yes Tobacco type used: Cigarettes Smoking Status: Current Everyday Smoker Use of E-Cig and/or Vaping dev: No Substance use?: Unable to obtain Alcohol Use?: No Pt feels they are or have been: Unable to obtain Immunizations Up To Date First/Initial COVID19 Vaccinat: 2020 PFIZER Second COVID19 Vaccination Jeffery: 2020 PFIZER Tetanus Booster (TDap): Unknown Hepatitis A: No Hepatitis B: No Seasonal Allergies Seasonal Allergies: No Current Status Advance Directives: No Communicates: Verbally Primary Language: Barbadian Preferred Spoken Language: Barbadian Is interpretation needed?: No Implanted or Applied Medical D: None Past Medical History Surgeries: Amputation, Orthopedic Currently Using CPAP: No Currently Using BIPAP: No High Cholesterol, Hypertension Neuropathy Diabetes, Insulin dep Depression Blood Disorders: No Adverse Reaction/Blood Tranf: No 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 No Pertinent Family Hx Review of Systems Constitutional: see HPI Physical Exam Physical Exam Vital Signs Vital Signs - First Documented 09/26/21 09/26/21 15:03 19:13 Temp 35.9 Pulse 97 Resp 18 B/P (MAP) 144/74 (97) Pulse Ox 98 O2 Delivery Room Air O2 Flow Rate 2.00 Capillary Refill : Less Than 3 Seconds Height, Weight, BMI Height: 6'1.00" Weight: 168lbs. 9.0oz. 76.125308yg; 26.44 BMI Method:Estimated General Appearance: No Apparent Distress Respiratory: Chest Non Tender, Lungs Clear, Normal Breath Sounds, No Accessory Muscle Use, No Respiratory Distress Cardiovascular: Regular Rate, Rhythm, No Edema, No Gallop, No JVD, No Murmur, Normal Peripheral Pulses Gastrointestinal: Normal Bowel Sounds, No Organomegaly, Non Tender, Soft Extremity: Normal Inspection, Normal Range of Motion, Non Tender, No Pedal Edema Results Results/Procedures Labs Laboratory Tests 09/26/21 15:12 09/26/21 17:29 09/26/21 19:40 09/27/21 00:55 09/27/21 04:15 09/27/21 09:05 Patient resulted labs reviewed. Assessment/Plan Admission Diagnosis 1. DKA secondary to noncompliance with insulin. This is his third admission for DKA in the last year. Though do not at this time appear to be any other causes for DKA other than the patient's noncompliance. Discussed that this would continue to happen and the only way to prevent it was to take his insulin on a regular basis. He admits that he does have a glucometer at home and test strips but does not use it. Currently on insulin blood sugars are moderating d own to 200 range with improvement in acidosis and stable vital signs. 2. Patient denies drug use but has a history of methamphetamine abuse and was positive for methamphetamine on this admissions urine drug screen. Admission Status: Inpatient Order (span 2 midnights) Reason for Inpatient Admission: See admission diagnosis PACO LEYVA MD September 27, 2021 11:43
[2021-09-27 17:24] LABS: POTASSIUM 3.8 MMOL/L (3.6-5.0)
[2021-09-27 17:25] LABS: CALCIUM 8.1 MG/DL (8.5-10.1)
[2021-09-27 17:29] LABS: CREATININE SERUM 1.05 MG/DL (0.60-1.30)
[2021-09-27] MEDS ORDERED: inSUlin ASPART (NovoLOG) 1 UNIT/0.01 ML (CHARGE PER UNIT) ONE (21:42)
[2021-09-27] MEDS: inSUlin ASPART (NovoLOG) 1 UNIT/0.01 ML (CHARGE PER UNIT) SC SCH (21:46)
[2021-09-28 04:40] LABS: BASOPHILS % (AUTO) 0 % (0-10); EOSINOPHILS % (AUTO) 0 % (0-10); HEMATOCRIT 39 % (40-54); HEMOGLOBIN 13.6 g/dL (13.3-17.7); LYMPHOCYTES # (AUTO) 2.7 10^3/uL (1.0-4.0); LYMPHOCYTES % (AUTO) 28 % (12-44); MEAN CORPUSCULAR HEMOGLOBIN 30 pg (25-34); MEAN CORPUSCULAR HGB CONC 35 g/dL (32-36); MEAN CORPUSCULAR VOLUME 87 fL (80-99); MEAN PLATELET VOLUME 10.6 fL (9.0-12.2); MONOCYTES # (AUTO) 0.8 10^3/uL (0.0-1.0); MONOCYTES % (AUTO) 8 % (0-12); NEUTROPHILS % (AUTO) 63 % (42-75); PLATELET COUNT 183 10^3/uL (130-400); WHITE BLOOD COUNT 9.5 10^3/uL (4.3-11.0)
[2021-09-28 05:01] LABS: ALBUMIN 2.9 GM/DL (3.2-4.5); BILIRUBIN,TOTAL 0.5 MG/DL (0.1-1.0); CALCIUM 8.1 MG/DL (8.5-10.1); CREATININE SERUM 0.92 MG/DL (0.60-1.30); MAGNESIUM 1.8 MG/DL (1.6-2.4); PHOSPHORUS 2.1 MG/DL (2.3-4.7); POTASSIUM 3.7 MMOL/L (3.6-5.0); TOTAL PROTEIN 5.3 GM/DL (6.4-8.2)
[2021-09-28] MEDS: CATHETER FLUSH 10 ML SYR IV SCH ×2 (05:25→15:17)
[2021-09-28] MEDS: inSUlin ASPART (NovoLOG) 1 UNIT/0.01 ML (CHARGE PER UNIT) SC SCH ×3 (05:25→16:48)
[2021-09-28] MEDS: FAMOTIDINE 20MG/2ML IV (PEPCID) IVP SCH (08:06)
--- NOTE | 2021-09-28 16:19 | Discharge Summary ---
Discharge Summary Hospital Course Hospital Course Date of Admission: September 26, 2021 at 16:05 Admission Diagnosis : DKA methamphetamine positive urine drug screen Family Physician/Provider: Medardo Chavez MD Date of Discharge: 09/28/21 Discharge Diagnosis: DKA Methamphetamine positive urine drug screen Hospital Course: Pt admitted and started on insulin drip with good resolution of DKA, he was feeling well on day of d/c, tolerating regular diet with reasonable blood sugars. He reported he had insulin available at home. Labs and Pending Lab Test: Laboratory Tests 09/27/21 17:00: Sodium Level 136, Potassium Level 3.8, Chloride Level 104, Carbon Dioxide Level 22, Anion Gap 10, Blood Urea Nitrogen 14, Creatinine 1.05, Estimat Glomerular Filtration Rate 85, BUN/Creatinine Ratio 13, Glucose Level 119H, Glucometer 123H , Calcium Level 8.1L, Beta-Hydroxybutyrate (Chem panel) 0.09 09/27/21 18:05: Glucometer 116H 09/27/21 21:04: Glucometer 222H 09/28/21 04:30: Sodium Level 136, Potassium Level 3.7, Chloride Level 105, Carbon Dioxide Level 22, Anion Gap 9, Blood Urea Nitrogen 11, Creatinine 0.92, Estimat Glomerular Filtration Rate 99, BUN/Creatinine Ratio 12, Glucose Level 69L, Calcium Level 8.1L, White Blood Count 9.5, Red Blood Count 4.55, Hemoglobin 13.6, Hematocrit 39L, Mean Corpuscular Volume 87, Mean Corpuscular Hemoglobin 30, Mean Corpuscular Hemoglobin Concent 35, Red Cell Distribution Width 12.9, Platelet Count 183, Mean Platelet Volume 10.6, Immature Granulocyte % (Auto) 0, Neutrophils (%) (Auto) 63, Lymphocytes (%) (Auto) 28, Monocytes (%) (Auto) 8, Eosinophils (%) (Auto) 0, Basophils (%) (Auto) 0, Neutrophils # (Auto) 6.0, Lymphocytes # (Auto) 2.7, Monocytes # (Auto) 0.8, Eosinophils # (Auto) 0.0, Basophils # (Auto) 0.0, Immature Granulocyte # (Auto) 0.0, Corrected Calcium 9.0, Phosphorus Level 2.1L, Magnesium Level 1.8, Total Bilirubin 0.5, Aspartate Amino Transf (AST/SGOT) 12, Alanine Aminotransferase (ALT/SGPT) 19, Alkaline Phosphatase 90, Total Protein 5.3L, Albumin 2.9L 09/28/21 11:33: Glucometer 148H 09/28/21 15:45: Glucometer 235H Microbiology 09/26/21 MRSA Screen - Final, Complete MRSA not isolated Home Meds Active Reported Lantus Solostar (Insulin Glargine,Hum.rec.anlog) 100 Unit/1 Ml Insuln.pen 30 Unit SQ HS Insulin Aspart Flexpen (Insulin Aspart) 100 Unit/1 Ml Insuln.pen 10-12 Unit SQ AC Assessment/Pt DC Instructions Follow up with primary doctor within a week of discharge. Discharge Diet: ADA Diet Activity as Tolerated: Yes Discharge Physical Examination Allergies: Coded Allergies: Penicillins (Verified Allergy, Unknown, 09/20/18) General Appearance: No Apparent Distress Respiratory: Lungs Clear, Normal Breath Sounds Cardiovascular: Regular Rate, Rhythm, No Murmur Gastrointestinal: Normal Bowel Sounds, Non Tender, Soft Skin: Normal Color, Warm/Dry Neurologic/Psychiatric: Alert, Normal Mood/Affect CRUZ LOVE MD September 28, 2021 16:19
[2021-09-28 17:16] VITALS: BP 129/76
== END 2021-09-28 18:05 | disposition home or self-care (01) | DRG 638 ==
LOC: EDUNIT# 14:48 → ER 14:54 → ICU 16:05 → 4TH 09-28 11:00
PROVIDERS: ADMIT Internal Medicine; ATTEND Family Medicine
DX: E11.10 Type 2 diabetes mellitus with ketoacidosis without coma (principal); N17.9 Acute kidney failure, unspecified; E86.0 Dehydration; Z79.4 Long term (current) use of insulin; E78.00 Pure hypercholesterolemia, unspecified; I10 Essential (primary) hypertension; F32.A Depression, unspecified; F17.210 Nicotine dependence, cigarettes, uncomplicated; Z89.421 Acquired absence of other right toe(s); E11.40 Type 2 diabetes mellitus with diabetic neuropathy, unspecified
CPT/HCPCS: 36415; 80048; 80053; 80306; 80320; 81000; 82010; 82805; 82947; 83036; 83605; 83690; 83735; 84100; 85007; 85025; 85027; 87081; 93005; 99291

== ENCOUNTER 2021-10-23 11:16 | Inpatient (IN) | payer SELFPAY ==
[~2021-10-23] VITALS: Ht 185 cm; Wt 87.2 kg
[2021-10-23] MEDS ORDERED: NS IV 1000 ML 1,000 ML IV SCH ×2 (11:30→13:15)
[2021-10-23] MEDS ORDERED: inSUlin (REGULAR) HUMAN 1 UNIT/0.01 ML (CHARGE PER UNIT) IV ONE (11:30)
[2021-10-23 11:35] LABS: BASOPHILS % (AUTO) 0 % (0-10); EOSINOPHILS % (AUTO) 0 % (0-10); HEMATOCRIT 49 % (40-54); HEMOGLOBIN 15.8 g/dL (13.3-17.7); LYMPHOCYTES # (AUTO) 1.4 10^3/uL (1.0-4.0); LYMPHOCYTES % (AUTO) 14 % (12-44); MEAN CORPUSCULAR HEMOGLOBIN 29 pg (25-34); MEAN CORPUSCULAR HGB CONC 32 g/dL (32-36); MEAN CORPUSCULAR VOLUME 91 fL (80-99); MEAN PLATELET VOLUME 11.4 fL (9.0-12.2); MONOCYTES # (AUTO) 0.5 10^3/uL (0.0-1.0); MONOCYTES % (AUTO) 5 % (0-12); NEUTROPHILS # (AUTO) 8.1 10^3/uL (1.8-7.8); NEUTROPHILS % (AUTO) 80 % (42-75); PLATELET COUNT 291 10^3/uL (130-400); WHITE BLOOD COUNT 10.2 10^3/uL (4.3-11.0)
[2021-10-23 11:44] LABS: ALBUMIN 3.8 GM/DL (3.2-4.5); POTASSIUM 5.7 MMOL/L (3.6-5.0)
[2021-10-23 11:46] LABS: TOTAL PROTEIN 7.2 GM/DL (6.4-8.2)
[2021-10-23 11:48] LABS: BILIRUBIN,TOTAL 0.4 MG/DL (0.1-1.0)
[2021-10-23 11:50] LABS: CREATININE SERUM 2.3 MG/DL (0.60-1.30)
[2021-10-23 11:53] LABS: MAGNESIUM 2.7 MG/DL (1.6-2.4)
--- NOTE | 2021-10-23 12:42 | ED GI ---
General Chief Complaint: Glucose Problems Stated Complaint: HIGH BLOOD SUGAR Source of Information: Patient (KAYLAH CORREIA) History of Present Illness Date Seen by Provider: Oct 23, 2021 Time Seen by Provider: 12:38 Initial Comments This is a 55-year-old male with history of diabetes that presents to the emergency room for evaluation of nausea, vomiting and weakness. He states that he has not been taking his insulin for the last several days because he has not felt well. He states that he also has not been able to eat or drink. He has been admitted to the hospital several times in DKA with the last being on September 26, 2021. At that time he did have methamphetamine in his system but he denies recreational drug use at this time. Timing/Duration: 2-3 Days Severity/Quality: Severe Radiation: No Radiation Associated Symptoms: Weakness (KAYLAH CORREIA) Allergies and Home Medications Allergies Coded Allergies: Penicillins (Verified Allergy, Unknown, 09/20/18) Patient Home Medication List Home Medication List Reviewed: Yes (KAYLAH CORREIA) Insulin Aspart (Insulin Aspart Flexpen) 100 Unit/1 Ml Insuln.pen, 10-12 UNIT SQ AC, (Reported) Entered as Reported by: BRENDA RICHARDSON on 09/02/201511 Last Action: Reviewed Insulin Glargine,Hum.rec.anlog (Lantus Solostar) 100 Unit/1 Ml Insuln.pen, 30 UNIT SQ HS, (Reported) Entered as Reported by: BRENDA RICHARDSON on 09/02/201511 Last Action: Reviewed Review of Systems Review of Systems Constitutional: malaise, weakness EENTM: Blurred Vision Respiratory: No Symptoms Reported Cardiovascular: Lightheadedness Gastrointestinal: Nausea, Vomiting Genitourinary: No Symptoms Reported Musculoskeletal: no symptoms reported Skin: no symptoms reported Psychiatric/Neurological: Weakness (KAYLAH CORREIA) Past Tcffeps-Htqqrn-Uxcimn Hx Patient Social History Tobacco Use?: Yes Smoking Status: Current Everyday Smoker Substance use?: Yes Substance type: Methamphetamine Substance frequency: Couple times a week Alcohol Use?: Yes (KAYLAH CORREIA) Immunizations Up To Date Tetanus Booster (TDap): Unknown First/Initial COVID19 Vaccinat: 2020 PFIZER Second COVID19 Vaccination Jeffery: 2020 PFIZER Third COVID19 Vaccination Date: 2020 JUAN (KAYLAH CORREIA) Seasonal Allergies Seasonal Allergies: No (KAYLAH CORREIA) Past Medical History Surgery/Hospitalization HX: IDDM PMH;DM. SURGERY;UNABLE TO OBTAIN. Surgeries: Yes (Right fourth toe amputation) Amputation, Orthopedic Respiratory: No Currently Using CPAP: No Currently Using BIPAP: No Cardiac: No High Cholesterol, Hypertension Neurological: Yes Neuropathy Genitourinary: No Gastrointestinal: No Musculoskeletal: Yes (RIGHT 4TH TOE AMPUTATION) Endocrine: Yes (DKA; NON-COMPLIANCE) Diabetes, Insulin dep HEENT: No Cancer: No Psychosocial: Yes (SUBSTANCE ABUSE) Depression Integumentary: Yes (diabetic foot ulcer) Blood Disorders: No Adverse Reaction/Blood Tranf: No (KAYLAH CORREIA) Family Medical History Patient reports no known family medical history. No Pertinent Family Hx (KAYLAH CORREIA) Physical Exam Vital Signs Vital Signs - First Documented 10/23/21 11:20 Temp 36.9 Pulse 89 Resp 21 B/P (MAP) 106/61 (76) Pulse Ox 99 O2 Delivery Room Air (MICHELLE AG MD) Vital Signs Capillary Refill : (KAYLAH CORREIA) Height/Weight/BMI Height: 6'1.00" Weight: 168lbs. 9.0oz. 76.220253yz; 26.44 BMI Method:Estimated General Appearance: moderate distress HEENT: PERRL/EOMI, TMs normal Neck: non-tender Respiratory: lungs clear Cardiovascular: tachycardia Gastrointestinal: normal bowel sounds, non tender Extremities: normal range of motion, non-tender Neurologic/Psychiatric: alert Skin: normal color (KAYLAH CORREIA) Progress/Results/Core Measures Results/Orders Lab Results Laboratory Tests Test 10/23/21 11:24 Range/Units White Blood Count 10.2 4.3-11.0 10^3/uL Red Blood Count 5.39 4.30-5.52 10^6/uL Hemoglobin 15.8 13.3-17.7 g/dL Hematocrit 49 40-54 % Mean Corpuscular Volume 91 80-99 fL Mean Corpuscular Hemoglobin 29 25-34 pg Mean Corpuscular Hemoglobin Concent 32 32-36 g/dL Red Cell Distribution Width 12.3 10.0-14.5 % Platelet Count 291 130-400 10^3/uL Mean Platelet Volume 11.4 9.0-12.2 fL Immature Granulocyte % (Auto) 0 % Neutrophils (%) (Auto) 80 H 42-75 % Lymphocytes (%) (Auto) 14 12-44 % Monocytes (%) (Auto) 5 0-12 % Eosinophils (%) (Auto) 0 0-10 % Basophils (%) (Auto) 0 0-10 % Neutrophils # (Auto) 8.1 H 1.8-7.8 10^3/uL Lymphocytes # (Auto) 1.4 1.0-4.0 10^3/uL Monocytes # (Auto) 0.5 0.0-1.0 10^3/uL Eosinophils # (Auto) 0.0 0.0-0.3 10^3/uL Basophils # (Auto) 0.0 0.0-0.1 10^3/uL Immature Granulocyte # (Auto) 0.0 0.0-0.1 10^3/uL Sodium Level 133 L 135-145 MMOL/L Potassium Level 5.7 H 3.6-5.0 MMOL/L Chloride Level 93 L 98-107 MMOL/L Carbon Dioxide Level 8 *L 21-32 MMOL/L Anion Gap 32 H 5-14 MMOL/L Blood Urea Nitrogen 28 H 7-18 MG/DL Creatinine 2.30 H 0.60-1.30 MG/DL Estimat Glomerular Filtration Rate 33 BUN/Creatinine Ratio 12 Glucose Level 741 *H 70-105 MG/DL Calcium Level 9.0 8.5-10.1 MG/DL Corrected Calcium 9.2 8.5-10.1 MG/DL Magnesium Level 2.7 H 1.6-2.4 MG/DL Total Bilirubin 0.4 0.1-1.0 MG/DL Aspartate Amino Transf (AST/SGOT) 18 5-34 U/L Alanine Aminotransferase (ALT/SGPT) 58 H 0-55 U/L Alkaline Phosphatase 218 H 40-136 U/L Total Protein 7.2 6.4-8.2 GM/DL Albumin 3.8 3.2-4.5 GM/DL Beta-Hydroxybutyrate (Chem panel) 13.97 H 0.00-0.27 MMOL/L (MICHELLE AG MD) My Orders Orders - MICHELLE AG MD Ed Iv/Invasive Line Start (10/23/21 11:28) Ns Iv 1000 Ml (Sodium Chloride 0.9%) (10/23/21 11:30) Insulin (Regular) Human (Novolin R (Per (10/23/21 11:30) Cbc With Automated Diff (10/23/21 11:30) Comprehensive Metabolic Panel (10/23/21 11:30) Magnesium (10/23/21 11:30) Ua Culture If Indicated (10/23/21 11:30) (MICHELLE AG MD) Medications Given in ED Current Medications Medications Dose Ordered Sig/Perico Route Start Time Stop Time Status Last Admin Dose Admin Insulin Human Regular 5 unit ONCE ONCE IV 10/23/21 11:30 10/23/21 11:31 DC 10/23/21 11:39 5 UNIT (MICHELLE AG MD) Vital Signs/I&O 10/23/21 11:20 Temp 36.9 Pulse 89 Resp 21 B/P (MAP) 106/61 (76) Pulse Ox 99 O2 Delivery Room Air (MICHELLE AG MD) Departure Communication (Admissions) Time/Spoke to Admitting Phy: 12:46 I spoke with the hospitalist Dr. Polanco and she will accept the patient at this time to the ICU (KAYLAH CORREIA) Impression Primary Impression: DKA, type 2 Additional Impression: JOEL (acute kidney injury) Disposition: ADMITTED INPATIENT Condition: Critical Admissions Decision to Admit Reason: Admit from ER (General) Decision to Admit/Date: Oct 23, 2021 Time/Decision to Admit Time: 12:46 (KAYLAH CORREIA) Departure-Patient Inst. Referrals: THEODORE MEDLEY MD (PCP/Family) Primary Care Physician ATTENDING PHYSICIAN NOTE: I was physically present as attending physician in the emergency department during the care of this patient. I placed initial orders after receiving triage report from nursing staff. Case was discussed with TAHIR Samuels. I was not otherwise directly involved in the decision making or delivery of care for this patient. (MICHELLE AG MD) KAYLAH CORREIA Oct 23, 2021 12:42 MICHELLE AG MD Oct 23, 2021 20:54
[2021-10-23] MEDS ORDERED: ANTACID SUSP 30 ML UDC (MYLANTA) PO PRN (13:15)
[2021-10-23] MEDS ORDERED: LACTULOSE SYRUP 10GM/15ML (ENULOSE) 30ML UDC PO PRN (13:15)
[2021-10-23] MEDS ORDERED: ACETAMINOPHEN 325 MG TABLET PO PRN (13:15)
[2021-10-23] MEDS ORDERED: ZIPRASIDONE 20 MG INJ (GEODON) VIAL IM PRN (13:15)
[2021-10-23] MEDS: POTASSIUM CL 10MEQ/50ML IVPB 50 ML IV SCH ×9 (13:15→22:07)
[2021-10-23] MEDS ORDERED: polyethylene glycoL POWDER 17 GM (MIRALAX) PACK PO PRN (13:15)
[2021-10-23] MEDS ORDERED: CALCIUM CARBONATE 500 MG (TUMS) TAB.CHEW PO PRN (13:15)
[2021-10-23] MEDS ORDERED: HYDROmorphone 2 MG/ML VIAL (DILAUDID) IVP PRN (13:15)
[2021-10-23] MEDS ORDERED: WATER (STERILE) FOR INJ 10 ML BTL INJ SCH (13:15)
[2021-10-23] MEDS ORDERED: LORazepam INJ 2 MG/ML (ATIVAN) VIAL IVP PRN (13:15)
[2021-10-23] MEDS ORDERED: ONDANSETRON 4 MG (ZOFRAN) ORAL DISSOLVE TAB PO PRN (13:15)
[2021-10-23] MEDS ORDERED: diphenhydrAMINE 50 MG/ML INJ (BENADRYL) IVP PRN (13:15)
[2021-10-23] MEDS ORDERED: diphenhydrAMINE 25 MG TAB (BENADRYL) PO PRN (13:15)
[2021-10-23] MEDS ORDERED: ONDANSETRON 4 MG/2 ML (SDV) Z0FRAN IV PRN (13:15)
[2021-10-23] MEDS ORDERED: MELATONIN 3 MG TABLET PO PRN (13:15)
[2021-10-23] MEDS ORDERED: BISACODYL 10 MG SUPP (DULCOLAX) PR PRN (13:15)
[2021-10-23] MEDS ORDERED: LIDOCAINE UROJET 2% GEL 10 ML PKG TOP ONE (13:15)
[2021-10-23] MEDS ORDERED: MILK OF MAGNESIA 400 MG/5 ML 30 ML UDC PO PRN (13:15)
--- NOTE | 2021-10-23 13:15 | Tele-ICU Progress Note ---
Subjective Date Seen by a Provider: Oct 23, 2021 Time Seen by a Provider: 12:55 Subjective/Events-last exam This virtual visit was conducted using real time audio/video. Thank you for asking us to see this patient for DKA, JOEL and dehydration. Recent events: Not feeling well for several days and stopped taking insulin. PMH: DM, HTN, HL, depression. SH: smoking history: current. FH: Non-contributory ROS: as in HPI PE: VSS. O2 sat 96% on RA HEENT: No obvious masses, adenopathy or JVD. Chest: clear to auscultation. CV: RRR S1 S2 No murmur or added sounds. Abd: Non-tender. Bowel sounds Y. : Unremarkable. Gomez N. HE[facility] C[facility] MANAGER/psychiatric: Grossly intact. No obvious focal findings. Extremities: No edema. Capillary refill < 3 seconds. Skin: unremarkable. Results: Elevated BG741, K 5.7, BUN 28, Crest 2.3, AG 32. CXR: Clear. Available chart/ vitals / labs / images reviewed. Video assessment done using teleICU camera, rest of exam as per RN. A/P: Critical Care: critically ill patient. Cont. IVF, IV insulin, monitor electrolytes. Discussed with IRMA Love. Asked RN to reach out to eICU if any questions or concerns later. Time spent with patient/coordination of care with other health professionals (m ins): 20 Sepsis Event Evaluation Height, Weight, BMI Height: 6'1.00" Weight: 168lbs. 9.0oz. 76.420044un; 26.44 BMI Method:Estimated Exam Exam Patient acknowledged, consented, and participated in this virtual visit which was conducted using real time audio/video Vital Signs Date Time Temp Pulse Resp B/P (MAP) Pulse Ox O2 Delivery O2 Flow Rate FiO2 10/23/21 11:20 36.9 89 21 106/61 (76) 99 Room Air Height & Weight Height: 6'1.00" Weight: 168lbs. 9.0oz. 76.210411bj; 26.44 BMI Method:Estimated General Appearance: No Apparent Distress Peripheral Pulses: 1+ Dorsalis Pedis (R), 1+ Left Dors-Pedis (L) Gastrointestinal: normal bowel sounds, non tender Results Lab Laboratory Tests 10/23/21 11:24 Assessment/Plan Assessment/Plan See free text. Critical Care: Critically Ill Patient ZAHEER DECKER MD Oct 23, 2021 13:15
--- NOTE | 2021-10-23 13:39 | History & Physical-Hospitalist ---
History of Present Illness HPI/Chief Complaint CC:DKA HPI: This is a male clinic patient of [facility] who has a history of multiple DKA episodes of meth use. Who presented to the ER with nausea and vomiting for 3 days. He was found to have blood sugars of 720 and BiCarb of 8. He was placed on insulin drip and DKA protocol and will be monitored closely in the ICU. Eleazar avitia he is sleeping and doesn't want to talk when I wake him up. Source: RN/MD Exam Limitations: clinical condition Date Seen 10/23/21 Time Seen by a Provider: 13:00 Attending Physician Medardo Chavez MD PCP Admitting Physician: Renetta Tijerina DO Attending Physician: Renetta Tijerina DO Referring Physician Date of Admission Oct 23, 2021 at 12:51 Home Medications & Allergies Home Medications Reviewed patient Home Medication Reconciliation performed by pharmacy medication reconciliations entry level installation technician and/or nursing. Patients Allergies have been reviewed. Allergies Allergies Coded Allergies Penicillins (Verified Allergy, Unknown, 09/20/18) Past Dkrngfb-Xiffoo-Dxiwjn Hx Patient Social History Marrital Status: single Employed/Student: unemployed Tobacco Use?: Yes Smoking Status: Current Everyday Smoker Use of E-Cig and/or Vaping dev: Unable to obtain Substance use?: Yes Substance type: Methamphetamine Substance frequency: Couple times a week Alcohol Use?: Yes Pt feels they are or have been: Unable to obtain Immunizations Up To Date First/Initial COVID19 Vaccinat: 2020 PFIZER Second COVID19 Vaccination Jeffery: 2020 PFIZER Tetanus Booster (TDap): Unknown Hepatitis A: No Hepatitis B: No Seasonal Allergies Seasonal Allergies: No Current Status Primary Language: Citizen Of [place] Is interpretation needed?: No Past Medical History Surgeries: Amputation, Orthopedic Currently Using CPAP: No Currently Using BIPAP: No High Cholesterol, Hypertension Neuropathy Diabetes, Insulin dep Depression Blood Disorders: No Adverse Reaction/Blood Tranf: No 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 No Pertinent Family Hx Review of Systems ROS-Unable to Obtain: lethargy Constitutional: see HPI Physical Exam Physical Exam Vital Signs Vital Signs - First Documented 10/23/21 10/23/21 11:20 17:26 Temp 36.9 Pulse 89 Resp 21 B/P (MAP) 106/61 (76) Pulse Ox 99 O2 Delivery Room Air FiO2 21 Capillary Refill : Height, Weight, BMI Height: 6'1.00" Weight: 168lbs. 9.0oz. 76.565764sm; 26.44 BMI Method:Estimated General Appearance: No Apparent Distress, Chronically ill Respiratory: Lungs Clear, Normal Breath Sounds Cardiovascular: No Murmur, Tachycardia Neurologic/Psychiatric: Alert Results Results/Procedures Labs Laboratory Tests 10/23/21 11:24 10/23/21 13:35 10/23/21 15:05 Patient resulted labs reviewed. Assessment/Plan Admission Diagnosis Assessment: DKA Smoker JOEL Plan: Monitor closely IVF ICU Admission Status: Inpatient Order (span 2 midnights) Reason for Inpatient Admission: dka Diagnosis/Problems Diagnosis/Problems (1) DKA (diabetic ketoacidosis) RENETTA TIJERINA DO Oct 23, 2021 13:39
[2021-10-23] MEDS: ENOXAPARIN 40 MG/0.4 ML (LOVENOX) SYR SC SCH (13:59)
[2021-10-23 14:07] LABS: BILIRUBIN,URINE NEGATIVE (NEGATIVE); CLARITY,URINE CLEAR; COLOR,URINE YELLOW; GLUCOSE, URINE (UA) 3+ (NEGATIVE); KETONES,URINE 3+ (NEGATIVE); LEUKOCYTE ESTERASE ,URINE NEGATIVE (NEGATIVE); NITRITE,URINE NEGATIVE (NEGATIVE); PH,URINE 5.5 (5-9); PROTEIN,URINE TRACE (NEGATIVE)
[2021-10-23 14:09] LABS: CALCIUM 8.4 MG/DL (8.5-10.1); CREATININE SERUM 1.93 MG/DL (0.60-1.30); POTASSIUM 4.9 MMOL/L (3.6-5.0)
[2021-10-23 14:16] LABS: BACTERIA,URINE TRACE /HPF; RBC,URINE RARE /HPF
[2021-10-23 14:17] LABS: SQUAMOUS EPITHELIAL CELL,UR RARE /HPF
[2021-10-23 14:19] LABS: AMPHETAMINE SCREEN, URINE POSITIVE (NEGATIVE); BARBITURATE SCREEN URINE NEGATIVE (NEGATIVE); BENZODIAZEPINES SCREEN URINE NEGATIVE (NEGATIVE); CANNABINOID SCREEN, URINE NEGATIVE (NEGATIVE); COCAINE SCREEN URINE NEGATIVE (NEGATIVE); METHADONE STAT NEGATIVE (NEGATIVE); OPIATE SCREEN URINE NEGATIVE (NEGATIVE); OXYCODONE STAT NEGATIVE (NEGATIVE); PROPOXYPHENE STAT NEGATIVE (NEGATIVE); TRICYCLIC ANTIDEPRESSANTS SCRE NEGATIVE (NEGATIVE)
[2021-10-23] MEDS: 1/2 NS IV SOLUTION 1,000 ML IV SCH ×4 (14:59→22:32)
[2021-10-23 15:33] LABS: CALCIUM 8.4 MG/DL (8.5-10.1); CREATININE SERUM 1.89 MG/DL (0.60-1.30); POTASSIUM 4.7 MMOL/L (3.6-5.0)
[2021-10-23 17:26] VITALS: BP 106/61
[2021-10-23] MEDS ORDERED: RT-ALBUTEROL SULF 2.5 MG/3 ML PRE-MIX VIAL INH PRN (18:00)
[2021-10-23] MEDS: SENNOSIDES 8.6 MG (SENOKOT) TAB PO SCH (19:33)
[2021-10-23] MEDS: DOCUSATE SODIUM 100 MG (COLACE) CAP PO SCH (19:33)
[2021-10-23] MEDS: D5 1/2 NS 1000 ML IV SOLUTION 1,000 ML IV SCH ×2 (19:39→23:18)
[2021-10-23 21:25] LABS: POTASSIUM 4.8 MMOL/L (3.6-5.0)
[2021-10-23 21:26] LABS: CALCIUM 7.6 MG/DL (8.5-10.1)
[2021-10-23 21:31] LABS: CREATININE SERUM 1.64 MG/DL (0.60-1.30)
[2021-10-24] MEDS: POTASSIUM CL 10MEQ/50ML IVPB 50 ML IV SCH ×10 (01:48→22:48)
[2021-10-24] MEDS: D5 1/2 NS 1000 ML IV SOLUTION 1,000 ML IV SCH ×6 (03:08→22:56)
[2021-10-24 04:59] LABS: BASOPHILS % (AUTO) 0 % (0-10); EOSINOPHILS % (AUTO) 0 % (0-10); HEMATOCRIT 39 % (40-54); HEMOGLOBIN 13.4 g/dL (13.3-17.7); LYMPHOCYTES # (AUTO) 2.6 10^3/uL (1.0-4.0); LYMPHOCYTES % (AUTO) 25 % (12-44); MEAN CORPUSCULAR HEMOGLOBIN 30 pg (25-34); MEAN CORPUSCULAR HGB CONC 35 g/dL (32-36); MEAN CORPUSCULAR VOLUME 87 fL (80-99); MEAN PLATELET VOLUME 10.6 fL (9.0-12.2); MONOCYTES # (AUTO) 1.1 10^3/uL (0.0-1.0); MONOCYTES % (AUTO) 11 % (0-12); NEUTROPHILS # (AUTO) 6.6 10^3/uL (1.8-7.8); NEUTROPHILS % (AUTO) 64 % (42-75); PLATELET COUNT 228 10^3/uL (130-400); WHITE BLOOD COUNT 10.3 10^3/uL (4.3-11.0)
[2021-10-24 05:22] LABS: ALBUMIN 2.9 GM/DL (3.2-4.5)
[2021-10-24 05:23] LABS: POTASSIUM 4.1 MMOL/L (3.6-5.0)
[2021-10-24 05:24] LABS: CALCIUM 7.5 MG/DL (8.5-10.1)
[2021-10-24 05:25] LABS: TOTAL PROTEIN 5.4 GM/DL (6.4-8.2)
[2021-10-24 05:27] LABS: BILIRUBIN,TOTAL 0.3 MG/DL (0.1-1.0)
[2021-10-24 05:28] LABS: PHOSPHORUS 1.2 MG/DL (2.3-4.7)
[2021-10-24 05:29] LABS: CREATININE SERUM 1.36 MG/DL (0.60-1.30)
[2021-10-24 05:31] LABS: MAGNESIUM 1.8 MG/DL (1.6-2.4)
[2021-10-24] MEDS: 1/2 NS IV SOLUTION 1,000 ML IV SCH ×5 (05:32→21:00)
[2021-10-24] MEDS: KCL 20 MEQ TAB (K-DUR) PO SCH (05:33)
[2021-10-24] MEDS: MAGNESIUM 1 GM/100 ML IVPB 100 ML IV SCH (05:33)
--- NOTE | 2021-10-24 06:06 | Progress Note - Hospitalist ---
Subjective HPI/CC On Admission Date Seen by Provider: Oct 24, 2021 Time Seen by Provider: 09:00 CC:DKA HPI: This is a male clinic patient of [facility] who has a history of multiple DKA episodes of meth use. Who presented to the ER with nausea and vomiting for 3 days. He was found to have blood sugars of 720 and BiCarb of 8. He was placed on insulin drip and DKA protocol and will be monitored closely in the ICU. Currently he is sleeping and doesn't want to talk when I wake him up. Subjective/Events-last exam Patient stable Insulin drip still infusing Bicarb went down to 16 High risk for rebound to severe DKA Review of Systems General: Fatigue Objective Exam Vital Signs Vital Signs Date Time Temp Pulse Resp B/P (MAP) Pulse Ox O2 Delivery O2 Flow Rate FiO2 10/24/21 18:00 71 14 99/65 97 Room Air 10/24/21 11:54 36.9 10/23/21 17:26 21 Capillary Refill : General Appearance: No Apparent Distress, WD/WN, Chronically ill, Thin Respiratory: Lungs Clear Cardiovascular: Regular Rate, Rhythm Results/Procedures Lab Laboratory Tests 10/23/21 21:11 10/24/21 04:50 10/24/21 11:45 10/24/21 18:45 Patient resulted labs reviewed. Assessment/Plan Assessment and Plan Assess & Plan/Chief Complaint Assessment: DKA Plan: Insulin drip protocol Critical Care Critically Ill Patient Diagnosis/Problems Diagnosis/Problems (1) DKA (diabetic ketoacidosis) GORDON CROWLEY DO Oct 24, 2021 06:06
--- NOTE | 2021-10-24 06:36 | Diagnostic Imaging Report ---
INDICATION: Diabetic ketoacidosis. Dehydration COMPARISON: 01/24/2021 FINDINGS: Single frontal view of the chest demonstrates normal heart size and pulmonary vascularity. The lungs are well aerated and clear. No large pleural effusion or pneumothorax is seen. The visualized osseous structures show no acute abnormalities. IMPRESSION: 1. No acute cardiopulmonary process. Dictated by: Dictated on workstation # [id number]
[2021-10-24] MEDS: DOCUSATE SODIUM 100 MG (COLACE) CAP PO SCH ×2 (08:27→21:00)
[2021-10-24] MEDS: SENNOSIDES 8.6 MG (SENOKOT) TAB PO SCH ×2 (08:27→21:00)
[2021-10-24] MEDS: PANTOPRAZOLE 40 MG (PROTONIX) VIAL IV SCH (08:27)
--- NOTE | 2021-10-24 11:23 | Tele-ICU Progress Note ---
Subjective Date Seen by a Provider: Oct 24, 2021 Time Seen by a Provider: 11:17 Subjective/Events-last exam 55 M with DKA, admitted yesterday, last glu 174, AG has closed, last HCO3 18, Pt is sleeping recent from drug use. but is A and O x 3 when awake Pt took methampthetamine, EtOH and cannabis Pt is known diabetic, still on IV insulin 2.5 uinits/h Once noon labs ready may be able to stop IV insulin Sepsis Event Evaluation Height, Weight, BMI Height: 6'1.00" Weight: 168lbs. 9.0oz. 76.607045so; 26.88 BMI Method:Estimated Exam Exam Patient acknowledged, consented, and participated in this virtual visit which was conducted using real time audio/video Vital Signs Date Time Temp Pulse Resp B/P (MAP) Pulse Ox O2 Delivery O2 Flow Rate FiO2 10/24/21 11:00 75 27 109/67 98 Room Air 10/24/21 10:00 77 26 102/65 97 Room Air 10/24/21 09:00 79 27 101/61 97 Room Air 10/24/21 08:08 37.5 10/24/21 08:00 99 Room Air 10/24/21 08:00 78 22 106/65 98 Room Air 10/24/21 07:45 Room Air 10/24/21 07:00 79 10/24/21 07:00 79 26 107/64 97 Room Air 10/24/21 06:00 81 26 101/61 99 Room Air 10/24/21 05:00 80 23 103/62 98 Room Air 10/24/21 04:00 81 27 111/59 97 Room Air 10/24/21 04:00 37.1 Room Air 10/24/21 03:35 99 Room Air 10/24/21 03:00 86 28 110/71 98 Room Air 10/24/21 02:00 85 26 107/65 99 Room Air 10/24/21 01:00 86 24 105/64 98 Room Air 10/24/21 01:00 90 10/24/21 00:00 86 14 112/65 98 Room Air 10/24/21 00:00 99 Room Air 10/23/21 23:00 89 16 118/66 97 Room Air 10/23/21 22:00 91 16 108/63 96 Room Air 10/23/21 21:00 91 26 110/66 99 Room Air 10/23/21 20:00 37.2 10/23/21 20:00 99 Room Air 10/23/21 20:00 98 15 118/71 99 Room Air 10/23/21 19:00 96 16 122/72 98 Room Air 10/23/21 19:00 91 10/23/21 18:00 92 28 103/61 99 Room Air 10/23/21 17:26 36.9 89 99 21 10/23/21 17:00 97 22 111/72 96 Room Air 10/23/21 16:00 103 14 123/71 98 Room Air 10/23/21 16:00 99 Room Air 10/23/21 15:00 101 13 120/67 99 Room Air 10/23/21 14:12 92 22 107/62 100 Room Air 10/23/21 13:45 Room Air 10/23/21 11:20 36.9 89 21 106/61 (76) 99 Room Air I & O 10/24/21 07:00 Intake Total 8430 ml Output Total 2525 ml Balance 5905 ml Height & Weight Height: 6'1.00" Weight: 168lbs. 9.0oz. 76.067601sh; 26.88 BMI Method:Estimated General Appearance: No Apparent Distress, Chronically ill Respiratory: Lungs Clear, Normal Breath Sounds Cardiovascular: Regular Rate, Rhythm, No Murmur, Tachycardia Peripheral Pulses: 1+ Dorsalis Pedis (R), 1+ Left Dors-Pedis (L) Gastrointestinal: normal bowel sounds, non tender Extremity: No Pedal Edema Neurologic/Psychiatric: Alert, Other (somewhat lethargic but oriented when awake) Results Lab Laboratory Tests 10/23/21 11:24 10/23/21 13:35 10/23/21 15:05 10/23/21 21:11 10/24/21 04:50 Assessment/Plan Assessment/Plan Continue on DKA protocol, should be able to stop IV insulin soon and start SQ insulin-at home takes 30 U Lantus at night. 10-12 short acting insulin after meals Watch for sign of EtOH withdrawal, so far ok Critical Care: Critically Ill Patient Time spent with patient (mins): 30 COLBY TORRES MD Oct 24, 2021 11:23
[2021-10-24 12:13] LABS: POTASSIUM 4.3 MMOL/L (3.6-5.0)
[2021-10-24 12:14] LABS: CALCIUM 7.3 MG/DL (8.5-10.1)
[2021-10-24 12:18] LABS: CREATININE SERUM 1.16 MG/DL (0.60-1.30)
[2021-10-24] MEDS: ENOXAPARIN 40 MG/0.4 ML (LOVENOX) SYR SC SCH (13:29)
[2021-10-24 19:03] LABS: CALCIUM 7.5 MG/DL (8.5-10.1)
[2021-10-24 19:07] LABS: CREATININE SERUM 1.04 MG/DL (0.60-1.30)
[2021-10-25 00:23] LABS: POTASSIUM 3.8 MMOL/L (3.6-5.0)
[2021-10-25 00:24] LABS: CALCIUM 7.2 MG/DL (8.5-10.1)
[2021-10-25 00:29] LABS: CREATININE SERUM 0.94 MG/DL (0.60-1.30)
[2021-10-25] MEDS: POTASSIUM CL 10MEQ/50ML IVPB 50 ML IV SCH ×10 (00:33→21:57)
[2021-10-25] MEDS: 1/2 NS IV SOLUTION 1,000 ML IV SCH ×6 (00:33→21:58)
[2021-10-25] MEDS: D5 1/2 NS 1000 ML IV SOLUTION 1,000 ML IV SCH ×4 (02:26→23:35)
--- NOTE | 2021-10-25 05:08 | Tele-ICU Progress Note ---
Subjective Date Seen by a Provider: Oct 25, 2021 Subjective/Events-last exam abg reviewed Sepsis Event Evaluation Height, Weight, BMI Height: 6'1.00" Weight: 168lbs. 9.0oz. 76.826045oo; 26.88 BMI Method:Estimated Exam Exam Patient acknowledged, consented, and participated in this virtual visit which was conducted using real time audio/video Vital Signs Date Time Temp Pulse Resp B/P (MAP) Pulse Ox O2 Delivery O2 Flow Rate FiO2 10/25/21 04:00 36.6 10/25/21 03:35 99 Room Air 10/25/21 03:00 80 19 105/69 97 Room Air 10/25/21 02:00 73 14 106/68 97 Room Air 10/25/21 01:00 74 16 117/68 97 Room Air 10/25/21 01:00 72 10/25/21 00:00 75 17 112/73 97 Room Air 10/24/21 23:50 36.5 10/24/21 23:49 99 Room Air 10/24/21 23:00 76 17 120/73 98 Room Air 10/24/21 22:00 75 16 124/79 98 Room Air 10/24/21 21:00 75 18 107/65 97 Room Air 10/24/21 20:00 36.6 Room Air 10/24/21 20:00 99 Room Air 10/24/21 20:00 75 16 114/64 98 Room Air 10/24/21 19:00 75 16 111/71 98 Room Air 10/24/21 19:00 80 10/24/21 18:00 71 14 99/65 97 Room Air 10/24/21 17:00 73 15 105/66 98 Room Air 10/24/21 16:00 99 Room Air 10/24/21 16:00 75 15 111/69 98 Room Air 10/24/21 15:00 75 17 106/66 98 Room Air 10/24/21 14:00 73 17 97/63 98 Room Air 10/24/21 13:00 75 24 106/67 98 Room Air 10/24/21 12:44 77 10/24/21 12:00 93 15 117/60 100 Room Air 10/24/21 11:54 36.9 10/24/21 11:21 99 Room Air 10/24/21 11:00 75 27 109/67 98 Room Air 10/24/21 10:00 77 26 102/65 97 Room Air 10/24/21 09:00 79 27 101/61 97 Room Air 10/24/21 08:08 37.5 10/24/21 08:00 99 Room Air 10/24/21 08:00 78 22 106/65 98 Room Air 10/24/21 07:45 Room Air 10/24/21 07:00 79 10/24/21 07:00 79 26 107/64 97 Room Air 10/24/21 06:00 81 26 101/61 99 Room Air I & O 10/25/21 07:00 Intake Total 8400 ml Output Total 2150 ml Balance 6250 ml Height & Weight Height: 6'1.00" Weight: 168lbs. 9.0oz. 76.529723kw; 26.88 BMI Method:Estimated General Appearance: No Apparent Distress, WD/WN, Chronically ill, Thin Respiratory: Lungs Clear Cardiovascular: Regular Rate, Rhythm Peripheral Pulses: 1+ Dorsalis Pedis (R), 1+ Left Dors-Pedis (L) Gastrointestinal: normal bowel sounds, non tender Extremity: No Pedal Edema Neurologic/Psychiatric: Alert, Other (somewhat lethargic but oriented when awake) Results Lab Laboratory Tests 10/23/21 11:24 10/23/21 13:35 10/23/21 15:05 10/23/21 21:11 10/24/21 04:50 10/24/21 11:45 10/24/21 18:45 10/25/21 00:03 Assessment/Plan Assessment/Plan dka resolved- no changes MAGDALENA MAX MD Oct 25, 2021 05:08
[2021-10-25 05:13] LABS: BASOPHILS % (AUTO) 0 % (0-10); EOSINOPHILS % (AUTO) 0 % (0-10); HEMATOCRIT 36 % (40-54); LYMPHOCYTES # (AUTO) 2.6 10^3/uL (1.0-4.0); LYMPHOCYTES % (AUTO) 47 % (12-44); MEAN CORPUSCULAR HEMOGLOBIN 30 pg (25-34); MEAN CORPUSCULAR HGB CONC 33 g/dL (32-36); MEAN CORPUSCULAR VOLUME 91 fL (80-99); MEAN PLATELET VOLUME 10.5 fL (9.0-12.2); MONOCYTES # (AUTO) 0.6 10^3/uL (0.0-1.0); MONOCYTES % (AUTO) 11 % (0-12); NEUTROPHILS # (AUTO) 2.3 10^3/uL (1.8-7.8); NEUTROPHILS % (AUTO) 41 % (42-75); PLATELET COUNT 155 10^3/uL (130-400); WHITE BLOOD COUNT 5.5 10^3/uL (4.3-11.0)
[2021-10-25 05:31] LABS: ALBUMIN 2.4 GM/DL (3.2-4.5)
[2021-10-25 05:33] LABS: CALCIUM 7.1 MG/DL (8.5-10.1)
[2021-10-25 05:34] LABS: TOTAL PROTEIN 4.6 GM/DL (6.4-8.2)
[2021-10-25 05:36] LABS: BILIRUBIN,TOTAL 0.4 MG/DL (0.1-1.0)
[2021-10-25 05:37] LABS: PHOSPHORUS 1.4 MG/DL (2.3-4.7)
[2021-10-25 05:38] LABS: CREATININE SERUM 0.79 MG/DL (0.60-1.30)
[2021-10-25 05:40] LABS: MAGNESIUM 1.8 MG/DL (1.6-2.4)
[2021-10-25] MEDS: MAGNESIUM 1 GM/100 ML IVPB 100 ML IV SCH (06:14)
[2021-10-25] MEDS: KCL 20 MEQ TAB (K-DUR) PO SCH (06:15)
--- NOTE | 2021-10-25 07:05 | Progress Note - Hospitalist ---
Subjective HPI/CC On Admission Date Seen by Provider: Oct 25, 2021 Time Seen by Provider: 10:00 CC:DKA HPI: This is a male clinic patient of [facility] who has a history of multiple DKA episodes of meth use. Who presented to the ER with nausea and vomiting for 3 days. He was found to have blood sugars of 720 and BiCarb of 8. He was placed on insulin drip and DKA protocol and will be monitored closely in the ICU. Currently he is sleeping and doesn't want to talk when I wake him up. Subjective/Events-last exam Patient doing about the same Bicarb 16 No pain is reported Objective Exam Vital Signs Vital Signs Date Time Temp Pulse Resp B/P (MAP) Pulse Ox O2 Delivery O2 Flow Rate FiO2 10/25/21 17:00 79 15 120/72 97 Room Air 10/25/21 15:47 36.3 10/23/21 17:26 21 Capillary Refill : General Appearance: No Apparent Distress, WD/WN, Chronically ill Respiratory: Lungs Clear, Normal Breath Sounds Cardiovascular: Regular Rate, Rhythm Neurologic/Psychiatric: Alert, Oriented x3 Results/Procedures Lab Laboratory Tests 10/24/21 18:45 10/25/21 00:03 10/25/21 04:55 10/25/21 12:07 Patient resulted labs reviewed. Assessment/Plan Assessment and Plan Assess & Plan/Chief Complaint Assessment: DKA Plan: Insulin drip protocol Critical Care Critically Ill Patient Diagnosis/Problems Diagnosis/Problems (1) DKA (diabetic ketoacidosis) GORDON CROWLEY DO Oct 25, 2021 07:05
[2021-10-25] MEDS: DOCUSATE SODIUM 100 MG (COLACE) CAP PO SCH ×2 (08:32→20:08)
[2021-10-25] MEDS: SENNOSIDES 8.6 MG (SENOKOT) TAB PO SCH ×2 (08:32→20:08)
[2021-10-25] MEDS: PANTOPRAZOLE 40 MG (PROTONIX) VIAL IV SCH (08:32)
--- NOTE | 2021-10-25 11:45 | Tele-ICU Progress Note ---
Subjective Date Seen by a Provider: Oct 25, 2021 Time Seen by a Provider: 11:38 Subjective/Events-last exam (Tele-ICU Physician , Progress Note ) Available chart/ vitals / labs / Images reviewed Video assessment done using teleICU camera, rest of exam as per RN Discussed with RN , EXAM PER RN Events overnight : Afebrile FiO2 - ra I/O = Drips: d5 1/2ns 250 Pressors: , hemodynamically stable Hospital course: 10/23 55 yr male DX: DKA Pt weak, n/v A/P DKA -insulin drip continue to monitor for resolution of acidosis, AG and electrolytes. Continue hydration. -Tx Gastroparesis JOEL - dehydration, - cont IVF - follow closely polysubs abuse - positive for amphet/methamphe on recurrent bases - monitor for withdrowal Lines : (Central Line Necessity Reviewed) Gomez: OG: Nutrition: Analgesia: Anxiety/ delirium VTE Prophylaxis: rayray 40 Stress Ulcer Prophylaxis: na Plans in collaboration with bedside consultants and IM MDs. Discussed with RN to reach out if any questions or concerns A total of 20 minutes of critical care time was devoted to this patient today, required to treat and/or prevent further deterioration of critical care condition ( as above) . Sepsis Event Evaluation Height, Weight, BMI Height: 6'1.00" Weight: 168lbs. 9.0oz. 76.795508ua; 26.93 BMI Method:Estimated Exam Exam Patient acknowledged, consented, and participated in this virtual visit which was conducted using real time audio/video Vital Signs Date Time Temp Pulse Resp B/P (MAP) Pulse Ox O2 Delivery O2 Flow Rate FiO2 10/25/21 11:00 71 15 104/66 97 Room Air 10/25/21 10:00 75 15 114/74 96 Room Air 10/25/21 09:00 75 12 104/67 97 Room Air 10/25/21 08:00 73 13 102/52 99 Room Air 10/25/21 07:48 36.6 10/25/21 07:00 75 13 109/69 97 Room Air 10/25/21 07:00 75 10/25/21 06:00 79 16 114/64 96 Room Air 10/25/21 05:00 75 15 99/57 96 Room Air 10/25/21 04:00 74 16 103/67 95 Room Air 10/25/21 04:00 36.6 6/19/22 03:35 99 Room Air 10/25/21 03:00 80 19 105/69 97 Room Air 10/25/21 02:00 73 14 106/68 97 Room Air 10/25/21 01:00 74 16 117/68 97 Room Air 10/25/21 01:00 72 10/25/21 00:00 75 17 112/73 97 Room Air 10/24/21 23:50 36.5 10/24/21 23:49 99 Room Air 10/24/21 23:00 76 17 120/73 98 Room Air 10/24/21 22:00 75 16 124/79 98 Room Air 10/24/21 21:00 75 18 107/65 97 Room Air 10/24/21 20:00 36.6 Room Air 10/24/21 20:00 99 Room Air 10/24/21 20:00 75 16 114/64 98 Room Air 10/24/21 19:00 75 16 111/71 98 Room Air 10/24/21 19:00 80 10/24/21 18:00 71 14 99/65 97 Room Air 10/24/21 17:00 73 15 105/66 98 Room Air 10/24/21 16:00 99 Room Air 10/24/21 16:00 75 15 111/69 98 Room Air 10/24/21 15:00 75 17 106/66 98 Room Air 10/24/21 14:00 73 17 97/63 98 Room Air 10/24/21 13:00 75 24 106/67 98 Room Air 10/24/21 12:44 77 10/24/21 12:00 93 15 117/60 100 Room Air 10/24/21 11:54 36.9 I & O 10/25/21 06:59 Intake Total 06778 ml Output Total 2600 ml Balance 7400 ml Height & Weight Height: 6'1.00" Weight: 168lbs. 9.0oz. 76.262631ug; 26.93 BMI Method:Estimated General Appearance: No Apparent Distress, WD/WN, Chronically ill, Thin Respiratory: Lungs Clear Cardiovascular: Regular Rate, Rhythm Peripheral Pulses: 1+ Dorsalis Pedis (R), 1+ Left Dors-Pedis (L) Gastrointestinal: normal bowel sounds, non tender Extremity: No Pedal Edema Neurologic/Psychiatric: Alert, Other (somewhat lethargic but oriented when awake) Results Lab Laboratory Tests 10/23/21 13:35 10/23/21 15:05 10/23/21 21:11 10/24/21 04:50 10/24/21 11:45 10/24/21 18:45 10/25/21 00:03 10/25/21 04:55 Assessment/Plan Assessment/Plan ` JOSE ROWE MD Oct 25, 2021 11:45
[2021-10-25 12:20] LABS: POTASSIUM 3.8 MMOL/L (3.6-5.0)
[2021-10-25 12:21] LABS: CALCIUM 7.1 MG/DL (8.5-10.1)
[2021-10-25 12:26] LABS: CREATININE SERUM 0.77 MG/DL (0.60-1.30)
[2021-10-25] MEDS: ENOXAPARIN 40 MG/0.4 ML (LOVENOX) SYR SC SCH (12:46)
[2021-10-25 18:22] LABS: POTASSIUM 4.1 MMOL/L (3.6-5.0)
[2021-10-25 18:23] LABS: CALCIUM 7.3 MG/DL (8.5-10.1)
[2021-10-25 18:27] LABS: CREATININE SERUM 0.93 MG/DL (0.60-1.30)
[2021-10-26] MEDS: POTASSIUM CL 10MEQ/50ML IVPB 50 ML IV SCH ×6 (00:06→08:13)
[2021-10-26 00:19] LABS: POTASSIUM 4.2 MMOL/L (3.6-5.0)
[2021-10-26 00:21] LABS: CALCIUM 7.5 MG/DL (8.5-10.1)
[2021-10-26 00:25] LABS: CREATININE SERUM 0.89 MG/DL (0.60-1.30)
[2021-10-26] MEDS: 1/2 NS IV SOLUTION 1,000 ML IV SCH ×4 (02:13→11:16)
[2021-10-26] MEDS: D5 1/2 NS 1000 ML IV SOLUTION 1,000 ML IV SCH ×2 (03:14→07:18)
[2021-10-26 05:13] LABS: BASOPHILS % (AUTO) 0 % (0-10); EOSINOPHILS # (AUTO) 0.1 10^3/uL (0.0-0.3); EOSINOPHILS % (AUTO) 1 % (0-10); HEMATOCRIT 40 % (40-54); LYMPHOCYTES # (AUTO) 2.3 10^3/uL (1.0-4.0); LYMPHOCYTES % (AUTO) 43 % (12-44); MEAN CORPUSCULAR HEMOGLOBIN 29 pg (25-34); MEAN CORPUSCULAR HGB CONC 32 g/dL (32-36); MEAN CORPUSCULAR VOLUME 91 fL (80-99); MEAN PLATELET VOLUME 10.7 fL (9.0-12.2); MONOCYTES # (AUTO) 0.5 10^3/uL (0.0-1.0); MONOCYTES % (AUTO) 9 % (0-12); NEUTROPHILS # (AUTO) 2.4 10^3/uL (1.8-7.8); NEUTROPHILS % (AUTO) 46 % (42-75); PLATELET COUNT 147 10^3/uL (130-400); WHITE BLOOD COUNT 5.2 10^3/uL (4.3-11.0)
[2021-10-26 05:22] LABS: ALBUMIN 2.6 GM/DL (3.2-4.5); POTASSIUM 4.3 MMOL/L (3.6-5.0)
[2021-10-26 05:23] LABS: CALCIUM 7.7 MG/DL (8.5-10.1)
[2021-10-26 05:25] LABS: TOTAL PROTEIN 5.1 GM/DL (6.4-8.2)
[2021-10-26 05:26] LABS: BILIRUBIN,TOTAL 0.3 MG/DL (0.1-1.0)
[2021-10-26 05:28] LABS: CREATININE SERUM 0.85 MG/DL (0.60-1.30); PHOSPHORUS 1.9 MG/DL (2.3-4.7)
[2021-10-26 05:31] LABS: MAGNESIUM 1.8 MG/DL (1.6-2.4)
[2021-10-26] MEDS: MAGNESIUM 1 GM/100 ML IVPB 100 ML IV SCH (06:22)
[2021-10-26] MEDS: KCL 20 MEQ TAB (K-DUR) PO SCH (06:22)
[2021-10-26] MEDS: PANTOPRAZOLE 40 MG (PROTONIX) VIAL IV SCH (08:07)
[2021-10-26] MEDS: DOCUSATE SODIUM 100 MG (COLACE) CAP PO SCH ×2 (08:07→20:50)
[2021-10-26] MEDS: SENNOSIDES 8.6 MG (SENOKOT) TAB PO SCH ×2 (08:08→20:50)
--- NOTE | 2021-10-26 08:46 | Tele-ICU Progress Note ---
Subjective Date Seen by a Provider: Oct 26, 2021 Time Seen by a Provider: 08:46 Subjective/Events-last exam (Tele-ICU Physician , Progress Note ) Available chart/ vitals / labs / Images reviewed Video assessment done using teleICU camera, rest of exam as per RN Discussed with RN , EXAM PER RN Events overnight : Afebrile FiO2 - ra I/O = Drips: d5 1/2ns 250 Pressors: , hemodynamically stable Hospital course: 10/23 55 yr male DX: DKA Pt weak, n/v A/P DKA -insulin drip top stop , start long acting and follow closely stop hydration. JOEL - dehydration, - cresolved - stop IVF polysubs abuse - positive for amphet/methamphe on recurrent bases - monitor for withdrowal Lines : (Central Line Necessity Reviewed) Gomez: OG: Nutrition: Analgesia: Anxiety/ delirium VTE Prophylaxis: rayray 40 Stress Ulcer Prophylaxis: na Plans in collaboration with bedside consultants and IM MDs. Discussed with RN to reach out if any questions or concerns A total of 20 minutes of critical care time was devoted to this patient today, required to treat and/or prevent further deterioration of critical care condition ( as above) . Sepsis Event Evaluation Height, Weight, BMI Height: 6'1.00" Weight: 168lbs. 9.0oz. 76.963351nt; 24.86 BMI Method:Estimated Exam Exam Patient acknowledged, consented, and participated in this virtual visit which was conducted using real time audio/video Vital Signs Date Time Temp Pulse Resp B/P (MAP) Pulse Ox O2 Delivery O2 Flow Rate FiO2 10/26/21 07:00 78 10/26/21 06:00 77 15 101/67 97 Room Air 10/26/21 05:00 79 16 92/74 95 Room Air 10/26/21 04:00 85 12 96/57 98 Room Air 10/26/21 04:00 95 Room Air 10/26/21 04:00 36.4 10/26/21 03:00 82 28 115/78 97 Room Air 10/26/21 02:00 80 18 114/79 96 Room Air 10/26/21 01:00 79 10/26/21 01:00 79 13 111/59 95 Room Air 10/26/21 00:00 84 25 130/85 95 Room Air 10/25/21 23:47 96 Room Air 10/25/21 23:00 84 18 117/68 98 Room Air 10/25/21 22:00 76 19 126/73 95 Room Air 10/25/21 21:00 78 18 125/80 96 Room Air 10/25/21 20:06 98 Room Air 10/25/21 20:00 81 17 157/76 98 Room Air 10/25/21 20:00 36.8 10/25/21 19:00 77 14 125/76 98 Room Air 10/25/21 19:00 77 10/25/21 18:50 78 15 123/74 97 Room Air 10/25/21 17:00 79 15 120/72 97 Room Air 10/25/21 16:00 77 15 123/75 97 Room Air 10/25/21 15:55 99 Room Air 10/25/21 15:47 36.3 10/25/21 15:00 75 14 110/59 96 Room Air 10/25/21 14:00 76 13 118/69 95 Room Air 10/25/21 13:00 77 10/25/21 13:00 73 13 124/81 97 Room Air 10/25/21 12:00 75 16 104/68 95 Room Air 10/25/21 12:00 99 Room Air 10/25/21 11:56 36.9 10/25/21 11:00 71 15 104/66 97 Room Air 10/25/21 10:00 75 15 114/74 96 Room Air 10/25/21 09:00 75 12 104/67 97 Room Air I & O 10/26/21 07:00 Intake Total 7440 ml Output Total 2825 ml Balance 4615 ml Height & Weight Height: 6'1.00" Weight: 168lbs. 9.0oz. 76.746547hk; 24.86 BMI Method:Estimated General Appearance: No Apparent Distress, WD/WN, Chronically ill Respiratory: Lungs Clear, Normal Breath Sounds Cardiovascular: Regular Rate, Rhythm Peripheral Pulses: 1+ Dorsalis Pedis (R), 1+ Left Dors-Pedis (L) Gastrointestinal: normal bowel sounds, non tender Extremity: No Pedal Edema Neurologic/Psychiatric: Alert, Oriented x3 Results Lab Laboratory Tests 10/24/21 11:45 10/24/21 18:45 10/25/21 00:03 10/25/21 04:55 10/25/21 12:07 10/25/21 17:57 10/25/21 23:59 10/26/21 04:52 Assessment/Plan Assessment/Plan ` JOSE ROWE MD Oct 26, 2021 08:46
--- NOTE | 2021-10-26 10:26 | Progress Note ---
Subjective Subjective/Events-last exam Pt reports he feels a little better. He states he has not been using methamphetamines regularly, and it won't be a problem for him when he goes home. He has an appointment coming up with addiction treatment team that was already scheduled. Objective Exam Last Set of Vital Signs Vital Signs Date Time Temp Pulse Resp B/P (MAP) Pulse Ox O2 Delivery O2 Flow Rate FiO2 10/26/21 10:00 80 14 109/72 98 Room Air 10/26/21 08:00 36.5 10/23/21 17:26 21 Capillary Refill : I&O Intake and Output 10/26/21 00:00 Intake Total 20361 ml Output Total 2950 ml Balance 7550 ml Intake Oral 4100 ml IV Total 6400 ml Output Urine Total 2950 ml General: Alert, No Acute Distress Lungs: Clear to Auscultation, Normal Air Movement Heart: Regular Rate, No Murmurs Abdomen: Normal Bowel Sounds, Soft Neuro: Normal Speech Psych/Mental Status: Other (flat affect) Results/Procedures Lab Laboratory Tests 10/25/21 10:30: Glucometer 210H 10/25/21 11:27: Glucometer 163H 10/25/21 12:07: Sodium Level 134L, Potassium Level 3.8, Chloride Level 110H, Carbon Dioxide Level 18L, Anion Gap 6, Blood Urea Nitrogen 4L, Creatinine 0.77, Estimat Glomerular Filtration Rate 107, BUN/Creatinine Ratio 5, Glucose Level 150H, Calcium Level 7.1L, Beta-Hydroxybutyrate (Chem panel) 0.05 10/25/21 13:33: Glucometer 118H 10/25/21 14:29: Glucometer 151H 10/25/21 15:42: Glucometer 144H 10/25/21 17:04: Glucometer 147H 10/25/21 17:57: Glucometer 176H, Sodium Level 134L, Potassium Level 4.1, Chloride Level 108H, Carbon Dioxide Level 18L, Anion Gap 8, Blood Urea Nitrogen 4L, Creatinine 0.93, Estimat Glomerular Filtration Rate 98, BUN/Creatinine Ratio 4, Glucose Level 150H, Calcium Level 7.3L 10/25/21 18:47: Glucometer 138H 10/25/21 19:50: Glucometer 198H 10/25/21 20:53: Glucometer 207H 10/25/21 21:50: Glucometer 195H 10/25/21 22:58: Glucometer 161H 10/25/21 23:59: Sodium Level 134L, Potassium Level 4.2, Chloride Level 108H, Carbon Dioxide Level 17L, Anion Gap 9, Blood Urea Nitrogen 3L, Creatinine 0.89, Estimat Glomerular Filtration Rate 102, BUN/Creatinine Ratio 3, Glucose Level 171H, Calcium Level 7.5L 10/26/21 00:02: Glucometer 157H 10/26/21 00:58: Glucometer 188H 10/26/21 01:56: Glucometer 173H 10/26/21 03:01: Glucometer 126H 10/26/21 04:02: Glucometer 177H 10/26/21 04:52: White Blood Count 5.2, Red Blood Count 4.43, Hemoglobin 13.0L, Hematocrit 40, Mean Corpuscular Volume 91, Mean Corpuscular Hemoglobin 29, Mean Corpuscular Hemoglobin Concent 32, Red Cell Distribution Width 13.5, Platelet Count 147, Mean Platelet Volume 10.7, Immature Granulocyte % (Auto) 0, Neutrophils (%) (Auto) 46, Lymphocytes (%) (Auto) 43, Monocytes (%) (Auto) 9, Eosinophils (%) (Auto) 1, Basophils (%) (Auto) 0, Neutrophils # (Auto) 2.4, Lymphocytes # (Auto) 2.3, Monocytes # (Auto) 0.5, Eosinophils # (Auto) 0.1, Basophils # (Auto) 0.0, Immature Granulocyte # (Auto) 0.0, Sodium Level 134L, Potassium Level 4.3, Chloride Level 109H, Carbon Dioxide Level 18L, Anion Gap 7, Blood Urea Nitrogen 4L, Creatinine 0.85, Estimat Glomerular Filtration Rate 104, BUN/Creatinine Ratio 5, Glucose Level 181H, Calcium Level 7.7L, Corrected Calcium 8.8, Phosphorus Level 1.9L, Magnesium Level 1.8, Total Bilirubin 0.3, Aspartate Amino Transf (AST/SGOT) 35H, Alanine Aminotransferase (ALT/SGPT) 32, Alkaline Phosphatase 135, Total Protein 5.1L, Albumin 2.6L 10/26/21 05:12: Glucometer 200H 10/26/21 05:48: Bedside Blood Gas pH (LAB) 7.355, Bedside Blood Gas pCO2 (LAB) 32.7L, Bedside Blood Gas pO2 (LAB) 84, Bedside Blood Gas HCO3 (LAB) 18.2L, POC Blood Gas Total CO2 Calc 19L, Bedside Bl Gas O2 Saturation (Calc) 96, Bedside Arterial Blood Base Excess -7L 10/26/21 06:05: Glucometer 179H 10/26/21 07:01: Glucometer 170H 10/26/21 08:01: Glucometer 145H 10/26/21 08:57: Glucometer 144H Microbiology 10/23/21 MRSA Screen - Final, Complete MRSA not isolated Assessment/Plan Assessment/Plan (1) DKA, type 2 Status: Acute Assessment & Plan: Beta hydroxybutyrate down to normal, AG closed, CO2 near normal, drip stopped per [facility], will follow up glucose after lunch and consider transfer to floor. Qualifiers: Qualified Codes: E11.10 - Type 2 diabetes mellitus with ketoacidosis without coma (2) JOEL (acute kidney injury) Status: Resolved Assessment & Plan: Secondary to DKA. (3) ASCVD (arteriosclerotic cardiovascular disease) Status: Chronic (4) Methamphetamine abuse Status: Chronic Assessment & Plan: Follow up with outpatient addiction treatment as planned. (5) Diabetes mellitus Status: Chronic Qualifiers: (6) DVT prophylaxis Status: Acute Assessment & Plan: Enoxaparin CRUZ LOVE MD Oct 26, 2021 10:26
[2021-10-26] MEDS: inSUlin ASPART (NovoLOG) 1 UNIT/0.01 ML (CHARGE PER UNIT) SC SCH ×3 (11:16→20:49)
[2021-10-26] MEDS: ENOXAPARIN 40 MG/0.4 ML (LOVENOX) SYR SC SCH (12:41)
[2021-10-26 13:38] LABS: CALCIUM 7.6 MG/DL (8.5-10.1); CREATININE SERUM 0.81 MG/DL (0.60-1.30); POTASSIUM 4.7 MMOL/L (3.6-5.0)
[2021-10-26 23:48] VITALS: BP 110/63
[2021-10-27 02:02] VITALS: BP 109/72
[2021-10-27 04:42] VITALS: BP 109/66
[2021-10-27] MEDS: inSUlin ASPART (NovoLOG) 1 UNIT/0.01 ML (CHARGE PER UNIT) SC SCH (05:09)
[2021-10-27 06:21] LABS: BASOPHILS % (AUTO) 0 % (0-10); EOSINOPHILS # (AUTO) 0.1 10^3/uL (0.0-0.3); EOSINOPHILS % (AUTO) 2 % (0-10); HEMATOCRIT 38 % (40-54); HEMOGLOBIN 12.3 g/dL (13.3-17.7); LYMPHOCYTES # (AUTO) 1.8 10^3/uL (1.0-4.0); LYMPHOCYTES % (AUTO) 43 % (12-44); MEAN CORPUSCULAR HEMOGLOBIN 29 pg (25-34); MEAN CORPUSCULAR HGB CONC 33 g/dL (32-36); MEAN CORPUSCULAR VOLUME 89 fL (80-99); MEAN PLATELET VOLUME 11.2 fL (9.0-12.2); MONOCYTES # (AUTO) 0.4 10^3/uL (0.0-1.0); MONOCYTES % (AUTO) 10 % (0-12); NEUTROPHILS # (AUTO) 1.9 10^3/uL (1.8-7.8); NEUTROPHILS % (AUTO) 45 % (42-75); PLATELET COUNT 150 10^3/uL (130-400); WHITE BLOOD COUNT 4.2 10^3/uL (4.3-11.0)
[2021-10-27 06:30] LABS: ALBUMIN 2.5 GM/DL (3.2-4.5); POTASSIUM 4.2 MMOL/L (3.6-5.0)
[2021-10-27 06:31] LABS: CALCIUM 8.1 MG/DL (8.5-10.1)
[2021-10-27 06:32] LABS: TOTAL PROTEIN 5.1 GM/DL (6.4-8.2)
[2021-10-27 06:34] LABS: BILIRUBIN,TOTAL 0.3 MG/DL (0.1-1.0)
[2021-10-27 06:36] LABS: CREATININE SERUM 0.94 MG/DL (0.60-1.30); PHOSPHORUS 2.9 MG/DL (2.3-4.7)
[2021-10-27 06:39] LABS: MAGNESIUM 1.9 MG/DL (1.6-2.4)
[2021-10-27 07:23] VITALS: BP 115/64
[2021-10-27] MEDS: DOCUSATE SODIUM 100 MG (COLACE) CAP PO SCH (07:36)
[2021-10-27] MEDS: SENNOSIDES 8.6 MG (SENOKOT) TAB PO SCH (07:36)
[2021-10-27] MEDS: PANTOPRAZOLE 40 MG (PROTONIX) VIAL IV SCH (08:10)
[2021-10-27] MEDS ORDERED: INSU100I55 SQ (09:01)
[2021-10-27] MEDS ORDERED: PEN-53 MC (09:01)
[2021-10-27] MEDS ORDERED: INSU100I10 SQ (09:01)
--- NOTE | 2021-10-27 09:02 | Discharge Summary ---
Discharge Summary Hospital Course Was the Problem List Reviewed?: Yes Problems/Dx: (1) DKA (diabetic ketoacidosis) Hospital Course Date of Admission: Oct 23, 2021 at 12:51 Admission Diagnosis : Family Physician/Provider: Medardo Chavez MD Date of Discharge: 10/27/21 Discharge Diagnosis: DKA Hospital Course: Pt had an uneventful 5 day hospital course after he was admitted for DKA from meth use. Pt was placed on an insulin drip which required four days. Pt transitioned to subQ route. Pt was deemed stable for discharge and I sent in his refills of his insulin and pen needles. Labs and Pending Lab Test: Laboratory Tests 10/26/21 11:12: Glucometer 99 10/26/21 13:05: Sodium Level 133L, Potassium Level 4.7, Chloride Level 108H, Carbon Dioxide Level 20L, Anion Gap 5, Blood Urea Nitrogen 5L, Creatinine 0.81, Estimat Glomerular Filtration Rate 105, BUN/Creatinine Ratio 6, Glucose Level 196H, Calcium Level 7.6L, Beta-Hydroxybutyrate (Chem panel) 0.11 10/26/21 15:23: Glucometer 180H 10/26/21 20:44: Glucometer 109 10/26/21 22:46: Glucometer 100 10/27/21 05:05: Glucometer 144H 10/27/21 05:43: White Blood Count 4.2L, Red Blood Count 4.23L, Hemoglobin 12.3L, Hematocrit 38L, Mean Corpuscular Volume 89, Mean Corpuscular Hemoglobin 29, Mean Corpuscular Hemoglobin Concent 33, Red Cell Distribution Width 13.5, Platelet Count 150, Mean Platelet Volume 11.2, Immature Granulocyte % (Auto) 0, Neutrophils (%) (Auto) 45, Lymphocytes (%) (Auto) 43, Monocytes (%) (Auto) 10, Eosinophils (%) (Auto) 2, Basophils (%) (Auto) 0, Neutrophils # (Auto) 1.9, Lymphocytes # (Auto) 1.8, Monocytes # (Auto) 0.4, Eosinophils # (Auto) 0.1, Basophils # (Auto) 0.0, Immature Granulocyte # (Auto) 0.0, Sodium Level 136, Potassium Level 4.2, Chlori de Level 104, Carbon Dioxide Level 25, Anion Gap 7, Blood Urea Nitrogen 7, Creatinine 0.94, Estimat Glomerular Filtration Rate 97, BUN/Creatinine Ratio 7, Glucose Level 136H, Calcium Level 8.1L, Corrected Calcium 9.3, Phosphorus Level 2.9, Magnesium Level 1.9, Total Bilirubin 0.3, Aspartate Amino Transf (AST/SGOT) 79H, Alanine Aminotransferase (ALT/SGPT) 65H, Alkaline Phosphatase 185H, Total P rotein 5.1L, Albumin 2.5L Microbiology 10/23/21 MRSA Screen - Final, Complete MRSA not isolated Home Meds Active Advocate Pen Needle (Pen Needle, Diabetic) 33 Gauge X 5/32" Dis.needle Each ACHS Lantus Solostar (Insulin Glargine,Hum.rec.anlog) 100 Unit/1 Ml Insuln.pen 30 Unit SQ HS Insulin Aspart Flexpen (Insulin Aspart) 100 Unit/1 Ml Insuln.pen 10-12 Unit SQ AC Assessment/Pt Instructions pcp 1 week Discharge Planning: <30 minutes discharge planning Discharge Instructions Discharge Diet: ADA Diet Activity as Tolerated: Yes Discharge Physical Examination Vital Signs Vital Signs Date Time Temp Pulse Resp B/P (MAP) Pulse Ox O2 Delivery O2 Flow Rate FiO2 10/27/21 07:42 Room Air 10/27/21 07:23 36.8 78 20 115/64 (81) 96 10/27/21 02:02 21 General Appearance: No Apparent Distress, WD/WN, Chronically ill Allergies: Coded Allergies: Penicillins (Verified Allergy, Unknown, 09/20/18) Discharge Summary Date of Admission Oct 23, 2021 at 12:51 Date of Discharge Discharge Date: Oct 27, 2021 Admission Diagnosis Assessment: DKA Smoker JOEL Plan: Monitor closely IVF ICU Discharge Diagnosis Assessment: DKA Plan: Insulin drip protocol (1) DKA (diabetic ketoacidosis) GORDON CROWLEY DO Oct 27, 2021 09:02
== END 2021-10-27 11:04 | disposition home or self-care (01) | DRG 638 ==
LOC: EDUNIT# 11:16 → ER 11:18 → ICU 12:51 → 4TH 10-26 20:14
PROVIDERS: ADMIT Internal Medicine; ATTEND Internal Medicine
DX: E11.10 Type 2 diabetes mellitus with ketoacidosis without coma (principal); N17.9 Acute kidney failure, unspecified; E86.0 Dehydration; F15.10 Other stimulant abuse, uncomplicated; I10 Essential (primary) hypertension; E78.00 Pure hypercholesterolemia, unspecified; F17.200 Nicotine dependence, unspecified, uncomplicated; E11.40 Type 2 diabetes mellitus with diabetic neuropathy, unspecified; F32.A Depression, unspecified; Z89.421 Acquired absence of other right toe(s); Z79.4 Long term (current) use of insulin; Z88.0 Allergy status to penicillin
CPT/HCPCS: 36415; 71045; 80048; 80053; 80306; 81000; 82010; 82805; 82947; 83735; 84100; 85025; 87081

== ENCOUNTER 2021-12-02 16:05 | Inpatient (IN) | payer SELFPAY ==
[~2021-12-02] VITALS: Ht 185.5 cm; Wt 78.9 kg
[~2021-12-02 16:05] MED LIST changes: +PEN-53 MC
[2021-12-02] MEDS ORDERED: ONDANSETRON 4 MG/2 ML (SDV) Z0FRAN ONE (16:48)
[2021-12-02] MEDS ORDERED: NS IV 1000 ML 1,000 ML ONE (16:48)
[2021-12-02] MEDS: NS IV 1000 ML 1,000 ML IV SCH ×2 (16:54→17:41)
[2021-12-02] MEDS ORDERED: inSUlin (REGULAR) HUMAN 1 UNIT/0.01 ML (CHARGE PER UNIT) SC STA (17:01)
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
[2021-12-02 17:09] LABS: BASOPHILS % (AUTO) 0 % (0-10); EOSINOPHILS % (AUTO) 0 % (0-10); HEMATOCRIT 54 % (40-54); HEMOGLOBIN 17.9 g/dL (13.3-17.7); LYMPHOCYTES # (AUTO) 1.3 10^3/uL (1.0-4.0); LYMPHOCYTES % (AUTO) 11 % (12-44); MEAN CORPUSCULAR HEMOGLOBIN 29 pg (25-34); MEAN CORPUSCULAR HGB CONC 33 g/dL (32-36); MEAN CORPUSCULAR VOLUME 89 fL (80-99); MEAN PLATELET VOLUME 11.2 fL (9.0-12.2); MONOCYTES # (AUTO) 0.8 10^3/uL (0.0-1.0); MONOCYTES % (AUTO) 7 % (0-12); NEUTROPHILS # (AUTO) 10.4 10^3/uL (1.8-7.8); NEUTROPHILS % (AUTO) 82 % (42-75); PLATELET COUNT 292 10^3/uL (130-400); WHITE BLOOD COUNT 12.6 10^3/uL (4.3-11.0)
[2021-12-02] MEDS ORDERED: ONDANSETRON 4 MG/2 ML (SDV) Z0FRAN IVP ONE (17:15)
[2021-12-02] MEDS ORDERED: inSUlin (REGULAR) HUMAN 1 UNIT/0.01 ML (CHARGE PER UNIT) IV SCH (17:15)
[2021-12-02 17:17] LABS: ALBUMIN 4.6 GM/DL (3.2-4.5); CHLORIDE 96 MMOL/L (98-107); POTASSIUM 5.2 MMOL/L (3.6-5.0); SODIUM 136 MMOL/L (135-145)
[2021-12-02 17:18] LABS: CALCIUM 9.4 MG/DL (8.5-10.1)
[2021-12-02 17:20] LABS: TOTAL PROTEIN 8.9 GM/DL (6.4-8.2)
[2021-12-02 17:21] LABS: BILIRUBIN,TOTAL 0.7 MG/DL (0.1-1.0)
--- NOTE | 2021-12-02 17:21 | Diagnostic Imaging Report ---
EXAMINATION: Chest 1 view HISTORY: HIgh blood sugar COMPARISON: 10/24/2021. FINDINGS: The lungs are clear without edema or pneumonia. No pleural effusion or pneumothorax. Heart size is normal. IMPRESSION: 1. Clear lungs. Dictated by: Dictated on workstation # [id number]
[2021-12-02 17:23] LABS: ALKALINE PHOSPHATASE 143 U/L (40-136); CREATININE SERUM 2.55 MG/DL (0.60-1.30); GFR ESTIMATED 29
[2021-12-02 17:24] LABS: BUN/CREATININE RATIO 9
[2021-12-02 17:26] LABS: ALANINE AMINOTRANSFERASE 27 U/L (0-55); LIPASE 28 U/L (8-78)
[2021-12-02 17:29] LABS: CARBON DIOXIDE 7 MMOL/L (21-32); GLUCOSE 593 MG/DL (70-105)
[2021-12-02] MEDS ORDERED: D5 1/2 NS 1000 ML IV SOLUTION 1,000 ML IV ONE (19:17)
[2021-12-02] MEDS ORDERED: 1/2 NS IV SOLUTION 1,000 ML IV ONE (19:17)
[2021-12-02] MEDS ORDERED: CALCIUM CARBONATE 500 MG (TUMS) TAB.CHEW PO PRN (19:30)
[2021-12-02] MEDS ORDERED: POTASSIUM CL 10MEQ/50ML IVPB 50 ML IV SCH (19:30)
[2021-12-02] MEDS ORDERED: diphenhydrAMINE 25 MG TAB (BENADRYL) PO PRN (19:30)
[2021-12-02] MEDS ORDERED: LACTULOSE SYRUP 10GM/15ML (ENULOSE) 30ML UDC PO PRN (19:30)
[2021-12-02] MEDS ORDERED: ACETAMINOPHEN 325 MG TABLET PO PRN (19:30)
[2021-12-02] MEDS ORDERED: ONDANSETRON 4 MG/2 ML (SDV) Z0FRAN IV PRN (19:30)
[2021-12-02] MEDS ORDERED: MILK OF MAGNESIA 400 MG/5 ML 30 ML UDC PO PRN (19:30)
[2021-12-02] MEDS ORDERED: BISACODYL 10 MG SUPP (DULCOLAX) PR PRN (19:30)
[2021-12-02] MEDS ORDERED: diphenhydrAMINE 50 MG/ML INJ (BENADRYL) IVP PRN (19:30)
[2021-12-02] MEDS ORDERED: ONDANSETRON 4 MG (ZOFRAN) ORAL DISSOLVE TAB PO PRN (19:30)
[2021-12-02] MEDS ORDERED: NS IV 1000 ML 1,000 ML IV SCH (19:30)
[2021-12-02] MEDS ORDERED: ANTACID SUSP 30 ML UDC (MYLANTA) PO PRN (19:30)
[2021-12-02] MEDS ORDERED: polyethylene glycoL POWDER 17 GM (MIRALAX) PACK PO PRN (19:30)
[2021-12-02] MEDS ORDERED: MELATONIN 3 MG TABLET PO PRN (19:30)
[2021-12-02] MEDS: 1/2 NS IV SOLUTION 1,000 ML IV SCH (19:39)
[2021-12-02] MEDS ORDERED: LACTATED RINGERS 1,000 ML IV SCH (19:45)
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
[2021-12-02 19:54] VITALS: BP 107/73
[2021-12-02] MEDS ORDERED: LACTATED RINGERS 1,000 ML IV ONE (19:57)
[2021-12-02] MEDS ORDERED: RT-ALBUTEROL SULF 2.5 MG/3 ML PRE-MIX VIAL INH PRN (20:15)
[2021-12-02 22:02] LABS: POTASSIUM 4.3 MMOL/L (3.6-5.0)
[2021-12-02 22:03] LABS: CALCIUM 8.2 MG/DL (8.5-10.1)
[2021-12-02 22:07] LABS: CREATININE SERUM 1.86 MG/DL (0.60-1.30)
[2021-12-02 22:08] LABS: BILIRUBIN,URINE NEGATIVE (NEGATIVE); CLARITY,URINE CLEAR; COLOR,URINE YELLOW; GLUCOSE, URINE (UA) 2+ (NEGATIVE); KETONES,URINE 3+ (NEGATIVE); LEUKOCYTE ESTERASE ,URINE NEGATIVE (NEGATIVE); NITRITE,URINE NEGATIVE (NEGATIVE); PH,URINE 5.5 (5-9); PROTEIN,URINE 1+ (NEGATIVE)
[2021-12-02 22:22] LABS: BACTERIA,URINE NEGATIVE /HPF; SQUAMOUS EPITHELIAL CELL,UR 0-2 /HPF; WBC,URINE 0-2 /HPF
[2021-12-02] MEDS: SENNOSIDES 8.6 MG (SENOKOT) TAB PO SCH (22:30)
[2021-12-02] MEDS: DOCUSATE SODIUM 100 MG (COLACE) CAP PO SCH (22:31)
[2021-12-02] MEDS: D5 1/2 NS 1000 ML IV SOLUTION 1,000 ML IV SCH (22:50)
[2021-12-03] MEDS: D5 1/2 NS 1000 ML IV SOLUTION 1,000 ML IV SCH ×4 (04:15→16:16)
[2021-12-03] MEDS: morphine INJ 4 MG/ML 1 ML (VIAL/SYRINGE) IV PRN ×2 (04:16→06:42)
[2021-12-03 04:28] LABS: BASOPHILS % (AUTO) 0 % (0-10); EOSINOPHILS % (AUTO) 0 % (0-10); HEMATOCRIT 39 % (40-54); HEMOGLOBIN 13.5 g/dL (13.3-17.7); LYMPHOCYTES # (AUTO) 1.5 10^3/uL (1.0-4.0); LYMPHOCYTES % (AUTO) 15 % (12-44); MEAN CORPUSCULAR HEMOGLOBIN 29 pg (25-34); MEAN CORPUSCULAR HGB CONC 34 g/dL (32-36); MEAN CORPUSCULAR VOLUME 85 fL (80-99); MEAN PLATELET VOLUME 11.1 fL (9.0-12.2); MONOCYTES # (AUTO) 1.1 10^3/uL (0.0-1.0); MONOCYTES % (AUTO) 11 % (0-12); NEUTROPHILS # (AUTO) 7.4 10^3/uL (1.8-7.8); NEUTROPHILS % (AUTO) 74 % (42-75); PLATELET COUNT 224 10^3/uL (130-400)
[2021-12-03 04:43] LABS: POTASSIUM 3.6 MMOL/L (3.6-5.0)
[2021-12-03 04:44] LABS: CALCIUM 7.7 MG/DL (8.5-10.1)
[2021-12-03 04:46] LABS: TOTAL PROTEIN 5.6 GM/DL (6.4-8.2)
[2021-12-03 04:47] LABS: BILIRUBIN,TOTAL 0.4 MG/DL (0.1-1.0)
[2021-12-03 04:49] LABS: CREATININE SERUM 1.53 MG/DL (0.60-1.30); PHOSPHORUS 1.2 MG/DL (2.3-4.7)
[2021-12-03 04:53] LABS: MAGNESIUM 1.9 MG/DL (1.6-2.4)
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
[2021-12-03] MEDS: POTASSIUM CL 10MEQ/50ML IVPB 50 ML IV SCH ×8 (06:41→18:19)
[2021-12-03] MEDS: 1/2 NS IV SOLUTION 1,000 ML IV SCH ×4 (06:45→09:45)
[2021-12-03] MEDS: KCL 20 MEQ TAB (K-DUR) PO SCH (06:48)
[2021-12-03] MEDS: MAGNESIUM 1 GM/100 ML IVPB 100 ML IV SCH (06:48)
[2021-12-03] MEDS: SENNOSIDES 8.6 MG (SENOKOT) TAB PO SCH (07:54)
[2021-12-03] MEDS: DOCUSATE SODIUM 100 MG (COLACE) CAP PO SCH (07:54)
--- NOTE | 2021-12-03 08:41 | Diagnostic Imaging Report ---
Indication: Respiratory distress Study compared to 12/02/2021. FINDINGS: The lungs are clear. No failure, effusion or pneumothorax. Impression: No acute appearing abnormality. Dictated by: Dictated on workstation # [id number]
--- NOTE | 2021-12-03 08:44 | Tele-ICU Progress Note ---
Subjective Date Seen by a Provider: Dec 03, 2021 Time Seen by a Provider: 08:44 Subjective/Events-last exam Available chart/vitals/labs/images reviewed. Video assessment done using telemetry ICU camera, rest of exam as per RN. Discussion with the RN, exam as per RN. Hospital course Patient today is feeling much better. BMP earlier showed lobe bicarbonate but anion gap closed. Patient still on insulin drip and awaiting for repeat BMP to be done. If the carbon dioxide improves will discontinue IV insulin drip and s tart on long-acting insulin subcutaneously. Sepsis Event Evaluation Height, Weight, BMI Height: 6'1.00" Weight: 168lbs. 9.0oz. 76.144255qu; 20.83 BMI Method:Estimated Exam Exam Patient acknowledged, consented, and participated in this virtual visit which was conducted using real time audio/video Vital Signs Date Time Temp Pulse Resp B/P (MAP) Pulse Ox O2 Delivery O2 Flow Rate FiO2 12/03/21 08:00 99 Room Air 12/03/21 07:00 37.7 12/03/21 07:00 82 12/03/21 06:00 81 13 102/67 95 Room Air 12/03/21 05:00 82 13 103/67 95 Room Air 12/03/21 04:00 85 14 110/66 96 Room Air 12/03/21 04:00 99 Room Air 12/03/21 03:00 85 11 102/63 96 Room Air 12/03/21 02:00 91 13 101/65 96 Room Air 12/03/21 02:00 37.0 12/03/21 01:00 90 12/03/21 01:00 90 13 113/70 95 Room Air 12/03/21 00:00 99 Room Air 12/03/21 00:00 95 12 132/75 97 Room Air 12/02/21 23:00 19 139/88 97 Room Air 12/02/21 22:00 93 13 128/79 97 Room Air 12/02/21 21:00 35.9 99 11 121/88 Room Air 12/02/21 21:00 96 12/02/21 20:59 99 Room Air 12/02/21 20:51 99 Room Air 12/02/21 20:00 97 12/02/21 20:00 93 14 136/82 Room Air 12/02/21 19:54 36.3 95 99 21 12/02/21 19:43 35.9 90 16 109/69 Room Air 12/02/21 19:14 94 12/02/21 19:03 77 105/65 98 Room Air 12/02/21 16:20 36.3 95 16 107/73 (84) 99 Room Air I & O 12/03/21 07:00 Intake Total 5450 ml Output Total 1200 ml Balance 4250 ml Height & Weight Height: 6'1.00" Weight: 168lbs. 9.0oz. 76.037584bc; 20.83 BMI Method:Estimated General Appearance: No Apparent Distress, Thin, Other (somnolent) HEENT: PERRL/EOMI, Other (dry oral mucosa) Neck: Normal Inspection, Non Tender Respiratory: Lungs Clear, Normal Breath Sounds, No Accessory Muscle Use, No Respiratory Distress Cardiovascular: Regular Rate, Rhythm, Normal Peripheral Pulses, Tachycardia (100) Capillary Refill: Less Than 3 Seconds Extremity: Normal Inspection, Normal Range of Motion, Non Tender, No Calf Tenderness, Swelling (Elbow has mild edema. Good range of motion, no instability. No large open wounds no palpable subcutaneous foreign bodies.; Left wrist and hand appear uninjured, no swelling, good range of motion of the fingers and hand.) Neurologic/Psychiatric: No Motor/Sensory Deficits, Other (arousable to voice. follows commands; grossly no focal deficits) Skin: Normal Color, Warm/Dry, Other (superficial abrasions to the dorsum of the left hand and elbow) Other comments PE PER RN Results Lab Laboratory Tests 12/02/21 16:35 12/02/21 21:36 12/03/21 04:10 Assessment/Plan Assessment/Plan 1. Diabetic ketoacidosis improving but has low bicarbonate. 2. Acute kidney injury improving. Recommendations 1. We will recheck a BMP and based on the carbon dioxide level and anion gap we will consider discontinuing the insulin drip and start on subcutaneous Levemir with the sliding scale coverage. 2. Continue hydration and recheck BUN/creatinine as well as blood sugars. #3 DVT prophylaxis with subcutaneous heparin. Critical Care: Critically Ill Patient Time spent with patient (mins): 15 KELLY JOSÉ MD Dec 03, 2021 08:44
--- NOTE | 2021-12-03 09:36 | Occ Therapy Progress Note ---
Therapy Progress Note OT orders received and chart reviewed. Attempt at OT eval. Pt lethargic, difficult to keep awake during interview. OT to hold this am and attempt again at a later time if schedule allows. Rona Tyler OT Dec 03, 2021 09:36
--- NOTE | 2021-12-03 09:49 | Physical Therapy Progress Note ---
Therapy Progress Note Patient on hold per RN due to current status. PT will attempt tomorrow CALLI Pelletier PT Dec 03, 2021 09:49
[2021-12-03 12:18] LABS: CALCIUM 7.5 MG/DL (8.5-10.1); CREATININE SERUM 1.29 MG/DL (0.60-1.30); POTASSIUM 3.7 MMOL/L (3.6-5.0)
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
[2021-12-03] MEDS ORDERED: 1/2 NS IV SOLUTION 1,000 ML IV SCH ×2 (14:30→18:45)
[2021-12-03] MEDS ORDERED: inSUlin (REGULAR) HUMAN 1 UNIT/0.01 ML (CHARGE PER UNIT) SC PRN (14:30)
[2021-12-03 16:45] LABS: POTASSIUM 3.7 MMOL/L (3.6-5.0)
[2021-12-03 16:46] LABS: CALCIUM 7.8 MG/DL (8.5-10.1)
[2021-12-03 16:50] LABS: CREATININE SERUM 1.26 MG/DL (0.60-1.30)
[2021-12-03 23:12] LABS: CALCIUM 7.6 MG/DL (8.5-10.1); CREATININE SERUM 1.18 MG/DL (0.60-1.30); POTASSIUM 3.8 MMOL/L (3.6-5.0)
[2021-12-04] MEDS: D5 1/2 NS 1000 ML IV SOLUTION 1,000 ML IV SCH ×2 (01:24→10:19)
[2021-12-04] MEDS: SENNOSIDES 8.6 MG (SENOKOT) TAB PO SCH ×3 (04:37→08:34)
[2021-12-04] MEDS: DOCUSATE SODIUM 100 MG (COLACE) CAP PO SCH ×3 (04:37→08:33)
[2021-12-04 05:21] LABS: BASOPHILS % (AUTO) 0 % (0-10); EOSINOPHILS % (AUTO) 0 % (0-10); HEMATOCRIT 36 % (40-54); HEMOGLOBIN 12.4 g/dL (13.3-17.7); LYMPHOCYTES # (AUTO) 2.5 10^3/uL (1.0-4.0); LYMPHOCYTES % (AUTO) 33 % (12-44); MEAN CORPUSCULAR HEMOGLOBIN 30 pg (25-34); MEAN CORPUSCULAR HGB CONC 34 g/dL (32-36); MEAN CORPUSCULAR VOLUME 86 fL (80-99); MEAN PLATELET VOLUME 10.7 fL (9.0-12.2); MONOCYTES # (AUTO) 0.8 10^3/uL (0.0-1.0); MONOCYTES % (AUTO) 10 % (0-12); NEUTROPHILS # (AUTO) 4.3 10^3/uL (1.8-7.8); NEUTROPHILS % (AUTO) 56 % (42-75); PLATELET COUNT 164 10^3/uL (130-400); WHITE BLOOD COUNT 7.6 10^3/uL (4.3-11.0)
[2021-12-04 05:44] LABS: ALBUMIN 2.5 GM/DL (3.2-4.5); BILIRUBIN,TOTAL 0.4 MG/DL (0.1-1.0); CALCIUM 7.6 MG/DL (8.5-10.1); MAGNESIUM 1.6 MG/DL (1.6-2.4); PHOSPHORUS 1.1 MG/DL (2.3-4.7); POTASSIUM 3.2 MMOL/L (3.6-5.0); TOTAL PROTEIN 4.7 GM/DL (6.4-8.2)
[2021-12-04] MEDS: POTASSIUM CL 10MEQ/50ML IVPB 50 ML IV SCH ×3 (07:00→10:20)
[2021-12-04] MEDS: KCL 20 MEQ TAB (K-DUR) PO SCH (07:00)
[2021-12-04] MEDS: MAGNESIUM 1 GM/100 ML IVPB 100 ML IV SCH ×2 (08:33→08:34)
--- NOTE | 2021-12-04 08:54 | Diagnostic Imaging Report ---
INDICATION: Diabetic ketoacidosis, shortness of breath Portable chest 4:46 AM Heart size and pulmonary vascularity are normal. Lungs are clear. There are no effusions or pneumothoraces. IMPRESSION: No acute abnormalities in the chest Dictated by: Dictated on workstation # [id number]
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
--- NOTE | 2021-12-04 09:51 | Physical Therapy Progress Note ---
Therapy Progress Note Patient declined PT stating, "I'm fine. I don't need you." RN notified. PT to remove patient from services at this time. 1 ref/DC CALLI SALAZAR PT Dec 04, 2021 09:51
[2021-12-04] MEDS ORDERED: INSU100I10 SQ (09:52)
[2021-12-04] MEDS ORDERED: INSU100I14 SQ (09:52)
--- NOTE | 2021-12-04 10:27 | Tele-ICU Progress Note ---
Subjective Date Seen by a Provider: Dec 04, 2021 Time Seen by a Provider: 10:27 Subjective/Events-last exam (Tele-ICU Physician , Progress Note ) Available chart/ vitals / labs / Images reviewed Video assessment done using teleICU camera, rest of exam as per RN Discussed with RN Events overnight : Afebrile hemodynamically stable Respiratory - I/O = Drips: Pressors- no Consultants: Hospital course: A/P 1. Diabetic ketoacidosis improving but has low bicarbonate. 2. Acute kidney injury- resolved Recommendations 1. We will recheck a BMP now and based on the carbon dioxide level consider discontinuing the insulin drip and start on subcutaneous Levemir with the sliding scale coverage. 2. Continue hydration and recheck BUN/creatinine as well as blood sugars. #3 DVT prophylaxis with subcutaneous heparin. Gomez: OG: Nutrition: VTE Prophylaxis: heparin Stress Ulcer Prophylaxis:na Plans in collaboration with bedside consultants and IM MDs. Discussed with RN to reach out if any questions or concerns A total of 15 minutes of critical care time was devoted to this patient today, required to treat and/or prevent further deterioration of critical care condition ( as above ) . Sepsis Event Evaluation Height, Weight, BMI Height: 6'1.00" Weight: 168lbs. 9.0oz. 76.309805my; 20.83 BMI Method:Estimated Exam Exam Patient acknowledged, consented, and participated in this virtual visit which was conducted using real time audio/video Vital Signs Date Time Temp Pulse Resp B/P (MAP) Pulse Ox O2 Delivery O2 Flow Rate FiO2 12/04/21 10:00 36.7 81 12 114/71 97 12/04/21 09:00 73 13 120/78 94 Room Air 12/04/21 08:05 36.2 75 14 89/55 95 12/04/21 08:00 98 Room Air 12/04/21 07:47 36.8 12/04/21 07:00 75 12/04/21 07:00 75 14 92/54 95 Room Air 12/04/21 06:00 79 15 110/67 93 Room Air 12/04/21 05:00 73 15 100/63 94 Room Air 12/04/21 04:00 73 17 89/65 96 Room Air 12/04/21 03:51 99 Room Air 12/04/21 03:18 36.9 12/04/21 03:00 76 11 84/48 95 Room Air 12/04/21 02:00 76 13 107/71 95 Room Air 12/04/21 01:00 78 16 103/71 95 Room Air 12/04/21 00:17 77 12/04/21 00:00 99 Room Air 12/04/21 00:00 80 15 113/69 96 Room Air 12/03/21 23:59 36.7 12/03/21 23:00 81 7 103/73 97 Room Air 12/03/21 22:00 75 14 117/70 95 Room Air 12/03/21 21:00 75 15 111/70 96 Room Air 12/03/21 20:00 99 Room Air 12/03/21 20:00 81 19 125/64 94 Room Air 12/03/21 19:30 36.6 12/03/21 19:13 79 12/03/21 19:00 85 12 104/69 96 Room Air 12/03/21 18:00 79 13 109/76 94 Room Air 12/03/21 17:00 80 16 108/61 92 Room Air 12/03/21 16:00 80 5 93/57 96 Room Air 12/03/21 16:00 99 Room Air 12/03/21 15:58 36.8 12/03/21 15:00 81 14 87/52 96 Room Air 12/03/21 14:00 93 10 84/49 97 Room Air 12/03/21 13:00 37.1 12/03/21 13:00 84 15 95/66 96 Room Air 12/03/21 12:40 79 12/03/21 12:00 99 Room Air 12/03/21 12:00 78 13 110/72 96 Room Air 12/03/21 11:00 80 15 92/52 95 Room Air I & O 12/04/21 06:59 Intake Total 3510 ml Output Total 1450 ml Balance 2060 ml Height & Weight Height: 6'1.00" Weight: 168lbs. 9.0oz. 76.622234qt; 20.83 BMI Method:Estimated General Appearance: No Apparent Distress HEENT: PERRL/EOMI, Moist Mucous Membranes Neck: Normal Inspection, Supple Respiratory: Chest Non Tender, Lungs Clear, No Accessory Muscle Use Cardiovascular: Regular Rate, Rhythm, No JVD Capillary Refill: Less Than 3 Seconds Extremity: Normal Capillary Refill, No Calf Tenderness Neurologic/Psychiatric: Alert, Oriented x3 Skin: Normal Color, Warm/Dry Lymphatic: No Adenopathy Results Lab Laboratory Tests 12/02/21 16:35 12/02/21 21:36 12/03/21 04:10 12/03/21 11:50 12/03/21 16:13 12/03/21 22:50 12/04/21 04:46 Assessment/Plan Assessment/Plan 1 JOSE ROWE MD Dec 04, 2021 10:27
[2021-12-04] MEDS ORDERED: KCL 20 MEQ TAB (K-DUR) PO ONE (10:30)
--- NOTE | 2021-12-04 10:50 | Occ Therapy Progress Note ---
Therapy Progress Note Pt declines OT services at this time. He verbalizes "I can get my self dressed, I have no problems with that." OT educated pt that if things change, new orders can be written. OT to discharge pt from services. Rona Tyler OT Dec 04, 2021 10:50
[2021-12-04] MEDS: inSUlin ASPART (NovoLOG) 1 UNIT/0.01 ML (CHARGE PER UNIT) SQ SCH ×2 (13:21→16:35)
[2021-12-04 14:34] VITALS: BP 116/75
[2021-12-04 15:48] VITALS: BP 116/75
[2021-12-04 20:11] VITALS: BP 121/70
[2021-12-04 23:54] VITALS: BP 114/74
[2021-12-05 03:28] VITALS: BP 112/68
[2021-12-05 05:55] LABS: BASOPHILS % (AUTO) 0 % (0-10); EOSINOPHILS % (AUTO) 1 % (0-10); HEMATOCRIT 38 % (40-54); HEMOGLOBIN 12.7 g/dL (13.3-17.7); LYMPHOCYTES # (AUTO) 2.9 10^3/uL (1.0-4.0); LYMPHOCYTES % (AUTO) 51 % (12-44); MEAN CORPUSCULAR HEMOGLOBIN 29 pg (25-34); MEAN CORPUSCULAR HGB CONC 33 g/dL (32-36); MEAN CORPUSCULAR VOLUME 88 fL (80-99); MONOCYTES # (AUTO) 0.6 10^3/uL (0.0-1.0); MONOCYTES % (AUTO) 10 % (0-12); NEUTROPHILS # (AUTO) 2.2 10^3/uL (1.8-7.8); NEUTROPHILS % (AUTO) 39 % (42-75); PLATELET COUNT 154 10^3/uL (130-400); WHITE BLOOD COUNT 5.6 10^3/uL (4.3-11.0)
[2021-12-05 06:05] LABS: ALBUMIN 2.6 GM/DL (3.2-4.5); POTASSIUM 3.8 MMOL/L (3.6-5.0)
[2021-12-05 06:07] LABS: CALCIUM 8.3 MG/DL (8.5-10.1)
[2021-12-05 06:08] LABS: TOTAL PROTEIN 4.9 GM/DL (6.4-8.2)
[2021-12-05 06:09] LABS: BILIRUBIN,TOTAL 0.4 MG/DL (0.1-1.0)
[2021-12-05 06:11] LABS: CREATININE SERUM 0.85 MG/DL (0.60-1.30)
[2021-12-05] MEDS ORDERED: INSU100I10 SQ (06:22)
[2021-12-05] MEDS ORDERED: PEN-53 MC (06:22)
[2021-12-05] MEDS ORDERED: INSU100I14 SQ (06:22)
--- NOTE | 2021-12-05 06:23 | Discharge Summary ---
Discharge Summary Hospital Course Was the Problem List Reviewed?: Yes Problems/Dx: (1) DKA, type 2 Status: Acute Hospital Course Date of Admission: Dec 02, 2021 at 17:51 Admission Diagnosis : Family Physician/Provider: Medardo Chavez MD Date of Discharge: 12/05/21 Discharge Diagnosis: DKA, meth use Hospital Course: Standard hospital course for DKA after meth use. Insulin drip was maintain due to brittle diabetes subcu insulin he was ready for discharge. Labs and Pending Lab Test: Laboratory Tests 12/04/21 07:02: Glucometer 177H 12/04/21 08:02: Glucometer 237H 12/04/21 08:52: Glucometer 300H 12/04/21 09:01: Bedside Blood Gas pH (LAB) 7.394, Bedside Blood Gas pCO2 (LAB) 32.9L, Bedside Blood Gas pO2 (LAB) 78L, Bedside Blood Gas HCO3 (LAB) 20.1L, POC Blood Gas Total CO2 Calc 21L, Bedside Bl Gas O2 Saturation (Calc) 96, Bedside Arterial Blood Base Excess -5L 12/04/21 10:13: Glucometer 291H 12/04/21 12:00: Glucometer 276H 12/04/21 14:51: Glucometer 283H 12/04/21 16:10: Glucometer 145H 12/04/21 21:02: Glucometer 100 12/04/21 23:57: Glucometer 171H 12/05/21 05:25: White Blood Count 5.6, Red Blood Count 4.35, Hemoglobin 12.7L, Hematocrit 38L, Mean Corpuscular Volume 88, Mean Corpuscular Hemoglobin 29, Mean Corpuscular Hemoglobin Concent 33, Red Cell Distribution Width 13.8, Platelet Count 154, Mean Platelet Volume 11.0, Immature Granulocyte % (Auto) 0, Neutrophils (%) (Auto) 39L, Lymphocytes (%) (Auto) 51H, Monocytes (%) (Auto) 10, Eosinophils (%) (Auto) 1, Basophils (%) (Auto) 0, Neutrophils # (Auto) 2.2, Lymphocytes # (Auto) 2.9, Monocytes # (Auto) 0.6, Eosinophils # (Auto) 0.0, Basophils # (Auto) 0.0, Immature Granulocyte # (Auto) 0.0, Sodium Level 138, Potassium Level 3.8, Chloride Level 107, Carbon Dioxide Level 23, Anion Gap 8, Blood Urea Nitrogen 5L , Creatinine 0.85, Estimat Glomerular Filtration Rate 104, BUN/Creatinine Ratio 6, Glucose Level 136H, Calcium Level 8.3L, Corrected Calcium 9.4, Total Bilirubin 0.4, Aspartate Amino Transf (AST/SGOT) 13, Alanine Aminotransferase (ALT/SGPT) 13, Alkaline Phosphatase 85, Total Protein 4.9L, Albumin 2.6L 12/05/21 05:29: Glucometer 163H Microbiology 12/02/21 MRSA Screen - Final, Complete MRSA not isolated Home Meds Active Advocate Pen Needle (Pen Needle, Diabetic) 33 Gauge X 5/32" Dis.needle Each MC ACHS Novolog Flexpen (Insulin Aspart) 100 Unit/Ml (3 Ml) Solution 10-12 Units SQ AC Lantus Solostar (Insulin Glargine,Hum.rec.anlog) 100 Unit/Ml (3 Ml) Insuln.pen 35 Unit SQ HS Assessment/Pt Instructions PCP in 1 week Discharge Planning: <30 minutes discharge planning Discharge Instructions Discharge Diet: ADA Diet Discharge Physical Examination Vital Signs Vital Signs Date Time Temp Pulse Resp B/P (MAP) Pulse Ox O2 Delivery O2 Flow Rate FiO2 12/05/21 03:28 36.8 76 18 112/68 (83) 98 Room Air 12/02/21 19:54 21 General Appearance: No Apparent Distress, WD/WN, Chronically ill Allergies: Coded Allergies: Penicillins (Verified Allergy, Unknown, 09/20/18) Discharge Summary Date of Admission Dec 02, 2021 at 17:51 Date of Discharge Discharge Date: Dec 05, 2021 Admission Diagnosis DKA Discharge Diagnosis (1) DKA, type 2 Status: Acute GORDON CROWLEY DO Dec 05, 2021 06:23
[2021-12-05] MEDS: inSUlin ASPART (NovoLOG) 1 UNIT/0.01 ML (CHARGE PER UNIT) SQ SCH (06:53)
[2021-12-05 07:52] VITALS: BP 142/84
[2021-12-05] MEDS: DOCUSATE SODIUM 100 MG (COLACE) CAP PO SCH (08:04)
[2021-12-05] MEDS: SENNOSIDES 8.6 MG (SENOKOT) TAB PO SCH (08:04)
[2021-12-05 11:27] VITALS: BP 142/84
== END 2021-12-05 11:29 | disposition home or self-care (01) | DRG 638 ==
LOC: EDUNIT# 16:05 → ER 16:09 → ICU 17:51 → 4TH 12-04 14:30
PROVIDERS: ADMIT Internal Medicine; ATTEND Internal Medicine
DX: E10.10 Type 1 diabetes mellitus with ketoacidosis without coma (principal); N17.9 Acute kidney failure, unspecified; F15.10 Other stimulant abuse, uncomplicated; E78.00 Pure hypercholesterolemia, unspecified; I10 Essential (primary) hypertension; G62.9 Polyneuropathy, unspecified; F32.A Depression, unspecified; Z91.19 Patient's noncompliance with other medical treatment and regimen; Z89.421 Acquired absence of other right toe(s); Z88.0 Allergy status to penicillin
CPT/HCPCS: 36415; 36600; 70450; 71045; 80048; 80053; 81000; 82010; 82805; 82947; 83690; 83735; 84100; 85025; 87081

== ENCOUNTER 2022-03-24 23:46 | Inpatient (IN) | payer SELFPAY ==
[~2022-03-24] VITALS: Ht 188 cm; Wt 72.4 kg
[~2022-03-24 23:46] MED LIST changes: +INSU100I14 SQ
[2022-03-25] MEDS ORDERED: ONDANSETRON 4 MG/2 ML (SDV) Z0FRAN IVP ONE
[2022-03-25 00:06] LABS: BASOPHILS % (AUTO) 0 % (0-10); EOSINOPHILS % (AUTO) 0 % (0-10); HEMATOCRIT 50 % (40-54); HEMOGLOBIN 16.6 g/dL (13.3-17.7); LYMPHOCYTES # (AUTO) 1.1 10^3/uL (1.0-4.0); LYMPHOCYTES % (AUTO) 5 % (12-44); MEAN CORPUSCULAR HEMOGLOBIN 29 pg (25-34); MEAN CORPUSCULAR HGB CONC 33 g/dL (32-36); MEAN CORPUSCULAR VOLUME 86 fL (80-99); MEAN PLATELET VOLUME 10.1 fL (9.0-12.2); MONOCYTES # (AUTO) 0.8 10^3/uL (0.0-1.0); MONOCYTES % (AUTO) 4 % (0-12); NEUTROPHILS # (AUTO) 20.3 10^3/uL (1.8-7.8); NEUTROPHILS % (AUTO) 91 % (42-75); PLATELET COUNT 421 10^3/uL (130-400); WHITE BLOOD COUNT 22.3 10^3/uL (4.3-11.0)
[2022-03-25 00:24] LABS: ALBUMIN 4.3 GM/DL (3.2-4.5); CHLORIDE 92 MMOL/L (98-107); POTASSIUM 4.5 MMOL/L (3.6-5.0)
[2022-03-25 00:25] LABS: SODIUM 135 MMOL/L (135-145)
[2022-03-25 00:26] LABS: AMYLASE 47 U/L (25-125); CALCIUM 10.2 MG/DL (8.5-10.1)
[2022-03-25 00:27] LABS: TOTAL PROTEIN 9.4 GM/DL (6.4-8.2)
[2022-03-25 00:28] LABS: CARBON DIOXIDE 12 MMOL/L (21-32)
[2022-03-25 00:29] LABS: BAND NEUTROPHILS 2 %; BASOPHILS % (MANUAL) 0 %; BILIRUBIN,TOTAL 0.6 MG/DL (0.1-1.0); EOSINOPHILS % (MANUAL) 0 %; LYMPHOCYTES % (MANUAL) 2 %; MONOCYTES % (MANUAL) 4 %; NEUTROPHILS % (MANUAL) 91 %; REACTIVE LYMPHOCYTES 1 %; TOXIC GRANULATION/VACUOLAZATIO 1+
[2022-03-25 00:30] LABS: ALKALINE PHOSPHATASE 214 U/L (40-136)
[2022-03-25 00:31] LABS: CREATININE SERUM 2.35 MG/DL (0.60-1.30); GFR ESTIMATED 32
[2022-03-25 00:32] LABS: BUN/CREATININE RATIO 16
[2022-03-25 00:33] LABS: ALANINE AMINOTRANSFERASE 36 U/L (0-55); GLUCOSE 625 MG/DL (70-105); MAGNESIUM 2.5 MG/DL (1.6-2.4)
[2022-03-25 00:35] LABS: LIPASE 13 U/L (8-78)
[2022-03-25] MEDS ORDERED: inSUlin (REGULAR) HUMAN 1 UNIT/0.01 ML (CHARGE PER UNIT) IV ONE (01:00)
[2022-03-25] MEDS ORDERED: CEFEPIME INJECTION 1,000 MG in NS (IVPB) 50 ML IV ONE (01:00)
[2022-03-25 01:04] LABS: PROTHROMBIN TIME PATIENT 13.3 SEC (12.2-14.7)
[2022-03-25] MEDS ORDERED: SODIUM BICARB 8.4% 50 MEQ/50 ML (ABBOTT) SYR IV ONE (01:30)
[2022-03-25] MEDS ORDERED: NS IV 1000 ML 1,000 ML IV SCH ×3 (01:30→02:45)
[2022-03-25] MEDS: VANCOMYCIN INJECTION 750 MG in NS (IVPB) 250 ML IV SCH ×2 (01:47→03:01)
[2022-03-25 02:07] VITALS: BP 140/83
--- NOTE | 2022-03-25 02:21 | ED General ---
General Chief Complaint: Glucose Problems Stated Complaint: DKA;SEPSIS;RECENT R GREAT TOE AMPUTATION Nursing Triage Note: brought in by [facility] for high blood glucose, vomitting today. dc'd from [facility] 03/18/22 after right toe amputation. pt reports not taking insulin/abx. Source of Information: Patient (VERY POOR HISTORIAN, WILL NOT GIVE ANY INFORMATION AT ALL ), EMS, Old Records (ALL PMH IS FROM OLD CHART, PT REFUSES TO ANSWER QUESTIONS) History of Present Illness Date Seen by Provider: Mar 24, 2022 Time Seen by Provider: 23:55 Initial Comments PT ARRIVES VIA EMS FROM HOME EMS REPORT THAT PT CALLED FOR NAUSEA/VOMITING AND "DKA" EMS ACCUCHECK WAS 406 WITH KETONES. NO IV BY EMS. THEY REPORT THAT HE REFUSED. IS UNKNOWN HOW LONG PT'S SYMPTOMS HAVE BEEN GOING ON, OR HOW MAY TIMES HE HAS VOMITED, OR IF HE HAS BEEN HAVING ANY OTHER SYMPTOMS, HE REFUSES TO ANSWER ANY QUESTIONS. EMS CREW IS VERY FAMILIAR WITH PATIENT PT HAS LONGSTANDING NONCOMPLIANCE IN ALL ASPECTS OF CARE PT DOES NOT TAKE HIS INSULIN OR ANY MEDICATIONS THAT HE HAS BEEN PRESCRIBED PT HAD RIGHT GREAT TOE AMPUTATED AT [facility] LAST TUESDAY. DISMISSED 03/18/22 HE DID NOT GET HIS ANTIBIOTIC PRESCRIPTION FILLED PT HAS NOT BEEN TAKING HIS INSULIN PT HAS HAD OTHER TOES AMPUTATED IN THE PAST PT HAS HAD 10 VISITS HERE SINCE HIS FIRST VISIT HERE 09/2018 THE LAST 8 VISITS / ADMITS HAVE ALL BEEN FOR DKA. HE FREQUENTLY LEAVES AMA PT HAS HISTORY OF HOMELESSNESS, AND LONGSTANDING METHAMPHETAMINE USE PT WILL NOT ANSWER ANY OF MY QUESTIONS, KEEPS HIS EYES CLOSED AND HEAD TURNED AWAY. HE REPEATEDLY DEMANDING WATER ON ARRIVAL, YET C/O NAUSEA HE IS UNCOOPERATIVE AND TELLING STAFF WHAT THEY CAN AND CAN'T DO, AND IS VERY MANIPULATIVE--STATING "YOU'RE NOT GONNA DO THAT UNTIL YOU GET ME SOME WATER", ETC. PCP: DR. MEDLEY, [facility] [place] Allergies and Home Medications Allergies Coded Allergies: Penicillins (Verified Allergy, Unknown, 09/20/18) Patient Home Medication List Home Medication List Reviewed: Yes Insulin Aspart (Novolog Flexpen) 100 Unit/Ml (3 Ml) Solution, 10-12 UNITS SQ AC Prescribed by: GORDON CROWLEY on 7/30/22 0622 Insulin Glargine,Hum.rec.anlog (Lantus Solostar) 100 Unit/Ml (3 Ml) Insuln.pen, 35 UNIT SQ HS Prescribed by: GORDON CROWLEY on 12/05/21621 Pen Needle, Diabetic (Advocate Pen Needle) 33 Gauge X 5/32" Dis.needle, EACH [facility], (DME) Prescribed by: GORDON CROWLEY on 12/05/21621 Review of Systems Review of Systems Constitutional: other (PT WILL NOT ANSWER. ) Past Hcbwbrc-Xumdql-Ydpnbn Hx Patient Social History Tobacco Use?: No Substance use?: No Alcohol Use?: No Pt feels they are or have been: No Immunizations Up To Date Tetanus Booster (TDap): Unknown First/Initial COVID19 Vaccinat: 2020 [employer] Second COVID19 Vaccination Jeffery: 2020 P[employer] Third COVID19 Vaccination Date: 2020 PFITZ[employer] Seasonal Allergies Seasonal Allergies: No Past Medical History Surgery/Hospitalization HX: IDDM PMH;DM. SURGERY, right toe amputations Surgeries: Yes Amputation, Orthopedic Respiratory: No Currently Using CPAP: No Currently Using BIPAP: No Cardiac: Yes High Cholesterol, Hypertension Neurological: Yes Neuropathy Genitourinary: No Gastrointestinal: No Musculoskeletal: Yes (MULTIPLE TOE AMPUTATIONS) Amputee Endocrine: Yes (DKA; NON-COMPLIANCE) Diabetes, Insulin dep HEENT: No Cancer: No Psychosocial: Yes (SUBSTANCE ABUSE) Depression Integumentary: Yes (CHRONIC DIABETIC FOOT ULCERS) Blood Disorders: No Adverse Reaction/Blood Tranf: No Family Medical History Patient reports no known family medical history. No Pertinent Family Hx SOCIAL HISTORY: -PT SMOKES, UNKNOWN AMOUNT -DRUGS--EXTENSIVE METHAMPHETAMINE USE -HAS DENIED ALCOHOL USE PT HAS HISTORY OF HOMELESSNESS PAST SURGICAL HISTORY: -RIGHT GREAT TOE AMPUTATION AT [facility] 03/16/22 -PREVIOUS RIGHT 4TH TOE AMPUTATION AND LEFT 5TH TOE AMPUTATION -PERIPHERAL ANGIOGRAM BY DR. AVILES: DATE OF SERVICE: 09/05/2020 PERIPHERAL ANGIOGRAPHY REPORT The patient is a 54-year-old gentleman who recently had amputation of the left fifth toe that was exhibiting ischemia and ulceration. 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 Accordingly, peripheral angiography was carried out and informed consent was obtained for peripheral angiography and possible ad hoc intervention. DESCRIPTION OF PROCEDURE: He was brought to the cardiac catheterization laboratory in a fasting state. Right groin was prepared and draped in the usual sterile fashion. Lidocaine 1% was used for local anesthesia. Modified Seldinger technique was used to advance a 5-Spanish sheath in right femoral artery. A 5-Spanish pigtail catheter was used to carry out abdominal aortic angiography. The pigtail catheter was then pulled back to just above the level of the aortoiliac bifurcation and bilateral leg artery angiography was carried out down to the level of the ankles. Subsequently, we used a 5-Spanish crossover catheter and advanced a Storq wire into the left superficial femoral artery. The crossover catheter was removed and we advanced a straight catheter into the distal part of the left superficial femoral artery and carried out selective angiography of the distal left superficial femoral artery and the trifurcation vessels down to the level of the ankles. The catheter was then removed. Angiography of the right femoral artery was carried out through the sheath. Mynx was used to achieve hemostasis. He tolerated the procedure well. ABDOMINAL AORTIC ANGIOGRAPHY: Abdominal aortic angiography did not indicate any significant abdominal aortic aneurysm or dissection. No abdominal aortic stenosis is seen. The aortoiliac bifurcation is intact and does not exhibit significant disease. BILATERAL LEG ARTERY ANGIOGRAPHY: Bilateral leg artery angiography did not indicate any significant disease of the iliac arteries, common femoral arteries, popliteal arteries, or the distal vessels of the legs. 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 Selective angiography did not indicate any significant disease of the left popliteal artery or of the trifurcation arteries on the left side. CONCLUSIONS: No significant peripheral arterial disease seen on this peripheral angiographic study. Physical Exam Vital Signs Vital Signs - First Documented 03/24/22 23:50 Temp 36.4 Pulse 102 Resp 20 B/P (MAP) 150/84 (106) Pulse Ox 99 O2 Delivery Room Air Capillary Refill : Less Than 3 Seconds Height, Weight, BMI Height: 6'1.00" Weight: 168lbs. 9.0oz. [id number]; 22.00 BMI Method:Estimated General Appearance: No Apparent Distress, WD/WN, Thin, Other (PT IS IN NO ACUTE DISTRESS; HE IS FILTHY-HANDS/PALMS ARE NEARLY BLACK WITH DIRT. CLOTHING IS FILTHY. PT IS EXTREMELY UNKEMPT, AND MALODOROUS. DRESSING TO RIGHT FOOT/TOE IS FILTHY AND HANGING OFF HIS FOOT. PT KEEPS EYES CLOSED AND HEAD TURNED AWAY. WILL NOT ANSWER NEARLY ALL QUESTIONS, BUT HE IS TALKING--MAKING DEMANDS, ETC. ) HEENT: Other (EDENTULOUS, ORAL MUCOSA DRY. ) Respiratory: Normal Breath Sounds, No Accessory Muscle Use, No Respiratory Distress Cardiovascular: Regular Rate, Rhythm, No Murmur Gastrointestinal: Non Tender, Soft Extremity: Other (BOTH FEET ARE COLD AND DUSKY. LEFT GREAT TOE IS CYANOTIC, NAIL OF LEFT GREAT TOE IS VERY THICKENED, WITH BLOODY DRAINAGE NOTED FROM LATERAL NAIL BORDER. NO OBVIOUS SIGNS OF INFECTION TO THE TOE. LEFT 4TH TOE IS ABSENT. RIGHT FOOT WITH RECENT GREAT TOE REMOVAL, SUTURES ARE IN PLACE, WITH SLIGHT SEPARATION OF WOUND EDGES, AND SEROSANGUINOUS DRAINAGE NOTED. THERE IS ERYTHEMA AND SWELLING AROUND THE AREA. SURROUNDING SKIN AROUND THE SITE IS VERY WET AND "WHITE AND PRUNE-LIKE" FROM CONSTANT MOISTURE. RIGHT SECOND TOE IS SWOLLEN AND ERYTHEMATOUS WITH APPROXIMATELY 1 CM AREA OF SCABBED, NECROTIC TISSUE TO THE END OF THE TOE. 3RD TOE IS MILDLY SWOLLEN AND ERYTHEMATOUS. RIGHT 4TH TOE IS MISSING. RIGHT 5 TOE APPEARS SLIGHTLY ERYTHEMATOUS. BOTH FEET ARE COLD, NO PERIPHERAL PULSES. DECREASED SENSATION TO BOTH FEET. ) Neurologic/Psychiatric: Other (AWAKE, BUT SOMEWHAT LETHARGIC. PT IS MOVING ALL EXTREMITES,BUT HE REFUSES TO ANSWER QUESTIONS OR FOLLOW COMMANDS. HE HAS DECREASED SENSATION TO BOTH FEET. HE IS GROSSLY ORIENTED TO SELF, PLACE AND SITUATION. PT REFUSES TO ANSWER MOST QUESTIONS OR FOLLOW ANY COMMANDS. BUT APPEARS TO BE MOVING ALL EXTREMITIES EQUALLY. ) Skin: Other ( ABOVE. ) Focused Exam Sepsis Stage: Sepsis Possible Source: Skin/Soft Tissue Lactate Level 03/24/22 23:56: Lactic Acid Level 2.64*H Time of Focused Exam: 01:00 Respiratory: Normal Breath Sounds, No Accessory Muscle Use, No Respiratory Distress Cardiovascular: Regular Rate, Rhythm, No Edema Capillary Refill: Less Than 3 Seconds (TO UPPER BODY. BOTH FEET ARE COLD AND DUSKY. ) Skin: warm/dry Lactic Acid Level Laboratory Tests Test 03/24/22 23:56 Lactic Acid Level 2.64 MMOL/L (0.50-2.00) *H Within 3hrs of presentation: Admin fluids, Admin ABX, Blood cultures prior to ABX's, Focus exam, Lactate level Progress/Results/Core Measures Suspected Sepsis SIRS Temperature: Pulse: 106 Respiratory Rate: 18 Laboratory Tests 03/24/22 23:56: White Blood Count 22.3H Blood Pressure 140 /83 Mean: 102 03/24/22 23:56: Lactic Acid Level 2.64*H Laboratory Tests 03/24/22 23:56: Creatinine 2.35H, INR Comment 1.0, Platelet Count 421H, Total Bilirubin 0.6 Results/Orders Lab Results Laboratory Tests Test 03/24/22 22:56 03/24/22 23:52 03/24/22 23:56 03/25/22 00:07 Range/Units Beta-Hydroxybutyrate (Chem panel) 12.11 H 0.00-0.27 MMOL/L Glucometer 564 *H 70-110 MG/DL White Blood Count 22.3 H 4.3-11.0 10^3/uL Red Blood Count 5.76 H 4.30-5.52 10^6/uL Hemoglobin 16.6 13.3-17.7 g/dL Hematocrit 50 40-54 % Mean Corpuscular Volume 86 80-99 fL Mean Corpuscular Hemoglobin 29 25-34 pg Mean Corpuscular Hemoglobin Concent 33 32-36 g/dL Red Cell Distribution Width 12.4 10.0-14.5 % Platelet Count 421 H 130-400 10^3/uL Mean Platelet Volume 10.1 9.0-12.2 fL Immature Granulocyte % (Auto) 0 % Neutrophils (%) (Auto) 91 H 42-75 % Lymphocytes (%) (Auto) 5 L 12-44 % Monocytes (%) (Auto) 4 0-12 % Eosinophils (%) (Auto) 0 0-10 % Basophils (%) (Auto) 0 0-10 % Neutrophils # (Auto) 20.3 H 1.8-7.8 10^3/uL Lymphocytes # (Auto) 1.1 1.0-4.0 10^3/uL Monocytes # (Auto) 0.8 0.0-1.0 10^3/uL Eosinophils # (Auto) 0.0 0.0-0.3 10^3/uL Basophils # (Auto) 0.0 0.0-0.1 10^3/uL Immature Granulocyte # (Auto) 0.1 0.0-0.1 10^3/uL Neutrophils % (Manual) 91 % Lymphocytes % (Manual) 2 % Monocytes % (Manual) 4 % Eosinophils % (Manual) 0 % Basophils % (Manual) 0 % Band Neutrophils 2 % Reactive Lymphocytes 1 % Toxic Granulation 1+ Prothrombin Time 13.3 12.2-14.7 SEC INR Comment 1.0 0.8-1.4 Activated Partial Thromboplast Time 30 24-35 SEC Sodium Level 135 135-145 MMOL/L Potassium Level 4.5 3.6-5.0 MMOL/L Chloride Level 92 L 98-107 MMOL/L Carbon Dioxide Level 12 L 21-32 MMOL/L Anion Gap 31 H 5-14 MMOL/L Blood Urea Nitrogen 37 H 7-18 MG/DL Creatinine 2.35 H 0.60-1.30 MG/DL Estimat Glomerular Filtration Rate 32 BUN/Creatinine Ratio 16 Glucose Level 625 *H 70-105 MG/DL Lactic Acid Level 2.64 *H 0.50-2.00 MMOL/L Calcium Level 10.2 H 8.5-10.1 MG/DL Corrected Calcium 10.0 8.5-10.1 MG/DL Magnesium Level 2.5 H 1.6-2.4 MG/DL Total Bilirubin 0.6 0.1-1.0 MG/DL Aspartate Amino Transf (AST/SGOT) 13 5-34 U/L Alanine Aminotransferase (ALT/SGPT) 36 0-55 U/L Alkaline Phosphatase 214 H 40-136 U/L Troponin I < 0.028 <0.028 NG/ML Total Protein 9.4 H 6.4-8.2 GM/DL Albumin 4.3 3.2-4.5 GM/DL Amylase Level 47 25-125 U/L Lipase 13 8-78 U/L Serum Alcohol < 10 <10 MG/DL Bedside Blood Gas pH (LAB) 7.287 *L 7.310-7.410 Bedside Blood Gas pCO2 (LAB) 18.4 *L 41.0-51.0 mmHg Bedside Blood Gas pO2 (LAB) 123 H 80-105 mmHg Bedside Blood Gas HCO3 (LAB) 8.8 *L 23.0-28.0 mmol/L POC Blood Gas Total CO2 Calc 9 *L 24-29 mmol/L Bedside Bl Gas O2 Saturation (Calc) 98 95-98 % Bedside Arterial Blood Base Excess -18 L -2-3 mmol/L My Orders Orders - DEDRICK MERIDA DO Accucheck Stat ONCE (03/24/22:55) Ed Iv/Invasive Line Start (03/24/22:55) Ekg Tracing (03/24/22:55) Monitor-Rhythm Ecg Trace Only (03/24/22:55) Alcohol (03/24/22:) Amylase (03/24/22:55) Cbc With Automated Diff (03/24/22) Comprehensive Metabolic Panel (03/24/22) Drug Screen Stat (Urine) (03/24/22:) Lactic Acid Analyzer (03/24/22) Lipase (03/24/22:55) Magnesium (03/24/22:55) Troponin I Dolores (03/24/22:55) Ed Iv/Invasive Line Start (03/24/22:55) Ns Iv 1000 Ml (Sodium Chloride 0.9%) (03/25/22 00:00) Ondansetron Injection (Zofran Injectio (03/25/22 00:00) Manual Differential (03/24/22:56) Wound Culture (03/25/22 00:14) Blood Culture (03/25/22 00:48) Sputum Culture (03/25/22 00:48) Urinalysis (03/25/22 00:48) Urine Culture (03/25/22 00:48) Protime With Inr (03/25/22 00:48) Partial Thromboplastin Time (03/25/22 00:48) Chest 1 View, Ap/Pa Only (03/25/22 00:48) Ed Iv/Invasive Line Start (03/25/22 00:48) Vital Signs Adult Sepsis Patie Q15M (03/25/22 00:48) O2 (03/25/22 00:48) Remove Rings In Anticipation O (03/25/22 00:48) Cefepime Injection (Maxipime Injection) (03/25/22 01:00) Vancomycin Injection (Vancomycin Injecti (03/25/22 01:00) Insulin (Regular) Human (Novolin R (Per (03/25/22 01:00) Medications Given in ED Current Medications Medications Dose Ordered Sig/Perico Route Start Time Stop Time Status Last Admin Dose Admin Ondansetron HCl 4 mg ONCE ONCE IVP 03/25/22 00:00 03/25/22 00:01 DC 03/25/22 00:09 4 MG Vital Signs/I&O 03/24/22 23:50 Temp 36.4 Pulse 102 Resp 20 B/P (MAP) 150/84 (106) Pulse Ox 99 O2 Delivery Room Air Capillary Refill : Less Than 3 Seconds Blood Pressure Mean: 102 Point of Care Testing Finger Stick Blood Glucose: 564 Blood Glucose Action Taken: erp notified Progress Note : Progress Note DKA LABS AND SEPSIS PROTOCOLS INITIATED GIVEN: -IV FLUIDS -ZOFRAN -INSULIN -ANTIBIOTICS -SODIUM BICARB WOUND CULTURE OBTAINED FROM SURGICAL SITE ON RIGHT FOOT NO DETERIORATION IN PT'S CONDITION DURING ER STAY NO VOMITING OR ANY OTHER SYMPTOMS DURING ER STAY PT REFUSED TO ATTEMPT TO GIVE UA OR HAVE RAMIRES PLACED HERE IN ER. RAMIRES CATHETER ORDERED WITH ADMIT ORDERS, AND ADVISED BOTH LAB AND ICU NURSING STAFF THAT URINE SPECIMEN NEEDS TO BE OBTAINED AND SENT TO LAB. ECG Initial ECG Impression Date: Mar 25, 2022 Initial ECG Impression Time: 00:08 Initial ECG Rate: 101 Initial ECG Rhythm: Normal Sinus Initial ECG Impression: Nonspecific Changes Diagnostic Imaging Comments CXR--NO ACUTE PROCESS, PENDING RADIOLOGIST REVIEW Reviewed: Reviewed by Me Critical Care Note Critical Care Start Time: 23:55 Total Time (minutes) 30 Departure Communication (Admissions) 0053--SPOKE WITH DR. CROWLEY, HOSPITALIST FOR [facility]. ACCEPTS PT FOR ADMIT 0055--CALLED E-ICU. PHYSICIAN IS ON PHONE, WILL CALL BACK [phone]--CALLED E-ICU. REPORT TO DR. AMOS, NO ADDITIONAL RECOMMENDATIONS Impression Primary Impression: DKA (diabetic ketoacidosis) Additional Impressions: Sepsis RECENT RIGHT GREAT TOE AMPUTATION CELLULITIS AND NECROSIS OF RIGHT SECOND TOE Non-compliance Acute kidney injury DEHYDRATION History of methamphetamine use Disposition: ADMITTED INPATIENT Condition: Improved Admissions Decision to Admit Reason: Admit from ER (General) Decision to Admit/Date: Mar 25, 2022 Time/Decision to Admit Time: 00:55 Departure-Patient Inst. Referrals: THEODORE MEDLEY MD (PCP) Primary Care Physician DEDRICK MERIDA DO Mar 25, 2022 02:21
[2022-03-25] MEDS ORDERED: D5 1/2 NS 1000 ML IV SOLUTION 1,000 ML IV SCH (02:45)
[2022-03-25] MEDS ORDERED: POTASSIUM CL 10MEQ/50ML IVPB 50 ML IV SCH ×3 (02:45→06:00)
[2022-03-25] MEDS ORDERED: NS IV 500 ML 500 ML IV PRN (02:45)
[2022-03-25] MEDS ORDERED: POTASSIUM CL 10MEQ/50ML IVPB 50 ML IV ONE (03:04)
[2022-03-25] MEDS ORDERED: 1/2 NS IV SOLUTION 1,000 ML IV ONE (03:04)
[2022-03-25] MEDS ORDERED: metroNIDAZOLE 500 MG/100 ML IVPB (PRE-MIX) IV SCH (03:30)
--- NOTE | 2022-03-25 03:53 | Tele-ICU Progress Note ---
Progress Note 56M with IDDM, recent toe amputation, admitted for DKA and sepsis. S/p R toe amp, D/C 03/18. Did not fill prescriptions after, has not taken insulin or abx. - DKA: insulin gtt with DKA protocol in place. Initial AGAP 31, awaiting repeat. - sepsis: PCN allergic. Cefepime and vanco given. Cultures pending. 1st and 2nd toe stumps do not look grossly infected, but the 3rd toe is still present and grossly necrotic. Consult surgery in AM. - JOEL vs CKD: baseline unknown. High risk for both. Volume resuscitation ongoing per sepsis protocol. Will repeat in AM. A total of 13 minutes of critical care time was devoted to this patient, including reviewing this patient's available data, including medical history, events of note and test results. Service provided to a patient admitted to ICU bed via interactive E-CARE system with real-time audio and video telecommunications from [facility]- ICU hub located in [place], [place] Focused Exam Lactate Level 03/24/22 23:56: Lactic Acid Level 2.64*H Height, Weight, BMI Height: 6'1.00" Weight: 168lbs. 9.0oz. [id number]; 20.42 BMI Method:Estimated Lactic Acid Level Laboratory Tests Test 03/24/22 23:56 Lactic Acid Level 2.64 MMOL/L (0.50-2.00) *H CARLOS AMOS MD Mar 25, 2022 03:53
[2022-03-25 04:41] LABS: HEMATOCRIT 45 % (40-54); HEMOGLOBIN 15.1 g/dL (13.3-17.7); MEAN CORPUSCULAR HEMOGLOBIN 29 pg (25-34); MEAN CORPUSCULAR HGB CONC 34 g/dL (32-36); MEAN CORPUSCULAR VOLUME 84 fL (80-99); PLATELET COUNT 381 10^3/uL (130-400); WHITE BLOOD COUNT 20.9 10^3/uL (4.3-11.0)
[2022-03-25 04:55] LABS: POTASSIUM 3.6 MMOL/L (3.6-5.0)
[2022-03-25 04:56] LABS: CALCIUM 9.2 MG/DL (8.5-10.1)
[2022-03-25 05:00] LABS: CREATININE SERUM 1.87 MG/DL (0.60-1.30)
[2022-03-25] MEDS: 1/2 NS IV SOLUTION 1,000 ML IV SCH ×2 (05:11→06:58)
--- NOTE | 2022-03-25 05:15 | Diagnostic Imaging Report ---
INDICATION: Sepsis and diabetic ketoacidosis. Comparison is made with prior examination of 12/04/2021. FINDINGS: The heart size, mediastinal configuration, and pulmonary vascularity are within normal limits. There is no pleural effusion, pneumothorax, or pneumonia. The osseous structures are unremarkable. IMPRESSION: No acute cardiopulmonary abnormality. Dictated by: Dictated on workstation # [id number]
[2022-03-25] MEDS ORDERED: MAGNESIUM 1 GM/100 ML IVPB 100 ML IV SCH (06:00)
[2022-03-25] MEDS ORDERED: KCL 20 MEQ TAB (K-DUR) PO SCH (06:00)
[2022-03-25] MEDS ORDERED: CEFEPIME 1,000 MG/NS 50 ML IVPB IV SCH ×2 (09:00)
--- NOTE | 2022-03-25 10:44 | Short Stay Summary-Hospitalist ---
History of Present Illness Date Seen 03/25/22 Time Seen by a Provider: 00:00 Attending Physician Medardo Chavez MD PCP Admitting Physician: Renetta Tijerina DO Attending Physician: Renetta Tijerina DO Referring Physician Date of Admission Mar 25, 2022 at 00:55 Home Medications & Allergies Home Medications Reviewed patient Home Medication Reconciliation performed by pharmacy medication reconciliations ordnance technician and/or nursing. Patients Allergies have been reviewed. Allergies Allergies Coded Allergies Penicillins (Verified Allergy, Unknown, 09/20/18) Past Viosccq-Gzmpwx-Unjzyr Hx Patient Social History Tobacco Use?: Yes Tobacco type used: Cigarettes Smoking Status: Current Everyday Smoker Use of E-Cig and/or Vaping dev: Yes E-Cig or Vaping type used: Nicotine Substance use?: Yes Substance type: Nicotine, Marijuana Alcohol Use?: No Pt feels they are or have been: No Immunizations Up To Date First/Initial COVID19 Vaccinat: 2020 [email or web address] Second COVID19 Vaccination Jeffery: 2020 [email or web address] Tetanus Booster (TDap): Unknown Hepatitis A: No Hepatitis B: No Seasonal Allergies Seasonal Allergies: No Current Status Advance Directives: No Communicates: Verbally Primary Language: Palauan Preferred Spoken Language: Palauan Is interpretation needed?: No Implanted or Applied Medical D: None Past Medical History Surgeries: Amputation, Orthopedic Currently Using CPAP: No Currently Using BIPAP: No High Cholesterol, Hypertension Neuropathy Amputee Diabetes, Insulin dep Depression Blood Disorders: No Adverse Reaction/Blood Tranf: No 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 No Pertinent Family Hx SOCIAL HISTORY: -PT SMOKES, UNKNOWN AMOUNT -DRUGS--EXTENSIVE METHAMPHETAMINE USE -HAS DENIED ALCOHOL USE PT HAS HISTORY OF HOMELESSNESS PAST SURGICAL HISTORY: -RIGHT GREAT TOE AMPUTATION AT [facility] 03/16/22 -PREVIOUS RIGHT 4TH TOE AMPUTATION AND LEFT 5TH TOE AMPUTATION -PERIPHERAL ANGIOGRAM BY DR. AVILES: DATE OF SERVICE: 09/05/2020 PERIPHERAL ANGIOGRAPHY REPORT The patient is a 54-year-old gentleman who recently had amputation of the left fifth toe that was exhibiting ischemia and ulceration. 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 Accordingly, peripheral angiography was carried out and informed consent was obtained for peripheral angiography and possible ad hoc intervention. DESCRIPTION OF PROCEDURE: He was brought to the cardiac catheterization laboratory in a fasting state. Right groin was prepared and draped in the usual sterile fashion. Lidocaine 1% was used for local anesthesia. Modified Seldinger technique was used to advance a 5-Korean sheath in right femoral artery. A 5-Korean pigtail catheter was used to carry out abdominal aortic angiography. The pigtail catheter was then pulled back to just above the level of the aortoiliac bifurcation and bilateral leg artery angiography was carried out down to the level of the ankles. Subsequently, we used a 5-Korean crossover catheter and advanced a Storq wire into the left superficial femoral artery. The crossover catheter was removed and we advanced a straight catheter into the distal part of the left superficial femoral artery and carried out selective angiography of the distal left superficial femoral artery and the trifurcation vessels down to the level of the ankles. The catheter was then removed. Angiography of the right femoral artery was carried out through the sheath. Mynx was used to achieve hemostasis. He tolerated the procedure well. ABDOMINAL AORTIC ANGIOGRAPHY: Abdominal aortic angiography did not indicate any significant abdominal aortic aneurysm or dissection. No abdominal aortic stenosis is seen. The aortoiliac bifurcation is intact and does not exhibit significant disease. BILATERAL LEG ARTERY ANGIOGRAPHY: Bilateral leg artery angiography did not indicate any significant disease of the iliac arteries, common femoral arteries, popliteal arteries, or the distal vessels of the legs. 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 Selective angiography did not indicate any significant disease of the left popliteal artery or of the trifurcation arteries on the left side. CONCLUSIONS: No significant peripheral arterial disease seen on this peripheral angiographic study. Review of Systems Constitutional: see HPI Physical Exam Physical Exam Vital Signs Vital Signs - First Documented 03/24/22 23:50 Temp 36.4 Pulse 102 Resp 20 B/P (MAP) 150/84 (106) Pulse Ox 99 O2 Delivery Room Air Capillary Refill : Less Than 3 Seconds Height, Weight, BMI Height: 6'1.00" Weight: 168lbs. 9.0oz. [id number]; 20.48 BMI Method:Estimated General Appearance: No Apparent Distress, WD/WN, Thin, Other (PT IS IN NO ACUTE DISTRESS; HE IS FILTHY-HANDS/PALMS ARE NEARLY BLACK WITH DIRT. CLOTHING IS FILTHY. PT IS EXTREMELY UNKEMPT, AND MALODOROUS. DRESSING TO RIGHT FOOT/TOE IS FILTHY AND HANGING OFF HIS FOOT. PT KEEPS EYES CLOSED AND HEAD TURNED AWAY. WILL NOT ANSWER NEARLY ALL QUESTIONS, BUT HE IS TALKING--MAKING DEMANDS, ETC. ) HEENT: Other (EDENTULOUS, ORAL MUCOSA DRY. ) Respiratory: Normal Breath Sounds, No Accessory Muscle Use, No Respiratory Distress Cardiovascular: Regular Rate, Rhythm, No Edema Gastrointestinal: Non Tender, Soft Extremity: Other (BOTH FEET ARE COLD AND DUSKY. LEFT GREAT TOE IS CYANOTIC, NAIL OF LEFT GREAT TOE IS VERY THICKENED, WITH BLOODY DRAINAGE NOTED FROM L ATERAL NAIL BORDER. NO OBVIOUS SIGNS OF INFECTION TO THE TOE. LEFT 4TH TOE IS ABSENT. RIGHT FOOT WITH RECENT GREAT TOE REMOVAL, SUTURES ARE IN PLACE, WITH SLIGHT SEPARATION OF WOUND EDGES, AND SEROSANGUINOUS DRAINAGE NOTED. THERE IS ERYTHEMA AND SWELLING AROUND THE AREA. SURROUNDING SKIN AROUND THE SITE IS VERY WET AND "WHITE AND PRUNE-LIKE" FROM CONSTANT MOISTURE. RIGHT SECOND TOE IS SWOLLEN AND ERYTHEMATOUS WITH APPROXIMATELY 1 CM AREA OF SCABBED, NECROTIC TISSUE TO THE END OF THE TOE. 3RD TOE IS MILDLY SWOLLEN AND ERYTHEMATOUS. RIGHT 4TH TOE IS MISSING. RIGHT 5 TOE APPEARS SLIGHTLY ERYTHEMATOUS. BOTH FEET ARE COLD, NO PERIPHERAL PULSES. DECREASED SENSATION TO BOTH FEET. ) Neurologic/Psychiatric: Other (AWAKE, BUT SOMEWHAT LETHARGIC. PT IS MOVING ALL EXTREMITES,BUT HE REFUSES TO ANSWER QUESTIONS OR FOLLOW COMMANDS. HE HAS DECREASED SENSATION TO BOTH FEET. HE IS GROSSLY ORIENTED TO SELF, PLACE AND SITUATION. PT REFUSES TO ANSWER MOST QUESTIONS OR FOLLOW ANY COMMANDS. BUT APPEARS TO BE MOVING ALL EXTREMITIES EQUALLY. ) Skin: Other ( ABOVE. ) Results Results/Procedures Labs Laboratory Tests 03/24/22 23:56 03/25/22 04:20 Patient resulted labs reviewed. Short Stay Diagnosis Discharge Diagnosis-Short Stay Admission Diagnosis Left AMA before seen Final Discharge Diagnosis Left AMA before seen Conclusion Plan Left AMA before seen RENETTA TIJERINA DO Mar 25, 2022 10:44
[2022-03-25] MEDS ORDERED: VANCOMYCIN 1 GM/NS 250 ML IVPB IV SCH ×2 (20:00)
== END 2022-03-25 08:22 | disposition left against medical advice (07) | DRG 871 ==
LOC: EDUNIT# 23:46 → ER 23:47 → ICU 03-25 00:55
PROVIDERS: ADMIT Internal Medicine; ATTEND Internal Medicine
DX: A41.9 Sepsis, unspecified organism (principal); E11.10 Type 2 diabetes mellitus with ketoacidosis without coma; N17.9 Acute kidney failure, unspecified; E78.00 Pure hypercholesterolemia, unspecified; G62.9 Polyneuropathy, unspecified; Z89.421 Acquired absence of other right toe(s); Z79.4 Long term (current) use of insulin; F32.A Depression, unspecified; Z91.14 Patient's other noncompliance with medication regimen; E86.0 Dehydration; Z88.0 Allergy status to penicillin; N18.9 Chronic kidney disease, unspecified; I12.9 Hypertensive chronic kidney disease with stage 1 through stage 4 chronic kidney disease, or unspecified chronic kidney disease; F17.210 Nicotine dependence, cigarettes, uncomplicated
CPT/HCPCS: 36415; 71045; 80048; 80053; 80320; 82010; 82150; 82805; 82947; 83036; 83605; 83690; 83735; 84484; 85007; 85027; 85610; 85730; 87040; 87070; 87077; 87081; 87205; 93005; 93041

== ENCOUNTER 2022-03-25 11:00 | Emergency (ER) | payer SELFPAY | END 2022-03-25 11:09 | disposition left against medical advice (07) | LOC: EDUNIT# 11:00 → ER 11:02 | DX: R52 Pain, unspecified (principal) ==

== ENCOUNTER 2022-04-18 15:50 | Inpatient (IN) | payer SELFPAY ==
[~2022-04-18] VITALS: Ht 185.5 cm; Wt 75.6 kg
[2022-04-18] MEDS ORDERED: inSUlin (REGULAR) HUMAN 1 UNIT/0.01 ML (CHARGE PER UNIT) IV STA (16:10)
[2022-04-18] MEDS ORDERED: NS IV 1000 ML 1,000 ML IV STA (16:10)
[2022-04-18] MEDS ORDERED: inSUlin (REGULAR) HUMAN 1 UNIT/0.01 ML (CHARGE PER UNIT) SC STA (16:10)
[2022-04-18] MEDS ORDERED: LIDOCAINE UROJET 2% GEL 10 ML PKG TOP ONE (16:15)
[2022-04-18 16:26] LABS: BASOPHILS % (AUTO) 0 % (0-10); EOSINOPHILS % (AUTO) 0 % (0-10); HEMATOCRIT 37 % (40-54); LYMPHOCYTES # (AUTO) 1.7 X 10^3 (1.0-4.0); LYMPHOCYTES % (AUTO) 8 % (12-44); MEAN CORPUSCULAR HEMOGLOBIN 29 pg (25-34); MEAN CORPUSCULAR HGB CONC 30 g/dL (32-36); MEAN CORPUSCULAR VOLUME 95 fL (80-99); MEAN PLATELET VOLUME 10.1 fL (9.0-12.2); MONOCYTES # (AUTO) 1.9 X 10^3 (0.0-1.0); MONOCYTES % (AUTO) 8 % (0-12); NEUTROPHILS # (AUTO) 18.6 X 10^3 (1.8-7.8); NEUTROPHILS % (AUTO) 82 % (42-75); PLATELET COUNT 696 10^3/uL (130-400); WHITE BLOOD COUNT 22.6 10^3/uL (4.3-11.0)
[2022-04-18 16:31] LABS: ALANINE AMINOTRANSFERASE 12 U/L (0-55); ALBUMIN 3.4 GM/DL (3.2-4.5); ALKALINE PHOSPHATASE 125 U/L (40-136); BILIRUBIN,TOTAL 0.2 MG/DL (0.1-1.0); BUN/CREATININE RATIO 13; CALCIUM 9.4 MG/DL (8.5-10.1); CHLORIDE 91 MMOL/L (98-107); CREATININE SERUM 2.62 MG/DL (0.60-1.30); GFR ESTIMATED 28; POTASSIUM 6.2 MMOL/L (3.6-5.0); SALICYLATE < 5.0 MG/DL (5.0-20.0); SODIUM 132 MMOL/L (135-145); TOTAL PROTEIN 7.3 GM/DL (6.4-8.2)
[2022-04-18 16:33] LABS: ACETAMINOPHEN < 10 UG/ML (10-30)
--- NOTE | 2022-04-18 16:33 | ED General ---
General Stated Complaint: HYPERGLYCEMIA Source of Information: EMS Exam Limitations: Physical Impairments History of Present Illness Date Seen by Provider: Apr 18, 2022 Time Seen by Provider: 16:18 Initial Comments Patient is a 56-year-old known diabetic brought to the emergency department by EMS naked, altered, blood sugar too high to read. Review of the medical record reveals the patient has had multiple prior admissions to this facility for diabetic ketoacidosis. He recently had amputation of toes of the left foot on March 18, 2022. Patient is profoundly altered, eyes closed, incomprehensible sounds, withdraws from pain. GCS 7. Bus Boy small respirations, lungs are clear. Slightly hypotensive blood pressure 98 systolic, tachycardic. He is quite cold core temperature rectally 90.1. Abdomen is soft. No obvious external signs of trauma. Pupils are equal and 3 to 4 mm. Oral mucosa very dry. 2 IVs immediately established, fluid boluses with warm saline. Insulin 5 units orde red subcu as well as IV. Standard laboratory protocol initiated with toxicology, EKG, chest x-ray, beta hydroxybutyric acid and ABG. Anticipate admission to the ICU. Eder elaine applied. Gomez catheter placed.\\ EMS reported "friends" called when they found him altered. Unknown last "well" time Timing/Duration: Other (unknown) Severity: Severe Allergies and Home Medications Allergies Coded Allergies: Penicillins (Verified Allergy, Unknown, 09/20/18) Patient Home Medication List Home Medication List Reviewed: Yes Insulin Aspart (Novolog Flexpen) 100 Unit/Ml (3 Ml) Solution, 10 UNITS SQ AC Prescribed by: GORDON CROWLEY on 04/21/22 1022 Insulin Glargine,Hum.rec.anlog (Lantus Solostar) 100 Unit/Ml (3 Ml) Insuln.pen, 35 UNIT SQ HS Prescribed by: GORDON CROWLEY on 04/21/22 1022 Pen Needle, Diabetic (Advocate Pen Needle) 33 Gauge X 5/32" Dis.needle, EACH [facility] ACHS, (DME) Prescribed by: GORDON CROWLEY on 12/05/21 0622 Review of Systems Review of Systems Constitutional: see HPI unable to obtain due to patient's AMS Past Njsldih-Xswevz-Velqsj Hx Immunizations Up To Date Tetanus Booster (TDap): Unknown First/Initial COVID19 Vaccinat: 2020 PFIZER Second COVID19 Vaccination Jeffery: 2020 Chun[employer] Third COVID19 Vaccination Date: 2020 PFITZER Seasonal Allergies Seasonal Allergies: No Past Medical History Surgery/Hospitalization HX: Right great toe amputated [facility] dc'd 03/18/22 Surgeries: Yes Amputation, Orthopedic Respiratory: No Currently Using CPAP: No Currently Using BIPAP: No Cardiac: Yes High Cholesterol, Hypertension Neurological: Yes Neuropathy Genitourinary: No Gastrointestinal: No Musculoskeletal: Yes (MULTIPLE TOE AMPUTATIONS) Amputee Endocrine: Yes (DKA; NON-COMPLIANCE) Diabetes, Insulin dep HEENT: No Cancer: No Psychosocial: Yes (SUBSTANCE ABUSE) Depression Integumentary: Yes (CHRONIC DIABETIC FOOT ULCERS) Blood Disorders: No Adverse Reaction/Blood Tranf: No Family Medical History Patient reports no known family medical history. No Pertinent Family Hx SOCIAL HISTORY: -PT SMOKES, UNKNOWN AMOUNT -DRUGS--EXTENSIVE METHAMPHETAMINE USE -HAS DENIED ALCOHOL USE PT HAS HISTORY OF HOMELESSNESS PAST SURGICAL HISTORY: -RIGHT GREAT TOE AMPUTATION AT [facility] 03/16/22 -PREVIOUS RIGHT 4TH TOE AMPUTATION AND LEFT 5TH TOE AMPUTATION -PERIPHERAL ANGIOGRAM BY DR. AVILES: DATE OF SERVICE: 09/05/2020 PERIPHERAL ANGIOGRAPHY REPORT The patient is a 54-year-old gentleman who recently had amputation of the left fifth toe that was exhibiting ischemia and ulceration. 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 Accordingly, peripheral angiography was carried out and informed consent was obtained for peripheral angiography and possible ad hoc intervention. DESCRIPTION OF PROCEDURE: He was brought to the cardiac catheterization laboratory in a fasting state. Right groin was prepared and draped in the usual sterile fashion. Lidocaine 1% was used for local anesthesia. Modified Seldinger technique was used to advance a 5-Greenlandic sheath in right femoral artery. A 5-Greenlandic pigtail catheter was used to carry out abdominal aortic angiography. The pigtail catheter was then pulled back to just above the level of the aortoiliac bifurcation and bilateral leg artery angiography was carried out down to the level of the ankles. Subsequently, we used a 5-Greenlandic crossover catheter and advanced a Storq wire into the left superficial femoral artery. The crossover catheter was removed and we advanced a straight catheter into the distal part of the left superficial femoral artery and carried out selective angiography of the distal left superficial femoral artery and the trifurcation vessels down to the level of the ankles. The catheter was then removed. Angiography of the right femoral artery was carried out through the sheath. Mynx was used to achieve hemostasis. He tolerated the procedure well. ABDOMINAL AORTIC ANGIOGRAPHY: Abdominal aortic angiography did not indicate any significant abdominal aortic aneurysm or dissection. No abdominal aortic stenosis is seen. The aortoiliac bifurcation is intact and does not exhibit significant disease. BILATERAL LEG ARTERY ANGIOGRAPHY: Bilateral leg artery angiography did not indicate any significant disease of the iliac arteries, common femoral arteries, popliteal arteries, or the distal vessels of the legs. 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 Selective angiography did not indicate any significant disease of the left popliteal artery or of the trifurcation arteries on the left side. CONCLUSIONS: No significant peripheral arterial disease seen on this peripheral angiographic study. Physical Exam Vital Signs Vital Signs - First Documented 04/18/22 16:00 Temp 32.2 Pulse 80 Resp 26 B/P (MAP) 94/44 (61) Pulse Ox 100 O2 Delivery Room Air Capillary Refill : Height, Weight, BMI Height: 6'1.00" Weight: 168lbs. 9.0oz. 76.587468sr; 20.48 BMI Method:Estimated General Appearance: Chronically ill, Severe Distress, Thin Eyes: Bilateral Eye PERRL HEENT: Other (very dry oral mucosa; poor dentition) Neck: Normal Inspection Respiratory: No Accessory Muscle Use, No Respiratory Distress, Other (kussmaul respirations, lungs clear) Cardiovascular: Regular Rate, Rhythm, Normal Peripheral Pulses, Other (98/44 BP) Gastrointestinal: Soft; No Distended Rectal: Normal Exam Genital/Rectal: Normal Genital Exam Extremity: Normal Inspection, Normal Range of Motion, Slow Capillary Refill Neurologic/Psychiatric: Other (Altered - GCS 7; eyes closed; incomprehensible sounds; withdraws from pain) Skin: Pallor, Other (COLD; right foot, sutures in place mid foot where he has had toes amputated. No purulent drainage or erythema or open wounds. Right foot is edematous) Focused Exam Lactate Level 04/18/22 16:00: Lactic Acid Level 4.14*H Lactic Acid Level Laboratory Tests Test 04/18/22 16:00 Lactic Acid Level 4.14 MMOL/L (0.50-2.00) *H Progress/Results/Core Measures Suspected Sepsis SIRS Temperature: Pulse: Respiratory Rate: Blood Pressure / Mean: 04/18/22 16:00: Lactic Acid Level 4.14*H Results/Orders Lab Results Laboratory Tests Test 04/18/22 16:00 04/18/22 16:49 04/18/22 17:03 04/18/22 17:10 Range/Units White Blood Count 22.6 H 4.3-11.0 10^3/uL Red Blood Count 3.84 L 4.30-5.52 10^6/uL Hemoglobin 11.0 L 13.3-17.7 g/dL Hematocrit 37 L 40-54 % Mean Corpuscular Volume 95 80-99 fL Mean Corpuscular Hemoglobin 29 25-34 pg Mean Corpuscular Hemoglobin Concent 30 L 32-36 g/dL Red Cell Distribution Width 13.8 10.0-14.5 % Platelet Count 696 H 130-400 10^3/uL Mean Platelet Volume 10.1 9.0-12.2 fL Immature Granulocyte % (Auto) 2 % Neutrophils (%) (Auto) 82 H 42-75 % Lymphocytes (%) (Auto) 8 L 12-44 % Monocytes (%) (Auto) 8 0-12 % Eosinophils (%) (Auto) 0 0-10 % Basophils (%) (Auto) 0 0-10 % Neutrophils # (Auto) 18.6 H 1.8-7.8 X 10^3 Lymphocytes # (Auto) 1.7 1.0-4.0 X 10^3 Monocytes # (Auto) 1.9 H 0.0-1.0 X 10^3 Eosinophils # (Auto) 0.0 0.0-0.3 10^3/uL Basophils # (Auto) 0.0 0.0-0.1 10^3/uL Immature Granulocyte # (Auto) 0.4 H 0.0-0.1 10^3/uL Neutrophils % (Manual) 79 % Lymphocytes % (Manual) 8 % Monocytes % (Manual) 8 % Eosinophils % (Manual) 0 % Basophils % (Manual) 0 % Band Neutrophils 5 % Blood Morphology Comment NORMAL Sodium Level 132 L 135-145 MMOL/L Potassium Level 6.2 H 3.6-5.0 MMOL/L Chloride Level 91 L 98-107 MMOL/L Carbon Dioxide Level < 5 *L 21-32 MMOL/L Anion Gap 36 H 5-14 MMOL/L Blood Urea Nitrogen 35 H 7-18 MG/DL Creatinine 2.62 H 0.60-1.30 MG/DL Estimat Glomerular Filtration Rate 28 BUN/Creatinine Ratio 13 Glucose Level 877 *H 70-105 MG/DL Lactic Acid Level 4.14 *H 0.50-2.00 MMOL/L Calcium Level 9.4 8.5-10.1 MG/DL Corrected Calcium 9.9 8.5-10.1 MG/DL Total Bilirubin 0.2 0.1-1.0 MG/DL Aspartate Amino Transf (AST/SGOT) 8 5-34 U/L Alanine Aminotransferase (ALT/SGPT) 12 0-55 U/L Alkaline Phosphatase 125 40-136 U/L Total Protein 7.3 6.4-8.2 GM/DL Albumin 3.4 3.2-4.5 GM/DL Beta-Hydroxybutyrate (Chem panel) 16.28 H 0.00-0.27 MMOL/L Salicylates Level < 5.0 L 5.0-20.0 MG/DL Acetaminophen Level < 10 L 10-30 UG/ML Serum Alcohol < 10 <10 MG/DL Blood Gas Puncture Site LEFT RADIAL Blood Gas Patient Temperature 90.1 Arterial Blood pH 6.96 *L 7.37-7.43 Arterial Blood Partial Pressure CO2 6 *L 35-45 MMHG Arterial Blood Partial Pressure O2 131 H 79-93 MMHG Arterial Blood HCO3 1 *L 23-27 MMOL/L Arterial Blood Total CO2 1.5 *L 21.0-31.0 MMOL/L Arterial Blood Oxygen Saturation 98 94-100 % Arterial Blood Base Excess -29.4 L -2.5-2.5 MMOL/L Waqar Test POSITIVE Blood Gas Ventilator Setting NO Blood Gas Inspired Oxygen ROOM AIR Urine Color YELLOW Urine Clarity CLEAR Urine pH 5.5 5-9 Urine Specific Stickney >=1.030 1.016-1.022 Urine Protein TRACE H NEGATIVE Urine Glucose (UA) 3+ H NEGATIVE Urine Ketones 3+ H NEGATIVE Urine Nitrite NEGATIVE NEGATIVE Urine Bilirubin NEGATIVE NEGATIVE Urine Urobilinogen 0.2 < = 1.0 MG/DL Urine Leukocyte Esterase NEGATIVE NEGATIVE Urine RBC (Auto) TRACE-I H NEGATIVE Urine RBC RARE /HPF Urine WBC NONE /HPF Urine Crystals NONE /LPF Urine Bacteria NEGATIVE /HPF Urine Casts NONE /LPF Urine Mucus NEGATIVE /LPF Urine Culture Indicated NO Urine Opiates Screen NEGATIVE NEGATIVE Urine Oxycodone Screen NEGATIVE NEGATIVE Urine Methadone Screen NEGATIVE NEGATIVE Urine Propoxyphene Screen NEGATIVE NEGATIVE Urine Barbiturates Screen NEGATIVE NEGATIVE Ur Tricyclic Antidepressants Screen NEGATIVE NEGATIVE Urine Phencyclidine Screen NEGATIVE NEGATIVE Urine Amphetamines Screen POSITIVE H NEGATIVE Urine Methamphetamines Screen POSITIVE H NEGATIVE Urine Benzodiazepines Screen NEGATIVE NEGATIVE Urine Cocaine Screen NEGATIVE NEGATIVE Urine Cannabinoids Screen NEGATIVE NEGATIVE Influenza Type A (RT-PCR) Not Detected Not Detecte Influenza Type B (RT-PCR) Not Detected Not Detecte SARS-CoV-2 RNA (RT-PCR) Not Detected Not Detecte Micro Results Microbiology 04/18/22 Blood Culture - Preliminary, Resulted No growth 04/18/22 Blood Culture - Preliminary, Resulted Staph, Coag Neg ([employer]) My Orders Orders - CHANEL RONDON MD Ed Iv/Invasive Line Start (04/18/22 16:10) Cbc With Automated Diff (04/18/22 16:10) Comprehensive Metabolic Panel (04/18/22 16:10) Ua Culture If Indicated (04/18/22 16:10) Catheter(Urinary) Insert & Ass 03,15 (04/18/22 16:10) Ekg Tracing (04/18/22 16:10) Drug Screen Stat (Urine) (04/18/22 16:10) Salicylate (04/18/22 16:10) Acetaminophen (04/18/22 16:10) Alcohol (04/18/22 16:10) Lidocaine 2% (Urojet) (Xylocaine Urojet) (04/18/22 16:15) Beta Hydroxybutyrate (04/18/22 16:10) Ns Iv 1000 Ml (Sodium Chloride 0.9%) (04/18/22 16:10) Insulin (Regular) Human (Novolin R (Per (04/18/22 16:10) Insulin (Regular) Human (Novolin R (Per (04/18/22 16:10) Blood Culture (04/18/22 16:22) Chest 1 View, Ap/Pa Only (04/18/22 16:22) Lactic Acid Analyzer (04/18/22 16:22) Manual Differential (04/18/22 16:00) Arterial Blood Gas (04/18/22 16:50) Covid 19 Inhouse Test (04/18/22 16:52) Influenza A And B By Pcr (04/18/22 16:52) Isolation Central Supply Req (04/18/22 16:52) Blood Culture (04/18/22 17:04) Medications Given in ED Vital Signs/I&O 04/18/22 16:00 Temp 32.2 Pulse 80 Resp 26 B/P (MAP) 94/44 (61) Pulse Ox 100 O2 Delivery Room Air Capillary Refill : Critical Care Note Critical Care Start Time: 16:18 Stop Time: 17:00 Total Time (minutes) 30 minutes critical care time in the evaluation and management of this patient with diabetic ketoacidosis and altered mental status. Time includes initial evaluation, initiation of fluid rehydration, continuous monitoring and reevaluation/reassessments of the patient. Insulin boluses. Review of prior medical documentation of ER visits and hospitalizations to establish history. No one else immediately available for history for the patient. Time includes discussion with eICU as well as admitting provider Departure Communication (Admissions) Time/Spoke to Admitting Phy: 16:[address] Crowley Time/Spoke to Consulting Phy: 16:49 spoke with eICU, advised no bicarb Impression Primary Impression: DKA (diabetic ketoacidosis) Qualified Codes: E10.11 - Type 1 diabetes mellitus with ketoacidosis with coma Additional Impression: Hypothermia Qualified Codes: T68.XXXA - Hypothermia, initial encounter Disposition: ADMITTED INPATIENT Condition: Critical Admissions Decision to Admit Reason: Admit from ER (General) Decision to Admit/Date: Apr 18, 2022 Time/Decision to Admit Time: 16:32 Departure-Patient Inst. Referrals: THEODORE MEDLEY MD (PCP/Family) Primary Care Physician Scripts Insulin Aspart (Novolog Flexpen) 100 Unit/Ml (3 Ml) Solution 10 UNITS SQ AC, #5 EA Prov: GORDON CROWLEY DO 04/21/22 Insulin Glargine,Hum.rec.anlog (Lantus Solostar) 100 Unit/Ml (3 Ml) Insuln.pen 35 UNIT SQ HS, #5 EA Prov: GORDON CROWLEY DO 04/21/22 CHANEL RONDON MD Apr 18, 2022 16:33
[2022-04-18 16:36] LABS: CARBON DIOXIDE < 5 MMOL/L (21-32)
[2022-04-18 16:37] LABS: GLUCOSE 877 MG/DL (70-105)
[2022-04-18 16:50] LABS: BAND NEUTROPHILS 5 %; BASOPHILS % (MANUAL) 0 %; EOSINOPHILS % (MANUAL) 0 %; LYMPHOCYTES % (MANUAL) 8 %; MONOCYTES % (MANUAL) 8 %; NEUTROPHILS % (MANUAL) 79 %; RBC MORPH NORMAL
[2022-04-18 16:57] LABS: ABG BASE EXCESS -29.4 MMOL/L (-2.5-2.5); ABG OXYGEN SATURATION 98 % (94-100); ABG PO2 131 MMHG (79-93)
[2022-04-18 17:00] LABS: ALLENS TEST POSITIVE; INSPIRED O2 ROOM AIR; VENTILATOR NO
[2022-04-18 17:01] LABS: PATIENT TEMP 90.1
[2022-04-18 17:02] LABS: ABG PH 6.96 (7.37-7.43)
[2022-04-18 17:03] LABS: ABG PCO2 6 MMHG (35-45); ABG TCO2 1.5 MMOL/L (21.0-31.0)
--- NOTE | 2022-04-18 17:07 | Diagnostic Imaging Report ---
INDICATION: Diabetic ketoacidosis. COMPARISON: Prior examination from 03/25/2022. FINDINGS: The heart size, mediastinal configuration and pulmonary vascularity are within normal limits. There is no pleural effusion, pneumothorax or pneumonia. The osseous structures are unremarkable. IMPRESSION: No acute cardiopulmonary abnormality. Dictated by: Dictated on workstation # [id number]
[2022-04-18 17:09] LABS: BILIRUBIN,URINE NEGATIVE (NEGATIVE); CLARITY,URINE CLEAR; COLOR,URINE YELLOW; GLUCOSE, URINE (UA) 3+ (NEGATIVE); KETONES,URINE 3+ (NEGATIVE); LEUKOCYTE ESTERASE ,URINE NEGATIVE (NEGATIVE); NITRITE,URINE NEGATIVE (NEGATIVE); PH,URINE 5.5 (5-9); PROTEIN,URINE TRACE (NEGATIVE)
[2022-04-18 17:18] LABS: BACTERIA,URINE NEGATIVE /HPF; RBC,URINE RARE /HPF
[2022-04-18 17:21] LABS: AMPHETAMINE SCREEN, URINE POSITIVE (NEGATIVE); BARBITURATE SCREEN URINE NEGATIVE (NEGATIVE); BENZODIAZEPINES SCREEN URINE NEGATIVE (NEGATIVE); CANNABINOID SCREEN, URINE NEGATIVE (NEGATIVE); COCAINE SCREEN URINE NEGATIVE (NEGATIVE); METHADONE STAT NEGATIVE (NEGATIVE); OPIATE SCREEN URINE NEGATIVE (NEGATIVE); OXYCODONE STAT NEGATIVE (NEGATIVE); PROPOXYPHENE STAT NEGATIVE (NEGATIVE); TRICYCLIC ANTIDEPRESSANTS SCRE NEGATIVE (NEGATIVE)
[2022-04-18] MEDS ORDERED: diphenhydrAMINE 25 MG TAB (BENADRYL) PO PRN (17:30)
[2022-04-18] MEDS ORDERED: MELATONIN 3 MG TABLET PO PRN (17:30)
[2022-04-18] MEDS ORDERED: DexMEDEtomidine 250 ML DRIP 250 ML IV SCH (17:30)
[2022-04-18] MEDS ORDERED: ACETAMINOPHEN 325 MG TABLET PO PRN (17:30)
[2022-04-18] MEDS ORDERED: NS IV 500 ML 500 ML IV PRN (17:30)
[2022-04-18] MEDS ORDERED: METOCLOPRAMIDE INJ 10 MG/2 ML (REGLAN) IVP PRN (17:30)
[2022-04-18] MEDS ORDERED: ONDANSETRON 4 MG (ZOFRAN) ORAL DISSOLVE TAB PO PRN (17:30)
[2022-04-18] MEDS ORDERED: BISACODYL 10 MG SUPP (DULCOLAX) PR PRN (17:30)
[2022-04-18] MEDS ORDERED: LACTULOSE SYRUP 10GM/15ML (ENULOSE) 30ML UDC PO PRN (17:30)
[2022-04-18] MEDS ORDERED: polyethylene glycoL POWDER 17 GM (MIRALAX) PACK PO PRN (17:30)
[2022-04-18] MEDS ORDERED: ANTACID SUSP 30 ML UDC (MYLANTA) PO PRN (17:30)
[2022-04-18] MEDS ORDERED: diphenhydrAMINE 50 MG/ML INJ (BENADRYL) IVP PRN (17:30)
[2022-04-18] MEDS ORDERED: HYDROmorphone 2 MG/ML VIAL (DILAUDID) IV PRN (17:30)
[2022-04-18] MEDS ORDERED: CALCIUM CARBONATE 500 MG (TUMS) TAB.CHEW PO PRN (17:30)
[2022-04-18] MEDS ORDERED: PROMETHAZINE INJ 25 MG/ML (PHENERGAN) AMP IM PRN (17:30)
[2022-04-18] MEDS ORDERED: NS IV 1000 ML 1,000 ML IV SCH (17:30)
[2022-04-18] MEDS ORDERED: LORazepam 0.5 MG (ATIVAN) TABLET PO PRN (17:30)
[2022-04-18] MEDS ORDERED: MILK OF MAGNESIA 400 MG/5 ML 30 ML UDC PO PRN (17:30)
[2022-04-18] MEDS ORDERED: LORazepam INJ 2 MG/ML (ATIVAN) VIAL IVP PRN (17:30)
[2022-04-18] MEDS ORDERED: ONDANSETRON 4 MG/2 ML (SDV) Z0FRAN IV PRN (17:30)
[2022-04-18] MEDS ORDERED: 1/2 NS IV SOLUTION 1,000 ML IV ONE (17:59)
--- NOTE | 2022-04-18 18:06 | Tele-ICU Consult ---
Progress Note 56 y/o male known diabetic presents to ED with altered mental status Blood sugar was 877 CO2 <5, bicarb 1 on ABG: pH 6.96/6/131/1 Lactate 4.14 Focused Exam Lactate Level 04/18/22 16:00: Lactic Acid Level 4.14*H Height, Weight, BMI Height: 6'1.00" Weight: 168lbs. 9.0oz. 76.862196rz; 20.48 BMI Method:Estimated Lactic Acid Level Laboratory Tests Test 04/18/22 16:00 Lactic Acid Level 4.14 MMOL/L (0.50-2.00) *H Labs Laboratory Tests 04/18/22 16:00 Results Labs Labs Laboratory Tests 04/18/22 16:00: White Blood Count 22.6H, Red Blood Count 3.84L, Hemoglobin 11.0L, Hematocrit 37L , Mean Corpuscular Volume 95, Mean Corpuscular Hemoglobin 29, Mean Corpuscular Hemoglobin Concent 30L, Red Cell Distribution Width 13.8, Platelet Count 696H, Mean Platelet Volume 10.1, Immature Granulocyte % (Auto) 2, Neutrophils (%) (Auto) 82H, Lymphocytes (%) (Auto) 8L, Monocytes (%) (Auto) 8, Eosinophils (%) (Auto) 0, Basophils (%) (Auto) 0, Neutrophils # (Auto) 18.6H, Lymphocytes # (Auto) 1.7, Monocytes # (Auto) 1.9H, Eosinophils # (Auto) 0.0, Basophils # (Auto) 0.0, Immature Granulocyte # (Auto) 0.4H, Neutrophils % (Manual) 79, Lymphocytes % (Manual) 8, Monocytes % (Manual) 8, Eosinophils % (Manual) 0, Basophils % (Manual) 0, Band Neutrophils 5, Blood Morphology Comment NORMAL, Sodium Level 132L, Potassium Level 6.2H, Chloride Level 91L, Carbon Dioxide Level < 5*L, Anion Gap 36H, Blood Urea Nitrogen 35H, Creatinine 2.62H, Estimat Glomerular Filtration Rate 28, BUN/Creatinine Ratio 13, Glucose Level 877*H, Lactic Acid Level 4.14*H, Calcium Level 9.4, Corrected Calcium 9.9, Total Bili carney 0.2, Aspartate Amino Transf (AST/SGOT) 8, Alanine Aminotransferase (ALT/SGPT) 12, Alkaline Phosphatase 125, Total Protein 7.3, Albumin 3.4, Beta- Hydroxybutyrate (Chem panel) 16.28H, Salicylates Level < 5.0L, Acetaminophen Level < 10L, Serum Alcohol < 10 04/18/22 16:49: Blood Gas Puncture Site LEFT RADIAL, Blood Gas Patient Temperature 90.1, Arterial Blood pH 6.96*L, Arterial Blood Partial Pressure CO2 6*L, Arterial Blood Partial Pressure O2 131H, Arterial Blood HCO3 1*L, Arterial Blood Total CO2 1.5*L, Arterial Blood Oxygen Saturation 98, Arterial Blood Base Excess - 29.4L, Waqar Test POSITIVE, Blood Gas Ventilator Setting NO, Blood Gas Inspired Oxygen ROOM AIR 04/18/22 17:03: Urine Color YELLOW, Urine Clarity CLEAR, Urine pH 5.5, Urine Specific [place] >=1.030, Urine Protein TRACEH, Urine Glucose (UA) 3+H, Urine Ketones 3+H, Urine Nitrite NEGATIVE, Urine Bilirubin NEGATIVE, Urine Urobilinogen 0.2, Urine Leukocyte Esterase NEGATIVE, Urine RBC (Auto) TRACE-IH, Urine RBC RARE, Urine WBC NONE, Urine Crystals NONE, Urine Bacteria NEGATIVE, Urine Casts NONE, Urine Mucus NEGATIVE, Urine Culture Indicated NO, Urine Opiates Screen NEGATIVE, Urine Oxycodone Screen NEGATIVE, Urine Methadone Screen NEGATIVE, Urine Propoxyphene Screen NEGATIVE, Urine Barbiturates Screen NEGATIVE, Ur Tricyclic Antidepressants Screen NEGATIVE, Urine Phencyclidine Screen NEGATIVE, Urine Amphetamines Screen POSITIVEH, Urine Methamphetamines Screen POSITIVEH, Urine Benzodiazepines Screen NEGATIVE, Urine Cocaine Screen NEGATIVE, Urine Cannabinoi ds Screen NEGATIVE 04/18/22 17:10: Influenza Type A (RT-PCR) Not Detected, Influenza Type B (RT-PCR) Not Detected, SARS-CoV-2 RNA (RT-PCR) Not Detected 04/18/22 17:40: Review of Systems Review of Systems Constitutional: malaise, weakness Results Results/Procedures Labs Laboratory Tests 04/18/22 16:00 Patient resulted labs reviewed. Impression & Plan Impression & Plan IMP: DKA PLAN: insulin drip Follow AG COLBY TERRAZAS MD Apr 18, 2022 18:06
[2022-04-18 18:08] LABS: BUN/CREATININE RATIO 14; CALCIUM 8.4 MG/DL (8.5-10.1); CHLORIDE 97 MMOL/L (98-107); CREATININE SERUM 2.46 MG/DL (0.60-1.30); GFR ESTIMATED 30; POTASSIUM 5.8 MMOL/L (3.6-5.0); SODIUM 133 MMOL/L (135-145)
[2022-04-18] MEDS: POTASSIUM CL 10MEQ/50ML IVPB 50 ML IV SCH ×7 (18:08→23:57)
[2022-04-18] MEDS: 1/2 NS IV SOLUTION 1,000 ML IV SCH ×2 (18:08→22:03)
[2022-04-18] MEDS: NOREPINEPHRINE 8 MG/250 ML 250 ML IV SCH (18:10)
[2022-04-18] MEDS ORDERED: SODIUM BICARB 8.4% 50 MEQ/50 ML (ABBOTT) SYR IV ONE (18:15)
[2022-04-18 18:23] LABS: CARBON DIOXIDE < 5 MMOL/L (21-32); GLUCOSE 784 MG/DL (70-105)
[2022-04-18] MEDS ORDERED: RT-ALBUTEROL SULF 2.5 MG/3 ML PRE-MIX VIAL INH PRN (19:15)
[2022-04-18 19:58] LABS: BUN/CREATININE RATIO 17; CHLORIDE 101 MMOL/L (98-107); CREATININE SERUM 2.16 MG/DL (0.60-1.30); GFR ESTIMATED 35; POTASSIUM 4.9 MMOL/L (3.6-5.0); SODIUM 137 MMOL/L (135-145)
[2022-04-18] MEDS: SENNOSIDES 8.6 MG (SENOKOT) TAB PO SCH (20:17)
[2022-04-18] MEDS: DOCUSATE SODIUM 100 MG (COLACE) CAP PO SCH (20:17)
[2022-04-18 20:19] LABS: CARBON DIOXIDE < 5 MMOL/L (21-32); GLUCOSE 723 MG/DL (70-105)
--- NOTE | 2022-04-18 22:01 | Tele-ICU Progress Note ---
Progress Note RN called with BMP to review. Still with large AG and low CO2. Pt is somewhat lethargic but arousable and following commands. Continue with DKA protocol and call with q 4 hrly BNP. Focused Exam Lactate Level 04/18/22 16:00: Lactic Acid Level 4.14*H 04/18/22 19:10: Lactic Acid Level 1.56 Height, Weight, BMI Height: 6'1.00" Weight: 168lbs. 9.0oz. 76.430943jn; 20.48 BMI Method:Estimated Lactic Acid Level Laboratory Tests Test 04/18/22 19:10 Lactic Acid Level 1.56 MMOL/L (0.50-2.00) SHANTI KUMAR MD Apr 18, 2022 22:01
[2022-04-19 01:21] LABS: CALCIUM 7.8 MG/DL (8.5-10.1); CREATININE SERUM 1.68 MG/DL (0.60-1.30); POTASSIUM 4.5 MMOL/L (3.6-5.0)
[2022-04-19] MEDS: 1/2 NS IV SOLUTION 1,000 ML IV SCH ×6 (01:53→21:30)
[2022-04-19] MEDS: POTASSIUM CL 10MEQ/50ML IVPB 50 ML IV SCH ×7 (01:54→11:56)
[2022-04-19] MEDS: D5 1/2 NS 1000 ML IV SOLUTION 1,000 ML IV SCH ×4 (02:56→13:38)
[2022-04-19 05:41] LABS: BASOPHILS % (AUTO) 0 % (0-10); EOSINOPHILS % (AUTO) 0 % (0-10); HEMATOCRIT 28 % (40-54); HEMOGLOBIN 9.5 g/dL (13.3-17.7); LYMPHOCYTES # (AUTO) 1.5 10^3/uL (1.0-4.0); LYMPHOCYTES % (AUTO) 9 % (12-44); MEAN CORPUSCULAR HEMOGLOBIN 29 pg (25-34); MEAN CORPUSCULAR HGB CONC 34 g/dL (32-36); MEAN CORPUSCULAR VOLUME 85 fL (80-99); MEAN PLATELET VOLUME 9.4 fL (9.0-12.2); MONOCYTES # (AUTO) 1.7 10^3/uL (0.0-1.0); MONOCYTES % (AUTO) 10 % (0-12); NEUTROPHILS # (AUTO) 13.3 10^3/uL (1.8-7.8); NEUTROPHILS % (AUTO) 80 % (42-75); PLATELET COUNT 452 10^3/uL (130-400); WHITE BLOOD COUNT 16.7 10^3/uL (4.3-11.0)
[2022-04-19 06:06] LABS: ALBUMIN 2.7 GM/DL (3.2-4.5); BILIRUBIN,TOTAL 0.2 MG/DL (0.1-1.0); CALCIUM 7.8 MG/DL (8.5-10.1); CREATININE SERUM 1.5 MG/DL (0.60-1.30); MAGNESIUM 1.8 MG/DL (1.6-2.4); PHOSPHORUS 1.8 MG/DL (2.3-4.7); POTASSIUM 4.2 MMOL/L (3.6-5.0); TOTAL PROTEIN 5.8 GM/DL (6.4-8.2)
[2022-04-19] MEDS: MAGNESIUM 1 GM/100 ML IVPB 100 ML IV SCH (06:18)
[2022-04-19] MEDS: KCL 20 MEQ TAB (K-DUR) PO SCH (06:18)
--- NOTE | 2022-04-19 07:53 | Tele-ICU Progress Note ---
Subjective Date Seen by a Provider: Apr 19, 2022 Time Seen by a Provider: 07:50 Subjective/Events-last exam This virtual visit was conducted using real time audio/video. 56 yo M being followed for DKA, This am glu 213, HCO3 17, up from 13, potassium 4.2, AB Cr down to 1.50 AG is 9, still on IV insulin drip I reviewed CXR from this am which looks clear, no resp distresss on RA, no signs of withdrawal UDS + for amphetamines on admission Sepsis Event Evaluation Height, Weight, BMI Height: 6'1.00" Weight: 168lbs. 9.0oz. 76.104456wt; 21.15 BMI Method:Estimated Focused Exam Lactate Level 04/18/22 16:00: Lactic Acid Level 4.14*H 04/18/22 19:10: Lactic Acid Level 1.56 Exam Exam Patient acknowledged, consented, and participated in this virtual visit which was conducted using real time audio/video Vital Signs Date Time Temp Pulse Resp B/P (MAP) Pulse Ox O2 Delivery O2 Flow Rate FiO2 04/19/22 06:00 87 10 112/72 (85) 100 Room Air 04/19/22 05:00 90 10 124/69 (87) 99 Room Air 04/19/22 04:00 87 12 105/62 (76) 99 Room Air 04/19/22 03:40 36.6 04/19/22 03:18 100 Room Air 04/19/22 03:00 90 10 124/75 (91) 99 Room Air 04/19/22 02:00 88 10 121/65 (83) 100 Room Air 04/19/22 01:00 88 04/19/22 01:00 88 11 127/70 (89) 100 Room Air 04/19/22 00:00 89 13 111/61 (78) 100 Room Air 04/18/22 23:58 36.6 04/18/22 23:42 100 Room Air 04/18/22 23:00 90 16 125/67 (86) 100 Room Air 04/18/22 22:00 98 20 99/79 (86) 100 Room Air 04/18/22 21:40 100 Room Air 04/18/22 21:06 36.2 04/18/22 21:00 98 15 92/55 (67) 100 Room Air 04/18/22 20:00 98 15 105/59 (74) 100 Room Air 04/18/22 19:52 100 Room Air 04/18/22 19:45 98 15 105/59 (74) 100 Room Air 04/18/22 19:30 100 11 107/68 (81) 100 Room Air 04/18/22 19:26 36.1 04/18/22 19:15 98 12 103/72 (82) 100 Room Air 04/18/22 19:00 97 04/18/22 19:00 97 13 88/45 (59) 100 Room Air 04/18/22 18:58 32.2 80 100 21 04/18/22 18:16 90 23 108/66 (80) 100 Room Air 04/18/22 18:15 100 Room Air 04/18/22 18:09 91 04/18/22 17:55 35.5 04/18/22 17:50 32.2 85 26 111/65 100 Room Air 04/18/22 16:00 32.2 80 26 94/44 (61) 100 Room Air I & O 04/19/22 07:00 Intake Total 78722 ml Output Total 2650 ml Balance 8750 ml Height & Weight Height: 6'1.00" Weight: 168lbs. 9.0oz. 76.751617wi; 21.15 BMI Method:Estimated General Appearance: No Apparent Distress, Chronically ill, Severe Distress, Thin HEENT: Other (very dry oral mucosa; poor dentition) Neck: Normal Inspection Respiratory: No Accessory Muscle Use, No Respiratory Distress, Other (kussmaul respirations, lungs clear) Cardiovascular: Regular Rate, Rhythm, Normal Peripheral Pulses, Other (98/44 BP) Capillary Refill: Less Than 3 Seconds Gastrointestinal: normal bowel sounds, non tender, soft Extremity: Normal Inspection, Normal Range of Motion, Slow Capillary Refill Neurologic/Psychiatric: Other (Altered - GCS 7; eyes closed; incomprehensible sounds; withdraws from pain) Skin: Pallor, Other (COLD; right foot, sutures in place mid foot where he has had toes amputated. No purulent drainage or erythema or open wounds. Right foot is edematous) Results Lab Laboratory Tests 04/18/22 16:00 04/18/22 17:40 04/18/22 19:10 04/19/22 00:30 04/19/22 05:00 Assessment/Plan Assessment/Plan DKA is resolving will switch over to SQ insulin At home takes Novolog 10-12 units PC and Lantux 35 U at night ,once AG closes and pt more awake will switch over to moderated SS and give 10 U of Lantus No sign of withdrawal Critical Care: Critically Ill Patient Time spent with patient (mins): 20 COLBY TORRES MD Apr 19, 2022 07:53
--- NOTE | 2022-04-19 08:28 | Diagnostic Imaging Report ---
INDICATION: Altered mental status Frontal chest obtained at 0326 a.m. Heart and mediastinal silhouette are normal in appearance. The lungs are clear. There is no pneumothorax or pleural fluid. IMPRESSION: Negative chest. Dictated by: Dictated on workstation # [id number]
[2022-04-19] MEDS: DOCUSATE SODIUM 100 MG (COLACE) CAP PO SCH ×2 (08:40→20:29)
[2022-04-19] MEDS: SENNOSIDES 8.6 MG (SENOKOT) TAB PO SCH ×2 (08:40→20:29)
[2022-04-19 10:11] LABS: CALCIUM 7.7 MG/DL (8.5-10.1); CREATININE SERUM 1.22 MG/DL (0.60-1.30); POTASSIUM 3.6 MMOL/L (3.6-5.0)
[2022-04-19] MEDS: NOREPINEPHRINE 8 MG/250 ML 250 ML IV SCH (11:52)
--- NOTE | 2022-04-19 12:51 | Tele-ICU Progress Note ---
Subjective Date Seen by a Provider: Apr 19, 2022 Time Seen by a Provider: 12:47 Subjective/Events-last exam taking fluids, AG has closed, last glu 103, home insulin is Novolog 10-12 PC, Lantus 35 at night, will give 10 units Lantus now, stop IV insulin 30 min later put on moderate sliding scale for now total time 10 min Sepsis Event Evaluation Height, Weight, BMI Height: 6'1.00" Weight: 168lbs. 9.0oz. 76.777201es; 21.15 BMI Method:Estimated Focused Exam Lactate Level 04/18/22 16:00: Lactic Acid Level 4.14*H 04/18/22 19:10: Lactic Acid Level 1.56 Exam Exam Patient acknowledged, consented, and participated in this virtual visit which was conducted using real time audio/video Vital Signs Date Time Temp Pulse Resp B/P (MAP) Pulse Ox O2 Delivery O2 Flow Rate FiO2 04/19/22 12:42 79 04/19/22 12:00 77 9 118/66 (83) 100 Room Air 04/19/22 11:53 36.8 04/19/22 11:50 98 Room Air 04/19/22 11:00 82 11 119/70 (86) 100 Room Air 04/19/22 10:00 80 12 100/65 (77) 100 Room Air 04/19/22 09:00 80 12 90/56 (67) 99 Room Air 04/19/22 08:40 99 Room Air 04/19/22 08:00 36.8 04/19/22 08:00 84 12 97/64 (75) 98 Room Air 04/19/22 07:11 86 04/19/22 07:00 93 24 112/70 (84) 100 Room Air 04/19/22 06:00 87 10 112/72 (85) 100 Room Air 04/19/22 05:00 90 10 124/69 (87) 99 Room Air 04/19/22 04:00 87 12 105/62 (76) 99 Room Air 04/19/22 03:40 36.6 04/19/22 03:18 100 Room Air 04/19/22 03:00 90 10 124/75 (91) 99 Room Air 04/19/22 02:00 88 10 121/65 (83) 100 Room Air 04/19/22 01:00 88 04/19/22 01:00 88 11 127/70 (89) 100 Room Air 04/19/22 00:00 89 13 111/61 (78) 100 Room Air 04/18/22 23:58 36.6 04/18/22 23:42 100 Room Air 04/18/22 23:00 90 16 125/67 (86) 100 Room Air 04/18/22 22:00 98 20 99/79 (86) 100 Room Air 04/18/22 21:40 100 Room Air 04/18/22 21:06 36.2 04/18/22 21:00 98 15 92/55 (67) 100 Room Air 04/18/22 20:00 98 15 105/59 (74) 100 Room Air 04/18/22 19:52 100 Room Air 04/18/22 19:45 98 15 105/59 (74) 100 Room Air 04/18/22 19:30 100 11 107/68 (81) 100 Room Air 04/18/22 19:26 36.1 04/18/22 19:15 98 12 103/72 (82) 100 Room Air 04/18/22 19:00 97 04/18/22 19:00 97 13 88/45 (59) 100 Room Air 04/18/22 18:58 32.2 80 100 21 04/18/22 18:16 90 23 108/66 (80) 100 Room Air 04/18/22 18:15 100 Room Air 04/18/22 18:09 91 04/18/22 17:55 35.5 04/18/22 17:50 32.2 85 26 111/65 100 Room Air 04/18/22 16:00 32.2 80 26 94/44 (61) 100 Room Air I & O 04/19/22 07:00 Intake Total 00475 ml Output Total 2650 ml Balance 8750 ml Height & Weight Height: 6'1.00" Weight: 168lbs. 9.0oz. 76.590851xj; 21.15 BMI Method:Estimated General Appearance: No Apparent Distress, Chronically ill, Severe Distress, Thin HEENT: Other (very dry oral mucosa; poor dentition) Neck: Normal Inspection Respiratory: No Accessory Muscle Use, No Respiratory Distress, Other (kussmaul respirations, lungs clear) Cardiovascular: Regular Rate, Rhythm, Normal Peripheral Pulses, Other (98/44 BP) Capillary Refill: Less Than 3 Seconds Gastrointestinal: normal bowel sounds, non tender, soft Extremity: Normal Inspection, Normal Range of Motion, Slow Capillary Refill Neurologic/Psychiatric: Other (Altered - GCS 7; eyes closed; incomprehensible sounds; withdraws from pain) Skin: Pallor, Other (COLD; right foot, sutures in place mid foot where he has had toes amputated. No purulent drainage or erythema or open wounds. Right foot is edematous) Results Lab Laboratory Tests 04/18/22 16:00 04/18/22 17:40 04/18/22 19:10 04/19/22 00:30 04/19/22 05:00 04/19/22 09:35 Assessment/Plan Assessment/Plan start SQ insulin give 10 U of SQ lantus now and stop IV insulin after 30 min moderate sliding scale Critical Care: Critically Ill Patient Time spent with patient (mins): 15 COLBY TORRES MD Apr 19, 2022 12:51
--- NOTE | 2022-04-19 13:15 | History & Physical-Hospitalist ---
JENNIFER LOMELI 04/19/22 1315: History of Present Illness HPI/Chief Complaint Liam Terry is a 56 yo male who was admitted to the ICU from the ED with DKA. The patient was brought to the ED by EMS yesterday naked and with altered mental status. Patient has a known history of multiple episodes of DKA, and the patient recently had toe amputation on 03/18/22. On initial evaluation in the ED, the patient's blood sugar was too high to be read and beta-hydroxybutyrate was elevated at 16.28. The patient was started on insulin and admitted to the ICU for further management. The patient was tachypneic at 26 respirations per minute but otherwise with stable vital signs. Bloodwork post-admission reveals WBC 16.7 (decreased from 22.6), HGB 9.5, PLT 452, Cl 109, CO2 17, BUN 23, Creat 1.5, Calcium 7.8, Phosphorus 1.8, Albumin 2.7; ABG showed pH 6.96, pCO2 6, pO2 131. UA showed Glucose 3+, Ketones 3+; toxicology significant for amphetamine, methamphetamine. On evaluation today, the patient is lying in the bed, somnolent in appearance. He is rousable and alert and orientedx3 but provides limited responses. He denies any pains. Source: old records Exam Limitations: clinical condition Date Seen 04/19/22 Time Seen by a Provider: 09:40 Attending Physician Medardo Chavez MD PCP Admitting Physician: Renetta Crowley DO Attending Physician: Renetta Crowley DO Referring Physician Date of Admission Apr 18, 2022 at 17:28 Home Medications & Allergies Home Medications Reviewed patient Home Medication Reconciliation performed by pharmacy medication reconciliations microbiological lab technician and/or nursing. Patients Allergies have been reviewed. Allergies Allergies Coded Allergies Penicillins (Verified Allergy, Unknown, 09/20/18) Past Alvmejt-Eccobi-Uajcsb Hx Patient Social History Substance use?: Yes Substance type: Methamphetamine Immunizations Up To Date First/Initial COVID19 Vaccinat: 2020 PFIZER Second COVID19 Vaccination Jeffery: 2020 PFIZER Tetanus Booster (TDap): Unknown Hepatitis A: No Hepatitis B: No Seasonal Allergies Seasonal Allergies: No Current Status Primary Language: Ukrainian Past Medical History Surgeries: Amputation, Orthopedic Currently Using CPAP: No Currently Using BIPAP: No High Cholesterol, Hypertension Neuropathy Amputee Diabetes, Insulin dep Depression Blood Disorders: No Adverse Reaction/Blood Tranf: No 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 No Pertinent Family Hx SOCIAL HISTORY: -PT SMOKES, UNKNOWN AMOUNT -DRUGS--EXTENSIVE METHAMPHETAMINE USE -HAS DENIED ALCOHOL USE PT HAS HISTORY OF HOMELESSNESS PAST SURGICAL HISTORY: -RIGHT GREAT TOE AMPUTATION AT [facility] 03/16/22 -PREVIOUS RIGHT 4TH TOE AMPUTATION AND LEFT 5TH TOE AMPUTATION -PERIPHERAL ANGIOGRAM BY DR. AVILES: DATE OF SERVICE: 09/05/2020 PERIPHERAL ANGIOGRAPHY REPORT The patient is a 54-year-old gentleman who recently had amputation of the left fifth toe that was exhibiting ischemia and ulceration. 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 Accordingly, peripheral angiography was carried out and informed consent was obtained for peripheral angiography and possible ad hoc intervention. DESCRIPTION OF PROCEDURE: He was brought to the cardiac catheterization laboratory in a fasting state. Right groin was prepared and draped in the usual sterile fashion. Lidocaine 1% was used for local anesthesia. Modified Seldinger technique was used to advance a 5-Vietnamese sheath in right femoral artery. A 5-Vietnamese pigtail catheter was used to carry out abdominal aortic angiography. The pigtail catheter was then pulled back to just above the level of the aortoiliac bifurcation and bilateral leg artery angiography was carried out down to the level of the ankles. Subsequently, we used a 5-Vietnamese crossover catheter and advanced a Storq wire into the left superficial femoral artery. The crossover catheter was removed and we advanced a straight catheter into the distal part of the left superficial femoral artery and carried out selective angiography of the distal left superficial femoral artery and the trifurcation vessels down to the level of the ankles. The catheter was then removed. Angiography of the right femoral artery was carried out through the sheath. Mynx was used to achieve hemostasis. He tolerated the procedure well. ABDOMINAL AORTIC ANGIOGRAPHY: Abdominal aortic angiography did not indicate any significant abdominal aortic aneurysm or dissection. No abdominal aortic stenosis is seen. The aortoiliac bifurcation is intact and does not exhibit significant disease. BILATERAL LEG ARTERY ANGIOGRAPHY: Bilateral leg artery angiography did not indicate any significant disease of the iliac arteries, common femoral arteries, popliteal arteries, or the distal vessels of the legs. 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 Selective angiography did not indicate any significant disease of the left popliteal artery or of the trifurcation arteries on the left side. CONCLUSIONS: No significant peripheral arterial disease seen on this peripheral angiographic study. Review of Systems ROS-Unable to Obtain: ROS not obtained due to patient's condition. Physical Exam Physical Exam Vital Signs Vital Signs - First Documented 04/18/22 04/18/22 16:00 18:58 Temp 32.2 Pulse 80 Resp 26 B/P (MAP) 94/44 (61) Pulse Ox 100 O2 Delivery Room Air FiO2 21 Capillary Refill : Less Than 3 Seconds Height, Weight, BMI Height: 6'1.00" Weight: 168lbs. 9.0oz. 76.403429ru; 21.15 BMI Method:Estimated General Appearance: Mild Distress, Other (somnolent) Respiratory: Chest Non Tender, Lungs Clear, Normal Breath Sounds, No Accessory Muscle Use, No Respiratory Distress Cardiovascular: Regular Rate, Rhythm, No Edema, No Gallop, No JVD, No Murmur, Normal Peripheral Pulses Extremity: No Pedal Edema Neurologic/Psychiatric: Alert, Oriented x3, Other (somnolent but rousable, unable to provide answers longer than 1-2 words) Skin: Normal Color, Warm/Dry Results Results/Procedures Labs Laboratory Tests 04/18/22 16:00 04/18/22 17:40 04/18/22 19:10 04/19/22 00:30 04/19/22 05:00 04/19/22 09:35 Patient resulted labs reviewed. Imaging: Reviewed Imaging Report Imaging Date of Exam:04/19/22 CHEST 1 VIEW, AP/PA ONLY IMPRESSION: Negative chest. Assessment/Plan Admission Diagnosis DKA Admission Status: Inpatient Order (span 2 midnights) Reason for Inpatient Admission: DKA Assessment and Plan 1. DKA: Continue insulin administration with serial blood glucose levels. 2. Altered mental status: Treat DKA as above. 3. Type 1 Diabetes: Continue insulin administration with serial blood glucose levels. RENETTA CROWLEY DO 04/20/22 0503: Past Uiqbifj-Oqyjtb-Qzuqpn Hx Family Medical History Patient reports no known family medical history. Review of Systems Constitutional: see HPI Assessment/Plan Admission Diagnosis DKA Admission Status: Inpatient Order (span 2 midnights) Reason for Inpatient Admission: dka Supervisory-Addendum Brief Verification & Attestation Participated in pt care: history, MDM, physical Personally performed: exam, history, MDM, supervision of care Care discussed with: Medical Student Procedures: n/a Results interpretation: Verified all documentation Verification and Attestation of Medical Student E/M Service A medical student performed and documented this service in my presence. I reviewed and verified all information documented by the medical student and made modifications to such information, when appropriate. I personally performed the physical exam and medical decision making. Renetta Crowley, Apr 20, 2022,05:03 JENNIFER LOMELI Apr 19, 2022 13:15 RENETTA CROWLEY DO Apr 20, 2022 05:03
[2022-04-19] MEDS: ENOXAPARIN 40 MG/0.4 ML (LOVENOX) SYR SC SCH (14:41)
[2022-04-19] MEDS ORDERED: inSUlin ASPART (NovoLOG) 1 UNIT/0.01 ML (CHARGE PER UNIT) SC SCH (16:00)
[2022-04-19] MEDS: inSUlin ASPART (NovoLOG) 1 UNIT/0.01 ML (CHARGE PER UNIT) SC SCH (20:29)
[2022-04-20] MEDS: 1/2 NS IV SOLUTION 1,000 ML IV SCH ×2 (01:30→06:27)
[2022-04-20 05:51] LABS: BASOPHILS % (AUTO) 0 % (0-10); EOSINOPHILS % (AUTO) 0 % (0-10); HEMATOCRIT 28 % (40-54); HEMOGLOBIN 9.5 g/dL (13.3-17.7); LYMPHOCYTES # (AUTO) 1.9 10^3/uL (1.0-4.0); LYMPHOCYTES % (AUTO) 26 % (12-44); MEAN CORPUSCULAR HEMOGLOBIN 29 pg (25-34); MEAN CORPUSCULAR HGB CONC 34 g/dL (32-36); MEAN CORPUSCULAR VOLUME 86 fL (80-99); MEAN PLATELET VOLUME 9.7 fL (9.0-12.2); MONOCYTES # (AUTO) 0.7 10^3/uL (0.0-1.0); MONOCYTES % (AUTO) 9 % (0-12); NEUTROPHILS # (AUTO) 4.9 10^3/uL (1.8-7.8); NEUTROPHILS % (AUTO) 65 % (42-75); PLATELET COUNT 338 10^3/uL (130-400); WHITE BLOOD COUNT 7.6 10^3/uL (4.3-11.0)
[2022-04-20] MEDS: inSUlin ASPART (NovoLOG) 1 UNIT/0.01 ML (CHARGE PER UNIT) SC SCH ×4 (05:56→20:50)
[2022-04-20 06:03] LABS: ALBUMIN 2.5 GM/DL (3.2-4.5); BILIRUBIN,TOTAL 0.2 MG/DL (0.1-1.0); CALCIUM 7.9 MG/DL (8.5-10.1); CREATININE SERUM 1.05 MG/DL (0.60-1.30); PHOSPHORUS 1.5 MG/DL (2.3-4.7); POTASSIUM 4.3 MMOL/L (3.6-5.0); TOTAL PROTEIN 5.7 GM/DL (6.4-8.2)
[2022-04-20] MEDS: POTASSIUM CL 10MEQ/50ML IVPB 50 ML IV SCH (06:26)
[2022-04-20] MEDS: MAGNESIUM 1 GM/100 ML IVPB 100 ML IV SCH (06:26)
[2022-04-20] MEDS: KCL 20 MEQ TAB (K-DUR) PO SCH (06:27)
[2022-04-20] MEDS: DOCUSATE SODIUM 100 MG (COLACE) CAP PO SCH ×2 (08:05→20:22)
[2022-04-20] MEDS: SENNOSIDES 8.6 MG (SENOKOT) TAB PO SCH ×2 (08:05→20:22)
--- NOTE | 2022-04-20 09:13 | Diagnostic Imaging Report ---
INDICATION: Altered mental status. COMPARISON: 04/19/2022. FINDINGS: The lungs are well aerated. No infiltrates have developed. No masses. The heart is not enlarged. No evidence of pulmonary edema. No pneumothorax or pleural effusion. No bony abnormalities. IMPRESSION: Normal portable chest. Dictated by: Dictated on workstation # [id number]
[2022-04-20 11:28] VITALS: BP 110/65
[2022-04-20] MEDS ORDERED: HYPOCHLOROUS ACID/NaCl (VASHE) 250 ML IR PRN (11:50)
--- NOTE | 2022-04-20 14:15 | Progress Note - Hospitalist ---
JENNIFER LOMELI 04/20/22 1415: Subjective HPI/CC On Admission Date Seen by Provider: Apr 20, 2022 Time Seen by Provider: 09:50 DKA Subjective/Events-last exam Liam Terry is a 56 yo male who was admitted to the ICU from the ED with DKA. The patient was brought to the ED by EMS yesterday naked and with altered mental status. Patient has a known history of multiple episodes of DKA, and the patient recently had toe amputation on 03/18/22. On initial evaluation in the ED, the patient's blood sugar was too high to be read and beta-hydroxybutyrate was elevated at 16.28. The patient was started on insulin and admitted to the ICU for further management. The patient was tachypneic at 26 respirations per minute but otherwise was with stable vital signs. The patient on evaluation today is alert and oriented. He states he feels feels improved. He endorses pain in his right foot, attributed to his recent amputation. He also endorses burning chest pain and difficulty swallowing secondary to repeated emesis (prior to arrival to the hospital). The patient's labs today are significant for improved WBC of 7.6, and abnormal HGB 9.5, Na 128, Ca 7.9, Phosphorus 1.5, Total Protein 5.7, Albumin 2.5. Most recent CXR is negative. Physical exam reveals left leg with trace pedal edema, right leg with 1+ pitting pedal edema; amputated 5th left toe, amputated 3-5 right toes. Review of Systems General: No Chills, No Night Sweats HEENT: No Head Aches Pulmonary: No Dyspnea Cardiovascular: Chest Pain Gastrointestinal: No: Nausea, Vomiting, Abdominal Pain Focused Exam Lactate Level 04/18/22 16:00: Lactic Acid Level 4.14*H 04/18/22 19:10: Lactic Acid Level 1.56 Objective Exam Vital Signs Vital Signs Date Time Temp Pulse Resp B/P (MAP) Pulse Ox O2 Delivery O2 Flow Rate FiO2 04/20/22 11:28 37.2 78 18 110/65 (80) 97 Room Air 04/20/22 09:00 2.00 04/18/22 18:58 21 Capillary Refill : Less Than 3 Seconds General Appearance: No Apparent Distress, Other (fatigued) Respiratory: Chest Non Tender, Lungs Clear, Normal Breath Sounds, No Accessory Muscle Use, No Respiratory Distress Cardiovascular: Regular Rate, Rhythm, No Edema, No Gallop, No Murmur, Normal Peripheral Pulses Gastrointestinal: Non Tender, Soft Extremity: Non Tender, Pedal Edema (right leg 1+ pitting edema. left leg trace pitting edema.), Other (amputated 5th left toe, amputated 3-5 right toes.) Neurologic/Psychiatric: Alert, Oriented x3 Skin: Normal Color, Warm/Dry Results/Procedures Lab Laboratory Tests 04/20/22 04:50 04/20/22 05:00 Patient resulted labs reviewed. Imaging: Reviewed Imaging Report Radiology Date of Exam:04/20/22 CHEST 1 VIEW, AP/PA ONLY COMPARISON: 04/19/2022. FINDINGS: The lungs are well aerated. No infiltrates have developed. No masses. The heart is not enlarged. No evidence of pulmonary edema. No pneumothorax or pleural effusion. No bony abnormalities. IMPRESSION: Normal portable chest. Assessment/Plan Assessment and Plan Assess & Plan/Chief Complaint 1. DKA: Continue insulin administration with serial blood glucose levels. 2. Altered mental status: Treat DKA as above. 3. Type 1 Diabetes: Continue insulin administration with serial blood glucose levels. 4. Hyponatremia: Na 129 04/20. Initiate fluid restriction. Recheck CMP in 24 hours. RENETTA CROWLEY DO 04/21/22 0446: Supervisory-Addendum Brief Verification & Attestation Participated in pt care: history, MDM, physical Personally performed: exam, history, MDM, supervision of care Care discussed with: Medical Student Procedures: n/a Results interpretation: Verified all documentation Verification and Attestation of Medical Student E/M Service A medical student performed and documented this service in my presence. I reviewed and verified all information documented by the medical student and made modifications to such information, when appropriate. I personally performed the physical exam and medical decision making. Renetta Crowley Apr 21, 2022,04:46 JENNIFER LOMELI Apr 20, 2022 14:15 RENETTA CROWLEY DO Apr 21, 2022 04:46
[2022-04-20 16:00] VITALS: BP 106/62
[2022-04-20] MEDS: ENOXAPARIN 40 MG/0.4 ML (LOVENOX) SYR SC SCH (16:59)
[2022-04-20 20:30] VITALS: BP 99/56
[2022-04-21] VITALS (8 sets, daily range): BP systolic 104–127; BP diastolic 63–77
[2022-04-21 05:53] LABS: BASOPHILS % (AUTO) 0 % (0-10); EOSINOPHILS % (AUTO) 0 % (0-10); HEMATOCRIT 29 % (40-54); HEMOGLOBIN 9.7 g/dL (13.3-17.7); LYMPHOCYTES # (AUTO) 1.8 10^3/uL (1.0-4.0); LYMPHOCYTES % (AUTO) 33 % (12-44); MEAN CORPUSCULAR HEMOGLOBIN 29 pg (25-34); MEAN CORPUSCULAR HGB CONC 34 g/dL (32-36); MEAN CORPUSCULAR VOLUME 86 fL (80-99); MEAN PLATELET VOLUME 9.1 fL (9.0-12.2); MONOCYTES # (AUTO) 0.8 10^3/uL (0.0-1.0); MONOCYTES % (AUTO) 14 % (0-12); NEUTROPHILS # (AUTO) 2.8 10^3/uL (1.8-7.8); NEUTROPHILS % (AUTO) 53 % (42-75); PLATELET COUNT 305 10^3/uL (130-400); WHITE BLOOD COUNT 5.4 10^3/uL (4.3-11.0)
[2022-04-21 06:38] LABS: ALBUMIN 2.4 GM/DL (3.2-4.5); BILIRUBIN,TOTAL 0.2 MG/DL (0.1-1.0); CALCIUM 8.4 MG/DL (8.5-10.1); CREATININE SERUM 0.71 MG/DL (0.60-1.30); MAGNESIUM 2.1 MG/DL (1.6-2.4); POTASSIUM 3.4 MMOL/L (3.6-5.0); TOTAL PROTEIN 5.6 GM/DL (6.4-8.2)
[2022-04-21] MEDS: inSUlin ASPART (NovoLOG) 1 UNIT/0.01 ML (CHARGE PER UNIT) SC SCH ×3 (06:47→16:52)
[2022-04-21] MEDS: SENNOSIDES 8.6 MG (SENOKOT) TAB PO SCH (09:08)
[2022-04-21] MEDS: DOCUSATE SODIUM 100 MG (COLACE) CAP PO SCH (09:08)
[2022-04-21] MEDS ORDERED: INSU100I14 SQ (10:22)
[2022-04-21] MEDS ORDERED: INSU100I10 SQ (10:22)
--- NOTE | 2022-04-21 10:22 | Discharge Summary ---
Discharge Summary Hospital Course Was the Problem List Reviewed?: Yes Problems/Dx: (1) DKA, type 2 Status: Acute Hospital Course Date of Admission: Apr 18, 2022 at 17:28 Admission Diagnosis : Family Physician/Provider: Medardo Chavez MD Date of Discharge: 04/21/22 Discharge Diagnosis: [ ] Hospital Course: Lengthy hospital course after he was admitted for DKA due to noncompliance with insulin. Recent toe amputation required wound care and he will have close follow-up with discharge. DKA resolved after insulin drip he was discharged in improved condition poor prognosis given his noncompliance. Labs and Pending Lab Test: Laboratory Tests 04/20/22 10:34: Glucometer 292H 04/20/22 11:16: Glucometer 273H 04/20/22 16:56: Glucometer 278H 04/20/22 20:46: Glucometer 136H 04/21/22 05:08: White Blood Count 5.4, Red Blood Count 3.36L, Hemoglobin 9.7L, Hematocrit 29L, Mean Corpuscular Volume 86, Mean Corpuscular Hemoglobin 29, Mean Corpuscular Hemoglobin Concent 34, Red Cell Distribution Width 14.2, Platelet Count 305, Mean Platelet Volume 9.1, Immature Granulocyte % (Auto) 0, Neutrophils (%) (Auto) 53, Lymphocytes (%) (Auto) 33, Monocytes (%) (Auto) 14H, Eosinophils (%) (Auto) 0, Basophils (%) (Auto) 0, Neutrophils # (Auto) 2.8, Lymphocytes # (Auto) 1.8, Monocytes # (Auto) 0.8, Eosinophils # (Auto) 0.0, Basophils # (Auto) 0.0, Immature Granulocyte # (Auto) 0.0, Sodium Level 136, Potassium Level 3.4L, Chloride Level 102, Carbon Dioxide Level 26, Anion Gap 8, Blood Urea Nitrogen 13, Creatinine 0.71, Estimat Glomerular Filtration Rate 109, BUN/Creatinine Ratio 18, Glucose Level 107H, Calcium Level 8.4L, Corrected Calcium 9.7, Magnesium Level 2.1, Total Bilirubin 0.2, Aspartate Amino Transf (AST/SGOT) 10, Alanine Aminotransferase (ALT/SGPT) 11, Alkaline Phosphatase 83, Total Protein 5.6L, Albumin 2.4L Microbiology 04/18/22 Blood Culture - Preliminary, Resulted No growth Home Meds Active Novolog Flexpen (Insulin Aspart) 100 Unit/Ml (3 Ml) Solution 10 Units SQ AC Lantus Solostar (Insulin Glargine,Hum.rec.anlog) 100 Unit/Ml (3 Ml) Insuln.pen 35 Unit SQ HS Advocate Pen Needle (Pen Needle, Diabetic) 33 Gauge X 5/32" Dis.needle Each ACHS Assessment/Pt Instructions PCP in 1 week Discharge Planning: <30 minutes discharge planning Discharge Instructions Discharge Diet: ADA Diet Activity as Tolerated: Yes Discharge Physical Examination Vital Signs Vital Signs Date Time Temp Pulse Resp B/P (MAP) Pulse Ox O2 Delivery O2 Flow Rate FiO2 04/21/22 08:10 36.4 78 18 127/75 (92) 97 Room Air 04/21/22 08:07 0.00 04/21/22 08:01 1 General Appearance: No Apparent Distress, WD/WN, Chronically ill Allergies: Coded Allergies: Penicillins (Verified Allergy, Unknown, 09/20/18) Discharge Summary Date of Admission Apr 18, 2022 at 17:28 Date of Discharge Discharge Date: Apr 21, 2022 Admission Diagnosis DKA GORDON CROWLEY DO Apr 21, 2022 10:22
--- NOTE | 2022-04-21 12:30 | Wound Care Assessment ---
Wound Care Assessment Date Seen by Provider: Apr 21, 2022 Time Seen by Provider: 12:25 Chief Complaint Amputation site dehiscence HPI This 56 year old male presented to the hospital with DKA. He admits to poor follow up and diabetic control for many years. He was positive for methamphe tamins upon admission and states that this is a recurrent and chronic issue. He also smokes 1/2 ppd cigarettes. In addition to his DM2, he also has anemia, PEM, and is homeless currently. All of these issues will complicate his follow up and wound healing. His amputation was done per Dr. Storey at [facility] in [place] 1.5 weeks ago (per patient report as I have no records currently to confirm). One suture had pulled through and there is a pinpoint area of dehiscence. It does not probe to bone and drainage is serosanguinous. I did obtain a wound culture which will need followed up by his primary upon d/c home. He will need surgical follow up rescheduled. There is an area of depth which is not surprising in light of his recent surgery and poor follow up. I recommend cleansing daily with Vashe and packing with iodoform. I did remove the remaining sutures as the rest of incision appears healed currently. I had a long conversation with Liam on his chances of healing with his current lifestyle choices vs. improving his glycemic control, improving his nutrition status and cessation of smoking and methamphetamine use. He verbalizes understanding. Past Medical History: Admits Diabetes Type II Anemia, PEM Smoking Status: Current Everyday Smoker (1/2 ppd for many years) Recreational Drug Use: Yes (methamphetamine use) Other Social Hx Homelessness Review of Systems General: Other (Thin) Exam Vital Signs Date Time Temp Pulse Resp B/P (MAP) Pulse Ox O2 Delivery O2 Flow Rate FiO2 04/21/22 12:12 36.4 79 18 123/73 (90) 97 Room Air 04/21/22 08:07 0.00 04/21/22 08:01 1 Capillary Refill : Less Than 3 Seconds General Appearance: WD/WN, no apparent distress, thin HEENT: other (Hearing wnl, poor dentition) Neck: full range of motion Cardiovascular: no edema Respiratory: no respiratory distress, no accessory muscle use Extremities: normal range of motion Neurologic/Psychiatric: alert, normal mood/affect, oriented x 3 Wound assessment: 1.5x1.7x3.0 cm. The epithelialization is medium. There is no tunneling or undermining. Drainage is large and serosanguinous. Granulation is none. Necrotic is none. The margins are flat Results Laboratory Tests 04/20/22 16:56: Glucometer 278H 04/20/22 20:46: Glucometer 136H 04/21/22 05:08: White Blood Count 5.4, Red Blood Count 3.36L, Hemoglobin 9.7L, Hematocrit 29L, Mean Corpuscular Volume 86, Mean Corpuscular Hemoglobin 29, Mean Corpuscular Hemoglobin Concent 34, Red Cell Distribution Width 14.2, Platelet Count 305, Mean Platelet Volume 9.1, Immature Granulocyte % (Auto) 0, Neutrophils (%) (Auto) 53, Lymphocytes (%) (Auto) 33, Monocytes (%) (Auto) 14H, Eosinophils (%) (Auto) 0, Basophils (%) (Auto) 0, Neutrophils # (Auto) 2.8, Lymphocytes # (Auto) 1.8, Monocytes # (Auto) 0.8, Eosinophils # (Auto) 0.0, Basophils # (Auto) 0.0, Immature Granulocyte # (Auto) 0.0, Sodium Level 136, Potassium Level 3.4L, Chloride Level 102, Carbon Dioxide Level 26, Anion Gap 8, Blood Urea Nitrogen 13, Creatinine 0.71, Estimat Glomerular Filtration Rate 109, BUN/Creatinine Ratio 18, Glucose Level 107H, Calcium Level 8.4L, Corrected Calcium 9.7, Magnesium Level 2.1, Total Bilirubin 0.2, Aspartate Amino Transf (AST/SGOT) 10, Alanine Aminotransferase (ALT/SGPT) 11, Alkaline Phosphatase 83, Total Protein 5.6L, Albumin 2.4L 04/21/22 11:11: Glucometer 165H Microbiology 04/18/22 Blood Culture - Preliminary, Resulted No growth Assessment/Plan/Dx Assessment: 1. Amputation site dehiscence 2. DM2 poor control with DKA 3. PEM 4. Anemia (acute vs. chronic) 5. Methamphetamine abuse 6. Tobaccoism 7. Homelessness 8. Poor compliance in all aspects of care Plan: 1. Cleanse daily with vashe and pack with iodoform gauze. Secure with gauze, roller gauze and tape and change daily. Follow up with surgeon MITRA. 2. Close monitoring and improved glycemic control will be crucial to Liam's healing chances. Follow up with PCP MITRA upon d/c home 3. Increase protein intake recommended 4. Follow up with PCP recommended 5. Cessation of all illicit drugs recommended 6. Smoking cessation advised 7. Per discharge planning/emergency services professional 8. Stressed importance on compliance at length FRANCES HALLMAN MD Apr 21, 2022 12:30
[2022-04-21] MEDS: ENOXAPARIN 40 MG/0.4 ML (LOVENOX) SYR SC SCH (16:53)
== END 2022-04-21 18:40 | disposition home or self-care (01) | DRG 638 ==
LOC: EDUNIT# 15:50 → ER 15:52 → ICU 17:28 → 4TH 04-20 11:09
PROVIDERS: ADMIT Internal Medicine; ATTEND Internal Medicine
DX: E11.10 Type 2 diabetes mellitus with ketoacidosis without coma (principal); E87.1 Hypo-osmolality and hyponatremia; R68.0 Hypothermia, not associated with low environmental temperature; Z91.14 Patient's other noncompliance with medication regimen; E78.00 Pure hypercholesterolemia, unspecified; I10 Essential (primary) hypertension; E11.40 Type 2 diabetes mellitus with diabetic neuropathy, unspecified; F32.A Depression, unspecified; Z89.421 Acquired absence of other right toe(s); F15.90 Other stimulant use, unspecified, uncomplicated; Z79.4 Long term (current) use of insulin; Z20.822 Contact with and (suspected) exposure to COVID-19
CPT/HCPCS: 36415; 51702; 71045; 80048; 80053; 80306; 80320; 80329; 81000; 82010; 82805; 82947; 83605; 83735; 84100; 85007; 85025; 85027; 87040; 87070; 87077; 87205; 87636; 93005; 94760

== ENCOUNTER 2022-05-21 08:45 | Outpatient (RCR) | payer OTHER ==
[2022-05-09 14:11] VITALS: BP 144/69
[2022-05-09] MEDS: LEVOFLOXACIN 750 MG/D5W 150 ML PRE-MIX IV SCH (14:50)
[2022-05-09 15:54] VITALS: BP 124/78
[2022-05-10] MEDS: LEVOFLOXACIN 750 MG/D5W 150 ML PRE-MIX IV SCH (13:08)
[2022-05-10 13:09] VITALS: BP 121/63
[2022-05-11 14:10] VITALS: BP 154/89
[2022-05-11] MEDS: LEVOFLOXACIN 750 MG/D5W 150 ML PRE-MIX IV SCH (14:16)
[2022-05-12 13:10] VITALS: BP 141/79
[2022-05-12] MEDS: LEVOFLOXACIN 750 MG/D5W 150 ML PRE-MIX IV SCH (13:41)
[2022-05-13 12:15] VITALS: BP 141/78
[2022-05-13] MEDS: LEVOFLOXACIN 750 MG/D5W 150 ML PRE-MIX IV SCH (12:21)
[2022-05-14] MEDS: LEVOFLOXACIN 750 MG/D5W 150 ML PRE-MIX IV SCH (11:28)
[2022-05-14 11:32] VITALS: BP 162/83
[2022-05-15] MEDS: LEVOFLOXACIN 750 MG/D5W 150 ML PRE-MIX IV SCH (08:57)
[2022-05-15 09:06] VITALS: BP 118/71
[2022-05-16] MEDS: LEVOFLOXACIN 750 MG/D5W 150 ML PRE-MIX IV SCH (09:03)
[2022-05-16 09:08] VITALS: BP 116/60
[2022-05-17 10:45] VITALS: BP 125/72
[2022-05-17] MEDS: LEVOFLOXACIN 750 MG/D5W 150 ML PRE-MIX IV SCH (10:50)
[2022-05-18] MEDS: LEVOFLOXACIN 750 MG/D5W 150 ML PRE-MIX IV SCH (09:35)
[2022-05-18 09:45] VITALS: BP 147/85
[2022-05-19] MEDS: LEVOFLOXACIN 750 MG/D5W 150 ML PRE-MIX IV SCH (09:16)
[2022-05-19 09:20] VITALS: BP 147/85
[2022-05-19 09:25] VITALS: BP 147/85
[2022-05-20] MEDS: LEVOFLOXACIN 750 MG/D5W 150 ML PRE-MIX IV SCH (09:28)
[2022-05-20 09:42] VITALS: BP 137/71
[~2022-05-21] VITALS: Ht 185 cm; Wt 75.6 kg
[2022-05-21] MEDS: LEVOFLOXACIN 750 MG/D5W 150 ML PRE-MIX IV SCH (09:55)
[2022-05-21 10:24] VITALS: BP 157/83
== END 2022-06-08 | disposition home or self-care (01) ==
LOC: SDC 08:45
PROVIDERS: ATTEND Internal Medicine Nephrology
DX: M86.8X7 Other osteomyelitis, ankle and foot (principal)
CPT/HCPCS: 96365; 96366

== ENCOUNTER 2022-08-08 08:11 | Inpatient (IN) | payer OTHER ==
[~2022-08-08] VITALS: Ht 185 cm; Wt 82.5 kg
[2022-08-08] MEDS ORDERED: NS IV 1000 ML 1,000 ML IV STA (08:20)
[2022-08-08] MEDS ORDERED: LACTATED RINGERS 1,000 ML IV ONE (08:20)
[2022-08-08] MEDS ORDERED: inSUlin (REGULAR) HUMAN 1 UNIT/0.01 ML (CHARGE PER UNIT) IV STA (08:20)
[2022-08-08] MEDS ORDERED: LACTATED RINGERS 1,000 ML IV STA (08:20)
[2022-08-08] MEDS ORDERED: ONDANSETRON 4 MG/2 ML (SDV) Z0FRAN IVP ONE (08:30)
[2022-08-08 08:34] LABS: ABG OXYGEN SATURATION 98 % (94-100); ABG PCO2 22 MMHG (35-45); ABG PO2 104 MMHG (79-93)
[2022-08-08 08:35] LABS: ALLENS TEST YES-POS; INSPIRED O2 ROOM AIR; VENTILATOR NO
[2022-08-08 08:36] LABS: ABG PH 7.21 (7.37-7.43); ABG TCO2 9.6 MMOL/L (21.0-31.0)
[2022-08-08 08:43] LABS: BASOPHILS % (AUTO) 0 % (0-10); EOSINOPHILS % (AUTO) 0 % (0-10); HEMATOCRIT 51 % (40-54); HEMOGLOBIN 16.7 g/dL (13.3-17.7); LYMPHOCYTES % (AUTO) 9 % (12-44); MEAN CORPUSCULAR HEMOGLOBIN 27 pg (25-34); MEAN CORPUSCULAR HGB CONC 33 g/dL (32-36); MEAN CORPUSCULAR VOLUME 83 fL (80-99); MEAN PLATELET VOLUME 11.2 fL (9.0-12.2); MONOCYTES # (AUTO) 0.4 10^3/uL (0.0-1.0); MONOCYTES % (AUTO) 3 % (0-12); NEUTROPHILS % (AUTO) 87 % (42-75); PLATELET COUNT 277 10^3/uL (130-400); WHITE BLOOD COUNT 11.5 10^3/uL (4.3-11.0)
--- NOTE | 2022-08-08 08:58 | ED General ---
General Chief Complaint: Glucose Problems Stated Complaint: LOW BLOOD SUGAR 50 Nursing Triage Note: PT OUT OF CAR BY RN, PT LETHARGIC AND VOMITING. PT FRIEND STATES BS 50, GLUECOMETER RESULT BY ED STAFF ARE TO HIGH TO READ. PT IS INSULIN DEPENDANT. Source of Information: Patient, Other (Friend) Exam Limitations: Other (Illness) History of Present Illness Date Seen by Provider: Aug 08, 2022 Time Seen by Provider: 08:15 Initial Comments Patient arrives with a friend. Friend states the patient was not acting right and was lethargic and vomiting. They apparently checked his blood sugar and noted it was 50 so they brought him here. Patient does have history of diabetes friend states that he has been vomiting quite a few times this morning. Patient reports that he has had nausea and vomiting and weakness. He reports taking his insulin this morning. No report of fever. No report of diarrhea. Denies pain. States he feels dry. Timing/Duration: 4-6 Hours Severity: Moderate, Severe Associated Systoms: Nausea/Vomiting, Weakness Allergies and Home Medications Allergies Coded Allergies: Penicillins (Verified Allergy, Unknown, 09/20/18) tramadol (Verified Allergy, Unknown, 08/08/22) Patient Home Medication List Home Medication List Reviewed: Yes Insulin Aspart (Novolog Flexpen) 100 Unit/Ml (3 Ml) Solution, 10 UNITS SQ AC Prescribed by: GORDON CROWLEY on 04/21/22 1022 Insulin Glargine,Hum.rec.anlog (Lantus Solostar) 100 Unit/Ml (3 Ml) Insuln.pen, 35 UNIT SQ HS Prescribed by: GORDON CROWLEY on 04/21/22 1022 Pen Needle, Diabetic (Advocate Pen Needle) 33 Gauge X 5/32" Dis.needle, EACH [facility], (DME) Prescribed by: GORDON CROWLEY on 12/05/21 0622 Review of Systems Review of Systems Constitutional: see HPI; No chills, No fever; weakness EENTM: other (Dry mouth); No nose congestion Respiratory: No cough, No short of breath Cardiovascular: No chest pain, No edema Gastrointestinal: nausea, vomiting Genitourinary: no symptoms reported Musculoskeletal: no symptoms reported Psychiatric/Neurological: Weakness Past Ujfwlrx-Rrgreu-Obykoa Hx Patient Social History Tobacco Use?: Yes Tobacco type used: Cigarettes Immunizations Up To Date Tetanus Booster (TDap): Unknown First/Initial COVID19 Vaccinat: 2020 PiperScout Second COVID19 Vaccination Jeffery: 2020 PFIZER Third COVID19 Vaccination Date: 2020 PFITZER Seasonal Allergies Seasonal Allergies: No Past Medical History Surgery/Hospitalization HX: Right great toe amputated [facility] dc'd 03/18/22 Surgeries: Yes Amputation, Orthopedic Respiratory: No Currently Using CPAP: No Currently Using BIPAP: No Cardiac: Yes High Cholesterol, Hypertension Neurological: Yes Neuropathy Genitourinary: No Gastrointestinal: No Musculoskeletal: Yes (MULTIPLE TOE AMPUTATIONS) Amputee Endocrine: Yes (DKA; NON-COMPLIANCE) Diabetes, Insulin dep HEENT: No Cancer: No Psychosocial: Yes (SUBSTANCE ABUSE) Depression Integumentary: Yes (CHRONIC DIABETIC FOOT ULCERS) Blood Disorders: No Adverse Reaction/Blood Tranf: No Family Medical History Patient reports no known family medical history. No Pertinent Family Hx SOCIAL HISTORY: -PT SMOKES, UNKNOWN AMOUNT -DRUGS--EXTENSIVE METHAMPHETAMINE USE -HAS DENIED ALCOHOL USE PT HAS HISTORY OF HOMELESSNESS PAST SURGICAL HISTORY: -RIGHT GREAT TOE AMPUTATION AT [facility] 03/16/22 -PREVIOUS RIGHT 4TH TOE AMPUTATION AND LEFT 5TH TOE AMPUTATION -PERIPHERAL ANGIOGRAM BY DR. AVILES: DATE OF SERVICE: 09/05/2020 PERIPHERAL ANGIOGRAPHY REPORT The patient is a 54-year-old gentleman who recently had amputation of the left fifth toe that was exhibiting ischemia and ulceration. 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 Accordingly, peripheral angiography was carried out and informed consent was obtained for peripheral angiography and possible ad hoc intervention. DESCRIPTION OF PROCEDURE: He was brought to the cardiac catheterization laboratory in a fasting state. Right groin was prepared and draped in the usual sterile fashion. Lidocaine 1% was used for local anesthesia. Modified Seldinger technique was used to advance a 5-Croatian sheath in right femoral artery. A 5-Croatian pigtail catheter was used to carry out abdominal aortic angiography. The pigtail catheter was then pulled back to just above the level of the aortoiliac bifurcation and bilateral leg artery angiography was carried out down to the level of the ankles. Subsequently, we used a 5-Croatian crossover catheter and advanced a Storq wire into the left superficial femoral artery. The crossover catheter was removed and we advanced a straight catheter into the distal part of the left superficial femoral artery and carried out selective angiography of the distal left superficial femoral artery and the trifurcation vessels down to the level of the ankles. The catheter was then removed. Angiography of the right femoral artery was carried out through the sheath. Mynx was used to achieve hemostasis. He tolerated the procedure well. ABDOMINAL AORTIC ANGIOGRAPHY: Abdominal aortic angiography did not indicate any significant abdominal aortic aneurysm or dissection. No abdominal aortic stenosis is seen. The aortoiliac bifurcation is intact and does not exhibit significant disease. BILATERAL LEG ARTERY ANGIOGRAPHY: Bilateral leg artery angiography did not indicate any significant disease of the iliac arteries, common femoral arteries, popliteal arteries, or the distal vessels of the legs. 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 Selective angiography did not indicate any significant disease of the left popliteal artery or of the trifurcation arteries on the left side. CONCLUSIONS: No significant peripheral arterial disease seen on this peripheral angiographic study. Physical Exam Vital Signs Vital Signs - First Documented 08/08/22 08:15 Temp 35.0 Pulse 93 Resp 16 B/P (MAP) 127/68 (87) Pulse Ox 100 Capillary Refill : Less Than 3 Seconds Height, Weight, BMI Height: 6'1.00" Weight: 168lbs. 9.0oz. [id number]; 23.00 BMI Method:Estimated General Appearance: Moderate Distress HEENT: PERRL/EOMI, Other (Dry mucous membranes) Neck: Non Tender, Supple Respiratory: Lungs Clear, Normal Breath Sounds Cardiovascular: No Murmur, Tachycardia Gastrointestinal: Non Tender, Soft Back: Normal Inspection, No CVA Tenderness, No Vertebral Tenderness Extremity: Normal Range of Motion, Non Tender Neurologic/Psychiatric: Alert, Oriented x3 Skin: Normal Color, Warm/Dry Progress/Results/Core Measures Suspected Sepsis SIRS Temperature: Pulse: 93 Respiratory Rate: 16 Laboratory Tests 08/08/22 08:35: White Blood Count 11.5H Blood Pressure 127 /68 Mean: 87 Laboratory Tests 08/08/22 08:35: Creatinine 2.55H, Platelet Count 277, Total Bilirubin 0.8 Results/Orders Lab Results Laboratory Tests Test 08/08/22 08:28 08/08/22 08:35 08/08/22 09:45 Range/Units Blood Gas Puncture Site RT RAD Blood Gas Patient Temperature 35.0 Arterial Blood pH 7.21 *L 7.37-7.43 Arterial Blood Partial Pressure CO2 22 L 35-45 MMHG Arterial Blood Partial Pressure O2 104 H 79-93 MMHG Arterial Blood HCO3 9 *L 23-27 MMOL/L Arterial Blood Total CO2 9.6 *L 21.0-31.0 MMOL/L Arterial Blood Oxygen Saturation 98 94-100 % Arterial Blood Base Excess -18.0 L -2.5-2.5 MMOL/L Waqar Test YES-POS Blood Gas Ventilator Setting NO Blood Gas Inspired Oxygen ROOM AIR White Blood Count 11.5 H 4.3-11.0 10^3/uL Red Blood Count 6.16 H 4.30-5.52 10^6/uL Hemoglobin 16.7 13.3-17.7 g/dL Hematocrit 51 40-54 % Mean Corpuscular Volume 83 80-99 fL Mean Corpuscular Hemoglobin 27 25-34 pg Mean Corpuscular Hemoglobin Concent 33 32-36 g/dL Red Cell Distribution Width 15.7 H 10.0-14.5 % Platelet Count 277 130-400 10^3/uL Mean Platelet Volume 11.2 9.0-12.2 fL Immature Granulocyte % (Auto) 0 % Neutrophils (%) (Auto) 87 H 42-75 % Lymphocytes (%) (Auto) 9 L 12-44 % Monocytes (%) (Auto) 3 0-12 % Eosinophils (%) (Auto) 0 0-10 % Basophils (%) (Auto) 0 0-10 % Neutrophils # (Auto) 10.0 H 1.8-7.8 10^3/uL Lymphocytes # (Auto) 1.0 1.0-4.0 10^3/uL Monocytes # (Auto) 0.4 0.0-1.0 10^3/uL Eosinophils # (Auto) 0.0 0.0-0.3 10^3/uL Basophils # (Auto) 0.0 0.0-0.1 10^3/uL Immature Granulocyte # (Auto) 0.0 0.0-0.1 10^3/uL Neutrophils % (Manual) 84 % Lymphocytes % (Manual) 12 % Monocytes % (Manual) 4 % Eosinophils % (Manual) 0 % Basophils % (Manual) 0 % Band Neutrophils 0 % Blood Morphology Comment NORMAL Sodium Level 132 L 135-145 MMOL/L Potassium Level 5.3 H 3.6-5.0 MMOL/L Chloride Level 89 L 98-107 MMOL/L Carbon Dioxide Level 8 *L 21-32 MMOL/L Anion Gap 35 H 5-14 MMOL/L Blood Urea Nitrogen 30 H 7-18 MG/DL Creatinine 2.55 H 0.60-1.30 MG/DL Estimat Glomerular Filtration Rate 29 BUN/Creatinine Ratio 12 Glucose Level 743 *H 70-105 MG/DL Calcium Level 10.0 8.5-10.1 MG/DL Corrected Calcium 8.5-10.1 MG/DL Phosphorus Level 6.1 H 2.3-4.7 MG/DL Magnesium Level 2.7 H 1.6-2.4 MG/DL Total Bilirubin 0.8 0.1-1.0 MG/DL Aspartate Amino Transf (AST/SGOT) 24 5-34 U/L Alanine Aminotransferase (ALT/SGPT) 89 H 0-55 U/L Alkaline Phosphatase 262 H 40-136 U/L Total Protein 8.8 H 6.4-8.2 GM/DL Albumin 4.6 H 3.2-4.5 GM/DL Glucometer 569 *H 70-110 MG/DL My Orders Orders - MARIIA ELISE MD Lactated Ringers (Lr 1000 Ml Iv Solution (08/08/22 08:20) Ondansetron Injection (Zofran Injectio (08/08/22 08:30) Lactated Ringers (Lr 1000 Ml Iv Solution (08/08/22 08:20) Ed Iv/Invasive Line Start (08/08/22 08:20) Insulin (Regular) Human (Novolin R (Per (08/08/22 08:20) Arterial Blood Gas (08/08/22 08:20) Cbc With Automated Diff (08/08/22 08:20) Comprehensive Metabolic Panel (08/08/22 08:20) Magnesium (08/08/22 08:20) Ua Culture If Indicated (08/08/22 08:20) Phosphorus (08/08/22 08:20) Ns Iv 1000 Ml (Sodium Chloride 0.9%) (08/08/22 08:20) Manual Differential (08/08/22 08:35) Code/Resuscitation (08/08/22 09:53) Ed Admission (Communication) (08/08/22 09:53) Medications Given in ED Current Medications Medications Dose Ordered Sig/Perico Route Start Time Stop Time Status Last Admin Dose Admin Ondansetron HCl 8 mg ONCE ONCE IVP 08/08/22 08:30 08/08/22 08:31 DC 08/08/22 08:40 8 MG Vital Signs/I&O 08/08/22 08:15 Temp 35.0 Pulse 93 Resp 16 B/P (MAP) 127/68 (87) Pulse Ox 100 Capillary Refill : Less Than 3 Seconds Blood Pressure Mean: 87 Progress Note : Progress Note Seen and evaluated. IV, labs including CBC, CMP, magnesium, phosphate and ABG ordered. We will get UA. LR 1 L bolus followed by normal saline 1 L bolus and insulin 10 units IV ordered. Ondansetron 8 mg IV ordered for nausea and vomiting. Monitor patient. Differential includes diabetic ketoacidosis, uncontrolled hyperglycemia, electrolyte abnormality, dehydration 0858: Fluids are in progress. Meds have been given. ABG does show pH of 7.21 with bicarb of 9. CBC does show a white count of 11.5 and hemoglobin concentration at 16.7. Monitor patient. Records review on this patient does show multiple admissions for diabetic ketoacidosis. 0950: Blood sugar has been proved to the 560s. Chemistry does show slightly low sodium and chloride with elevated potassium at 5.3. Creatinine is 2.5. Historically he has normal creatinine on previous hospitalizations but also has noted to have elevated creatinine with DKA episodes. I believe this is an acute renal failure issues secondary to dehydration and DKA. Further evaluation of chemistry studies show mag and phosphate are high consistent with dehydration. Does have slight elevation of alk phos which is likely from vomiting. CO2 was noted to be at 8 consistent with DKA. I did discuss the case with Dr. Crowley and she accepts patient for admission to the ICU, inpatient status and she will write orders. Patient has not given urine thus far and we have asked him again and he states he still does not have to urinate. We will go ahead and do another 500 mL bolus of normal saline for a total of 2.5 L overall in the emergency department and fluids to continue in ICU per DKA order set. Patient agrees to admission. 0959: Patient is now able to urinate. He is doing a little better with persistent tachycardia low 100s and normal to slightly elevated blood pressure. Monitor patient Critical Care Note Critical Care Start Time: 08:15 Stop Time: 10:15 Total Time (minutes) 30 minutes excluding separately billable procedures to see, evaluate, manage and admit critical, life-threatening illness. See progress note for details. Departure Communication (Admissions) Time/Spoke to Admitting Phy: 09:50 Impression Primary Impression: DKA (diabetic ketoacidosis) Qualified Codes: E11.10 - Type 2 diabetes mellitus with ketoacidosis without coma Disposition: ADMITTED INPATIENT Condition: Stable Admissions Decision to Admit Reason: Admit from ER (General) Decision to Admit/Date: Aug 08, 2022 Time/Decision to Admit Time: 09:50 Departure-Patient Inst. Referrals: THEODORE MEDLEY MD (PCP/Family) Primary Care Physician MARIIA ELISE MD Aug 08, 2022 08:58
[2022-08-08 08:59] LABS: ALBUMIN 4.6 GM/DL (3.2-4.5); CHLORIDE 89 MMOL/L (98-107); POTASSIUM 5.3 MMOL/L (3.6-5.0); SODIUM 132 MMOL/L (135-145)
[2022-08-08 09:02] LABS: TOTAL PROTEIN 8.8 GM/DL (6.4-8.2)
[2022-08-08 09:03] LABS: BILIRUBIN,TOTAL 0.8 MG/DL (0.1-1.0)
[2022-08-08 09:05] LABS: ALKALINE PHOSPHATASE 262 U/L (40-136); CREATININE SERUM 2.55 MG/DL (0.60-1.30); GFR ESTIMATED 29; PHOSPHORUS 6.1 MG/DL (2.3-4.7)
[2022-08-08 09:06] LABS: BUN/CREATININE RATIO 12
[2022-08-08 09:08] LABS: ALANINE AMINOTRANSFERASE 89 U/L (0-55); MAGNESIUM 2.7 MG/DL (1.6-2.4)
[2022-08-08 09:11] LABS: CARBON DIOXIDE 8 MMOL/L (21-32); GLUCOSE 743 MG/DL (70-105)
[2022-08-08 09:17] LABS: BAND NEUTROPHILS 0 %; BASOPHILS % (MANUAL) 0 %; EOSINOPHILS % (MANUAL) 0 %; LYMPHOCYTES % (MANUAL) 12 %; MONOCYTES % (MANUAL) 4 %; NEUTROPHILS % (MANUAL) 84 %; RBC MORPH NORMAL
[2022-08-08] MEDS ORDERED: NS IV 500 ML 500 ML IV ONE (10:00)
[2022-08-08 10:07] LABS: BILIRUBIN,URINE NEGATIVE (NEGATIVE); CLARITY,URINE CLEAR; COLOR,URINE YELLOW; GLUCOSE, URINE (UA) 3+ (NEGATIVE); KETONES,URINE 3+ (NEGATIVE); LEUKOCYTE ESTERASE ,URINE NEGATIVE (NEGATIVE); NITRITE,URINE NEGATIVE (NEGATIVE); PROTEIN,URINE TRACE (NEGATIVE)
[2022-08-08 10:23] LABS: AMPHETAMINE SCREEN, URINE POSITIVE (NEGATIVE); BARBITURATE SCREEN URINE NEGATIVE (NEGATIVE); BENZODIAZEPINES SCREEN URINE NEGATIVE (NEGATIVE); CANNABINOID SCREEN, URINE NEGATIVE (NEGATIVE); COCAINE SCREEN URINE NEGATIVE (NEGATIVE); METHADONE STAT NEGATIVE (NEGATIVE); OPIATE SCREEN URINE NEGATIVE (NEGATIVE); OXYCODONE STAT NEGATIVE (NEGATIVE); PROPOXYPHENE STAT NEGATIVE (NEGATIVE); TRICYCLIC ANTIDEPRESSANTS SCRE NEGATIVE (NEGATIVE)
[2022-08-08 10:24] LABS: BACTERIA,URINE NEGATIVE /HPF; WBC,URINE 0-2 /HPF; YEAST,URINE LARGE /HPF
--- NOTE | 2022-08-08 10:45 | History & Physical-Hospitalist ---
History of Present Illness HPI/Chief Complaint CC: DKA HPI: This is a 56yoWM [facility] patient who has a h/o DKA who presented to the ER with N/V and found to have DKA. He has a h/o JOEL. He is lethargic and not willing to participate in conversation. Source: RN/MD Exam Limitations: clinical condition Date Seen 08/08/22 Time Seen by a Provider: 11:00 Attending Physician Medardo Chavez MD PCP Admitting Physician: Attending Physician: Referring Physician Date of Admission Home Medications & Allergies Home Medications Reviewed patient Home Medication Reconciliation performed by pharmacy medication reconciliations audiovisual technician and/or nursing. Patients Allergies have been reviewed. Allergies Allergies Coded Allergies Penicillins (Verified Allergy, Unknown, 09/20/18) tramadol (Verified Allergy, Unknown, 08/08/22) Past Xxxxmmc-Zesmpo-Kkklbi Hx Patient Social History Marrital Status: single Employed/Student: unemployed Tobacco Use?: Yes Tobacco type used: Cigarettes Smoking Status: Current Everyday Smoker Substance use?: Unable to obtain Alcohol Use?: Unable to obtain Pt feels they are or have been: Unable to obtain Immunizations Up To Date Date of Influenza Vaccine: Apr 12, 2022 First/Initial COVID19 Vaccinat: 2020 PFIZER Second COVID19 Vaccination Jeffery: 2020 PFIZER Tetanus Booster (TDap): Unknown Hepatitis A: No Hepatitis B: No Seasonal Allergies Seasonal Allergies: No Current Status Advance Directives: No Communicates: Verbally Primary Language: Japanese Preferred Spoken Language: Japanese Is interpretation needed?: No Past Medical History Surgeries: Amputation, Orthopedic Currently Using CPAP: No Currently Using BIPAP: No High Cholesterol, Hypertension Neuropathy Amputee Diabetes, Insulin dep Depression Blood Disorders: No Adverse Reaction/Blood Tranf: No 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 No Pertinent Family Hx SOCIAL HISTORY: -PT SMOKES, UNKNOWN AMOUNT -DRUGS--EXTENSIVE METHAMPHETAMINE USE -HAS DENIED ALCOHOL USE PT HAS HISTORY OF HOMELESSNESS PAST SURGICAL HISTORY: -RIGHT GREAT TOE AMPUTATION AT [facility] 03/16/22 -PREVIOUS RIGHT 4TH TOE AMPUTATION AND LEFT 5TH TOE AMPUTATION -PERIPHERAL ANGIOGRAM BY DR. AVILES: DATE OF SERVICE: 09/05/2020 PERIPHERAL ANGIOGRAPHY REPORT The patient is a 54-year-old gentleman who recently had amputation of the left fifth toe that was exhibiting ischemia and ulceration. 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 Accordingly, peripheral angiography was carried out and informed consent was obtained for peripheral angiography and possible ad hoc intervention. DESCRIPTION OF PROCEDURE: He was brought to the cardiac catheterization laboratory in a fasting state. Right groin was prepared and draped in the usual sterile fashion. Lidocaine 1% was used for local anesthesia. Modified Seldinger technique was used to advance a 5-Botswanan sheath in right femoral artery. A 5-Botswanan pigtail catheter was used to carry out abdominal aortic angiography. The pigtail catheter was then pulled back to just above the level of the aortoiliac bifurcation and bilateral leg artery angiography was carried out down to the level of the ankles. Subsequently, we used a 5-Botswanan crossover catheter and advanced a Storq wire into the left superficial femoral artery. The crossover catheter was removed and we advanced a straight catheter into the distal part of the left superficial femoral artery and carried out selective angiography of the distal left superficial femoral artery and the trifurcation vessels down to the level of the ankles. The catheter was then removed. Angiography of the right femoral artery was carried out through the sheath. Mynx was used to achieve hemostasis. He tolerated the procedure well. ABDOMINAL AORTIC ANGIOGRAPHY: Abdominal aortic angiography did not indicate any significant abdominal aortic aneurysm or dissection. No abdominal aortic stenosis is seen. The aortoiliac bifurcation is intact and does not exhibit significant disease. BILATERAL LEG ARTERY ANGIOGRAPHY: Bilateral leg artery angiography did not indicate any significant disease of the iliac arteries, common femoral arteries, popliteal arteries, or the distal vessels of the legs. 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 Selective angiography did not indicate any significant disease of the left popliteal artery or of the trifurcation arteries on the left side. CONCLUSIONS: No significant peripheral arterial disease seen on this peripheral angiographic study. Review of Systems Constitutional: see HPI Gastrointestinal: nausea, vomiting Physical Exam Physical Exam Vital Signs Vital Signs - First Documented 08/08/22 08/08/22 08:15 10:48 Temp 35.0 Pulse 93 Resp 16 B/P (MAP) 127/68 (87) Pulse Ox 100 O2 Delivery Room Air Capillary Refill : Less Than 3 Seconds Height, Weight, BMI Height: 6'1.00" Weight: 168lbs. 9.0oz. [id number]; 23.00 BMI Method:Estimated General Appearance: No Apparent Distress, Chronically ill Eyes: Right Eye Normal Inspection, Right Eye PERRL HEENT: PERRL/EOMI, Normal ENT Inspection, Pharynx Normal, Moist Mucous Membranes Neck: Full Range of Motion, Normal Inspection, Non Tender Respiratory: Chest Non Tender, Lungs Clear, Normal Breath Sounds, No Accessory Muscle Use, No Respiratory Distress Cardiovascular: Regular Rate, Rhythm, No Edema, No Gallop, No JVD, No Murmur, Normal Peripheral Pulses Gastrointestinal: Normal Bowel Sounds, No Organomegaly, No Pulsatile Mass, Non Tender, Soft Back: Normal Inspection, No CVA Tenderness, No Vertebral Tenderness Extremity: Normal Capillary Refill, Normal Inspection, Normal Range of Motion, Non Tender, No Calf Tenderness, No Pedal Edema Neurologic/Psychiatric: Alert, No Motor/Sensory Deficits, Depressed Affect, Disoriented Skin: Normal Color, Warm/Dry Lymphatic: No Adenopathy Results Results/Procedures Labs Laboratory Tests 08/08/22 08:35 08/08/22 11:20 08/08/22 13:15 08/08/22 19:10 Patient resulted labs reviewed. Assessment/Plan Admission Diagnosis Assessment: DKA JOEL JOEL hx Plan: Insulin drip IVF Admission Status: Inpatient Order (span 2 midnights) Reason for Inpatient Admission: dka GORDON CROWLEY DO Aug 08, 2022 10:45
[2022-08-08] MEDS ORDERED: LORazepam INJ 2 MG/ML (ATIVAN) VIAL IVP PRN (11:00)
[2022-08-08] MEDS ORDERED: polyethylene glycoL POWDER 17 GM (MIRALAX) PACK PO PRN (11:00)
[2022-08-08] MEDS ORDERED: diphenhydrAMINE 50 MG/ML INJ (BENADRYL) IVP PRN (11:00)
[2022-08-08] MEDS ORDERED: ACETAMINOPHEN 325 MG TABLET PO PRN (11:00)
[2022-08-08] MEDS ORDERED: diphenhydrAMINE 25 MG TAB (BENADRYL) PO PRN (11:00)
[2022-08-08] MEDS ORDERED: LACTULOSE SYRUP 10GM/15ML (ENULOSE) 30ML UDC PO PRN (11:00)
[2022-08-08] MEDS ORDERED: LORazepam 0.5 MG (ATIVAN) TABLET PO PRN (11:00)
[2022-08-08] MEDS ORDERED: ANTACID SUSP 30 ML UDC (MYLANTA) PO PRN (11:00)
[2022-08-08] MEDS ORDERED: BISACODYL 10 MG SUPP (DULCOLAX) PR PRN (11:00)
[2022-08-08] MEDS ORDERED: ONDANSETRON 4 MG (ZOFRAN) ORAL DISSOLVE TAB PO PRN (11:00)
[2022-08-08] MEDS ORDERED: HYDROmorphone 2 MG/ML VIAL (DILAUDID) IV PRN (11:00)
[2022-08-08] MEDS ORDERED: ONDANSETRON 4 MG/2 ML (SDV) Z0FRAN IV PRN (11:00)
[2022-08-08] MEDS ORDERED: NS IV 1000 ML 1,000 ML IV SCH (11:00)
[2022-08-08] MEDS ORDERED: CALCIUM CARBONATE 500 MG (TUMS) TAB.CHEW PO PRN (11:00)
[2022-08-08] MEDS ORDERED: MELATONIN 3 MG TABLET PO PRN (11:00)
[2022-08-08] MEDS ORDERED: DexMEDEtomidine 250 ML DRIP 250 ML IV SCH (11:00)
[2022-08-08] MEDS ORDERED: MILK OF MAGNESIA 400 MG/5 ML 30 ML UDC PO PRN (11:00)
[2022-08-08] MEDS ORDERED: NS IV 500 ML 500 ML IV PRN (11:00)
[2022-08-08] MEDS: POTASSIUM CL 10MEQ/50ML IVPB 50 ML IV SCH ×10 (11:15→22:32)
[2022-08-08] MEDS ORDERED: NS IV 500 ML 500 ML IV SCH (11:15)
[2022-08-08 11:37] LABS: POTASSIUM 4.3 MMOL/L (3.6-5.0)
[2022-08-08 11:39] LABS: CALCIUM 8.7 MG/DL (8.5-10.1)
[2022-08-08 11:43] LABS: CREATININE SERUM 1.86 MG/DL (0.60-1.30)
[2022-08-08] MEDS: 1/2 NS IV SOLUTION 1,000 ML IV SCH ×2 (11:47→16:03)
--- NOTE | 2022-08-08 11:58 | Tele-ICU Consult ---
History of Present Illness History of Present Illness Date Seen by Provider: Aug 08, 2022 Time Seen by Provider: 11:49 History of Present Illness Service provided via interactive audio and video telecommunVisible Measures E-CARE system to a patient admitted to ICU bed in [facility]. Patient is seen today due to persistent need of ICU care Available chart/ vitals / labs / Images reviewed Video assessment done using teleICU camera, rest of exam as per RN Discussed with RN 56 yo M came to ED with cc AMS, vomiting, found to be in severe DKA with ABG 7./104, HCO3 9, glu 743 Hx of DM, on Lantus 36 U at night, PC aspart friend brought him in who thought glu was 50 started on DKA protocol, WBC 11, Hb 16.7, plt 277, Cr 2,55, BUN 30, CXR pending PMH right great toe amputated 03/30 HLD, HTN, Hx of substance abuse-amphetamines ,UDS + for aphetamines Allergies and Home Medications Allergies Coded Allergies: Penicillins (Verified Allergy, Unknown, 09/20/18) tramadol (Verified Allergy, Unknown, 08/08/22) Home Medications Insulin Aspart 100 Unit/Ml (3 Ml) Solution, 10 UNITS SQ AC Prescribed by: GORDON CROWLEY on 04/21/22 1022 Insulin Glargine,Hum.rec.anlog 100 Unit/Ml (3 Ml) Insuln.pen, 35 UNIT SQ HS Prescribed by: GORDON CROWLEY on 04/21/22 1022 Past Medical/Social/Family Hx Patient Social History Tobacco Use?: Yes Tobacco type used: Cigarettes Smoking Status: Current Everyday Smoker Smokeless Tobacco Frequency: Current Everyday User E-Cig or Vaping type used: Nicotine Substance use?: Yes Substance type: Amphetamines, Methamphetamine Alcohol Use?: Yes Pt stated abuse/neglect: No Immunizations Up To Date Influenza Vaccine Up-to-Date: No; Not Current First/Initial COVID19 Vaccinat: 2020 PFIZER Second COVID19 Vaccination Jeffery: 2020 PFIZER Tetanus Booster (TDap): Unknown Hepatitis A: No Hepatitis B: No TB Skin Test: None Current Status Advance Directives: No Communicates: Verbally Primary Language: Filipino Preferred Spoken Language: Filipino Is interpretation needed?: No Implanted or Applied Medical D: None Past Medical History 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 AVILES: DATE OF SERVICE: 09/05/2020 PERIPHERAL ANGIOGRAPHY REPORT The patient is a 54-year-old gentleman who recently had amputation of the left fifth toe that was exhibiting ischemia and ulceration. 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 Accordingly, peripheral angiography was carried out and informed consent was obtained for peripheral angiography and possible ad hoc intervention. DESCRIPTION OF PROCEDURE: He was brought to the cardiac catheterization laboratory in a fasting state. Right groin was prepared and draped in the usual sterile fashion. Lidocaine 1% was used for local anesthesia. Modified Seldinger technique was used to advance a 5-Egyptian sheath in right femoral artery. A 5-Egyptian pigtail catheter was used to carry out abdominal aortic angiography. The pigtail catheter was then pulled back to just above the level of the aortoiliac bifurcation and bilateral leg artery angiography was carried out down to the level of the ankles. Subsequently, we used a 5-Egyptian crossover catheter and advanced a Storq wire into the left superficial femoral artery. The crossover catheter was removed and we advanced a straight catheter into the distal part of the left superficial femoral artery and carried out selective angiography of the distal left superficial femoral artery and the trifurcation vessels down to the level of the ankles. The catheter was then removed. Angiography of the right femoral artery was carried out through the sheath. Mynx was used to achieve hemostasis. He tolerated the procedure well. ABDOMINAL AORTIC ANGIOGRAPHY: Abdominal aortic angiography did not indicate any significant abdominal aortic aneurysm or dissection. No abdominal aortic stenosis is seen. The aortoiliac bifurcation is intact and does not exhibit significant disease. BILATERAL LEG ARTERY ANGIOGRAPHY: Bilateral leg artery angiography did not indicate any significant disease of the iliac arteries, common femoral arteries, popliteal arteries, or the distal vessels of the legs. 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 Selective angiography did not indicate any significant disease of the left popliteal artery or of the trifurcation arteries on the left side. CONCLUSIONS: No significant peripheral arterial disease seen on this peripheral angiographic study. Review of Systems Constitutional: see HPI Focused Exam Height, Weight, BMI Height: 6'1.00" Weight: 168lbs. 9.0oz. 76.876501vx; 23.66 BMI Method:Estimated Exam Exam Patient acknowledged, consented, and participated in this virtual visit which was conducted using real time audio/video Vital Signs Date Time Temp Pulse Resp B/P (MAP) Pulse Ox O2 Delivery O2 Flow Rate FiO2 08/08/22 11:22 98 08/08/22 11:00 98 13 148/70 (96) 99 Room Air 08/08/22 10:48 36.0 101 16 153/85 98 Room Air 08/08/22 08:15 35.0 93 16 127/68 (87) 100 Height & Weight Height: 6'1.00" Weight: 168lbs. 9.0oz. 76.371504vv; 23.66 BMI Method:Estimated General Appearance: Moderate Distress HEENT: PERRL/EOMI, Other (Dry mucous membranes) Neck: Non Tender, Supple Respiratory: Lungs Clear, Normal Breath Sounds Cardiovascular: No Murmur, Tachycardia Capillary Refill: Less Than 3 Seconds Gastrointestinal: normal bowel sounds, non tender, soft Extremity: Normal Range of Motion, Non Tender, No Pedal Edema Neurologic/Psychiatric: Alert, Oriented x3 Skin: Normal Color, Warm/Dry, Other (had multiple surgies on toes, looks ok per RN) Results Lab Laboratory Tests 08/08/22 08:35 08/08/22 11:20 Assessment/Plan Assessment/Plan DKA, will continue protocol, watch for any sign of withdrawal with Hx of drug abuse Looks dehyrated, contiue IVF per protocol Critical Care: Critically Ill Patient Time spent with patient (mins): 25 COLBY TORRES MD Aug 08, 2022 11:58
[2022-08-08 13:25] VITALS: BP 145/90
[2022-08-08 13:37] LABS: POTASSIUM 4.2 MMOL/L (3.6-5.0)
[2022-08-08 13:39] LABS: CALCIUM 8.3 MG/DL (8.5-10.1)
[2022-08-08 13:43] LABS: CREATININE SERUM 1.68 MG/DL (0.60-1.30)
[2022-08-08] MEDS ORDERED: RT-ALBUTEROL SULF 2.5 MG/3 ML PRE-MIX VIAL INH PRN (13:45)
[2022-08-08] MEDS: D5 1/2 NS 1000 ML IV SOLUTION 1,000 ML IV SCH ×2 (18:16→21:50)
[2022-08-08 19:33] LABS: POTASSIUM 4.5 MMOL/L (3.6-5.0)
[2022-08-08 19:34] LABS: CALCIUM 8.2 MG/DL (8.5-10.1)
[2022-08-08 19:39] LABS: CREATININE SERUM 1.6 MG/DL (0.60-1.30)
[2022-08-08] MEDS: DOCUSATE SODIUM 100 MG (COLACE) CAP PO SCH (20:27)
[2022-08-08] MEDS: SENNOSIDES 8.6 MG (SENOKOT) TAB PO SCH (20:27)
[2022-08-09] MEDS: POTASSIUM CL 10MEQ/50ML IVPB 50 ML IV SCH ×4 (01:15→07:38)
[2022-08-09] MEDS: D5 1/2 NS 1000 ML IV SOLUTION 1,000 ML IV SCH ×2 (02:47→06:52)
[2022-08-09] MEDS ORDERED: POTASSIUM CL 10MEQ/50ML IVPB 50 ML IV SCH (06:00)
[2022-08-09] MEDS ORDERED: KCL 20 MEQ TAB (K-DUR) PO SCH (06:00)
[2022-08-09] MEDS ORDERED: MAGNESIUM 1 GM/100 ML IVPB 100 ML IV SCH (06:00)
--- NOTE | 2022-08-09 07:00 | Progress Note - Hospitalist ---
Subjective HPI/CC On Admission Date Seen by Provider: Aug 09, 2022 Time Seen by Provider: 10:00 CC: DKA HPI: [facility] 56[facility] who has a h/o DKA who presented to the ER with N/V and found to have DKA. He has a h/o JOEL. He is lethargic and not willing to participate in conversation. Subjective/Events-last exam Doing well Insulin maintained Sq now Labs reviewed Review of Systems General: Fatigue, Malaise Objective Exam Vital Signs Vital Signs Date Time Temp Pulse Resp B/P (MAP) Pulse Ox O2 Delivery O2 Flow Rate FiO2 08/09/22 19:39 37.5 91 18 133/81 (98) 96 Room Air 08/09/22 08:34 0.00 Capillary Refill : Less Than 3 Seconds General Appearance: No Apparent Distress, WD/WN, Chronically ill Respiratory: Lungs Clear, Normal Breath Sounds Cardiovascular: Regular Rate, Rhythm Neurologic/Psychiatric: Alert, Oriented x3, Depressed Affect Results/Procedures Lab Patient resulted labs reviewed. Assessment/Plan Assessment and Plan Assess & Plan/Chief Complaint Assessment: DKA JOLE Meth use Plan: SQ insulin 4th floor Critical Care Critically Ill Patient CROWLEYPORFIRIO MCCLENDONDerek HERNANDEZ Aug 09, 2022 07:00
[2022-08-09] MEDS: 1/2 NS IV SOLUTION 1,000 ML IV SCH ×2 (07:23→07:24)
[2022-08-09] MEDS: PANTOPRAZOLE 40 MG (PROTONIX) VIAL IV SCH (07:37)
[2022-08-09] MEDS: DOCUSATE SODIUM 100 MG (COLACE) CAP PO SCH ×2 (07:39→20:44)
[2022-08-09] MEDS: SENNOSIDES 8.6 MG (SENOKOT) TAB PO SCH ×2 (07:39→20:44)
[2022-08-09] MEDS ORDERED: D5 1/2 NS 1000 ML IV SOLUTION 1,000 ML IV SCH (08:30)
--- NOTE | 2022-08-09 08:38 | Tele-ICU Progress Note ---
Subjective Date Seen by a Provider: Aug 09, 2022 Time Seen by a Provider: 08:37 Subjective/Events-last exam (Tele-ICU Physician , Progress Note ) Service provided via interactive audio and video telecommunications E-CARE system to a patient admitted to ICU bed in [facility]. Patient is seen today due to persistent need of ICU care Available chart/ vitals / labs / Images reviewed Video assessment done using teleICU camera, rest of exam as per RN Discussed with RN Events overnight : Afebrile hemodynamically stable Respiratory - I/O = Drips: Pressors- no Hospital course: A/P 1. Diabetic ketoacidosis - improveing -patient refused any blood work , last bicaarn is reasonabel with closed AG - will stop innsulin gtt , start PO intake , and resime DM meds if can tolerate po intake 2. Acute kidney injury - improving , will cont hydration , follow 3. Met/amphet ++ - monotor for withdrawal - AAO x4 , but refusing any blood work Lines : , (Central Line Necessity Reviewed) Gomez: OG: Nutrition: Analgesia: Anxiety/ delirium VTE Prophylaxis: hep Stress Ulcer Prophylaxis: Plans in collaboration with bedside consultants and IM MDs. Discussed with RN to reach out if any questions or concerns Case and care daily discussed on multidisciplinary rounds ( RN, PharmD, Retail Business Development Manager , Respiratory Therapy, reforestation worker ) A total of 20 minutes of critical care time was devoted to this patient today, required to treat and/or prevent further deterioration of critical care condition ( as above ) . I am remotely monitoring this patient from another state. I am unable to do the bedside exam, and history/physical and pertinent information is taken from other notes in the computer and bedside staff. Sepsis Event Evaluation Height, Weight, BMI Height: 6'1.00" Weight: 168lbs. 9.0oz. 76.386399vn; 24.10 BMI Method:Estimated Exam Exam Patient acknowledged, consented, and participated in this virtual visit which was conducted using real time audio/video Vital Signs Date Time Temp Pulse Resp B/P (MAP) Pulse Ox O2 Delivery O2 Flow Rate FiO2 08/09/22 08:34 96 Room Air 0.00 08/09/22 08:00 82 24 116/71 (86) 98 Room Air 08/09/22 07:28 36.4 08/09/22 07:28 81 08/09/22 07:00 84 20 132/60 (84) 98 Room Air 08/09/22 06:00 82 15 121/75 (90) 97 Room Air 08/09/22 05:00 81 15 116/73 (87) 95 Room Air 08/09/22 04:00 83 122/77 (90) 96 Room Air 08/09/22 04:00 97 Room Air 08/09/22 04:00 36.8 08/09/22 03:00 86 15 108/65 (75) 96 Room Air 08/09/22 02:00 91 12 118/70 (86) 97 Room Air 08/09/22 01:00 90 16 126/82 (93) 96 Room Air 08/09/22 01:00 90 08/09/22 00:00 93 12 134/74 (91) 98 Room Air 08/08/22 23:42 98 Room Air 08/08/22 23:00 93 13 131/82 (97) 97 Room Air 08/08/22 22:00 96 13 140/87 (101) 97 Room Air 08/08/22 21:00 95 12 138/79 (102) 96 Room Air 08/08/22 20:00 96 11 124/61 (83) 96 Room Air 08/08/22 20:00 36.8 Room Air 08/08/22 19:53 96 Room Air 08/08/22 19:00 93 08/08/22 19:00 93 13 103/44 (65) 98 Room Air 08/08/22 18:00 96 12 113/59 (77) 97 Room Air 08/08/22 17:00 95 18 141/81 (96) 98 Room Air 08/08/22 16:00 98 118/76 (89) 99 Room Air 08/08/22 16:00 97 Room Air 08/08/22 15:00 99 147/79 (93) 97 Room Air 08/08/22 14:00 101 150/86 (109) 99 Room Air 08/08/22 13:25 36.8 103 100 08/08/22 13:00 101 165/90 (114) 99 Room Air 08/08/22 12:58 103 08/08/22 12:00 103 12 145/90 (104) 100 Room Air 08/08/22 12:00 98 Room Air 08/08/22 11:55 36.8 08/08/22 11:22 98 08/08/22 11:00 98 13 148/70 (96) 99 Room Air 08/08/22 10:55 100 Room Air 08/08/22 10:55 36.8 08/08/22 10:48 36.0 101 16 153/85 98 Room Air I & O 08/09/22 07:00 Intake Total 7700 ml Output Total 1450 ml Balance 6250 ml Height & Weight Height: 6'1.00" Weight: 168lbs. 9.0oz. 76.560452oi; 24.10 BMI Method:Estimated General Appearance: No Apparent Distress, Chronically ill HEENT: PERRL/EOMI, Normal ENT Inspection, Pharynx Normal, Moist Mucous Membranes Neck: Full Range of Motion, Normal Inspection, Non Tender Respiratory: Chest Non Tender, Lungs Clear, Normal Breath Sounds, No Accessory Muscle Use, No Respiratory Distress Cardiovascular: Regular Rate, Rhythm, No Edema, No Gallop, No JVD, No Murmur, Normal Peripheral Pulses Capillary Refill: Less Than 3 Seconds Gastrointestinal: normal bowel sounds, non tender, soft Extremity: Normal Capillary Refill, Normal Inspection, Normal Range of Motion, Non Tender, No Calf Tenderness, No Pedal Edema Neurologic/Psychiatric: Alert, No Motor/Sensory Deficits, Depressed Affect, Disoriented Skin: Normal Color, Warm/Dry Lymphatic: No Adenopathy Results Lab Laboratory Tests 08/08/22 08:35 08/08/22 11:20 08/08/22 13:15 08/08/22 19:10 Assessment/Plan Assessment/Plan 1 JOSE ROWE MD Aug 09, 2022 08:38
[2022-08-09] MEDS ORDERED: INSU100I14 SQ (10:57)
[2022-08-09] MEDS ORDERED: INSU100I10 SQ (10:57)
--- NOTE | 2022-08-09 13:33 | Physical Therapy Progress Note ---
Therapy Progress Note Patient adamantly refused PT at this time. RN aware. Will attempt tomorrow a.m. 1 ref CALLI SALAZAR PT Aug 09, 2022 13:33
[2022-08-09] MEDS: inSUlin ASPART (NovoLOG) 1 UNIT/0.01 ML (CHARGE PER UNIT) SC SCH ×5 (14:48→20:50)
[2022-08-09 15:18] VITALS: BP 128/73
[2022-08-09 19:39] VITALS: BP 133/81
[2022-08-09 23:50] VITALS: BP 131/67
[2022-08-10 04:28] VITALS: BP 120/57
[2022-08-10] MEDS: inSUlin ASPART (NovoLOG) 1 UNIT/0.01 ML (CHARGE PER UNIT) SC SCH ×4 (06:07→11:28)
[2022-08-10 07:11] VITALS: BP 136/77
[2022-08-10] MEDS: SENNOSIDES 8.6 MG (SENOKOT) TAB PO SCH (08:39)
[2022-08-10] MEDS: DOCUSATE SODIUM 100 MG (COLACE) CAP PO SCH (08:39)
[2022-08-10] MEDS: PANTOPRAZOLE 40 MG (PROTONIX) VIAL IV SCH (08:39)
[2022-08-10] MEDS ORDERED: INSU100I10 SQ ×2 (10:14→11:26)
[2022-08-10] MEDS ORDERED: PEN-53 MC ×2 (10:14→11:26)
[2022-08-10] MEDS ORDERED: INSU100I14 SQ ×2 (10:14→11:26)
[2022-08-10] MEDS ORDERED: BLOO-625 MC ×2 (10:18→11:26)
--- NOTE | 2022-08-10 10:19 | Discharge Summary ---
Diagnosis/Chief Complaint Date of Admission Aug 08, 2022 at 10:47 Date of Discharge Discharge Date: Aug 10, 2022 Discharge Diagnosis DKA JOEL Meth use Non-compliance Discharge Summary Discharge Physical Examination Allergies: Coded Allergies: Penicillins (Verified Allergy, Unknown, 09/20/18) tramadol (Verified Allergy, Unknown, 08/08/22) Vitals & I&Os Vital Signs Date Time Temp Pulse Resp B/P (MAP) Pulse Ox O2 Delivery O2 Flow Rate FiO2 08/10/22 11:55 36.7 85 18 157/81 97 Room Air 08/09/22 08:34 0.00 General Appearance: Alert, Oriented X3, Cooperative Respiratory: Clear to Auscultation Cardiovascular: Regular Rate Psych/Mental Status: Mental Status NL Hospital Course Was the Problem List Reviewed?: Yes Uneventful course after he was admitted for DKA which is frequent and recurrent and meth use with JOEL. Insulin drip resolved the acidosis. Refused repeat labs after DKA resolved and he was DC. Labs (last 24 hrs) Laboratory Tests 08/08/22 08:28: Blood Gas Puncture Site RT RAD, Blood Gas Patient Temperature 35.0, Arterial Blood pH 7.21*L, Arterial Blood Partial Pressure CO2 22L, Arterial Blood Partial Pressure O2 104H, Arterial Blood HCO3 9*L, Arterial Blood Total CO2 9.6*L, Arterial Blood Oxygen Saturation 98, Arterial Blood Base Excess -18.0L, Waqar Test YES-POS, Blood Gas Ventilator Setting NO, Blood Gas Inspired Oxygen ROOM AIR 08/08/22 08:35: White Blood Count 11.5H, Red Blood Count 6.16H, Hemoglobin 16.7, Hematocrit 51, Mean Corpuscular Volume 83, Mean Corpuscular Hemoglobin 27, Mean Corpuscular Hemoglobin Concent 33, Red Cell Distribution Width 15.7H, Platelet Count 277, Mean Platelet Volume 11.2, Immature Granulocyte % (Auto) 0, Neutrophils (%) (Auto) 87H, Lymphocytes (%) (Auto) 9L, Monocytes (%) (Auto) 3, Eosinophils (%) (Auto) 0, Basophils (%) (Auto) 0, Neutrophils # (Auto) 10.0H, Lymphocytes # (Auto) 1.0, Monocytes # (Auto) 0.4, Eosinophils # (Auto) 0.0, Basophils # (Auto) 0.0, Immature Granulocyte # (Auto) 0.0, Neutrophils % (Manual) 84, Lymphocytes % (Manual) 12, Monocytes % (Manual) 4, Eosinophils % (Manual) 0, Basophils % (Manual) 0, Band Neutrophils 0, Blood Morphology Comment NORMAL, Sodium Level 132L, Potassium Level 5.3H, Chloride Level 89L, Carbon Dioxide Level 8*L, Anion Gap 35H, Blood Urea Nitrogen 30H, Creatinine 2.55H, Estimat Glomerular Filtration Rate 29, BUN/Creatinine Ratio 12, Glucose Level 743*H, Calcium Level 10.0, Corrected Calcium , Phosphorus Level 6.1H, Magnesium Level 2.7H, Total Bilirubin 0.8, Aspartate Amino Transf (AST/SGOT) 24, Alanine Aminotransferase (ALT/SGPT) 89H, Alkaline Phosphatase 262H, Total Protein 8.8H, Albumin 4.6H 08/08/22 09:45: Glucometer 569*H 08/08/22 10:03: Urine Color YELLOW, Urine Clarity CLEAR, Urine pH 6.0, Urine Specific [place] 1.025H, Urine Protein TRACEH, Urine Glucose (UA) 3+H, Urine Ketones 3+H, Urine Nitrite NEGATIVE, Urine Bilirubin NEGATIVE, Urine Urobilinogen 0.2, Urine Leukocyte Esterase NEGATIVE, Urine RBC (Auto) NEGATIVE, Urine RBC NONE, Urine WBC 0-2, Urine Squamous Epithelial Cells NONE, Urine Crystals NONE, Urine Bacteria NEGATIVE, Urine Casts NONE, Urine Mucus NEGATIVE, Urine Yeast LARGEH, Urine Culture Indicated YES, Urine Opiates Screen NEGATIVE, Urine Oxycodone Screen NEGATIVE, Urine Methadone Screen NEGATIVE, Urine Propoxyphene Screen NEGATIVE, Urine Barbiturates Screen NEGATIVE, Ur Tricyclic Antidepressants Screen NEGATIVE, Urine Phencyclidine Screen NEGATIVE, Urine Amphetamines Screen POSITIVEH, Urine Methamphetamines Screen POSITIVEH, Urine Benzodiazepines Screen NEGATIVE, Urine Cocaine Screen NEGATIVE, Urine Cannabinoids Screen NEGATIVE 08/08/22 10:59: Glucometer 447*H 08/08/22 11:20: Sodium Level 137, Potassium Level 4.3, Chloride Level 100, Carbon Dioxide Level 10L, Anion Gap 27H, Blood Urea Nitrogen 27H, Creatinine 1.86H, Estimat Glomerular Filtration Rate 42, BUN/Creatinine Ratio 15, Glucose Level 518*H, Calcium Level 8.7, Beta-Hydroxybutyrate (Chem panel) 10.92H 08/08/22 11:53: Glucometer 419*H 08/08/22 13:02: Glucometer 375H 08/08/22 13:15: Sodium Level 138, Potassium Level 4.2, Chloride Level 103, Carbon Dioxide Level 11L, Anion Gap 24H, Blood Urea Nitrogen 25H, Creatinine 1.68H, Estimat Glomerular Filtration Rate 48, BUN/Creatinine Ratio 15, Glucose Level 396H, Calcium Level 8.3L 08/08/22 13:59: Glucometer 283H 08/08/22 15:04: Glucometer 240H 08/08/22 16:02: Glucometer 268H 08/08/22 17:00: Glucometer 232H 08/08/22 18:10: Glucometer 181H 08/08/22 19:06: Glucometer 249H 08/08/22 19:10: Sodium Level 138, Potassium Level 4.5, Chloride Level 106, Carbon Dioxide Level 20L, Anion Gap 12, Blood Urea Nitrogen 20H, Creatinine 1.60H, Estimat Glomerular Filtration Rate 51, BUN/Creatinine Ratio 13, Glucose Level 214H, Calcium Level 8.2L 08/08/22 21:02: Glucometer 243H 08/08/22 21:58: Glucometer 307H 08/08/22 22:52: Glucometer 232H 08/09/22 00:00: Glucometer 129H 08/09/22 00:48: Glucometer 190H 08/09/22 02:00: Glucometer 118H 08/09/22 03:03: Glucometer 138H 08/09/22 04:01: Glucometer 128H 08/09/22 05:01: Glucometer 142H 08/09/22 06:00: Glucometer 119H 08/09/22 06:51: Glucometer 124H 08/09/22 07:58: Glucometer 98 08/09/22 08:59: Glucometer 117H 08/09/22 11:31: Glucometer 202H 08/09/22 15:18: Glucometer 223H 08/09/22 20:10: Glucometer 140H 08/10/22 05:11: Glucometer 386H Microbiology 08/08/22 MRSA Screen - Final, Complete MRSA not isolated 08/08/22 Urine Culture - Final, Complete Strep, Beta Hemolytic Group B YEAST Pending Labs Microbiology Date/Time Source Procedure Growth Status 08/08/22 11:00 Nasal MRSA Screen - Final MRSA not isolated Complete 08/08/22 10:03 Urine Clean Catch Urine Culture - Final Strep, Beta Hemolytic Group B YEAST Complete Laboratory Tests 08/08/22 08:28: Blood Gas Puncture Site RT RAD, Blood Gas Patient Temperature 35.0, Arterial Blood pH 7.21, Arterial Blood Partial Pressure CO2 22, Arterial Blood Partial Pressure O2 104, Arterial Blood HCO3 9, Arterial Blood Total CO2 9.6, Arterial Blood Oxygen Saturation 98, Arterial Blood Base Excess -18.0, Waqar Test YES- POS, Blood Gas Ventilator Setting NO, Blood Gas Inspired Oxygen ROOM AIR 08/08/22 08:35: White Blood Count 11.5, Red Blood Count 6.16, Hemoglobin 16.7, Hematocrit 51, Mean Corpuscular Volume 83, Mean Corpuscular Hemoglobin 27, Mean Corpuscular Hemoglobin Concent 33, Red Cell Distribution Width 15.7, Platelet Count 277, Mean Platelet Volume 11.2, Immature Granulocyte % (Auto) 0, Neutrophils (%) (Auto) 87, Lymphocytes (%) (Auto) 9, Monocytes (%) (Auto) 3, Eosinophils (%) (Auto) 0, Basophils (%) (Auto) 0, Neutrophils # (Auto) 10.0, Lymphocytes # (Auto) 1.0, Monocytes # (Auto) 0.4, Eosinophils # (Auto) 0.0, Basophils # (Auto) 0.0, Immature Granulocyte # (Auto) 0.0, Neutrophils % (Manual) 84, Lymphocytes % (Manual) 12, Monocytes % (Manual) 4, Eosinophils % (Manual) 0, Basophils % (Manual) 0, Band Neutrophils 0, Blood Morphology Comment NORMAL, Sodium Level 132, Potassium Level 5.3, Chloride Level 89, Carbon Dioxide Level 8, Anion Gap 35, Blood Urea Nitrogen 30, Creatinine 2.55, Estimat Glomerular Filtration Rate 29, BUN/Creatinine Ratio 12, Glucose Level 743, Calcium Level 10.0, Corrected Calcium , Phosphorus Level 6.1, Magnesium Level 2.7, Total Bilirubin 0.8, Aspartate Amino Transf (AST/SGOT) 24, Alanine Aminotransferase (ALT/SGPT) 89, Alkaline Phosphatase 262, Total Protein 8.8, Albumin 4.6 08/08/22 09:45: Glucometer 569 08/08/22 10:03: Urine Color YELLOW, Urine Clarity CLEAR, Urine pH 6.0, Urine Specific [place] 1.025, Urine Protein TRACE, Urine Glucose (UA) 3+, Urine Ketones 3+, Urine Nitrite NEGATIVE, Urine Bilirubin NEGATIVE, Urine Urobilinogen 0.2, Urine Leukocyte Esterase NEGATIVE, Urine RBC (Auto) NEGATIVE, Urine RBC NONE, Urine WBC 0-2, Urine Squamous Epithelial Cells NONE, Urine Crystals NONE, Urine Bacteria NEGATIVE, Urine Casts NONE, Urine Mucus NEGATIVE, Urine Yeast LARGE, Urine Culture Indicated YES, Urine Opiates Screen NEGATIVE, Urine Oxycodone Screen NEGATIVE, Urine Methadone Screen NEGATIVE, Urine Propoxyphene Screen NEGATIVE, Urine Barbiturates Screen NEGATIVE, Ur Tricyclic Antidepressants Screen NEGATIVE, Urine Phencyclidine Screen NEGATIVE, Urine Amphetamines Screen POSITIVE, Urine Methamphetamines Screen POSITIVE, Urine Benzodiazepines Screen NEGATIVE, Urine Cocaine Screen NEGATIVE, Urine Cannabinoids Screen NEGATIVE 08/08/22 10:59: Glucometer 447 08/08/22 11:20: Sodium Level 137, Potassium Level 4.3, Chloride Level 100, Carbon Dioxide Level 10, Anion Gap 27, Blood Urea Nitrogen 27, Creatinine 1.86, Estimat Glomerular Filtration Rate 42, BUN/Creatinine Ratio 15, Glucose Level 518, Calcium Level 8.7, Beta-Hydroxybutyrate (Chem panel) 10.92 08/08/22 11:53: Glucometer 419 08/08/22 13:02: Glucometer 375 08/08/22 13:15: Sodium Level 138, Potassium Level 4.2, Chloride Level 103, Carbon Dioxide Level 11, Anion Gap 24, Blood Urea Nitrogen 25, Creatinine 1.68, Estimat Glomerular Filtration Rate 48, BUN/Creatinine Ratio 15, Glucose Level 396, Calcium Level 8.3 08/08/22 13:59: Glucometer 283 08/08/22 15:04: Glucometer 240 08/08/22 16:02: Glucometer 268 08/08/22 17:00: Glucometer 232 08/08/22 18:10: Glucometer 181 08/08/22 19:06: Glucometer 249 08/08/22 19:10: Sodium Level 138, Potassium Level 4.5, Chloride Level 106, Carbon Dioxide Level 20, Anion Gap 12, Blood Urea Nitrogen 20, Creatinine 1.60, Estimat Glomerular Filtration Rate 51, BUN/Creatinine Ratio 13, Glucose Level 214, Calcium Level 8.2 08/08/22 21:02: Glucometer 243 08/08/22 21:58: Glucometer 307 08/08/22 22:52: Glucometer 232 08/09/22 00:00: Glucometer 129 08/09/22 00:48: Glucometer 190 08/09/22 02:00: Glucometer 118 08/09/22 03:03: Glucometer 138 08/09/22 04:01: Glucometer 128 08/09/22 05:01: Glucometer 142 08/09/22 06:00: Glucometer 119 08/09/22 06:51: Glucometer 124 08/09/22 07:58: Glucometer 98 08/09/22 08:59: Glucometer 117 08/09/22 11:31: Glucometer 202 08/09/22 15:18: Glucometer 223 08/09/22 20:10: Glucometer 140 08/10/22 05:11: Glucometer 386 Discharge Home Medications: Active Scripts Active Advocate Blood Glucose Monitor (Blood-Glucose Meter) 1 Each Each Each ACHS dm Advocate Pen Needle (Pen Needle, Diabetic) 33 Gauge X 5/32" Dis.needle Each [facility] Lantus Solostar (Insulin Glargine,Hum.rec.anlog) 100 Unit/Ml (3 Ml) Insuln.pen 35 Unit SQ HS Novolog Flexpen (Insulin Aspart) 100 Unit/Ml (3 Ml) Solution 10 Units SQ AC Instructions to patient/family Please see electronic discharge instructions given to patient. GORDON CROWLEY DO Aug 10, 2022 10:19
--- NOTE | 2022-08-10 11:22 | Physical Therapy Progress Note ---
Therapy Progress Note Patient up independently per RN and will dismiss to home on this date. No PT indicated. CALLI SALAZAR PT Aug 10, 2022 11:22
[2022-08-10 11:30] VITALS: BP 157/81
[2022-08-10 11:55] VITALS: BP 157/81
== END 2022-08-10 11:55 | disposition home or self-care (01) | DRG 638 ==
LOC: EDUNIT# 08:11 → ER 08:12 → ICU 10:47 → 4TH 08-09 11:13
PROVIDERS: ADMIT Internal Medicine; ATTEND Internal Medicine
DX: E11.10 Type 2 diabetes mellitus with ketoacidosis without coma (principal); N17.9 Acute kidney failure, unspecified; F15.90 Other stimulant use, unspecified, uncomplicated; Z91.199 Patient's noncompliance with other medical treatment and regimen due to unspecified reason; F17.210 Nicotine dependence, cigarettes, uncomplicated; Z89.421 Acquired absence of other right toe(s); F32.A Depression, unspecified; E78.00 Pure hypercholesterolemia, unspecified; Z79.4 Long term (current) use of insulin; Z79.899 Other long term (current) drug therapy; E11.40 Type 2 diabetes mellitus with diabetic neuropathy, unspecified
CPT/HCPCS: 36415; 80048; 80053; 80306; 81000; 82010; 82805; 82947; 83735; 84100; 85007; 85027; 87081; 87088

== ENCOUNTER 2022-12-04 02:21 | Inpatient (IN) | payer OTHER ==
[~2022-12-04] VITALS: Ht 183 cm; Wt 82.6 kg
[~2022-12-04 02:21] MED LIST changes: +BLOO-625 MC
--- NOTE | 2022-12-04 03:03 | ED Lower Extremity ---
General Chief Complaint: Lower Extremity Stated Complaint: RT LEG SWOLLEN Nursing Triage Note: Pt stated right lower leg edema comes and goes for the last month or so. Pt poor historian, stated has DI. Pt denies injuries. Source: patient (VERY LIMITED HISTORIAN AND IS DROWSY, KEEPS EYES CLOSED AND DOESN'T WANT TO ANSWER QUESTIONS. REPEATEDLY WANTING WATER. ) History of Present Illness Date Seen by Provider: Dec 04, 2022 Time Seen by Provider: 02:48 Initial Comments PT WALKS IN ON OWN. C/O RIGHT LEG SWELLING FOR OVER A MONTH. LEFT LEG ALSO SWOLLEN BUT NOT BAD. HAS BEEN HAVING PAIN IN HIS RIGHT LEG WELL HE HAS NOT TAKEN ANYTHING FOR PAIN AT ANY TIME SYMPTOMS NO DIFFERENT TONIGHT IN ANY WAY HAS NOT SOUGHT CARE UNTIL TONIGHT PT DENIES FEVER / SWEATS / CHILLS STATES HE HAS BEEN HAVING SOME CHEST DISCOMFORT AND SHORTNESS OF BREATH FOR THE LAST COUPLE OF DAYS NO COUGH NO NAUSEA/VOMITING HE HAS SOME SCABBED ABRASIONS TO BOTH LOWER LEGS, BUT STATES THEY ARE RECENT AND HIS LEGS WERE ALREADY SWOLLEN BEFORE HE GOT THOSE ABRASIONS. THEY ARE NOT RED OR HAVE ANY DRAINAGE AND NOT PAINFUL. LAST TETANUS IS UNKNOWN. PT IS NOT ON ASPIRIN OR BLOOD THINNERS DENIES HISTORY OF BLOOD CLOTS PT IS INSULIN DEPENDENT DIABETIC ON LANTUS AND NOVOLOG STATES HIS BLOOD SUGAR WAS IN THE 200'S EARLIER TONIGHT, BUT STATES IT HAS BEEN RUNNING "HIGH" ( > 600 ) OFF AND ON FOR THE LAST FEW DAYS PT HAS LONG HISTORY OF EXTREME NON-COMPLIANCE. HE DOES NOT REMEMBER WHEN HE LAST WENT TO [facility] FOR ROUTINE MEDICAL CARE AND MANAGEMENT OF HIS DIABETES HE HAS HAD 14 VISITS HERE SINCE HIS FIRST VISIT IN 2018, AND HAS BEEN ADMITTED MOST OF THOSE VISITS FOR DKA. NEARLY ALL VISITS ARE DIABETES RELATED ISSUES. HE FREQUENTLY LEAVES AMA. HE HAS HAD RIGHT MID FOOT AMPUTATION AT [facility] IN MAY, AND LEFT 4TH AND 5TH TOES AMPUTATED IN SEPTEMBER AT HE DOES HAVE PERIPHERAL NEUROPATHY AND STATES HE DOES NOT HAVE MUCH FEELING IN HIS FEET OR HANDS. PT HAS HISTORY OF HOMELESSNESS HE CONTINUES TO SMOKE, AND HAS EXTENSIVE HISTORY OF METHAMPHETAMINE USE. HE DENIES ALCOHOL USE. PCP: [facility] Allergies and Home Medications Allergies Coded Allergies: Penicillins (Verified Allergy, Unknown, 09/20/18) tramadol (Verified Allergy, Unknown, 08/08/22) Patient Home Medication List Home Medication List Reviewed: Yes Blood-Glucose Meter (Advocate Blood Glucose Monitor) 1 Each Each, EACH ACHS, (DME) Prescribed by: GORDON CROWLEY on 08/10/221125 Insulin Aspart (Novolog Flexpen) 100 Unit/Ml (3 Ml) Solution, 10 UNITS SQ AC Prescribed by: GORDON CROWLEY on 08/10/221125 Insulin Glargine,Hum.rec.anlog (Lantus Solostar) 100 Unit/Ml (3 Ml) Insuln.pen, 35 UNIT SQ HS Prescribed by: GORDON CROWLEY on 08/10/221125 Pen Needle, Diabetic (Advocate Pen Needle) 33 Gauge X 5/32" Dis.needle, EACH ACHS, (DME) Prescribed by: GORDON CROWLEY on 08/10/221125 Review of Systems Constitutional: see HPI (THIRST) Respiratory: see HPI, short of breath Cardiovascular: see HPI, chest pain, edema Gastrointestinal: no symptoms reported; No abdominal pain, No nausea, No vomiting Genitourinary: no symptoms reported Musculoskeletal: see HPI Skin: see HPI Psychiatric/Neurological: See HPI, Pre-Existing Deficit Past Ssxwnfl-Arunbx-Ivjmyq Hx Patient Social History Tobacco Use?: Yes Tobacco type used: Cigars Smoking Status: Current Everyday Smoker Substance use?: Yes Substance type: Methamphetamine Alcohol Use?: No Pt feels they are or have been: No Immunizations Up To Date Tetanus Booster (TDap): Unknown First/Initial COVID19 Vaccinat: 2020 [place] Second COVID19 Vaccination Jeffery: 2020 Browserling Third COVID19 Vaccination Date: 2020 PFITZER Seasonal Allergies Seasonal Allergies: No Past Medical History Surgery/Hospitalization HX: DI Surgeries: Yes Amputation, Orthopedic Respiratory: No Currently Using CPAP: No Currently Using BIPAP: No Cardiac: Yes High Cholesterol, Hypertension Neurological: Yes Neuropathy Genitourinary: No Gastrointestinal: No Musculoskeletal: Yes (MULTIPLE TOE AMPUTATIONS) Amputee Endocrine: Yes (DKA; NON-COMPLIANCE) Diabetes, Insulin dep HEENT: No Cancer: No Psychosocial: Yes (SUBSTANCE ABUSE) Depression Integumentary: Yes (CHRONIC DIABETIC FOOT ULCERS) Blood Disorders: No Adverse Reaction/Blood Tranf: No Family Medical History Patient reports no known family medical history. No Pertinent Family Hx SOCIAL HISTORY: -PT SMOKES, UNKNOWN AMOUNT -DRUGS--EXTENSIVE METHAMPHETAMINE USE -HAS DENIED ALCOHOL USE PT HAS HISTORY OF HOMELESSNESS PAST SURGICAL HISTORY: -RIGHT GREAT TOE AMPUTATION AT [facility] 03/16/22; LATER MID FOOT AMPUTATION-PT STATES AT [facility] IN MAY 2022. -PREVIOUS RIGHT 4TH TOE AMPUTATION AND LEFT 5TH TOE AMPUTATION -PERIPHERAL ANGIOGRAM BY DR. AVILES: DATE OF SERVICE: 09/05/2020 PERIPHERAL ANGIOGRAPHY REPORT The patient is a 54-year-old gentleman who recently had amputation of the left fifth toe that was exhibiting ischemia and ulceration. 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 Accordingly, peripheral angiography was carried out and informed consent was obtained for peripheral angiography and possible ad hoc intervention. DESCRIPTION OF PROCEDURE: He was brought to the cardiac catheterization laboratory in a fasting state. Right groin was prepared and draped in the usual sterile fashion. Lidocaine 1% was used for local anesthesia. Modified Seldinger technique was used to advance a 5-Sri Lankan sheath in right femoral artery. A 5-Sri Lankan pigtail catheter was used to carry out abdominal aortic angiography. The pigtail catheter was then pulled back to just above the level of the aortoiliac bifurcation and bilateral leg artery angiography was carried out down to the level of the ankles. Subsequently, we used a 5-Sri Lankan crossover catheter and advanced a Storq wire into the left superficial femoral artery. The crossover catheter was removed and we advanced a straight catheter into the distal part of the left superficial femoral artery and carried out selective angiography of the distal left superficial femoral artery and the trifurcation vessels down to the level of the ankles. The catheter was then removed. Angiography of the right femoral artery was carried out through the sheath. Mynx was used to achieve hemostasis. He tolerated the procedure well. ABDOMINAL AORTIC ANGIOGRAPHY: Abdominal aortic angiography did not indicate any significant abdominal aortic aneurysm or dissection. No abdominal aortic stenosis is seen. The aortoiliac bifurcation is intact and does not exhibit significant disease. BILATERAL LEG ARTERY ANGIOGRAPHY: Bilateral leg artery angiography did not indicate any significant disease of the iliac arteries, common femoral arteries, popliteal arteries, or the distal vessels of the legs. 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 Selective angiography did not indicate any significant disease of the left popliteal artery or of the trifurcation arteries on the left side. CONCLUSIONS: No significant peripheral arterial disease seen on this peripheral angiographic study. Physical Exam Vital Signs Vital Signs - First Documented 12/04/22 12/04/22 02:37 08:08 Temp 39.2 Pulse 112 Resp 16 B/P (MAP) 110/65 (80) Pulse Ox 95 O2 Delivery Nasal Cannula O2 Flow Rate 2.00 Capillary Refill : Height, Weight, BMI Height: 6'1.00" Weight: 168lbs. 9.0oz. 76.163862hi; 23.00 BMI Method:Estimated General Appearance: no apparent distress, thin, other (DROWSY, KEEPS EYES CLOSED. VERY MALODOROUS, DIRTY / UNKEMPT. SHOES AND SOCKS ARE COMPLETELY SATURATED. ) HEENT: other (MOST TEETH MISSING. FEW REMAINING TEETH DECAYED DOWN TO GUMS) Cardiovascular: regular rate, rhythm, no murmur Respiratory: normal breath sounds, no respiratory distress, no accessory muscle use Gastrointestinal: non tender, soft Feet: bilateral foot other (RIGHT LEG WITH 3+ EDEMA, LEFT LEG WITH 1-2+ EDEMA. RIGHT MID FOOT AMPUTATION; LEFT 4TH / 5TH TOES AMPUTATED. HAS 1 1/2 CM SCABBED AREA TO LATERAL ASPECT OF LEFT FOOT. NO OBVIOUS SIGNS OF INFECTION ; HE HAS SCABBED ABRASIONS TO RIGHT PROXIMAL HILL, AND LEFT LOWER HILL. NO SIGNS OF INFECTION TO THESE AREAS. THERE IS A QUARTER SIZED ULCER TO THE LATERAL ASPECT OF RIGHT FOOT STUMP WITH MILD SURROUNDING ERYTHEMA AND EDEMA, THE ULCER IS VERY MOIST--SHOES AND SOCKS WERE COMPLETELY SATURATED. ) Neurologic/Psychiatric: other (DECREASED SENSATION TO FEET. DROWSY BUT NOT CONFUSED, SPEECH IS CLEAR. ) Skin: normal color, warm/dry Progress/Results/Core Measures Results/Orders Lab Results Laboratory Tests Test 12/04/22 03:09 12/04/22 03:14 12/04/22 05:42 12/04/22 05:43 Range/Units Glucometer 390 H 249 H 70-110 MG/DL White Blood Count 7.9 4.3-11.0 10^3/uL Red Blood Count 4.49 4.30-5.52 10^6/uL Hemoglobin 12.4 L 13.3-17.7 g/dL Hematocrit 39 L 40-54 % Mean Corpuscular Volume 86 80-99 fL Mean Corpuscular Hemoglobin 28 25-34 pg Mean Corpuscular Hemoglobin Concent 32 32-36 g/dL Red Cell Distribution Width 15.9 H 10.0-14.5 % Platelet Count 115 L 130-400 10^3/uL Mean Platelet Volume 11.0 9.0-12.2 fL Immature Granulocyte % (Auto) 0 % Neutrophils (%) (Auto) 92 H 42-75 % Lymphocytes (%) (Auto) 4 L 12-44 % Monocytes (%) (Auto) 4 0-12 % Eosinophils (%) (Auto) 0 0-10 % Basophils (%) (Auto) 0 0-10 % Neutrophils # (Auto) 7.2 1.8-7.8 10^3/uL Lymphocytes # (Auto) 0.3 L 1.0-4.0 10^3/uL Monocytes # (Auto) 0.3 0.0-1.0 10^3/uL Eosinophils # (Auto) 0.0 0.0-0.3 10^3/uL Basophils # (Auto) 0.0 0.0-0.1 10^3/uL Immature Granulocyte # (Auto) 0.0 0.0-0.1 10^3/uL Neutrophils % (Manual) 82 % Lymphocytes % (Manual) 4 % Monocytes % (Manual) 5 % Band Neutrophils 9 % Percent Immature Platelet Fraction 5.7 0.0-7.6 % Microcytosis SLIGHT Stomatocytes SLIGHT Erythrocyte Sedimentation Rate 67 H 0-30 MM/HR Prothrombin Time 13.8 12.2-14.7 SEC INR Comment 1.0 0.8-1.4 Activated Partial Thromboplast Time 31 24-35 SEC D-Dimer 0.98 H 0.00-0.49 UG/ML Venous Blood pH 7.39 7.31-7.41 Venous Blood Partial Pressure CO2 48 40-52 MMHG Venous Blood HCO3 29 H 22-28 MMOL/L Sodium Level 129 L 135-145 MMOL/L Potassium Level 4.2 3.6-5.0 MMOL/L Chloride Level 95 L 98-107 MMOL/L Carbon Dioxide Level 25 21-32 MMOL/L Anion Gap 9 5-14 MMOL/L Blood Urea Nitrogen 15 7-18 MG/DL Creatinine 1.33 H 0.60-1.30 MG/DL Estimat Glomerular Filtration Rate 64 BUN/Creatinine Ratio 11 Glucose Level 423 *H 70-105 MG/DL Lactic Acid Level 1.55 0.50-2.00 MMOL/L Calcium Level 8.8 8.5-10.1 MG/DL Corrected Calcium 9.4 8.5-10.1 MG/DL Magnesium Level 1.8 1.6-2.4 MG/DL Total Bilirubin 0.7 0.1-1.0 MG/DL Aspartate Amino Transf (AST/SGOT) 422 H 5-34 U/L Alanine Aminotransferase (ALT/SGPT) 174 H 0-55 U/L Alkaline Phosphatase 326 H 40-136 U/L Total Creatine Kinase 15 L 30-200 U/L Creatine Kinase MB 0.3 <6.6 NG/ML Myoglobin 29.1 10.0-92.0 NG/ML Troponin I < 0.028 <0.028 NG/ML C-Reactive Protein High Sensitivity 16.53 H 0.00-0.50 MG/DL B-Type Natriuretic Peptide 54.1 <100.0 PG/ML Total Protein 6.4 6.4-8.2 GM/DL Albumin 3.2 3.2-4.5 GM/DL Beta-Hydroxybutyrate (Chem panel) 0.46 H 0.00-0.27 MMOL/L TSH [place] Testing 1.38 0.35-4.94 UIU/ML Ammonia 32 11-32 UMOL/L Amylase Level 11 L 25-125 U/L Lipase 5 L 8-78 U/L Serum Alcohol < 10 <10 MG/DL Test 12/04/22 05:52 12/04/22 06:16 Range/Units Prothrombin Time 14.5 12.2-14.7 SEC INR Comment 1.1 0.8-1.4 Activated Partial Thromboplast Time 33 24-35 SEC Lactic Acid Level 2.83 *H 0.50-2.00 MMOL/L My Orders Orders - DEDRICK MERIDA DO Accucheck Stat ONCE (12/04/22 02:54) Ed Iv/Invasive Line Start (12/04/22 02:54) Bnp Anneliese (12/04/22 02:54) Cbc With Automated Diff (12/04/22 02:54) Comprehensive Metabolic Panel (12/04/22 02:54) Creatine Kinase (12/04/22 02:54) Creatine Kinase Mb (12/04/22 02:54) Hs C Reactive Protein (12/04/22 02:54) Fibrin Degradation Products (12/04/22 02:54) Lactic Acid Analyzer (12/04/22 02:54) Magnesium (12/04/22 02:54) Protime With Inr (12/04/22 02:54) Partial Thromboplastin Time (12/04/22 02:54) Thyroid Analyzer (12/04/22 02:54) Erythrocyte Sedimentation Rate (12/04/22 02:54) Myoglobin Serum (12/04/22 02:54) Troponin I Delta (12/04/22 02:54) Beta Hydroxybutyrate (12/04/22 02:54) Hemoglobin A1c (12/04/22 02:54) Venous Blood Gas (12/04/22 02:54) Manual Differential (12/04/22 03:14) Ed Iv/Invasive Line Start (12/04/22 03:53) Ns Iv 1000 Ml (Sodium Chloride 0.9%) (12/04/22 04:00) Ct Angio Chest W (R/O Pe) (12/04/22 04:17) Ed Iv/Invasive Line Start (12/04/22 04:17) Ns Iv 1000 Ml (Sodium Chloride 0.9%) (12/04/22 04:30) Insulin (Regular) Human (Novolin R (Per (12/04/22 04:30) Monitor-Rhythm Ecg Trace Only (12/04/22 04:19) Blood Culture (12/04/22 05:12) Protime With Inr (12/04/22 05:12) Partial Thromboplastin Time (12/04/22 05:12) Chest 1 View, Ap/Pa Only (12/04/22 05:12) Acetaminophen Tablet (Acetaminophen Ta (12/04/22 05:15) Ed Iv/Invasive Line Start (12/04/22 05:12) Vital Signs Adult Sepsis Patie Q15M (12/04/22 05:12) Vancomycin Injection (Vancomycin Injecti (12/04/22 05:15) Lactic Acid Analyzer (12/04/22 05:12) Meropenem (Merrem 500 Mg) (12/04/22 05:15) Alcohol (12/04/22 05:26) Drug Screen Stat (Urine) (12/04/22 05:26) Hepatitis Panel Acute (12/04/22 05:26) Amylase (12/04/22 05:30) Lipase (12/04/22 05:30) Ammonia (12/04/22 05:32) Ekg Tracing (12/04/22 06:33) Catheter(Urinary) Insert & Ass 03,15 (12/04/22 06:33) Lidocaine 2% (Urojet) (Xylocaine Urojet) (12/04/22 06:45) Enoxaparin Injection (Lovenox Injection) (12/04/22 06:45) Us Venous Lower Ext Shakir (12/04/22 06:33) Ed Admission (Communication) (12/04/22 06:36) Ed Iv/Invasive Line Start (12/04/22 06:38) Ns Iv 1000 Ml (Sodium Chloride 0.9%) (12/04/22 06:45) Medications Given in ED Current Medications Medications Dose Ordered Sig/Perico Route Start Time Stop Time Status Last Admin Dose Admin Enoxaparin Sodium 80 mg ONCE ONCE SC 12/04/22 06:45 12/04/22 06:46 DC 12/04/22 06:47 80 MG Vital Signs/I&O 12/04/22 12/04/22 12/04/22 02:37 06:06 08:08 Temp 39.2 37.8 Pulse 112 98 86 Resp 16 14 16 B/P (MAP) 110/65 (80) 124/82 (96) 114/71 Pulse Ox 95 94 97 O2 Delivery Nasal Cannula O2 Flow Rate 2.00 Blood Pressure Mean: 80 Progress Progress Note : Progress Note VITALS ON ADMIT: TEMP 39.2. HR 112, RR 16, BP 110/65 ACCUCHECK 390 GIVEN: -IV FLUIDS -INSULIN -ANTIBIOTICS -TYLENOL AND MOTRIN SEPSIS PROTOCOL INITIATED ALSO WORK UP FOR DKA WELL DVT/PE PERTINENT LABS: -CBC WITH WBC 7.9, HGB 12.4, PLT 115,000 -SED RATE 67, CRP 16.53 -CMP WITH NA 129, K 4.2, CL 95, CO2 25, ANION GAP 9, BUN 15, CR 1.33, GLU 423, BILI 0.7, AST 422, ALT 174, ALK PHOS 326 -TROPONIN AND BNP NORMAL -TSH 1.38 -LACTIC ACID 1.55 -BETA-HYDROXYBUTYRATE 0.46 -PT 13.8/PTT 31/INR 1.0 -D-DIMER 0.98 -VENOUS BLOOD GAS: PH 7.39, PCO2 48, HCO3 29 -AMMONIA 32 FOCUS EXAM AT 0510: EXAM UNCHANGED. GIVEN THE ABOVE MEDICATIONS. PT REFUSES TETANUS SHOT. PT SLEPT THROUGHOUT ENTIRE ER STAY. PT EASILY AWAKENS BUT IS LETHARGIC. PT REFUSES TO ATTEMPT TO GIVE URINE SPECIMEN AND ADAMANTLY REFUSES CATHETER. VITALS ARE STABLE--VITALS AT TIME OF ADMIT: TEMP 37,8, HR 98, RR 14, BP 124/82, O2 SAT 94% ON ROOM AIR CT CHEST ANGIOGRAM RESULTS ARE PENDING AT TIME OF ADMIT, BUT WILL TREAT WITH LOVONEX AND DR. CROWLEY WILL FOLLOW UP WITH CT RESULTS, AND ULTRASOUND/ VENOUS DOPPLER OF BOTH LEGS HAS BEEN ORDERED, BUT WILL NOT BE ABLE TO GET DONE UNTIL LATER TODAY COMPLEX MANAGEMENT DUE TO MULTIPLE ISSUES, INCLUDING: HYPEROSMOLAR NON-KETOSIS / UNCONTROLLED DM, SEPSIS, POSSIBLE DVT / P.E. WELL NON-COMPLIANCE AND SUBSTANCE ABUSE Initial ECG Impression Date: Dec 04, 2022 Initial ECG Impression Time: 07:07 Initial ECG Rate: 92 Initial ECG Rhythm: Normal Sinus Initial ECG Intervals: Normal Initial ECG Impression: Normal Initial ECG Comparisson: Unchanged Comment INTERPRETED BY ME Diagnostic Imaging Comments CXR--BIBASILAR ATELECTASIS / INFILTRATES, PENDING RADIOLOGIST REVIEW CT CHEST ANGIOGRAM-- Reviewed: Reviewed by Me Departure Communication (Admissions) 0630--SPOKE WITH DR. CROWLEY, HOSPITALIST FOR [facility]. ACCEPTS PT FOR ADMIT. SHE WILL DO ADMIT ORDERS. CT CHEST IS PENDING AT THIS TIME Impression Primary Impression: Sepsis Additional Impressions: Hyperosmolar non-ketotic state due to type 2 diabetes mellitus Diabetic foot ulcers Non-compliance History of methamphetamine use Leg edema Elevated liver enzymes Disposition: ADMITTED INPATIENT Condition: Stable Admissions Decision to Admit Reason: Admit from ER (General) Decision to Admit/Date: Dec 04, 2022 Time/Decision to Admit Time: 06:30 Departure-Patient Inst. Referrals: [facility] (PCP/Family) Primary Care Physician DEDRICK MERIDA DO Dec 04, 2022 03:03
[2022-12-04 03:31] LABS: BASOPHILS % (AUTO) 0 % (0-10); EOSINOPHILS % (AUTO) 0 % (0-10)
[2022-12-04 03:33] LABS: HEMATOCRIT 39 % (40-54); HEMOGLOBIN 12.4 g/dL (13.3-17.7); LYMPHOCYTES # (AUTO) 0.3 10^3/uL (1.0-4.0); LYMPHOCYTES % (AUTO) 4 % (12-44); MEAN CORPUSCULAR HEMOGLOBIN 28 pg (25-34); MEAN CORPUSCULAR HGB CONC 32 g/dL (32-36); MEAN CORPUSCULAR VOLUME 86 fL (80-99); MONOCYTES # (AUTO) 0.3 10^3/uL (0.0-1.0); MONOCYTES % (AUTO) 4 % (0-12); NEUTROPHILS # (AUTO) 7.2 10^3/uL (1.8-7.8); NEUTROPHILS % (AUTO) 92 % (42-75); PLATELET COUNT 115 10^3/uL (130-400); WHITE BLOOD COUNT 7.9 10^3/uL (4.3-11.0)
[2022-12-04 03:44] LABS: PROTHROMBIN TIME PATIENT 13.8 SEC (12.2-14.7)
[2022-12-04 03:47] LABS: ALBUMIN 3.2 GM/DL (3.2-4.5); CHLORIDE 95 MMOL/L (98-107); FIBRIN DEGRADATION PRODUCTS 0.98 UG/ML (0.00-0.49); POTASSIUM 4.2 MMOL/L (3.6-5.0); SODIUM 129 MMOL/L (135-145)
[2022-12-04 03:48] LABS: CALCIUM 8.8 MG/DL (8.5-10.1)
[2022-12-04 03:49] LABS: TOTAL PROTEIN 6.4 GM/DL (6.4-8.2)
[2022-12-04 03:50] LABS: CARBON DIOXIDE 25 MMOL/L (21-32)
[2022-12-04 03:51] LABS: BILIRUBIN,TOTAL 0.7 MG/DL (0.1-1.0)
[2022-12-04 03:53] LABS: ALKALINE PHOSPHATASE 326 U/L (40-136); CREATININE SERUM 1.33 MG/DL (0.60-1.30); GFR ESTIMATED 64
[2022-12-04 03:54] LABS: BUN/CREATININE RATIO 11
[2022-12-04 03:56] LABS: ALANINE AMINOTRANSFERASE 174 U/L (0-55); MAGNESIUM 1.8 MG/DL (1.6-2.4)
[2022-12-04 03:57] LABS: CREATINE KINASE 15 U/L (30-200)
[2022-12-04] MEDS ORDERED: NS IV 1000 ML 1,000 ML IV SCH ×4 (04:00→08:30)
[2022-12-04 04:04] LABS: CREATINE KINASE MB 0.3 NG/ML (<6.6)
[2022-12-04 04:13] LABS: BAND NEUTROPHILS 9 %; LYMPHOCYTES % (MANUAL) 4 %; MICROCYTOSIS SLIGHT; MONOCYTES % (MANUAL) 5 %; NEUTROPHILS % (MANUAL) 82 %; STOMATOCYTES SLIGHT
[2022-12-04 04:15] LABS: GLUCOSE 423 MG/DL (70-105)
[2022-12-04 04:16] LABS: TSH (THYROID ANALYZER) 1.38 UIU/ML (0.35-4.94)
[2022-12-04] MEDS ORDERED: inSUlin (REGULAR) HUMAN 1 UNIT/0.01 ML (CHARGE PER UNIT) IV ONE (04:30)
[2022-12-04 04:31] LABS: ERYTHROCYTE SEDIMENTATION RATE 67 MM/HR (0-30)
[2022-12-04] MEDS ORDERED: MEROPENEM 500 MG in NS (IVPB) 100 ML 100 ML IV ONE (05:15)
[2022-12-04] MEDS ORDERED: ACETAMINOPHEN 500 MG TABLET PO PRN (05:15)
[2022-12-04 06:01] LABS: AMYLASE 11 U/L (25-125)
[2022-12-04 06:02] LABS: AMMONIA 32 UMOL/L (11-32)
[2022-12-04] MEDS: VANCOMYCIN INJECTION 750 MG in NS (IVPB) 250 ML 250 ML IV SCH ×2 (06:05→07:18)
[2022-12-04 06:10] LABS: LIPASE 5 U/L (8-78)
[2022-12-04 06:32] LABS: INR 1.1 (0.8-1.4); PROTHROMBIN TIME PATIENT 14.5 SEC (12.2-14.7)
--- NOTE | 2022-12-04 06:40 | Diagnostic Imaging Report ---
EXAMINATION: Chest 1 view HISTORY: FEVER COMPARISON: None available. FINDINGS: Heart size and pulmonary vasculature are normal. There are mild interstitial opacities within the lung bases. No pleural effusion or pneumothorax. Degenerative changes of the thoracic spine. Osseous structures are otherwise intact. IMPRESSION: 1. Mild bibasilar interstitial opacities which may represent atelectasis although edema or pneumonia could have a similar appearance in the appropriate clinical setting. 2. Agree with preliminary interpretation. Dictated by: Dictated on workstation # [id number]
--- NOTE | 2022-12-04 06:41 | History & Physical-Hospitalist ---
History of Present Illness HPI/Chief Complaint CC: HHNKS with sepsis from foot cellulitis HPI: This is a 56yoWM of [place] well known to me from multiple hospital stays for DKA and meth use who has a h/o right toe amputations due to osteomyelitis. He presents once again with elevated sugar, weakness and right leg pain with erythema of the recent amputation surgical site. His socks were wet and dirty and the wound appears to be cellulitic. IV abx maintained and no evidence of DKA so ivf given and transitioned to SQ insulin and Dr Gary will be consulted and patient will be moved to 4th floor. Source: patient Exam Limitations: clinical condition Date Seen 12/04/22 Time Seen by a Provider: 11:00 Attending Physician [facility] PCP Admitting Physician: Attending Physician: Referring Physician Date of Admission Home Medications & Allergies Home Medications Reviewed patient Home Medication Reconciliation performed by pharmacy medication reconciliations library acquisitions technician and/or nursing. Patients Allergies have been reviewed. Allergies Allergies Coded Allergies Penicillins (Verified Allergy, Unknown, 09/20/18) tramadol (Verified Allergy, Unknown, 08/08/22) Past Gxppuiy-Svwlej-Dosghc Hx Patient Social History Marrital Status: single Employed/Student: employed Tobacco Use?: Yes Tobacco type used: Cigars Smoking Status: Current Everyday Smoker Substance use?: Yes Substance type: Methamphetamine Alcohol Use?: No Pt feels they are or have been: No Immunizations Up To Date Date of Influenza Vaccine: Apr 12, 2022 First/Initial COVID19 Vaccinat: 2020 PFIZER Second COVID19 Vaccination Jeffery: 2020 PFIZER Tetanus Booster (TDap): Unknown Hepatitis A: No Hepatitis B: No Seasonal Allergies Seasonal Allergies: No Current Status Primary Language: Andorran Preferred Spoken Language: Andorran Past Medical History Surgeries: Amputation, Orthopedic Currently Using CPAP: No Currently Using BIPAP: No High Cholesterol, Hypertension Neuropathy Amputee Diabetes, Insulin dep Depression Blood Disorders: No Adverse Reaction/Blood Tranf: No 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 No Pertinent Family Hx SOCIAL HISTORY: -PT SMOKES, UNKNOWN AMOUNT -DRUGS--EXTENSIVE METHAMPHETAMINE USE -HAS DENIED ALCOHOL USE PT HAS HISTORY OF HOMELESSNESS PAST SURGICAL HISTORY: -RIGHT GREAT TOE AMPUTATION AT [facility] 03/16/22; LATER MID FOOT AMPUTATION-PT STATES AT [facility] IN MAY 2022. -PREVIOUS RIGHT 4TH TOE AMPUTATION AND LEFT 5TH TOE AMPUTATION -PERIPHERAL ANGIOGRAM BY DR. AVILES: DATE OF SERVICE: 09/05/2020 PERIPHERAL ANGIOGRAPHY REPORT The patient is a 54-year-old gentleman who recently had amputation of the left fifth toe that was exhibiting ischemia and ulceration. 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 Accordingly, peripheral angiography was carried out and informed consent was obtained for peripheral angiography and possible ad hoc intervention. DESCRIPTION OF PROCEDURE: He was brought to the cardiac catheterization laboratory in a fasting state. Right groin was prepared and draped in the usual sterile fashion. Lidocaine 1% was used for local anesthesia. Modified Seldinger technique was used to advance a 5-Indonesian sheath in right femoral artery. A 5-Indonesian pigtail catheter was used to carry out abdominal aortic angiography. The pigtail catheter was then pulled back to just above the level of the aortoiliac bifurcation and bilateral leg artery angiography was carried out down to the level of the ankles. Subsequently, we used a 5-Indonesian crossover catheter and advanced a Storq wire into the left superficial femoral artery. The crossover catheter was removed and we advanced a straight catheter into the distal part of the left superficial femoral artery and carried out selective angiography of the distal left superficial femoral artery and the trifurcation vessels down to the level of the ankles. The catheter was then removed. Angiography of the right femoral artery was carried out through the sheath. Mynx was used to achieve hemostasis. He tolerated the procedure well. ABDOMINAL AORTIC ANGIOGRAPHY: Abdominal aortic angiography did not indicate any significant abdominal aortic aneurysm or dissection. No abdominal aortic stenosis is seen. The aortoiliac bifurcation is intact and does not exhibit significant disease. BILATERAL LEG ARTERY ANGIOGRAPHY: Bilateral leg artery angiography did not indicate any significant disease of the iliac arteries, common femoral arteries, popliteal arteries, or the distal vessels of the legs. 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 Selective angiography did not indicate any significant disease of the left popliteal artery or of the trifurcation arteries on the left side. CONCLUSIONS: No significant peripheral arterial disease seen on this peripheral angiographic study. Review of Systems Constitutional: see HPI Physical Exam Physical Exam Vital Signs Vital Signs - First Documented 12/04/22 12/04/22 02:37 08:08 Temp 39.2 Pulse 112 Resp 16 B/P (MAP) 110/65 (80) Pulse Ox 95 O2 Delivery Nasal Cannula O2 Flow Rate 2.00 Capillary Refill : Height, Weight, BMI Height: 6'1.00" Weight: 168lbs. 9.0oz. 76.055480dl; 23.00 BMI Method:Estimated General Appearance: No Apparent Distress Respiratory: Lungs Clear Cardiovascular: Regular Rate, Rhythm Neurologic/Psychiatric: Alert, Oriented x3, No Motor/Sensory Deficits, Normal Mood/Affect Results Results/Procedures Labs Laboratory Tests 12/04/22 03:14 12/04/22 09:15 Patient resulted labs reviewed. Assessment/Plan Admission Diagnosis Assessment: HHNKS improved now so maintain IVF and SQ insulin Right foot cellulitis h/o DKA Meth use Plan: Monitor closely Move to 4th SQ insulin Admission Status: Inpatient Order (span 2 midnights) Reason for Inpatient Admission: HHNKS with foot cellulitis GORDON CROWLEY DO Dec 04, 2022 06:41
[2022-12-04] MEDS ORDERED: ENOXAPARIN 80 MG/0.8 ML SYRINGE SC ONE (06:45)
[2022-12-04] MEDS ORDERED: LIDOCAINE UROJET 2% GEL 10 ML PKG TOP ONE ×2 (06:45→09:00)
--- NOTE | 2022-12-04 06:53 | Diagnostic Imaging Report ---
INDICATION: Dyspnea, right leg pain and swelling, elevated D-dimer. COMPARISON: Chest x-ray same day. TECHNIQUE: Contiguous axial images were obtained through the chest during the intravenous administration of contrast. MIP reconstructions were created and evaluated. DISCUSSION: Some atelectasis noted within the dependent lungs. No focal consolidation or pulmonary lesion. No pulmonary embolus identified. Evaluation of the lung bases is mildly limited due to motion. Normal heart size. No pleural or pericardial fluid. No adenopathy. Upper abdomen is unremarkable. No acute osseous abnormality identified. The thoracic aorta is normal in caliber and configuration. IMPRESSION: 1. No pulmonary embolus or other acute abnormality identified within the chest. Dictated by: Dictated on workstation # [id number]
[2022-12-04] MEDS ORDERED: diphenhydrAMINE INJ 50 MG/ML VIAL IVP PRN (08:30)
[2022-12-04] MEDS ORDERED: polyethylene glycoL POWDER 17 GM (MIRALAX) PACK PO PRN (08:30)
[2022-12-04] MEDS ORDERED: NS IV 500 ML 500 ML IV PRN (08:30)
[2022-12-04] MEDS ORDERED: D5 1/2 NS 1,000 ML IV 1,000 ML IV PRN (08:30)
[2022-12-04] MEDS ORDERED: HYDROmorphone 2 MG/ML VIAL (DILAUDID) IV PRN (08:30)
[2022-12-04] MEDS ORDERED: diphenhydrAMINE 25 MG TABLET PO PRN (08:30)
[2022-12-04] MEDS ORDERED: POTASSIUM CL 10MEQ/50ML IVPB 50 ML IV SCH (08:30)
[2022-12-04] MEDS ORDERED: ONDANSETRON 4 MG (ZOFRAN) ORAL DISSOLVE TAB PO PRN (08:30)
[2022-12-04] MEDS ORDERED: D5 1/2 NS 1,000 ML IV 1,000 ML IV SCH (08:30)
[2022-12-04] MEDS ORDERED: DexMEDEtomidine 250 ML DRIP 250 ML IV SCH (08:30)
[2022-12-04] MEDS ORDERED: MILK OF MAGNESIA 400 MG/5 ML 30 ML UDC PO PRN (08:30)
[2022-12-04] MEDS ORDERED: BISACODYL 10 MG SUPPOSITORY PR PRN (08:30)
[2022-12-04] MEDS ORDERED: ANTACID SUSP 30 ML UDC (MYLANTA) PO PRN ×2 (08:30)
[2022-12-04] MEDS ORDERED: VANCOMYCIN INJECTION 0.1 MG in NS (IVPB) 250 ML 250 ML IV SCH (08:30)
[2022-12-04] MEDS ORDERED: LACTULOSE SYRUP 10GM/15ML (ENULOSE) 30ML UDC PO PRN (08:30)
[2022-12-04] MEDS ORDERED: CALCIUM CARBONATE 500 MG CHEW TABLET PO PRN (08:30)
[2022-12-04] MEDS ORDERED: ONDANSETRON 4 MG/2 ML (SDV) Z0FRAN IV PRN ×2 (08:30)
[2022-12-04] MEDS ORDERED: SENNA W/DOCUSATE (SENOKOT S) TABLET PO PRN (08:30)
[2022-12-04] MEDS ORDERED: LORazepam INJ 2 MG/ML (ATIVAN) VIAL IV PRN (08:30)
[2022-12-04] MEDS ORDERED: LORazepam INJ 2 MG/ML (ATIVAN) VIAL IM/IV PRN (08:30)
[2022-12-04] MEDS ORDERED: MELATONIN 3 MG TABLET PO PRN (08:30)
[2022-12-04] MEDS ORDERED: ONDANSETRON 4 MG (ZOFRAN) ORAL DISSOLVE TAB SL PRN (08:30)
[2022-12-04] MEDS ORDERED: 1/2 NS IV SOLUTION 1000 ML 1,000 ML IV PRN (08:30)
[2022-12-04] MEDS ORDERED: 1/2 NS IV SOLUTION 1000 ML 1,000 ML IV SCH (08:30)
--- NOTE | 2022-12-04 09:22 | Tele-ICU Consult ---
History of Present Illness History of Present Illness Date Seen by Provider: Dec 04, 2022 Time Seen by Provider: 09:16 Date of Admission (Tele-ICU Physician , Progress Note ) Service provided via interactive audio and video telecommunications E-CARE system to a patient admitted to ICU bed in [facility]. Patient is seen today due to persistent need of ICU care Available chart/ vitals / labs / Images reviewed Video assessment done using teleICU camera, rest of exam as per RN Discussed with RN Events overnight : 56 M with IDDM, admitted with HHS, Hx of drug use-methamphetamines In ED glu 400, started IV insulin 10 regular in ED, not yet on drip Latest glu at 10am glu 326, HCO 24, no AG, at home takes 35 U Lantus at night, Novolog 10 U PC, urine ketones are negative Pt is lethargic, was able to eat breakfast, Pt has PVD had left 4,5th toes amputated, right mid foot amputation PMH HLD, HTN-now BP 90/60, now 114/70 Frequent visits for uncontrolled DM, has peripheral neuropathy Pt has Hx of homelessness Allergies and Home Medications Allergies Coded Allergies: Penicillins (Verified Allergy, Unknown, 09/20/18) tramadol (Verified Allergy, Unknown, 08/08/22) Home Medications Insulin Aspart 100 Unit/Ml (3 Ml) Solution, 10 UNITS SQ AC Prescribed by: GORDON CROWLEY on 08/10/221125 Insulin Glargine,Hum.rec.anlog 100 Unit/Ml (3 Ml) Insuln.pen, 35 UNIT SQ HS Prescribed by: GORDON CROWLEY on 08/10/221125 Past Medical/Social/Family Hx Patient Social History Tobacco Use?: Yes Tobacco type used: Cigars Smoking Status: Current Everyday Smoker Substance use?: Yes Substance type: Methamphetamine Alcohol Use?: No Pt stated abuse/neglect: No Immunizations Up To Date First/Initial COVID19 Vaccinat: 2020 PFIZER Second COVID19 Vaccination Jeffery: 2020 PFIZER Tetanus Booster (TDap): Unknown Hepatitis A: No Hepatitis B: No TB Skin Test: None Current Status Primary Language: Cymro Preferred Spoken Language: Cymro Past Medical History DM2 - insulin dependent 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 -PREVIOUS RIGHT 4TH TOE AMPUTATION AND LEFT 5TH TOE AMPUTATION -PERIPHERAL ANGIOGRAM BY DR. AVILES: DATE OF SERVICE: 09/05/2020 PERIPHERAL ANGIOGRAPHY REPORT The patient is a 54-year-old gentleman who recently had amputation of the left fifth toe that was exhibiting ischemia and ulceration. 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 Accordingly, peripheral angiography was carried out and informed consent was obtained for peripheral angiography and possible ad hoc intervention. DESCRIPTION OF PROCEDURE: He was brought to the cardiac catheterization laboratory in a fasting state. Right groin was prepared and draped in the usual sterile fashion. Lidocaine 1% was used for local anesthesia. Modified Seldinger technique was used to advance a 5-Qatari sheath in right femoral artery. A 5-Qatari pigtail catheter was used to carry out abdominal aortic angiography. The pigtail catheter was then pulled back to just above the level of the aortoiliac bifurcation and bilateral leg artery angiography was carried out down to the level of the ankles. Subsequently, we used a 5-Qatari crossover catheter and advanced a Storq wire into the left superficial femoral artery. The crossover catheter was removed and we advanced a straight catheter into the distal part of the left superficial femoral artery and carried out selective angiography of the distal left superficial femoral artery and the trifurcation vessels down to the level of the ankles. The catheter was then removed. Angiography of the right femoral artery was carried out through the sheath. Mynx was used to achieve hemostasis. He tolerated the procedure well. ABDOMINAL AORTIC ANGIOGRAPHY: Abdominal aortic angiography did not indicate any significant abdominal aortic aneurysm or dissection. No abdominal aortic stenosis is seen. The aortoiliac bifurcation is intact and does not exhibit significant disease. BILATERAL LEG ARTERY ANGIOGRAPHY: Bilateral leg artery angiography did not indicate any significant disease of the iliac arteries, common femoral arteries, popliteal arteries, or the distal vessels of the legs. 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 Selective angiography did not indicate any significant disease of the left popliteal artery or of the trifurcation arteries on the left side. CONCLUSIONS: No significant peripheral arterial disease seen on this peripheral angiographic study. Review of Systems Constitutional: see HPI EENTM: see HPI Respiratory: see HPI Cardiovascular: see HPI Gastrointestinal: see HPI Genitourinary: see HPI Musculoskeletal: see HPI Skin: see HPI Psychiatric/Neurological: See HPI Focused Exam Lactate Level 12/04/22 03:14: Lactic Acid Level 1.55 12/04/22 06:16: Lactic Acid Level 2.83*H 12/04/22 08:20: Lactic Acid Level 1.42 Height, Weight, BMI Height: 6'1.00" Weight: 168lbs. 9.0oz. 76.556273je; 23.00 BMI Method:Estimated Lactic Acid Level Laboratory Tests Test 12/04/22 06:16 12/04/22 08:20 Lactic Acid Level 2.83 MMOL/L (0.50-2.00) *H 1.42 MMOL/L (0.50-2.00) Exam Exam Patient acknowledged, consented, and participated in this virtual visit which was conducted using real time audio/video Vital Signs Date Time Temp Pulse Resp B/P (MAP) Pulse Ox O2 Delivery O2 Flow Rate FiO2 12/04/22 08:31 36.7 12/04/22 08:08 86 16 114/71 97 Nasal Cannula 2.00 12/04/22 06:06 37.8 98 14 124/82 (96) 94 12/04/22 02:37 39.2 112 16 110/65 (80) 95 I & O 12/04/22 07:00 Intake Total 2100 ml Balance 2100 ml Height & Weight Height: 6'1.00" Weight: 168lbs. 9.0oz. [id number]; 23.00 BMI Method:Estimated General Appearance: Mild Distress Respiratory: Lungs Clear Cardiovascular: Regular Rate, Rhythm Gastrointestinal: normal bowel sounds, non tender, soft Extremity: Other (has toe/foot amputations in both feet) Results Lab Laboratory Tests 12/04/22 03:14 Assessment/Plan Assessment/Plan AG has closed, pt does not appear in DKA, Has PVD, will get wound care LFT' are up AST 422, ALT 174, will follow, IF does not drop get hepatitis panel web worker to see on Tuesday Hx of amphetamine use, will watch for withdrawal will continue Lantus 35 U at night and Novolog 10 U PC and low dose sliding scale Critical Care: Critically Ill Patient Time spent with patient (mins): 25 COLBY TORRES MD Dec 04, 2022 09:22
[2022-12-04 09:42] LABS: POTASSIUM 4.3 MMOL/L (3.6-5.0)
[2022-12-04 09:47] LABS: CREATININE SERUM 1.03 MG/DL (0.60-1.30)
[2022-12-04 09:50] LABS: BILIRUBIN,URINE NEGATIVE (NEGATIVE); CLARITY,URINE CLOUDY; COLOR,URINE YELLOW; GLUCOSE, URINE (UA) 3+ (NEGATIVE); KETONES,URINE NEGATIVE (NEGATIVE); LEUKOCYTE ESTERASE ,URINE NEGATIVE (NEGATIVE); NITRITE,URINE NEGATIVE (NEGATIVE); PROTEIN,URINE 1+ (NEGATIVE)
[2022-12-04 10:00] LABS: BACTERIA,URINE NEGATIVE /HPF; RBC,URINE RARE /HPF; WBC,URINE 0-2 /HPF; YEAST,URINE LARGE /HPF
[2022-12-04] MEDS ORDERED: inSUlin ASPART (NovoLOG) 1 UNIT/0.01 ML (CHARGE PER UNIT) SC NR (10:00)
[2022-12-04 10:13] LABS: AMPHETAMINE SCREEN, URINE POSITIVE (NEGATIVE); BARBITURATE SCREEN URINE NEGATIVE (NEGATIVE); BENZODIAZEPINES SCREEN URINE NEGATIVE (NEGATIVE); CANNABINOID SCREEN, URINE NEGATIVE (NEGATIVE); COCAINE SCREEN URINE NEGATIVE (NEGATIVE); METHADONE STAT NEGATIVE (NEGATIVE); OPIATE SCREEN URINE NEGATIVE (NEGATIVE); OXYCODONE STAT NEGATIVE (NEGATIVE); PROPOXYPHENE STAT NEGATIVE (NEGATIVE); TRICYCLIC ANTIDEPRESSANTS SCRE NEGATIVE (NEGATIVE)
[2022-12-04] MEDS ORDERED: inSUlin ASPART (NovoLOG) 1 UNIT/0.01 ML (CHARGE PER UNIT) ONE (10:18)
[2022-12-04] MEDS: POTASSIUM CL 10MEQ/50ML IVPB 50 ML IV SCH ×2 (10:27→10:31)
[2022-12-04] MEDS: DOCUSATE SODIUM 100 MG CAPSULE PO SCH ×2 (10:27→21:14)
[2022-12-04] MEDS: SENNOSIDES 8.6 MG (SENOKOT) TAB PO SCH ×2 (10:30→21:14)
[2022-12-04 10:40] VITALS: BP 114/71
[2022-12-04] MEDS ORDERED: RT-ALBUTEROL SULF 2.5 MG/3 ML PRE-MIX VIAL INH PRN (11:00)
[2022-12-04] MEDS: NS IV 1000 ML 1,000 ML IV SCH (11:39)
[2022-12-04] MEDS: THIAMINE 100 MG (VITAMIN B-1) TAB PO SCH (11:39)
[2022-12-04] MEDS: FOLIC ACID 1 MG TAB PO SCH (11:39)
[2022-12-04] MEDS: inSUlin ASPART (NovoLOG) 1 UNIT/0.01 ML (CHARGE PER UNIT) SC SCH ×5 (11:40→21:02)
[2022-12-04] MEDS: MEROPENEM 500 MG in NS (IVPB) 100 ML 100 ML IV SCH ×3 (11:41→23:24)
[2022-12-04] MEDS: MAGNESIUM OXIDE (MAG-OX)400 MG TAB PO SCH ×2 (11:52→21:11)
--- NOTE | 2022-12-04 13:44 | Consultation - Surgery ---
History of Present Illness History of Present Illness Patient Consulted On(madyson/time) 12/04/22 13:38 Time Seen by Provider: 13:07 History of Present Illness Surgery asked to consult regarding B/L LE ulcers. HPI per ED: PT WALKS IN ON OWN. C/O RIGHT LEG SWELLING FOR OVER A MONTH. LEFT LEG ALSO SWOLLEN BUT NOT BAD. HAS BEEN HAVING PAIN IN HIS RIGHT LEG HE HAS NOT TAKEN ANYTHING FOR PAIN AT ANY TIME SYMPTOMS NO DIFFERENT TONIGHT, HAS NOT SOUGHT CARE UNTIL TONIGHT, PT DENIES FEVER / SWEATS / CHILLS, STATES HE HAS BEEN HAVING SOME CHEST DISCOMFORT AND SHORTNESS OF BREATH FOR THE LAST COUPLE OF DAYS, NO COUGH, NO NAUSEA/VOMITING HE HAS SOME SCABBED ABRASIONS TO BOTH LOWER LEGS, BUT STATES THEY ARE RECENT AND HIS LEGS WERE ALREADY SWOLLEN BEFORE HE GOT THOSE ABRASIONS. THEY ARE NOT RED OR HAVE ANY DRAINAGE AND NOT PAINFUL. LAST TETANUS IS UNKNOWN. PT IS NOT ON ASPIRIN OR BLOOD THINNERS, DENIES HISTORY OF BLOOD CLOTS, PT IS INSULIN DEPENDENT DIABETIC ON LANTUS AND NOVOLOG, STATES HIS BLOOD SUGAR WAS IN THE 200'S EARLIER TONIGHT, BUT STATES IT HAS BEEN RUNNING "HIGH" ( > 600 ) OFF AND ON FOR THE LAST FEW DAYS, PT HAS LONG HISTORY OF EXTREME NON-COMPLIANCE. HE DOES NOT REMEMBER WHEN HE LAST WENT TO [facility] FOR ROUTINE MEDICAL CARE AND MANAGEMENT OF HIS DIABETES HE HAS HAD 14 VISITS HERE SINCE HIS FIRST VISIT IN 2019, AND HAS BEEN ADMITTED MOST OF THOSE VISITS FOR DKA. NEARLY ALL VISITS ARE DIABETES RELATED ISSUES. HE FREQUENTLY LEAVES AMA. HE HAS HAD RIGHT MID FOOT AMPUTATION AT [facility] IN MAY, AND LEFT 4TH AND 5TH TOES AMPUTATED IN [place]PT[place] AT , HE DOES HAVE PERIPHERAL NEUROPATHY AND STATES HE DOES NOT HAVE MUCH FEELING IN HIS FEET OR HANDS. PT HAS HISTORY OF HOMELESSNESS HE CONTINUES TO SMOKE, AND HAS EXTENSIVE HISTORY OF METHAMPHETAMINE USE. HE DENIES ALCOHOL USE. Pt was admitted for DKA, he is an uncontrolled Diabetic who unfortunately does not take care of himself. He was laying comfortably in the ICU bed. When I spoke to him he denied any pain in the legs or feet. Allergies and Home Medications Allergies Coded Allergies: Penicillins (Verified Allergy, Unknown, 09/20/18) tramadol (Verified Allergy, Unknown, 08/08/22) Patient Home Medication List Home Medication List Reviewed: Yes Blood-Glucose Meter (Advocate Blood Glucose Monitor) 1 Each Each, EACH ACHS, (DME) Prescribed by: GORDON CROWLEY on 08/10/221125 Insulin Aspart (Novolog Flexpen) 100 Unit/Ml (3 Ml) Solution, 10 UNITS SQ AC Prescribed by: GORDON CROWLEY on 08/10/221125 Insulin Glargine,Hum.rec.anlog (Lantus Solostar) 100 Unit/Ml (3 Ml) Insuln.pen, 35 UNIT SQ HS Prescribed by: GORDON CROWLEY on 08/10/221125 Pen Needle, Diabetic (Advocate Pen Needle) 33 Gauge X 5/32" Dis.needle, EACH ACHS, (DME) Prescribed by: GORDON CROWLEY on 08/10/221125 Past Ygpjnja-Gdivla-Itzwht Hx Patient Social History Smoking Status: Current Everyday Smoker Type Used: Cigarettes 2nd Hand Smoke Exposure: Yes Recent Hopitalizations: No Alcohol Use?: Yes Substance type: Methamphetamine Immunizations Up To Date Tetanus Booster (TDap): Unknown Date of Influenza Vaccine: Apr 12, 2022 Seasonal Allergies Seasonal Allergies: No Surgeries History of Surgeries: Yes Surgeries: Amputation, Orthopedic Respiratory History of Respiratory Disorde: No Cardiovascular History of Cardiac Disorders: Yes Cardiac Disorders: High Cholesterol, Hypertension Neurological History of Neurological Disord: Yes Neurological Disorders: Neuropathy Genitourinary History of Genitourinary Disor: No Gastrointestinal History of Gastrointestinal Di: No Musculoskeletal History of Musculoskeletal Dis: Yes (MULTIPLE TOE AMPUTATIONS) Musculoskeletal Disorders: Amputee Endocrine History of Endocrine Disorders: Yes (DKA; NON-COMPLIANCE) Endocrine Disorders: Diabetes, Insulin dep HEENT History of HEENT Disorders: No Cancer History of Cancer: No Psychosocial History of Psychiatric Problem: Yes (SUBSTANCE ABUSE) Behavioral Health Disorders: Depression Integumentary History of Skin or Integumenta: Yes (CHRONIC DIABETIC FOOT ULCERS) Blood Transfusions History of Blood Disorders: No Adverse Reaction to a Blood Tr: No Family Medical History Significant Family History: No Pertinent Family Hx Family Medial History: Patient reports no known family medical history. Review of Systems-General Constitutional: malaise, weakness EENTM: No blurred vision, No mouth swelling, No epistaxis Respiratory: No cough, No dyspnea on exertion Cardiovascular: No chest pain; edema Gastrointestinal: No abdominal pain, No nausea, No vomiting Genitourinary: No dysuria, No frequency, No hematuria Musculoskeletal: joint pain, joint swelling, muscle stiffness Skin: No change in color, No change in hair/nails Psychiatric/Neurological: Denies Anxiety, Denies Depressed, Denies Seizure Physical Exam-General Problems Physical Exam Vital Signs Vital Signs - First Documented 12/04/22 12/04/22 02:37 08:08 Temp 39.2 Pulse 112 Resp 16 B/P (MAP) 110/65 (80) Pulse Ox 95 O2 Delivery Nasal Cannula O2 Flow Rate 2.00 Capillary Refill : General Appearance: WD/WN, no apparent distress Eyes: Bilateral Eye PERRL, Bilateral Eye EOMI HEENT: pharynx normal; No scleral icterus (R), No scleral icterus (L) Neck: non-tender, supple Respiratory: lungs clear, normal breath sounds, no respiratory distress, no accessory muscle use Cardiovascular: regular rate, rhythm, no murmur Gastrointestinal: non tender, soft, no organomegaly Extremities: no calf tenderness, pedal edema, swelling (right leg), other (Right leg - small chronic ulcer on lateral aspect, plantar portion of stump with no erythema or signs of infection. On the left ankle there is a small area of ulceration, that is barely skin deep with no erythema surrounding it. It is maybe quarter size) Skin: normal color, warm/dry Data Review Labs Laboratory Tests 12/04/22 03:09: Glucometer 390H 12/04/22 03:14: White Blood Count 7.9, Red Blood Count 4.49, Hemoglobin 12.4L, Hematocrit 39L, Mean Corpuscular Volume 86, Mean Corpuscular Hemoglobin 28, Mean Corpuscular Hemoglobin Concent 32, Red Cell Distribution Width 15.9H, Platelet Count 115L, Mean Platelet Volume 11.0, Immature Granulocyte % (Auto) 0, Neutrophils (%) (Auto) 92H, Lymphocytes (%) (Auto) 4L, Monocytes (%) (Auto) 4, Eosinophils (%) (Auto) 0, Basophils (%) (Auto) 0, Neutrophils # (Auto) 7.2, Lymphocytes # (Auto) 0.3L, Monocytes # (Auto) 0.3, Eosinophils # (Auto) 0.0, Basophils # (Auto) 0.0, Immature Granulocyte # (Auto) 0.0, Neutrophils % (Manual) 82, Lymphocytes % (Manual) 4, Monocytes % (Manual) 5, Band Neutrophils 9, Percent Immature Platel et Fraction 5.7, Microcytosis SLIGHT, Stomatocytes SLIGHT, Erythrocyte Sedimentation Rate 67H, Prothrombin Time 13.8, INR Comment 1.0, Activated Partial Thromboplast Time 31, D-Dimer 0.98H, Venous Blood pH 7.39, Venous Blood Partial Pressure CO2 48, Venous Blood HCO3 29H, Sodium Level 129L, Potassium Level 4.2, Chloride Level 95L, Carbon Dioxide Level 25, Anion Gap 9, Blood Urea Nitrogen 15, Creatinine 1.33H, Estimat Glomerular Filtration Rate 64, BUN/Creatinine Ratio 11, Glucose Level 423*H, Lactic Acid Level 1.55, Calcium Level 8.8, Corrected Calcium 9.4, Magnesium Level 1.8, Total Bilirubin 0.7, Aspa rtate Amino Transf (AST/SGOT) 422H, Alanine Aminotransferase (ALT/SGPT) 174H, Alkaline Phosphatase 326H, Total Creatine Kinase 15L, Creatine Kinase MB 0.3, Myoglobin 29.1, Troponin I < 0.028, C-Reactive Protein High Sensitivity 16.53H, B-Type Natriuretic Peptide 54.1, Total Protein 6.4, Albumin 3.2, Beta- Hydroxybutyrate (Chem panel) 0.46H, TSH [place] Testing 1.38 12/04/22 05:42: Glucometer 249H 12/04/22 05:43: Ammonia 32, Amylase Level 11L, Lipase 5L, Serum Alcohol < 10 12/04/22 05:52: 12/04/22 06:16: Prothrombin Time 14.5, INR Comment 1.1, Activated Partial Thromboplast Time 33, Lactic Acid Level 2.83*H 12/04/22 08:20: Lactic Acid Level 1.42 12/04/22 09:06: Glucometer 320H 12/04/22 09:15: Sodium Level 133L, Potassium Level 4.3, Chloride Level 101, Carbon Dioxide Level 24, Anion Gap 8, Blood Urea Nitrogen 12, Creatinine 1.03, Estimat Glomerular Filtration Rate 86, BUN/Creatinine Ratio 12, Glucose Level 326H, Calcium Level 8.0L, Beta-Hydroxybutyrate (Chem panel) 0.74H 12/04/22 09:40: Urine Color YELLOW, Urine Clarity CLOUDY, Urine pH 6.0, Urine Specific [place] 1.015L, Urine Protein 1+H, Urine Glucose (UA) 3+H, Urine Ketones NEGATIVE, Urine Nitrite NEGATIVE, Urine Bilirubin NEGATIVE, Urine Urobilinogen 1.0, Urine Leukocyte Esterase NEGATIVE, Urine RBC (Auto) TRACE-IH, Urine RBC RARE, Urine WBC 0-2, Urine Crystals NONE, Urine Bacteria NEGATIVE, Urine Casts NONE, Urine Mucus NEGATIVE, Urine Yeast LARGEH, Urine Culture Indicated NO, Urine Opiates Screen NEGATIVE, Urine Oxycodone Screen NEGATIVE, Urine Methadone Screen NEGATIVE, Urine Propoxyphene Screen NEGATIVE, Urine Barbiturates Screen NEGATIVE, Ur Tricyclic Antidepressants Screen NEGATIVE, Urine Phencyclidine Screen NEGATIVE, Urine Amphetamines Screen POSITIVEH, Urine Methamphetamines Screen POSITIVEH, Urine Benzodiazepines Screen NEGATIVE, Urine Cocaine Screen NEGATIVE, Urine Cannabinoids Screen NEGATIVE 12/04/22 11:17: Glucometer 365H Assessment/Plan Assessment/Plan Assessment/Plan B/L LE ulcers DKA Methamphetamine abuse At this time the ulcers are not of concern, there is no inflamation or signs of infection. Keep them protected from pressure. Local care. I will sign off. Clinical Quality Measures DVT/VTE Risk/Contraindication: Contraindications-Mechi: Other *list below* Other: foot cellulitis JOO LARSEN DO Dec 04, 2022 13:44
[2022-12-04] MEDS ORDERED: inSUlin ASPART (NovoLOG) 1 UNIT/0.01 ML (CHARGE PER UNIT) SC SCH ×2 (14:00→15:00)
--- NOTE | 2022-12-04 14:01 | Diagnostic Imaging Report ---
Procedure: US Venous Lower Ext Shakir. Technique: Multiple real-time grayscale images were obtained over the lower extremities in various projections, bilaterally. Additional duplex Doppler and color Doppler images were also obtained. Indication: Bilateral lower extremity pain and swelling. Comparison: None. Technique: The bilateral lower extremity deep venous system was interrogated and the images were assessed for grayscale appearance, color and spectral Doppler blood flow, compression, and augmentation. Findings: There is no evidence of intraluminal filling defect. Normal compression and augmentation is noted throughout. Soft tissues are unremarkable. Impression: 1. No sonographic evidence of deep venous thrombosis in the bilateral lower extremities. Dictated by: Dictated on workstation # [id number]
[2022-12-04 14:38] VITALS: BP 109/70
[2022-12-04 16:02] VITALS: BP 124/79
[2022-12-04] MEDS: VANCOMYCIN 1250 MG/NS 250 ML PREMIX IV SCH (18:20)
[2022-12-04] MEDS ORDERED: ENOXAPARIN 80 MG/0.8 ML SYRINGE SC SCH (19:00)
[2022-12-04 19:57] VITALS: BP 115/68
[2022-12-04] MEDS: RT-ALBUTEROL SULF 2.5 MG/3 ML PRE-MIX VIAL INH SCH (21:14)
[2022-12-04 23:22] VITALS: BP 124/76
[2022-12-05 04:09] VITALS: BP 117/73
[2022-12-05] MEDS: MEROPENEM 500 MG in NS (IVPB) 100 ML 100 ML IV SCH ×4 (05:06→23:30)
[2022-12-05 05:46] LABS: EOSINOPHILS # (AUTO) 0.1 10^3/uL (0.0-0.3); MEAN PLATELET VOLUME 11.5 fL (9.0-12.2)
[2022-12-05 05:48] LABS: BASOPHILS % (AUTO) 0 % (0-10); EOSINOPHILS % (AUTO) 2 % (0-10); HEMATOCRIT 33 % (40-54); HEMOGLOBIN 10.5 g/dL (13.3-17.7); LYMPHOCYTES # (AUTO) 1.2 10^3/uL (1.0-4.0); LYMPHOCYTES % (AUTO) 26 % (12-44); MEAN CORPUSCULAR HEMOGLOBIN 28 pg (25-34); MEAN CORPUSCULAR HGB CONC 32 g/dL (32-36); MEAN CORPUSCULAR VOLUME 87 fL (80-99); MONOCYTES # (AUTO) 0.5 10^3/uL (0.0-1.0); MONOCYTES % (AUTO) 11 % (0-12); NEUTROPHILS # (AUTO) 2.8 10^3/uL (1.8-7.8); NEUTROPHILS % (AUTO) 60 % (42-75); PLATELET COUNT 134 10^3/uL (130-400); WHITE BLOOD COUNT 4.6 10^3/uL (4.3-11.0)
[2022-12-05] MEDS: NS IV 1000 ML 1,000 ML IV SCH ×2 (05:50→12:05)
[2022-12-05] MEDS: MULTIVIT W/MINERALS TAB (THERAGRAN M) PO SCH (05:50)
[2022-12-05] MEDS: THIAMINE 100 MG (VITAMIN B-1) TAB PO SCH (05:50)
[2022-12-05] MEDS: VANCOMYCIN 1250 MG/NS 250 ML PREMIX IV SCH ×2 (05:50→20:03)
[2022-12-05] MEDS: inSUlin ASPART (NovoLOG) 1 UNIT/0.01 ML (CHARGE PER UNIT) SC SCH ×8 (05:51→20:05)
[2022-12-05 05:56] LABS: ALBUMIN 2.5 GM/DL (3.2-4.5); POTASSIUM 4.1 MMOL/L (3.6-5.0)
[2022-12-05 05:57] LABS: CALCIUM 8.1 MG/DL (8.5-10.1)
[2022-12-05 05:58] LABS: TOTAL PROTEIN 5.4 GM/DL (6.4-8.2)
[2022-12-05 06:00] LABS: BILIRUBIN,TOTAL 0.3 MG/DL (0.1-1.0)
[2022-12-05] MEDS ORDERED: MAGNESIUM 1 GM/100 ML IVPB 100 ML IV SCH (06:00)
[2022-12-05] MEDS: ACETAMINOPHEN 325 MG TABLET PO PRN (06:00)
[2022-12-05] MEDS ORDERED: POTASSIUM CL 10MEQ/50ML IVPB 50 ML IV SCH (06:00)
[2022-12-05] MEDS ORDERED: KCL 20 MEQ TAB (K-DUR) PO SCH (06:00)
[2022-12-05 06:02] LABS: CREATININE SERUM 0.84 MG/DL (0.60-1.30)
[2022-12-05 06:05] LABS: MAGNESIUM 2.3 MG/DL (1.6-2.4)
--- NOTE | 2022-12-05 06:43 | Progress Note - Hospitalist ---
Subjective HPI/CC On Admission Date Seen by Provider: Dec 05, 2022 Time Seen by Provider: 11:00 CC: HHNKS with sepsis from foot cellulitis HPI: This is a 56yoWM of [facility] well known to me from multiple hospital stays for DKA and meth use who has a h/o right toe amputations due to osteomyelitis. He presents once again with elevated sugar, weakness and right leg pain with erythema of the recent amputation surgical site. His socks were wet and dirty and the wound appears to be cellulitic. IV abx maintained and no evidence of DKA so ivf given and transitioned to SQ insulin and Dr Gary will be consulted and patient will be moved to 4th floor. Subjective/Events-last exam Patient doing a lot better Stump seems to be improved Blood sugars better Adjusted insulin down due to hypoglycemia Review of Systems General: Fatigue, Malaise Focused Exam Lactate Level 12/04/22 03:14: Lactic Acid Level 1.55 12/04/22 06:16: Lactic Acid Level 2.83*H 12/04/22 08:20: Lactic Acid Level 1.42 Objective Exam Vital Signs Vital Signs Date Time Temp Pulse Resp B/P (MAP) Pulse Ox O2 Delivery O2 Flow Rate FiO2 12/05/22 11:47 36.5 87 18 117/74 (88) 94 Room Air 12/05/22 07:24 0.00 Capillary Refill : General Appearance: No Apparent Distress, WD/WN, Chronically ill Respiratory: Lungs Clear, Normal Breath Sounds Cardiovascular: Regular Rate, Rhythm Extremity: Pedal Edema Neurologic/Psychiatric: Alert, Oriented x3, No Motor/Sensory Deficits, Normal Mood/Affect Results/Procedures Lab Laboratory Tests 12/05/22 05:26 Patient resulted labs reviewed. Assessment/Plan Assessment and Plan Assess & Plan/Chief Complaint Assessment: HHNKS improved now so maintain IVF and SQ insulin Right foot cellulitis h/o DKA Meth use Plan: Monitor closely Decrease insulin SQ insulin Critical Care Critically Ill Patient Clinical Quality Measures DVT/VTE Risk/Contraindication: Contraindications-Mechi: Other *list below* Other: foot cellulitis GORDON CROWLEY DO Dec 05, 2022 06:43
[2022-12-05] MEDS: RT-ALBUTEROL SULF 2.5 MG/3 ML PRE-MIX VIAL INH SCH ×2 (07:14→22:00)
[2022-12-05 07:37] VITALS: BP 153/82
[2022-12-05] MEDS: FOLIC ACID 1 MG TAB PO SCH (08:05)
[2022-12-05] MEDS: ENOXAPARIN 40 MG/0.4 ML SYRINGE SC SCH (08:06)
[2022-12-05] MEDS: DOCUSATE SODIUM 100 MG CAPSULE PO SCH ×2 (08:12→20:05)
[2022-12-05] MEDS: MAGNESIUM OXIDE (MAG-OX)400 MG TAB PO SCH ×2 (08:12→20:05)
[2022-12-05] MEDS: SENNOSIDES 8.6 MG (SENOKOT) TAB PO SCH ×2 (08:13→21:49)
[2022-12-05 11:47] VITALS: BP 117/74
[2022-12-05 15:56] VITALS: BP 130/77
[2022-12-05] MEDS ORDERED: TROUGH ORDER-PHARMACY XX ONE (18:00)
[2022-12-05 19:33] VITALS: BP 148/78
[2022-12-05 23:18] VITALS: BP 159/94
[2022-12-06] MEDS: LORazepam 1 MG (ATIVAN) TAB PO PRN ×2 (00:05→04:08)
[2022-12-06 03:32] VITALS: BP 147/65
[2022-12-06 06:03] LABS: BASOPHILS % (AUTO) 0 % (0-10); EOSINOPHILS % (AUTO) 0 % (0-10); HEMATOCRIT 32 % (40-54); HEMOGLOBIN 10.1 g/dL (13.3-17.7); LYMPHOCYTES # (AUTO) 1.6 10^3/uL (1.0-4.0); LYMPHOCYTES % (AUTO) 22 % (12-44); MEAN CORPUSCULAR HEMOGLOBIN 27 pg (25-34); MEAN CORPUSCULAR HGB CONC 32 g/dL (32-36); MEAN CORPUSCULAR VOLUME 86 fL (80-99); MEAN PLATELET VOLUME 11.4 fL (9.0-12.2); MONOCYTES # (AUTO) 0.8 10^3/uL (0.0-1.0); MONOCYTES % (AUTO) 11 % (0-12); NEUTROPHILS # (AUTO) 4.8 10^3/uL (1.8-7.8); NEUTROPHILS % (AUTO) 67 % (42-75); PLATELET COUNT 177 10^3/uL (130-400); WHITE BLOOD COUNT 7.3 10^3/uL (4.3-11.0)
[2022-12-06 06:12] LABS: ALBUMIN 2.5 GM/DL (3.2-4.5)
[2022-12-06] MEDS: MULTIVIT W/MINERALS TAB (THERAGRAN M) PO SCH (06:12)
[2022-12-06] MEDS: VANCOMYCIN 1250 MG/NS 250 ML PREMIX IV SCH (06:12)
[2022-12-06] MEDS: THIAMINE 100 MG (VITAMIN B-1) TAB PO SCH (06:12)
[2022-12-06] MEDS: MEROPENEM 500 MG in NS (IVPB) 100 ML 100 ML IV SCH ×4 (06:12→17:52)
[2022-12-06 06:13] LABS: POTASSIUM 4.7 MMOL/L (3.6-5.0)
[2022-12-06 06:14] LABS: CALCIUM 8.2 MG/DL (8.5-10.1)
[2022-12-06 06:15] LABS: TOTAL PROTEIN 5.7 GM/DL (6.4-8.2)
[2022-12-06 06:17] LABS: BILIRUBIN,TOTAL 0.2 MG/DL (0.1-1.0)
[2022-12-06] MEDS: inSUlin ASPART (NovoLOG) 1 UNIT/0.01 ML (CHARGE PER UNIT) SC SCH ×7 (06:18→19:31)
[2022-12-06 06:19] LABS: CREATININE SERUM 0.95 MG/DL (0.60-1.30)
[2022-12-06 06:22] LABS: MAGNESIUM 1.8 MG/DL (1.6-2.4)
[2022-12-06 07:22] VITALS: BP 115/58
[2022-12-06] MEDS: SENNOSIDES 8.6 MG (SENOKOT) TAB PO SCH ×2 (08:34→19:10)
[2022-12-06] MEDS: DOCUSATE SODIUM 100 MG CAPSULE PO SCH ×2 (08:34→19:10)
[2022-12-06] MEDS: ENOXAPARIN 40 MG/0.4 ML SYRINGE SC SCH (08:35)
[2022-12-06] MEDS: MAGNESIUM OXIDE (MAG-OX)400 MG TAB PO SCH ×2 (08:35→19:30)
[2022-12-06] MEDS: FOLIC ACID 1 MG TAB PO SCH (08:35)
[2022-12-06] MEDS: RT-ALBUTEROL SULF 2.5 MG/3 ML PRE-MIX VIAL INH SCH ×2 (09:21→19:23)
[2022-12-06 11:05] VITALS: BP 121/64
[2022-12-06] MEDS ORDERED: INSU100I10 SQ (13:12)
[2022-12-06] MEDS ORDERED: INSU100I55 SQ (13:12)
[2022-12-06 13:57] LABS: HEPATITIS C ANTIBODY C Non-Reactive (Non-Reactive)
--- NOTE | 2022-12-06 15:21 | Progress Note ---
Subjective Subjective/Events-last exam Patient states that he is feeling ok. Tolerating PO diet. Pain is well controlled. Has not been out of bed since admission Review of Systems General: Fatigue Pulmonary: No Dyspnea, No Cough Cardiovascular: No: Chest Pain, Palpitations, Edema Gastrointestinal: No: Nausea, Vomiting, Abdominal Pain, Diarrhea, Constipation Neurological: Weakness, Incoordination Focused Exam Lactate Level 12/04/22 03:14: Lactic Acid Level 1.55 12/04/22 06:16: Lactic Acid Level 2.83*H 12/04/22 08:20: Lactic Acid Level 1.42 Objective Exam Last Set of Vital Signs Vital Signs Date Time Temp Pulse Resp B/P (MAP) Pulse Ox O2 Delivery O2 Flow Rate FiO2 12/06/22 11:05 37.8 84 18 121/64 (83) Nasal Cannula 2.00 12/06/22 09:21 90 Capillary Refill : I&O Intake and Output 12/06/22 00:00 Intake Total 1760 ml Output Total 1200 ml Balance 560 ml Intake Oral 1760 ml Output Urine Total 1200 ml # Voids 4 # Bowel Movements 1 General: Alert, Oriented X3, No Acute Distress Lungs: Clear to Auscultation, Normal Air Movement Heart: Regular Rate, No Murmurs Abdomen: Normal Bowel Sounds, Soft, No Tenderness, No Masses Extremities: No Edema, No Tenderness/Swelling Neuro: Normal Speech Results/Procedures Lab Laboratory Tests 12/05/22 15:55: Glucometer 154H 12/05/22 18:02: Vancomycin Level Trough 9.6L 12/05/22 19:37: Glucometer 226H 12/06/22 05:24: White Blood Count 7.3, Red Blood Count 3.72L, Hemoglobin 10.1L, Hematocrit 32L, Mean Corpuscular Volume 86, Mean Corpuscular Hemoglobin 27, Mean Corpuscular Hemoglobin Concent 32, Red Cell Distribution Width 16.2H, Platelet Count 177, Mean Platelet Volume 11.4, Immature Granulocyte % (Auto) 0, Neutrophils (%) (Auto) 67, Lymphocytes (%) (Auto) 22, Monocytes (%) (Auto) 11, Eosinophils (%) (Auto) 0, Basophils (%) (Auto) 0, Neutrophils # (Auto) 4.8, Lymphocytes # (Auto) 1.6, Monocytes # (Auto) 0.8, Eosinophils # (Auto) 0.0, Basophils # (Auto) 0.0, Immature Granulocyte # (Auto) 0.0, Sodium Level 134L, Potassium Level 4.7, Chloride Level 102, Carbon Dioxide Level 25, Anion Gap 7, Blood Urea Nitrogen 14, Creatinine 0.95, Estimat Glomerular Filtration Rate 95, BUN/Creatinine Ratio 15, Glucose Level 224H, Calcium Level 8.2L, Corrected Calcium 9.4, Magnesium Level 1.8, Total Bilirubin 0.2, Aspartate Amino Transf (AST/SGOT) 70H, Alanine Aminotransferase (ALT/SGPT) 108H, Alkaline Phosphatase 312H, Total Protein 5.7L, Albumin 2.5L 12/06/22 06:13: Glucometer 189H 12/06/22 10:27: Glucometer 100 12/06/22 15:19: Glucometer 165H Microbiology 12/04/22 Blood Culture - Preliminary, Resulted No growth Assessment/Plan Assessment/Plan (1) Hyperosmolar non-ketotic state due to type 2 diabetes mellitus Status: Acute Assessment & Plan: - Blood sugars still elevated, adjusting insulin, A1c 13 (2) Acute respiratory failure Status: Acute Assessment & Plan: - Still requiring oxygen, will titrate as tolerated, enco uraged IS and ambulation Qualifiers: Qualified Codes: J96.01 - Acute respiratory failure with hypoxia (3) Cellulitis of right foot Status: Acute Assessment & Plan: - Transitioned to PO antibiotics because IV has gone bad (4) Insulin dependent diabetes mellitus Status: Chronic (5) Methamphetamine abuse Status: Chronic Clinical Quality Measures DVT/VTE Risk/Contraindication: Contraindications-Mechi: Other *list below* Other: foot cellulitis BENNY IZAGUIRRE MD Dec 06, 2022 15:21
[2022-12-06 15:37] VITALS: BP 114/72
[2022-12-06] MEDS: ACETAMINOPHEN 325 MG TABLET PO PRN (18:24)
[2022-12-06] MEDS: CLINDAMYCIN 150 MG CAPSULE PO SCH (18:35)
[2022-12-06 19:20] VITALS: BP 110/65
[2022-12-06 23:06] VITALS: BP 132/81
[2022-12-07] MEDS: CLINDAMYCIN 150 MG CAPSULE PO SCH ×2 (02:21→09:58)
[2022-12-07 03:10] VITALS: BP 122/70
[2022-12-07 04:16] LABS: BASOPHILS % (AUTO) 0 % (0-10); EOSINOPHILS # (AUTO) 0.1 10^3/uL (0.0-0.3); EOSINOPHILS % (AUTO) 1 % (0-10); HEMATOCRIT 32 % (40-54); HEMOGLOBIN 10.1 g/dL (13.3-17.7); LYMPHOCYTES # (AUTO) 2.2 10^3/uL (1.0-4.0); LYMPHOCYTES % (AUTO) 42 % (12-44); MEAN CORPUSCULAR HEMOGLOBIN 27 pg (25-34); MEAN CORPUSCULAR HGB CONC 32 g/dL (32-36); MEAN CORPUSCULAR VOLUME 86 fL (80-99); MEAN PLATELET VOLUME 10.7 fL (9.0-12.2); MONOCYTES # (AUTO) 0.8 10^3/uL (0.0-1.0); MONOCYTES % (AUTO) 15 % (0-12); NEUTROPHILS # (AUTO) 2.2 10^3/uL (1.8-7.8); NEUTROPHILS % (AUTO) 41 % (42-75); PLATELET COUNT 186 10^3/uL (130-400); WHITE BLOOD COUNT 5.3 10^3/uL (4.3-11.0)
[2022-12-07 04:44] LABS: ALBUMIN 2.5 GM/DL (3.2-4.5); BILIRUBIN,TOTAL 0.2 MG/DL (0.1-1.0); CALCIUM 8.9 MG/DL (8.5-10.1); MAGNESIUM 2.1 MG/DL (1.6-2.4); POTASSIUM 4.3 MMOL/L (3.6-5.0); TOTAL PROTEIN 5.7 GM/DL (6.4-8.2)
[2022-12-07] MEDS: inSUlin ASPART (NovoLOG) 1 UNIT/0.01 ML (CHARGE PER UNIT) SC SCH ×3 (05:14→11:23)
[2022-12-07] MEDS: MULTIVIT W/MINERALS TAB (THERAGRAN M) PO SCH (06:13)
[2022-12-07 07:23] VITALS: BP 122/73
[2022-12-07] MEDS: RT-ALBUTEROL SULF 2.5 MG/3 ML PRE-MIX VIAL INH SCH (07:25)
[2022-12-07] MEDS: SENNOSIDES 8.6 MG (SENOKOT) TAB PO SCH (08:18)
[2022-12-07] MEDS: FOLIC ACID 1 MG TAB PO SCH (08:18)
[2022-12-07] MEDS: DOCUSATE SODIUM 100 MG CAPSULE PO SCH (08:18)
[2022-12-07] MEDS: ENOXAPARIN 40 MG/0.4 ML SYRINGE SC SCH (08:19)
--- NOTE | 2022-12-07 10:35 | Discharge Summary ---
Diagnosis/Chief Complaint Date of Admission Dec 04, 2022 at 08:10 Date of Discharge 12/07/22 Admission Diagnosis Admission Diagnosis Hyperosmolar Hyperglycemia non ketotic state Acute respiratory failure with hypoxia IDDM Meth use Discharge Diagnosis see above Discharge Summary-Simple/Stand Consultations Discharge Physical Examination Allergies: Coded Allergies: Penicillins (Verified Allergy, Unknown, 09/20/18) tramadol (Verified Allergy, Unknown, 08/08/22) Vitals & I&Os Vital Sign - Last 12Hours Date Time Temp Pulse Resp B/P (MAP) Pulse Ox O2 Delivery O2 Flow Rate FiO2 12/07/22 08:00 Room Air 12/07/22 07:27 95 12/07/22 07:23 36.3 73 18 122/73 (89) 12/07/22 03:10 0.00 0.00 Intake and Output 12/07/22 00:00 Intake Total 1350 ml Output Total 1700 ml Balance -350 ml General Appearance: Alert, Oriented X3, No Acute Distress Respiratory: Clear to Auscultation, Normal Air Movement Cardiovascular: Regular Rate, No Murmurs Abdominal: Soft, No Tenderness Extremities: Other (RBKA, erythema resolved, Trace swelling bilaterally) Neuro: Normal Speech Psych/Mental Status: Mental Status NL, Mood NL Hospital Course See final discharge diagnosis. Discharge Condition at discharge Stable Instructions to patient/family Please see electronic discharge instructions given to patient. Discharge Medications Reviewed and agree with Discharge Medication list on patient's Discharge Instruction sheet Clinical Quality Measures DVT/VTE Risk/Contraindication: Contraindications-Mechi: Other *list below* Other: foot cellulitis BENNY IZAGUIRRE MD Dec 07, 2022 10:35
[2022-12-07] MEDS ORDERED: INSU100I55 SQ (10:37)
[2022-12-07] MEDS ORDERED: CLIN-144 PO (10:37)
--- NOTE | 2022-12-07 10:38 | Discharge Summary ---
Discharge [facility]-PSYCHIATRIC Reconcile Patient Problems Problems Reviewed?: Yes Discharge Medications New, Converted or Re-Newed RX: Transmitted to Pharmacy New Medications: Clindamycin HCl (Clindamycin HCl) 300 Mg Capsule 300 MG PO Q8H for 6 Days, #18 CAP Continued Medications: Insulin Aspart (Insulin Aspart Flexpen) 100 Unit/Ml (3 Ml) Insuln.pen 10 UNIT SQ AC, #5 UNITS (This prescription has been renewed) FILLED 09-07-2022 #5 PENS/50 DAY SUPPLY Insulin Glargine,Hum.rec.anlog (Lantus Solostar) 100 Unit/Ml (3 Ml) Insuln.pen 35 UNIT SQ HS, EA LAST FILLED 09-07-2022 #5 PENS/42 DAY SUPPLY Patient Instructions Goal/Follow Up Appt: 1-2 weeks with PCP Patient Instructions: - Make sure to complete your antibiotics Activity & Diet Discharge Diet: ADA Diet BENNY IZAGUIRRE MD Dec 07, 2022 10:38
[2022-12-07 11:11] VITALS: BP 118/61
[2022-12-07] MEDS ORDERED: inSUlin ASPART (NovoLOG) 1 UNIT/0.01 ML (CHARGE PER UNIT) SC SCH (12:00)
== END 2022-12-07 13:15 | disposition home or self-care (01) | DRG 564 ==
LOC: EDUNIT# 02:21 → ER 02:25 → ICU 08:10 → 4TH 13:59
PROVIDERS: ADMIT Internal Medicine; ATTEND Family Medicine
DX: T87.43 Infection of amputation stump, right lower extremity (principal); A41.9 Sepsis, unspecified organism; E11.00 Type 2 diabetes mellitus with hyperosmolarity without nonketotic hyperglycemic-hyperosmolar coma (NKHHC); J96.01 Acute respiratory failure with hypoxia; L03.115 Cellulitis of right lower limb; Z79.4 Long term (current) use of insulin; E11.42 Type 2 diabetes mellitus with diabetic polyneuropathy; E11.649 Type 2 diabetes mellitus with hypoglycemia without coma; F17.210 Nicotine dependence, cigarettes, uncomplicated; E78.00 Pure hypercholesterolemia, unspecified; I10 Essential (primary) hypertension; F32.A Depression, unspecified; F15.10 Other stimulant abuse, uncomplicated; Z89.422 Acquired absence of other left toe(s); Z89.431 Acquired absence of right foot
CPT/HCPCS: 36415; 71045; 71275; 80048; 80053; 80074; 80202; 80306; 80320; 81000; 82010; 82140; 82150; 82550; 82553; 82805; 82947; 83036; 83605; 83690; 83735; 83874; 83880; 84443; 84484; 85007; 85025; 85027; 85379; 85610; 85652; 85730; 86141; 87040; 87077; 87186; 93005; 93041; 93970; 94640; 94760; 96361; 96365; 96372; 96375

== ENCOUNTER 2022-12-10 09:21 | Inpatient (IN) | payer SELFPAY ==
[~2022-12-10] VITALS: Ht 185 cm; Wt 74.6 kg
[2022-12-10] MEDS ORDERED: NS IV 1000 ML 1,000 ML IV SCH ×2 (09:30→11:15)
[2022-12-10] MEDS ORDERED: ONDANSETRON 4 MG/2 ML (SDV) Z0FRAN IVP ONE (09:30)
[2022-12-10 09:44] LABS: BASOPHILS % (AUTO) 0 % (0-10); EOSINOPHILS % (AUTO) 0 % (0-10); HEMATOCRIT 42 % (40-54); HEMOGLOBIN 12.4 g/dL (13.3-17.7); LYMPHOCYTES # (AUTO) 1.7 10^3/uL (1.0-4.0); LYMPHOCYTES % (AUTO) 18 % (12-44); MEAN CORPUSCULAR HEMOGLOBIN 28 pg (25-34); MEAN CORPUSCULAR HGB CONC 30 g/dL (32-36); MEAN CORPUSCULAR VOLUME 92 fL (80-99); MEAN PLATELET VOLUME 10.6 fL (9.0-12.2); MONOCYTES # (AUTO) 0.9 10^3/uL (0.0-1.0); MONOCYTES % (AUTO) 9 % (0-12); NEUTROPHILS # (AUTO) 6.9 10^3/uL (1.8-7.8); NEUTROPHILS % (AUTO) 71 % (42-75); PLATELET COUNT 476 10^3/uL (130-400); WHITE BLOOD COUNT 9.6 10^3/uL (4.3-11.0)
--- NOTE | 2022-12-10 09:48 | ED General ---
General Chief Complaint: Abdominal/GI Problems Stated Complaint: ABD PAIN Nursing Triage Note: PT ARRIVED PER EMS, PT HOMELESS. PT CO OF ABD PAIN RATES 06/18, PT STATES DID METH YESTERDAY. PT DIABETIC. PT VOMITING SEVERAL TIMES TODAY. PT HAS R AMP OF TOES Source of Information: Patient, EMS Exam Limitations: No Limitations History of Present Illness Date Seen by Provider: Dec 10, 2022 Time Seen by Provider: 09:22 Initial Comments 56-year-old homeless male presents to the emergency department for elevated blood sugars, lethargy. Paramedics found him inside the back door of the home where a woman called the paramedics stating he just came in and lay down. This was apparently last night and she let him sleep there all night. On arrival he complains of nausea and vomiting. He has no abdominal pain. No chest pain or shortness of breath. He states he just got out of the hospital. Record reviewed and shows admission for [facility] with discharge on 12/07. He has not been compliant with his insulin per his report. He does use methamphetamine and last use last night. Blood sugar was too high to read during transport per EMS All other systems reviewed and negative except documented per HPI. Voice recognition software was used to help create this chart Allergies and Home Medications Allergies Coded Allergies: Penicillins (Verified Allergy, Unknown, 09/20/18) tramadol (Verified Allergy, Unknown, 08/08/22) Patient Home Medication List Home Medication List Reviewed: Yes Clindamycin HCl (Clindamycin HCl) 300 Mg Capsule, 300 MG PO Q8H Prescribed by: BENNY IZAGUIRRE on 12/07/22 1037 Insulin Aspart (Insulin Aspart Flexpen) 100 Unit/Ml (3 Ml) Insuln.pen, 10 UNIT SQ AC Prescribed by: BENNY IZAGUIRRE on 12/07/22 1037 Insulin Glargine,Hum.rec.anlog (Lantus Solostar) 100 Unit/Ml (3 Ml) Insuln.pen, 35 UNIT SQ HS, (Reported) Entered as Reported by: BRENDA RICHARDSON on 12/06/22 1312 Discontinued Medications Blood-Glucose Meter (Advocate Blood Glucose Monitor) 1 Each Each, EACH ACHS, (DME) Discontinued Reason: No Longer Taking Prescribed by: GORDON CROWLEY on 08/10/22 1126 Insulin Aspart (Novolog Flexpen) 100 Unit/Ml (3 Ml) Solution, 10 UNITS SQ AC Discontinued Reason: No Longer Taking Prescribed by: GORDON CROWLEY on 08/10/221125 Insulin Glargine,Hum.rec.anlog (Lantus Solostar) 100 Unit/Ml (3 Ml) Insuln.pen, 35 UNIT SQ HS Discontinued Reason: No Longer Taking Prescribed by: GORDON CROWLEY on 08/10/221125 Pen Needle, Diabetic (Advocate Pen Needle) 33 Gauge X 5/32" Dis.needle, EACH MC ACHS, (DME) Discontinued Reason: No Longer Taking Prescribed by: GORDON CROWLEY on 08/10/221125 Review of Systems Review of Systems Constitutional: see HPI Past Vtaukqf-Slzxzf-Ssbcls Hx Patient Social History Tobacco Use?: Yes Tobacco type used: Cigarettes Smoking Status: Current Everyday Smoker Substance use?: Yes Substance type: Methamphetamine, Marijuana Substance frequency: Daily Alcohol Use?: No Pt feels they are or have been: No Immunizations Up To Date Tetanus Booster (TDap): Unknown First/Initial COVID19 Vaccinat: 2020 Famely Second COVID19 Vaccination Jeffery: 2020 Famely Third COVID19 Vaccination Date: 2020 Famely Seasonal Allergies Seasonal Allergies: No Past Medical History Surgery/Hospitalization HX: DIABETES, R FOOT AMP TOES Surgeries: Yes Amputation, Orthopedic Respiratory: No Currently Using CPAP: No Currently Using BIPAP: No Cardiac: Yes High Cholesterol, Hypertension Neurological: Yes Neuropathy Genitourinary: No Gastrointestinal: No Musculoskeletal: Yes (MULTIPLE TOE AMPUTATIONS) Amputee Endocrine: Yes (DKA; NON-COMPLIANCE) Diabetes, Insulin dep HEENT: No Cancer: No Psychosocial: Yes (SUBSTANCE ABUSE) Depression Integumentary: Yes (CHRONIC DIABETIC FOOT ULCERS) Blood Disorders: No Adverse Reaction/Blood Tranf: No Family Medical History Patient reports no known family medical history. No Pertinent Family Hx SOCIAL HISTORY: -PT SMOKES, UNKNOWN AMOUNT -DRUGS--EXTENSIVE METHAMPHETAMINE USE -HAS DENIED ALCOHOL USE PT HAS HISTORY OF HOMELESSNESS PAST SURGICAL HISTORY: -RIGHT GREAT TOE AMPUTATION AT [facility] 03/16/22; LATER MID FOOT AMPUTATION-PT STATES AT [facility] IN MAY 2022. -PREVIOUS RIGHT 4TH TOE AMPUTATION AND LEFT 5TH TOE AMPUTATION -PERIPHERAL ANGIOGRAM BY DR. AVILES: DATE OF SERVICE: 09/05/2020 PERIPHERAL ANGIOGRAPHY REPORT The patient is a 54-year-old gentleman who recently had amputation of the left fifth toe that was exhibiting ischemia and ulceration. 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 Accordingly, peripheral angiography was carried out and informed consent was obtained for peripheral angiography and possible ad hoc intervention. DESCRIPTION OF PROCEDURE: He was brought to the cardiac catheterization laboratory in a fasting state. Right groin was prepared and draped in the usual sterile fashion. Lidocaine 1% was used for local anesthesia. Modified Seldinger technique was used to advance a 5-Ukrainian sheath in right femoral artery. A 5-Ukrainian pigtail catheter was used to carry out abdominal aortic angiography. The pigtail catheter was then pulled back to just above the level of the aortoiliac bifurcation and bilateral leg artery angiography was carried out down to the level of the ankles. Subsequently, we used a 5-Ukrainian crossover catheter and advanced a Storq wire into the left superficial femoral artery. The crossover catheter was removed and we advanced a straight catheter into the distal part of the left superficial femoral artery and carried out selective angiography of the distal left superficial femoral artery and the trifurcation vessels down to the level of the ankles. The catheter was then removed. Angiography of the right femoral artery was carried out through the sheath. Mynx was used to achieve hemostasis. He tolerated the procedure well. ABDOMINAL AORTIC ANGIOGRAPHY: Abdominal aortic angiography did not indicate any significant abdominal aortic aneurysm or dissection. No abdominal aortic stenosis is seen. The aortoiliac bifurcation is intact and does not exhibit significant disease. BILATERAL LEG ARTERY ANGIOGRAPHY: Bilateral leg artery angiography did not indicate any significant disease of the iliac arteries, common femoral arteries, popliteal arteries, or the distal vessels of the legs. 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 Selective angiography did not indicate any significant disease of the left popliteal artery or of the trifurcation arteries on the left side. CONCLUSIONS: No significant peripheral arterial disease seen on this peripheral angiographic study. Physical Exam Vital Signs Vital Signs - First Documented 12/10/22 09:21 Temp 35.4 Pulse 86 Resp 16 B/P (MAP) 134/69 (90) Pulse Ox 100 O2 Delivery Room Air Capillary Refill : Less Than 3 Seconds Height, Weight, BMI Height: 6'1.00" Weight: 168lbs. 9.0oz. 76.263218hc; 55.00 BMI Method:Estimated General Appearance: No Apparent Distress, Other (Patient is somnolent but arousable, answering questions) Eyes: Bilateral Eye Normal Inspection, Bilateral Eye PERRL, Bilateral Eye EOMI HEENT: PERRL/EOMI, Other (Dry mucous membranes) Neck: Non Tender, Supple Respiratory: Chest Non Tender, Lungs Clear, Normal Breath Sounds, No Accessory Muscle Use, No Respiratory Distress Cardiovascular: Regular Rate, Rhythm, No Murmur, Normal Peripheral Pulses Gastrointestinal: Normal Bowel Sounds, No Organomegaly, Non Tender, Soft Extremity: Normal Capillary Refill, Normal Inspection, Non Tender, Other (Amputation of the right midfoot) Neurologic/Psychiatric: Alert, Oriented x3, No Motor/Sensory Deficits, Normal 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, 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 Norm as Tested Skin: Normal Color, Warm/Dry Progress/Results/Core Measures Suspected Sepsis SIRS Temperature: Pulse: 86 Respiratory Rate: 16 Laboratory Tests 12/10/22 09:35: White Blood Count 9.6 Blood Pressure 134 /69 Mean: 90 Laboratory Tests 12/10/22 09:35: Platelet Count 476H, Total Bilirubin 0.4 Results/Orders Lab Results Laboratory Tests Test 12/10/22 09:35 Range/Units White Blood Count 9.6 4.3-11.0 10^3/uL Red Blood Count 4.49 4.30-5.52 10^6/uL Hemoglobin 12.4 #L 13.3-17.7 g/dL Hematocrit 42 40-54 % Mean Corpuscular Volume 92 80-99 fL Mean Corpuscular Hemoglobin 28 25-34 pg Mean Corpuscular Hemoglobin Concent 30 L 32-36 g/dL Red Cell Distribution Width 15.7 H 10.0-14.5 % Platelet Count 476 H 130-400 10^3/uL Mean Platelet Volume 10.6 9.0-12.2 fL Immature Granulocyte % (Auto) 2 % Neutrophils (%) (Auto) 71 42-75 % Lymphocytes (%) (Auto) 18 12-44 % Monocytes (%) (Auto) 9 0-12 % Eosinophils (%) (Auto) 0 0-10 % Basophils (%) (Auto) 0 0-10 % Neutrophils # (Auto) 6.9 1.8-7.8 10^3/uL Lymphocytes # (Auto) 1.7 1.0-4.0 10^3/uL Monocytes # (Auto) 0.9 0.0-1.0 10^3/uL Eosinophils # (Auto) 0.0 0.0-0.3 10^3/uL Basophils # (Auto) 0.0 0.0-0.1 10^3/uL Immature Granulocyte # (Auto) 0.1 0.0-0.1 10^3/uL Sodium Level 132 L 135-145 MMOL/L Potassium Level 6.2 H 3.6-5.0 MMOL/L Chloride Level 90 L 98-107 MMOL/L Carbon Dioxide Level 7 *L 21-32 MMOL/L Anion Gap 35 H 5-14 MMOL/L Blood Urea Nitrogen 33 H 7-18 MG/DL Creatinine 2.17 H 0.60-1.30 MG/DL Estimat Glomerular Filtration Rate 35 BUN/Creatinine Ratio 15 Glucose Level 751 *H 70-105 MG/DL Mean Blood Glucose 352 H <=126 mg/dL Hemoglobin A1c 13.9 H 4.0-5.6 % Calcium Level 9.9 8.5-10.1 MG/DL Corrected Calcium 10.2 H 8.5-10.1 MG/DL Total Bilirubin 0.4 0.1-1.0 MG/DL Aspartate Amino Transf (AST/SGOT) 17 5-34 U/L Alanine Aminotransferase (ALT/SGPT) 50 0-55 U/L Alkaline Phosphatase 310 H 40-136 U/L Total Protein 8.2 6.4-8.2 GM/DL Albumin 3.6 3.2-4.5 GM/DL Lipase 33 8-78 U/L Beta-Hydroxybutyrate (Chem panel) 14.41 H 0.00-0.27 MMOL/L My Orders Orders - FELI PEREZ DO Comprehensive Metabolic Panel (12/10/22 09:28) Lipase (12/10/22 09:28) Beta Hydroxybutyrate (12/10/22 09:28) Cbc With Automated Diff (12/10/22 09:28) Ns Iv 1000 Ml (Sodium Chloride 0.9%) (12/10/22 09:30) Ondansetron Injection (Zofran Injectio (12/10/22 09:30) Ekg Tracing (12/10/22 10:12) Calcium Gluconate 1gm Ivpb (Calcium Gluc (12/10/22 10:15) Insulin Regular Drip (Myxredlin 100 Unit (12/10/22 10:15) Sodium Bicarbonate 8.4% Syr (Sodium Bica (12/10/22 10:15) Ns Iv 1000 Ml (Sodium Chloride 0.9%) (12/10/22 10:16) Ed Admission (Communication) (12/10/22 10:20) Ns Iv 1000 Ml (Sodium Chloride 0.9%) (12/10/22 10:17) Diphenhydramine Injection (Diphenhydram (12/10/22 11:00) Medications Given in ED Vital Signs/I&O 12/10/22 12/10/22 09:21 10:54 Temp 35.4 Pulse 86 96 Resp 16 16 B/P (MAP) 134/69 (90) 116/71 Pulse Ox 100 100 O2 Delivery Room Air Room Air Capillary Refill : Less Than 3 Seconds 2 Blood Pressure Mean: 90 ECG Comment Sinus rhythm rate 96bpm. Mpr,a; omtervals, normal axis. no ST or T wave abnormalities, no ectopy. No STEMI Critical Care Note Critical Care Total Time (minutes) 60 Departure Communication (Admissions) Patient is somnolent but arousable. His vital signs are stable and he is maintaining his airway. Initial blood sugar too high to read on bedside glucometer, 751 on chemistry. He also has significant anion gap and acidosis. He also has hyperkalemia, potassium 6.2. Once identified EKG was obtained which shows no changes consistent with hyperkalemia. He is given calcium and started on an insulin drip and given bicarb. He was given 2 L of IV fluids here in the emergency department and started on 150 cc/h thereafter. Blood sugars overall trending down. He is admitted in otherwise stable condition. I think this is likely related to medication noncompliance as reported by the patient. There is no evidence for any acute infection causing his symptoms at this time. Impression Primary Impression: DKA (diabetic ketoacidosis) Qualified Codes: E13.10 - Other specified diabetes mellitus with ketoacidosis without coma Additional Impression: Acute kidney injury Disposition: ADMITTED INPATIENT Condition: Stable Departure-Patient Inst. Referrals: [facility] (PCP/Family) Primary Care Physician FELI PEREZ DO Dec 10, 2022 09:48
[2022-12-10 09:58] LABS: ALBUMIN 3.6 GM/DL (3.2-4.5); POTASSIUM 6.2 MMOL/L (3.6-5.0)
[2022-12-10 09:59] LABS: CALCIUM 9.9 MG/DL (8.5-10.1)
[2022-12-10 10:00] LABS: TOTAL PROTEIN 8.2 GM/DL (6.4-8.2)
[2022-12-10 10:02] LABS: BILIRUBIN,TOTAL 0.4 MG/DL (0.1-1.0)
[2022-12-10 10:04] LABS: CREATININE SERUM 2.17 MG/DL (0.60-1.30)
[2022-12-10] MEDS ORDERED: SODIUM BICARB 8.4% 50 MEQ/50 ML (ABBOTT) SYR IV ONE ×2 (10:15→14:15)
[2022-12-10] MEDS ORDERED: CALCIUM GLUCONATE 1GM IVPB 100 ML IV ONE (10:15)
[2022-12-10] MEDS ORDERED: NS IV 1000 ML 1,000 ML IV STA (10:16)
[2022-12-10] MEDS ORDERED: NS IV 1000 ML 1,000 ML ONE (10:17)
[2022-12-10] MEDS ORDERED: diphenhydrAMINE INJ 50 MG/ML VIAL IVP ONE (11:00)
[2022-12-10] MEDS ORDERED: LORazepam INJ 2 MG/ML (ATIVAN) VIAL IVP PRN (11:15)
[2022-12-10] MEDS ORDERED: ANTACID SUSP 30 ML UDC (MYLANTA) PO PRN (11:15)
[2022-12-10] MEDS ORDERED: BISACODYL 10 MG SUPPOSITORY PR PRN (11:15)
[2022-12-10] MEDS ORDERED: DexMEDEtomidine 250 ML DRIP 250 ML IV SCH (11:15)
[2022-12-10] MEDS ORDERED: ACETAMINOPHEN 325 MG TABLET PO PRN (11:15)
[2022-12-10] MEDS ORDERED: MELATONIN 3 MG TABLET PO PRN (11:15)
[2022-12-10] MEDS ORDERED: ONDANSETRON 4 MG/2 ML (SDV) Z0FRAN IV PRN (11:15)
[2022-12-10] MEDS ORDERED: polyethylene glycoL POWDER 17 GM (MIRALAX) PACK PO PRN (11:15)
[2022-12-10] MEDS ORDERED: ONDANSETRON 4 MG (ZOFRAN) ORAL DISSOLVE TAB PO PRN (11:15)
[2022-12-10] MEDS ORDERED: LORazepam 0.5 MG (ATIVAN) TABLET PO PRN (11:15)
[2022-12-10] MEDS ORDERED: LACTULOSE SYRUP 10GM/15ML (ENULOSE) 30ML UDC PO PRN (11:15)
[2022-12-10] MEDS ORDERED: oxyCODONE IMMEDIATE RELEASE 5 MG TABLET PO PRN (11:15)
[2022-12-10] MEDS ORDERED: HYDROmorphone INJECTION 2 MG/ML VIAL IV PRN (11:15)
[2022-12-10] MEDS ORDERED: NS IV 500 ML 500 ML IV PRN (11:15)
[2022-12-10] MEDS ORDERED: CALCIUM CARBONATE 500 MG CHEW TABLET PO PRN (11:15)
[2022-12-10] MEDS ORDERED: PROMETHAZINE INJ 25 MG/ML (PHENERGAN) AMP IM PRN (11:15)
[2022-12-10] MEDS ORDERED: MILK OF MAGNESIA 400 MG/5 ML 30 ML UDC PO PRN (11:15)
[2022-12-10] MEDS ORDERED: diphenhydrAMINE 25 MG TABLET PO PRN (11:15)
[2022-12-10] MEDS ORDERED: diphenhydrAMINE INJ 50 MG/ML VIAL IVP PRN (11:15)
[2022-12-10 11:24] VITALS: BP 134/69
[2022-12-10] MEDS ORDERED: RT-ALBUTEROL SULF 2.5 MG/3 ML PRE-MIX VIAL INH PRN (11:30)
[2022-12-10] MEDS: POTASSIUM CL 10MEQ/50ML IVPB 50 ML IV SCH ×4 (11:50→20:43)
--- NOTE | 2022-12-10 12:34 | History & Physical-Hospitalist ---
BRENDAN PEÑA 12/10/22 1234: History of Present Illness HPI/Chief Complaint CC: Abdominal/GI problems HPI: 56-year-old male w a h/o DKA presents to the ER lethargic, on meth, and with elevated glucose levels. Patient was transferred to ICU and complained of n ausea, but no other information was gathered due to patient being lethargic and unwilling to participate in conversation. Source: RN/MD Exam Limitations: clinical condition Date Seen 12/10/22 Time Seen by a Provider: 11:30 Attending Physician [place] PCP Admitting Physician: Renetta Tijerina DO Attending Physician: Renetta Tijerina DO Referring Physician Date of Admission Dec 10, 2022 at 11:01 Home Medications & Allergies Home Medications Reviewed patient Home Medication Reconciliation performed by pharmacy medication reconciliations broadcast maintenance technician and/or nursing. Patients Allergies have been reviewed. Allergies Allergies Coded Allergies Penicillins (Verified Allergy, Unknown, 09/20/18) tramadol (Verified Allergy, Unknown, 08/08/22) Past Htgemoa-Avtswc-Pbgauw Hx Patient Social History Marrital Status: single Employed/Student: unemployed Tobacco Use?: Yes Tobacco type used: Cigarettes Smoking Status: Current Everyday Smoker Smokeless Tobacco Frequency: Current Everyday User Use of E-Cig and/or Vaping dev: No Substance use?: Yes Substance type: Methamphetamine Additional substance use comme: LAST USED YESTERDAY Substance frequency: Daily Alcohol Use?: Unable to obtain Pt feels they are or have been: Unable to obtain Immunizations Up To Date Date of Influenza Vaccine: Apr 12, 2022 First/Initial COVID19 Vaccinat: 2020 PFIZER Second COVID19 Vaccination Jeffery: 2020 PFIZER Tetanus Booster (TDap): Unknown Hepatitis A: No Hepatitis B: No Seasonal Allergies Seasonal Allergies: No Current Status Advance Directives: Unable to obtain Communicates: Verbally Primary Language: Swazi Preferred Spoken Language: Swazi Is interpretation needed?: No Implanted or Applied Medical D: None Past Medical History Surgeries: Amputation, Orthopedic Currently Using CPAP: No Currently Using BIPAP: No High Cholesterol, Hypertension Neuropathy Amputee Diabetes, Insulin dep Depression Blood Disorders: No Adverse Reaction/Blood Tranf: No 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 No Pertinent Family Hx SOCIAL HISTORY: -PT SMOKES, UNKNOWN AMOUNT -DRUGS--EXTENSIVE METHAMPHETAMINE USE -HAS DENIED ALCOHOL USE PT HAS HISTORY OF HOMELESSNESS PAST SURGICAL HISTORY: -RIGHT GREAT TOE AMPUTATION AT [facility] 03/16/22; LATER MID FOOT AMPUTATION-PT STATES AT [facility] IN MAY 2022. -PREVIOUS RIGHT 4TH TOE AMPUTATION AND LEFT 5TH TOE AMPUTATION -PERIPHERAL ANGIOGRAM BY DR. AVILES: DATE OF SERVICE: 09/05/2020 PERIPHERAL ANGIOGRAPHY REPORT The patient is a 54-year-old gentleman who recently had amputation of the left fifth toe that was exhibiting ischemia and ulceration. 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 Accordingly, peripheral angiography was carried out and informed consent was obtained for peripheral angiography and possible ad hoc intervention. DESCRIPTION OF PROCEDURE: He was brought to the cardiac catheterization laboratory in a fasting state. Right groin was prepared and draped in the usual sterile fashion. Lidocaine 1% was used for local anesthesia. Modified Seldinger technique was used to advance a 5-English sheath in right femoral artery. A 5-English pigtail catheter was used to carry out abdominal aortic angiography. The pigtail catheter was then pulled back to just above the level of the aortoiliac bifurcation and bilateral leg artery angiography was carried out down to the level of the ankles. Subsequently, we used a 5-English crossover catheter and advanced a Storq wire into the left superficial femoral artery. The crossover catheter was removed and we advanced a straight catheter into the distal part of the left superficial femoral artery and carried out selective angiography of the distal left superficial femoral artery and the trifurcation vessels down to the level of the ankles. The catheter was then removed. Angiography of the right femoral artery was carried out through the sheath. Mynx was used to achieve hemostasis. He tolerated the procedure well. ABDOMINAL AORTIC ANGIOGRAPHY: Abdominal aortic angiography did not indicate any significant abdominal aortic aneurysm or dissection. No abdominal aortic stenosis is seen. The aortoiliac bifurcation is intact and does not exhibit significant disease. BILATERAL LEG ARTERY ANGIOGRAPHY: Bilateral leg artery angiography did not indicate any significant disease of the iliac arteries, common femoral arteries, popliteal arteries, or the distal vessels of the legs. 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 Selective angiography did not indicate any significant disease of the left popliteal artery or of the trifurcation arteries on the left side. CONCLUSIONS: No significant peripheral arterial disease seen on this peripheral angiographic study. Review of Systems Constitutional: see HPI Gastrointestinal: nausea (Patient gave complaint of N/V in ER), vomiting Physical Exam Physical Exam Vital Signs Vital Signs - First Documented 12/10/22 12/10/22 09:21 11:24 Temp 35.4 Pulse 86 Resp 16 B/P (MAP) 134/69 (90) Pulse Ox 100 O2 Delivery Room Air FiO2 21 Capillary Refill : Less Than 3 Seconds Height, Weight, BMI Height: 6'1.00" Weight: 168lbs. 9.0oz. 76.058614eg; 21.79 BMI Method:Estimated General Appearance: No Apparent Distress, Chronically ill, Other (Lethargic, sleeping) Eyes: Right Eye Normal Inspection, Right Eye PERRL Respiratory: Lungs Clear, Normal Breath Sounds, No Accessory Muscle Use, No Respiratory Distress Extremity: Normal Inspection, Other (Amputation of right toes) Neurologic/Psychiatric: Alert, Oriented x3 Skin: Normal Color Results Results/Procedures Labs Laboratory Tests 12/10/22 09:35 Patient resulted labs reviewed. Assessment/Plan Admission Diagnosis JOEL, DKA Admission Status: Inpatient Order (span 2 midnights) Reason for Inpatient Admission: Patient has dangerously high glucose levels, on meth, and is lethargic. Assessment and Plan Assessment: DKA JOEL Substance abuse No evidence of cellulitis during hospital stay Plan: Continue IV fluids Continue insulin therapy Monitor closely Critical Care Critically Ill Patient RENETTA TIJERINA DO 12/10/22 1618: Past Fycifgs-Bdmnoh-Rtcwie Hx Patient Social History Marrital Status: single Employed/Student: unemployed Past Medical History Diabetes, Insulin dep Family Medical History Patient reports no known family medical history. Review of Systems Constitutional: see HPI Physical Exam Physical Exam General Appearance: No Apparent Distress, Chronically ill Respiratory: Lungs Clear Cardiovascular: Regular Rate, Rhythm Assessment/Plan Admission Diagnosis Admission Status: Inpatient Order (span 2 midnights) Reason for Inpatient Admission: dka Supervisory-Addendum Brief Verification & Attestation Participated in pt care: history, MDM, physical Personally performed: exam, history, MDM, supervision of care Care discussed with: Medical Student Procedures: n/a Results interpretation: Verified all documentation Verification and Attestation of Medical Student E/M Service A medical student performed and documented this service in my presence. I reviewed and verified all information documented by the medical student and made modifications to such information, when appropriate. I personally performed the physical exam and medical decision making. Renetta Tijerina, Dec 10, 2022,16:17 BRENDAN PEÑA Dec 10, 2022 12:34 RENETTA TIJERINA DO Dec 10, 2022 16:18
[2022-12-10] MEDS: 1/2 NS IV SOLUTION 1000 ML 1,000 ML IV SCH ×4 (12:44→23:55)
[2022-12-10] MEDS: ENOXAPARIN 40 MG/0.4 ML SYRINGE SC SCH (12:55)
[2022-12-10 13:04] LABS: COLOR,URINE YELLOW
[2022-12-10 13:05] LABS: CLARITY,URINE SLIGHTLY CLOUDY; PROTEIN,URINE TRACE (NEGATIVE)
[2022-12-10 13:06] LABS: GLUCOSE, URINE (UA) 4+ (NEGATIVE)
[2022-12-10 13:07] LABS: BILIRUBIN,URINE NEGATIVE (NEGATIVE); KETONES,URINE 4+ (NEGATIVE); LEUKOCYTE ESTERASE ,URINE TRACE (NEGATIVE); NITRITE,URINE NEGATIVE (NEGATIVE)
[2022-12-10 13:08] LABS: BACTERIA,URINE NEGATIVE /HPF; YEAST,URINE LARGE /HPF
[2022-12-10 13:44] LABS: POTASSIUM 6.1 MMOL/L (3.6-5.0)
[2022-12-10 13:46] LABS: CALCIUM 9.3 MG/DL (8.5-10.1)
[2022-12-10 13:50] LABS: CREATININE SERUM 1.91 MG/DL (0.60-1.30)
--- NOTE | 2022-12-10 14:28 | Tele-ICU Consult ---
History of Present Illness History of Present Illness Date Seen by Provider: Dec 10, 2022 Time Seen by Provider: 14:27 History of Present Illness (Tele-ICU Physician , consultation as per request of PCP Service provided via interactive audio and video telecommunications E-CARE system to a patient admitted to ICU bed in [facility]. Available chart/ vitals / labs / Images reviewed H&P is from ER notes Patient's information available about PMH, Shx, Fhx allergy reviewed inEMR. ROS as per chart and RN report Now in ICU, hemodynamically stable Video assessment done using teleICU camera, rest of exam as per RN Discussed with RN. Hospital course: A/P DKA -Unclear precipitant, No suspicious for new infection *Insulin drip, continue to monitor for resolution of acidosis, AG and electrolytes. Continue hydration. *Tx Gastroparesis JOEL - dehydration, hypotension - cont IVF - follow closely Hyperkalemia due to JOEL - treated with IV insulin and Ca , albuterol nebs - follow closely UA unremarkable >off ABX Encephalopathy - due to above - follow Met/amphet ++ - monotor for withdrawal - AAO x4 , but refusing any blood work Lines : , (Central Line Necessity Reviewed) Gomez: OG: Nutrition: Analgesia: Anxiety/ delirium VTE Prophylaxis: rayray 40 Stress Ulcer Prophylaxis: Glycemic Control: Plans in collaboration with bedside consultants and IM MDs. Discussed with RN to reach out if any questions or concerns A total of 32 minutes of critical care time was devoted to this patient today, required to treat and/or prevent further deterioration of critical care condition ( as above ) . I am remotely monitoring this patient from another state. I am unable to do the bedside exam, and history/physical and pertinent information is taken from other notes in the computer and bedside staff. . Allergies and Home Medications Allergies Coded Allergies: Penicillins (Verified Allergy, Unknown, 09/20/18) tramadol (Verified Allergy, Unknown, 08/08/22) Home Medications Clindamycin HCl 300 Mg Capsule, 300 MG PO Q8H Prescribed by: BENNY IZAGUIRRE on 12/07/22 1037 Insulin Aspart 100 Unit/Ml (3 Ml) Insuln.pen, 10 UNIT SQ AC FILLED 09-07-2022 #5 PENS/50 DAY SUPPLY Prescribed by: BENNY IZAGUIRRE on 12/07/22 1037 Insulin Glargine,Hum.rec.anlog 100 Unit/Ml (3 Ml) Insuln.pen, 35 UNIT SQ HS, (Reported) LAST FILLED 09-07-2022 #5 PENS/42 DAY SUPPLY Past Medical/Social/Family Hx Patient Social History Marrital Status: single Employed/Student: unemployed Tobacco Use?: Yes Tobacco type used: Cigarettes Smoking Status: Current Everyday Smoker Smokeless Tobacco Frequency: Current Everyday User Use of E-Cig and/or Vaping dev: No Substance use?: Yes Substance type: Methamphetamine LAST USED YESTERDAY Substance frequency: Daily Alcohol Use?: Unable to obtain Pt stated abuse/neglect: Unable to obtain Immunizations Up To Date First/Initial COVID19 Vaccinat: 2020 PFIZER Second COVID19 Vaccination Jeffery: 2020 PFIZER Tetanus Booster (TDap): Unknown Hepatitis A: No Hepatitis B: No TB Skin Test: None Current Status Advance Directives: Unable to obtain Communicates: Verbally Primary Language: Palestinian Preferred Spoken Language: Palestinian Is interpretation needed?: No Implanted or Applied Medical D: None Past Medical History 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 -PREVIOUS RIGHT 4TH TOE AMPUTATION AND LEFT 5TH TOE AMPUTATION -PERIPHERAL ANGIOGRAM BY DR. AVILES: DATE OF SERVICE: 09/05/2020 PERIPHERAL ANGIOGRAPHY REPORT The patient is a 54-year-old gentleman who recently had amputation of the left fifth toe that was exhibiting ischemia and ulceration. 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 Accordingly, peripheral angiography was carried out and informed consent was obtained for peripheral angiography and possible ad hoc intervention. DESCRIPTION OF PROCEDURE: He was brought to the cardiac catheterization laboratory in a fasting state. Right groin was prepared and draped in the usual sterile fashion. Lidocaine 1% was used for local anesthesia. Modified Seldinger technique was used to advance a 5-Mohawk sheath in right femoral artery. A 5-Mohawk pigtail catheter was used to carry out abdominal aortic angiography. The pigtail catheter was then pulled back to just above the level of the aortoiliac bifurcation and bilateral leg artery angiography was carried out down to the level of the ankles. Subsequently, we used a 5-Mohawk crossover catheter and advanced a Storq wire into the left superficial femoral artery. The crossover catheter was removed and we advanced a straight catheter into the distal part of the left superficial femoral artery and carried out selective angiography of the distal left superficial femoral artery and the trifurcation vessels down to the level of the ankles. The catheter was then removed. Angiography of the right femoral artery was carried out through the sheath. Mynx was used to achieve hemostasis. He tolerated the procedure well. ABDOMINAL AORTIC ANGIOGRAPHY: Abdominal aortic angiography did not indicate any significant abdominal aortic aneurysm or dissection. No abdominal aortic stenosis is seen. The aortoiliac bifurcation is intact and does not exhibit significant disease. BILATERAL LEG ARTERY ANGIOGRAPHY: Bilateral leg artery angiography did not indicate any significant disease of the iliac arteries, common femoral arteries, popliteal arteries, or the distal vessels of the legs. 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 Selective angiography did not indicate any significant disease of the left popliteal artery or of the trifurcation arteries on the left side. CONCLUSIONS: No significant peripheral arterial disease seen on this peripheral angiographic study. Review of Systems Constitutional: see HPI, chills Focused Exam Height, Weight, BMI Height: 6'1.00" Weight: 168lbs. 9.0oz. 76.262486qp; 21.79 BMI Method:Estimated Exam Exam Patient acknowledged, consented, and participated in this virtual visit which was conducted using real time audio/video Vital Signs Date Time Temp Pulse Resp B/P (MAP) Pulse Ox O2 Delivery O2 Flow Rate FiO2 12/10/22 14:00 98 14 147/75 (99) 96 Room Air 12/10/22 13:00 100 36 132/76 (94) 98 Room Air 12/10/22 12:32 98 12/10/22 12:00 96 120/49 (72) 100 Room Air 12/10/22 11:52 36.1 12/10/22 11:24 35.4 86 100 21 12/10/22 11:18 95 12/10/22 11:15 99 12/10/22 10:54 96 16 116/71 100 Room Air 12/10/22 09:21 35.4 86 16 134/69 (90) 100 Room Air Height & Weight Height: 6'1.00" Weight: 168lbs. 9.0oz. 76.596655tg; 21.79 BMI Method:Estimated General Appearance: No Apparent Distress, Chronically ill, Other (Lethargic, sleeping) HEENT: PERRL/EOMI, Other (Dry mucous membranes) Neck: Non Tender, Supple Respiratory: Lungs Clear, Normal Breath Sounds, No Accessory Muscle Use, No Respiratory Distress Cardiovascular: Regular Rate, Rhythm, No Murmur, Normal Peripheral Pulses Capillary Refill: Less Than 3 Seconds Extremity: Normal Inspection, Other (Amputation of right toes) Neurologic/Psychiatric: Alert, Oriented x3 Skin: Normal Color Results Lab Laboratory Tests 12/10/22 09:35 12/10/22 13:22 Assessment/Plan Assessment/Plan 1 JOSE ROWE MD Dec 10, 2022 14:28
[2022-12-10 16:18] LABS: POTASSIUM 4.6 MMOL/L (3.6-5.0)
[2022-12-10 16:20] LABS: CALCIUM 8.8 MG/DL (8.5-10.1)
[2022-12-10 16:24] LABS: CREATININE SERUM 1.75 MG/DL (0.60-1.30)
[2022-12-10 20:02] LABS: POTASSIUM 4.5 MMOL/L (3.6-5.0)
[2022-12-10 20:03] LABS: CALCIUM 8.5 MG/DL (8.5-10.1)
[2022-12-10 20:07] LABS: CREATININE SERUM 1.56 MG/DL (0.60-1.30)
[2022-12-10] MEDS: D5 1/2 NS 1,000 ML IV 1,000 ML IV SCH (20:42)
[2022-12-10] MEDS: SENNOSIDES 8.6 MG (SENOKOT) TAB PO SCH (21:00)
[2022-12-10] MEDS: DOCUSATE SODIUM 100 MG CAPSULE PO SCH (21:00)
[2022-12-11] MEDS: D5 1/2 NS 1,000 ML IV 1,000 ML IV SCH ×4 (00:54→13:19)
[2022-12-11] MEDS: POTASSIUM CL 10MEQ/50ML IVPB 50 ML IV SCH ×5 (01:34→15:18)
[2022-12-11] MEDS: 1/2 NS IV SOLUTION 1000 ML 1,000 ML IV SCH ×3 (03:15→11:21)
[2022-12-11 04:09] LABS: BASOPHILS % (AUTO) 0 % (0-10); EOSINOPHILS % (AUTO) 0 % (0-10); HEMATOCRIT 30 % (40-54); LYMPHOCYTES # (AUTO) 2.5 10^3/uL (1.0-4.0); LYMPHOCYTES % (AUTO) 18 % (12-44); MEAN CORPUSCULAR HEMOGLOBIN 28 pg (25-34); MEAN CORPUSCULAR HGB CONC 33 g/dL (32-36); MEAN CORPUSCULAR VOLUME 83 fL (80-99); MEAN PLATELET VOLUME 9.9 fL (9.0-12.2); MONOCYTES # (AUTO) 1.4 10^3/uL (0.0-1.0); MONOCYTES % (AUTO) 10 % (0-12); NEUTROPHILS % (AUTO) 71 % (42-75); PLATELET COUNT 449 10^3/uL (130-400); WHITE BLOOD COUNT 14.1 10^3/uL (4.3-11.0)
[2022-12-11 04:30] LABS: ALBUMIN 2.7 GM/DL (3.2-4.5); BILIRUBIN,TOTAL 0.2 MG/DL (0.1-1.0); CREATININE SERUM 1.4 MG/DL (0.60-1.30); PHOSPHORUS 1.6 MG/DL (2.3-4.7); POTASSIUM 4.1 MMOL/L (3.6-5.0); TOTAL PROTEIN 5.9 GM/DL (6.4-8.2)
[2022-12-11 04:44] LABS: ATYPICAL LYMPHOCYTES 2 %; LYMPHOCYTES % (MANUAL) 15 %; MONOCYTES % (MANUAL) 9 %; NEUTROPHILS % (MANUAL) 74 %; RBC MORPH NORMAL
[2022-12-11] MEDS ORDERED: MAGNESIUM 1 GM/100 ML IVPB 100 ML IV SCH (06:00)
[2022-12-11] MEDS ORDERED: POTASSIUM CL 10MEQ/50ML IVPB 50 ML IV SCH (06:00)
[2022-12-11] MEDS: KCL 20 MEQ TAB (K-DUR) PO SCH (06:05)
--- NOTE | 2022-12-11 07:35 | Tele-ICU Progress Note ---
Subjective Date Seen by a Provider: Dec 11, 2022 Time Seen by a Provider: 07:30 Subjective/Events-last exam (Tele-ICU Physician , consultation as per request of PCP Service provided via interactive audio and video telecommunications E-CARE system to a patient admitted to ICU bed in [facility]. Available chart/ vitals / labs / Images reviewed H&P is from ER notes Patient's information available about PMH, Shx, Fhx allergy reviewed inEMR. ROS as per chart and RN report Now in ICU, hemodynamically stable Video assessment done using teleICU camera, rest of exam as per RN Discussed with RN. 56 yo M admitted yesterday for DKA, at time had JOEL, hypotension Today glu in mid 100's, HCO3 21 with no AG, Cr went from 1.56 to 1.4, Still on IV insulin drip @ 2.5 U/h At home tatke Glargine 35 U q HS and aspart 10 PC, on DVT and GIB prophylaxis Pt is drinking but not eating, not nausea or vomiting but is somewhat lethargic but looks able to protect airway according to RN Hx of methamphetamine use Sepsis Event Evaluation Height, Weight, BMI Height: 6'1.00" Weight: 168lbs. 9.0oz. 76.201707nv; 21.79 BMI Method:Estimated Exam Exam Patient acknowledged, consented, and participated in this virtual visit which was conducted using real time audio/video Vital Signs Date Time Temp Pulse Resp B/P (MAP) Pulse Ox O2 Delivery O2 Flow Rate FiO2 12/11/22 07:00 74 12/11/22 07:00 73 10 120/72 (89) 94 Room Air 12/11/22 06:00 80 19 140/78 (98) 97 Room Air 12/11/22 05:00 75 18 116/73 (87) 95 Room Air 12/11/22 04:00 81 14 123/74 (90) 96 Room Air 12/11/22 04:00 97 Room Air 12/11/22 03:00 77 13 109/71 (84) 96 Room Air 12/11/22 02:00 79 26 122/76 (91) 97 Room Air 12/11/22 01:00 83 12/11/22 01:00 84 13 136/87 (103) 96 Room Air 12/11/22 00:00 96 Room Air 12/11/22 00:00 85 19 135/85 (102) 96 Room Air 12/10/22 23:00 87 18 127/77 (94) 95 Room Air 12/10/22 22:00 94 15 137/81 (99) 96 Room Air 12/10/22 21:00 92 15 132/76 (94) 96 Room Air 12/10/22 20:00 95 Room Air 12/10/22 20:00 89 13 143/84 (103) 96 Room Air 12/10/22 19:28 95 Room Air 12/10/22 19:00 93 16 136/78 (97) 94 Room Air 12/10/22 19:00 94 12/10/22 18:00 98 18 152/79 (100) 95 Room Air 12/10/22 17:00 93 16 127/57 (81) 95 Room Air 12/10/22 16:09 36.5 12/10/22 16:02 98 12/10/22 16:00 97 11 137/77 (90) 98 Room Air 12/10/22 15:00 134 23 141/94 (110) 98 Room Air 12/10/22 14:00 98 14 147/75 (99) 96 Room Air 12/10/22 13:00 100 36 132/76 (94) 98 Room Air 12/10/22 12:32 98 12/10/22 12:00 96 120/49 (72) 100 Room Air 12/10/22 11:52 36.1 12/10/22 11:24 35.4 86 100 21 12/10/22 11:18 95 12/10/22 11:15 99 12/10/22 10:54 96 16 116/71 100 Room Air 12/10/22 09:21 35.4 86 16 134/69 (90) 100 Room Air I & O 12/11/22 07:00 Intake Total 6870 ml Output Total 3000 ml Balance 3870 ml Height & Weight Height: 6'1.00" Weight: 168lbs. 9.0oz. 76.220845db; 21.79 BMI Method:Estimated General Appearance: No Apparent Distress, Chronically ill HEENT: PERRL/EOMI, Other (Dry mucous membranes) Neck: Non Tender, Supple Respiratory: Lungs Clear Cardiovascular: Regular Rate, Rhythm Capillary Refill: Less Than 3 Seconds Gastrointestinal: normal bowel sounds, non tender Extremity: Normal Inspection, No Pedal Edema, Pedal Edema (+ 1 edema, has partial amputation right foot), Other (Amputation of right toes) Neurologic/Psychiatric: Alert, Oriented x3 Skin: Normal Color Results Lab Laboratory Tests 12/10/22 09:35 12/10/22 13:22 12/10/22 15:19 12/10/22 19:43 12/11/22 03:51 Assessment/Plan Assessment/Plan Resolved DKA, will change to home meds can go to F if does well and if eating/drinking ok Critical Care: Critically Ill Patient Time spent with patient (mins): 25 COLBY TORRES MD Dec 11, 2022 07:35
[2022-12-11] MEDS: PANTOPRAZOLE 40 MG (PROTONIX) VIAL IV SCH (08:25)
[2022-12-11] MEDS: SENNOSIDES 8.6 MG (SENOKOT) TAB PO SCH ×2 (09:10→19:32)
[2022-12-11] MEDS: DOCUSATE SODIUM 100 MG CAPSULE PO SCH ×2 (09:10→19:32)
[2022-12-11] MEDS: ENOXAPARIN 40 MG/0.4 ML SYRINGE SC SCH (10:05)
--- NOTE | 2022-12-11 11:30 | Progress Note - Hospitalist ---
Subjective HPI/CC On Admission Date Seen by Provider: Dec 11, 2022 Time Seen by Provider: 11:00 CC: Abdominal/GI problems HPI: 56-year-old male w a h/o DKA presents to the ER lethargic, on meth, and with elevated glucose levels. Patient was transferred to ICU and complained of nausea, but no other information was gathered due to patient being lethargic and unwilling to participate in conversation. Subjective/Events-last exam No major issues DKA resolved Will move to floor after SQ insulin transition Review of Systems General: Fatigue, Malaise Objective Exam Vital Signs Vital Signs Date Time Temp Pulse Resp B/P (MAP) Pulse Ox O2 Delivery O2 Flow Rate FiO2 12/11/22 14:00 66 118/74 (86) 95 Room Air 12/11/22 13:00 12/11/22 11:26 36.4 12/10/22 11:24 21 Capillary Refill : Less Than 3 Seconds General Appearance: No Apparent Distress, WD/WN, Chronically ill, Other (refuses exam) Results/Procedures Lab Laboratory Tests 12/10/22 15:19 12/10/22 19:43 12/11/22 03:51 Patient resulted labs reviewed. Assessment/Plan Assessment and Plan Assess & Plan/Chief Complaint DKA Meth use Move to 4th floor Critical Care Critically Ill Patient GORDON CROWLEY DO Dec 11, 2022 11:30
[2022-12-11] MEDS ORDERED: inSUlin DETERMIR 1 UNIT/0.01 ML (CHARGE PER UNIT) SQ ONE (15:30)
[2022-12-11] MEDS: 1/2 NS + KCL 20 MEQ/L 1,000 ML 1,000 ML IV SCH (16:25)
[2022-12-11 19:28] VITALS: BP 159/78
[2022-12-11] MEDS: inSUlin ASPART 1 UNIT/0.01 ML (PER UNIT) SC SCH (20:56)
[2022-12-11 23:28] VITALS: BP 117/72
[2022-12-12 03:20] VITALS: BP 113/62
[2022-12-12] MEDS: 1/2 NS + KCL 20 MEQ/L 1,000 ML 1,000 ML IV SCH (04:53)
[2022-12-12] MEDS: inSUlin ASPART 1 UNIT/0.01 ML (PER UNIT) SC SCH ×4 (05:06→11:48)
[2022-12-12 06:02] LABS: BASOPHILS % (AUTO) 0 % (0-10); EOSINOPHILS % (AUTO) 1 % (0-10); HEMATOCRIT 33 % (40-54); HEMOGLOBIN 10.9 g/dL (13.3-17.7); LYMPHOCYTES # (AUTO) 2.5 10^3/uL (1.0-4.0); LYMPHOCYTES % (AUTO) 30 % (12-44); MEAN CORPUSCULAR HEMOGLOBIN 28 pg (25-34); MEAN CORPUSCULAR HGB CONC 33 g/dL (32-36); MEAN CORPUSCULAR VOLUME 84 fL (80-99); MEAN PLATELET VOLUME 9.4 fL (9.0-12.2); MONOCYTES # (AUTO) 0.7 10^3/uL (0.0-1.0); MONOCYTES % (AUTO) 8 % (0-12); NEUTROPHILS % (AUTO) 61 % (42-75); PLATELET COUNT 375 10^3/uL (130-400); WHITE BLOOD COUNT 8.3 10^3/uL (4.3-11.0)
[2022-12-12 06:11] LABS: ALBUMIN 2.5 GM/DL (3.2-4.5)
[2022-12-12 06:12] LABS: POTASSIUM 4.3 MMOL/L (3.6-5.0)
[2022-12-12 06:13] LABS: CALCIUM 8.3 MG/DL (8.5-10.1)
[2022-12-12 06:14] LABS: TOTAL PROTEIN 5.8 GM/DL (6.4-8.2)
[2022-12-12 06:16] LABS: BILIRUBIN,TOTAL 0.2 MG/DL (0.1-1.0)
[2022-12-12] MEDS: KCL 20 MEQ TAB (K-DUR) PO SCH (06:17)
[2022-12-12 06:18] LABS: CREATININE SERUM 0.99 MG/DL (0.60-1.30)
[2022-12-12 06:20] LABS: MAGNESIUM 1.9 MG/DL (1.6-2.4)
[2022-12-12 08:18] VITALS: BP 150/84
[2022-12-12] MEDS: PANTOPRAZOLE 40 MG (PROTONIX) VIAL IV SCH (08:49)
[2022-12-12] MEDS: DOCUSATE SODIUM 100 MG CAPSULE PO SCH (08:53)
[2022-12-12] MEDS: SENNOSIDES 8.6 MG (SENOKOT) TAB PO SCH (08:53)
[2022-12-12] MEDS ORDERED: inSUlin DETERMIR 1 UNIT/0.01 ML (CHARGE PER UNIT) SQ SCH (09:00)
[2022-12-12 11:36] VITALS: BP 116/70
[2022-12-12] MEDS: ENOXAPARIN 40 MG/0.4 ML SYRINGE SC SCH (11:48)
--- NOTE | 2022-12-12 12:18 | Discharge Summary ---
Discharge Summary Hospital Course Was the Problem List Reviewed?: Yes Problems/Dx: (1) DKA (diabetic ketoacidosis) Qualifiers: Qualified Codes: E13.10 - Other specified diabetes mellitus with ketoacidosis without coma Hospital Course Date of Admission: Dec 10, 2022 at 11:01 Admission Diagnosis : Family Physician/Provider: [place] Date of Discharge: 12/12/22 Discharge Diagnosis: [ ] Hospital Course: Uneventful hospital course after admitted for DKA placed on insulin drip and resolved transition to subcu insulin moved to the floor and discharged in improved condition. Labs and Pending Lab Test: Laboratory Tests 12/11/22 13:14: Glucometer 124H 12/11/22 14:27: Glucometer 126H 12/11/22 15:14: Glucometer 131H 12/11/22 20:56: Glucometer 108 12/12/22 04:58: Glucometer 126H 12/12/22 05:54: White Blood Count 8.3, Red Blood Count 3.93L, Hemoglobin 10.9L, Hematocrit 33L, Mean Corpuscular Volume 84, Mean Corpuscular Hemoglobin 28, Mean Corpuscular Hemoglobin Concent 33, Red Cell Distribution Width 16.3H, Platelet Count 375, Mean Platelet Volume 9.4, Immature Granulocyte % (Auto) 0, Neutrophils (%) (Auto) 61, Lymphocytes (%) (Auto) 30, Monocytes (%) (Auto) 8, Eosinophils (%) (Auto) 1, Basophils (%) (Auto) 0, Neutrophils # (Auto) 5.0, Lymphocytes # (Auto) 2.5, Monocytes # (Auto) 0.7, Eosinophils # (Auto) 0.0, Basophils # (Auto) 0.0, Immature Granulocyte # (Auto) 0.0, Sodium Level 135, Potassium Level 4.3, Chloride Level 104, Carbon Dioxide Level 21, Anion Gap 10, Blood Urea Nitrogen 7, Creatinine 0.99, Estimat Glomerular Filtration Rate 91, BUN/Creatinine Ratio 7, Glucose Level 159H, Calcium Level 8.3L, Corrected Calcium 9.5, Magnesium Level 1.9, Total Bilirubin 0.2, Aspartate Amino Transf (AST/SGOT) 16, Alanine Aminotransferase (ALT/SGPT) 24, Alkaline Phosphatase 206H, Total Protein 5.8L, Albumin 2.5L 12/12/22 11:28: Glucometer 272H Microbiology 12/10/22 Urine Culture - Preliminary, Resulted YEAST 12/10/22 MRSA Screen - Final, Complete MRSA not isolated Home Meds Active Insulin Aspart Flexpen (Insulin Aspart) 100 Unit/Ml (3 Ml) Insuln.pen 10 Unit SQ AC FILLED 09-07-2022 #5 PENS/50 DAY SUPPLY Reported Lantus Solostar (Insulin Glargine,Hum.rec.anlog) 100 Unit/Ml (3 Ml) Insuln.pen 35 Unit SQ HS LAST FILLED 09-07-2022 #5 PENS/42 DAY SUPPLY Assessment/Pt Instructions PCP 1 week Discharge Planning: <30 minutes discharge planning Discharge Instructions Discharge Diet: ADA Diet Activity as Tolerated: Yes Discharge Physical Examination Vital Signs Vital Signs Date Time Temp Pulse Resp B/P (MAP) Pulse Ox O2 Delivery O2 Flow Rate FiO2 12/12/22 11:36 37.3 75 18 116/70 (85) 96 Room Air 12/10/22 11:24 21 General Appearance: No Apparent Distress, WD/WN Allergies: Coded Allergies: Penicillins (Verified Allergy, Unknown, 09/20/18) tramadol (Verified Allergy, Unknown, 08/08/22) Discharge Summary Date of Admission Dec 10, 2022 at 11:01 Date of Discharge Discharge Date: Dec 12, 2022 Admission Diagnosis Discharge Diagnosis DKA Meth use Move to 4th floor GORDON CROWLEY DO Dec 12, 2022 12:17
[2022-12-12 12:59] VITALS: BP 116/70
--- NOTE | 2022-12-13 10:12 | Physician Query Clarification ---
PQ-Further Specificity Admission/Discharge Admission Date: Dec 10, 2022 at 11:01 Discharge Date: Dec 12, 2022 at 12:55 Dr. Tijerina, The medical record reflects the following clinical scenario: History/Risk Factors: DKA, encephalopathy, JOEL, meth abuse Clinical Findings: Glucose 751, BUN/CR 33/ 2.17, Anion Gap 35, 4+ ketone Treatment: IV Calcium bicarbinate, insulin drip, IV fluids Question: Can you further specify encephalopathy per the clinical indicators above? Please document a response in the Progress Notes or Discharge Summary. 1. metabolic encephalopathy 2. toxic encephalopathy 3. encephalopathy not further specified 4. Other, with explanation of the clinical findings. 5. Clinically undetermined, no explanation for the clinical findings. PHYSICIAN RESPONSE Can you specify per above: 1 In responding to this query, please exercise your independent professional judgment. The purpose of this communication is to more accurately reflect the complexity of your patients condition. The fact that a question is asked does not imply that any particular answer is desired or expected. Thank you for your timely response to this clarification. Requestors name: Emma THIS PHYSICIAN QUERY FORM IS A PERMANENT PART OF THE MEDICAL RECORD EMMA NGUYEN Dec 13, 2022 10:12 GORDON TIJERINA DO Dec 13, 2022 12:39
== END 2022-12-12 12:55 | disposition home or self-care (01) | DRG 637 ==
LOC: EDUNIT# 09:21 → ER 09:22 → ICU 11:01 → 4TH 12-11 16:48
PROVIDERS: ADMIT Internal Medicine; ATTEND Internal Medicine
DX: E11.10 Type 2 diabetes mellitus with ketoacidosis without coma (principal); G93.41 Metabolic encephalopathy; N17.9 Acute kidney failure, unspecified; E87.5 Hyperkalemia; E86.0 Dehydration; I95.9 Hypotension, unspecified; F15.10 Other stimulant abuse, uncomplicated; F17.210 Nicotine dependence, cigarettes, uncomplicated; Z59.00 Homelessness unspecified; E78.00 Pure hypercholesterolemia, unspecified; I10 Essential (primary) hypertension; F32.A Depression, unspecified; G62.9 Polyneuropathy, unspecified; Z79.4 Long term (current) use of insulin; Z89.431 Acquired absence of right foot; Z89.422 Acquired absence of other left toe(s); Z79.899 Other long term (current) drug therapy; Z88.0 Allergy status to penicillin; Z91.09 Other allergy status, other than to drugs and biological substances
CPT/HCPCS: 36415; 80048; 80053; 81000; 82010; 82947; 83036; 83690; 83735; 84100; 85007; 85025; 85027; 87081; 87088; 93005; 94760; 96361; 96374; 96375

== ENCOUNTER 2022-12-28 10:00 | Inpatient (IN) | payer SELFPAY ==
[~2022-12-28] VITALS: Ht 175 cm; Wt 74.8 kg
[2022-12-28] MEDS ORDERED: LACTATED RINGERS 1,000 ML 1,000 ML IV STA (10:05)
[2022-12-28] MEDS ORDERED: inSUlin (REGULAR) HUMAN 1 UNIT/0.01 ML (CHARGE PER UNIT) IV STA (10:05)
[2022-12-28 10:12] LABS: BASOPHILS # (AUTO) 0.1 10^3/uL (0.0-0.1); BASOPHILS % (AUTO) 0 % (0-10); EOSINOPHILS % (AUTO) 0 % (0-10); HEMATOCRIT 44 % (40-54); HEMOGLOBIN 13.2 g/dL (13.3-17.7); LYMPHOCYTES # (AUTO) 1.2 10^3/uL (1.0-4.0); LYMPHOCYTES % (AUTO) 8 % (12-44); MEAN CORPUSCULAR HEMOGLOBIN 28 pg (25-34); MEAN CORPUSCULAR HGB CONC 30 g/dL (32-36); MEAN CORPUSCULAR VOLUME 92 fL (80-99); MEAN PLATELET VOLUME 11.6 fL (9.0-12.2); MONOCYTES # (AUTO) 0.9 10^3/uL (0.0-1.0); MONOCYTES % (AUTO) 6 % (0-12); NEUTROPHILS # (AUTO) 12.4 10^3/uL (1.8-7.8); NEUTROPHILS % (AUTO) 85 % (42-75); PLATELET COUNT 348 10^3/uL (130-400); WHITE BLOOD COUNT 14.6 10^3/uL (4.3-11.0)
[2022-12-28] MEDS ORDERED: ONDANSETRON INJECTION 4 MG/2 ML (SDV) IVP ONE (10:15)
[2022-12-28 10:25] LABS: ALBUMIN 3.7 GM/DL (3.2-4.5); CHLORIDE 96 MMOL/L (98-107); SODIUM 133 MMOL/L (135-145)
[2022-12-28 10:26] LABS: CALCIUM 9.4 MG/DL (8.5-10.1)
[2022-12-28 10:27] LABS: TOTAL PROTEIN 7.5 GM/DL (6.4-8.2)
[2022-12-28 10:29] LABS: BILIRUBIN,TOTAL 0.4 MG/DL (0.1-1.0)
[2022-12-28 10:30] LABS: PHOSPHORUS 6.3 MG/DL (2.3-4.7)
[2022-12-28 10:31] LABS: ALKALINE PHOSPHATASE 351 U/L (40-136); GFR ESTIMATED 31
[2022-12-28 10:32] LABS: BUN/CREATININE RATIO 17
[2022-12-28 10:34] LABS: ALANINE AMINOTRANSFERASE 144 U/L (0-55); MAGNESIUM 2.8 MG/DL (1.6-2.4)
--- NOTE | 2022-12-28 10:34 | ED General ---
General Chief Complaint: Glucose Problems Stated Complaint: HIGH BLOOD SUGAR Nursing Triage Note: PT TO [facility] 8 BY [facility] WITH C/O HIGH BLOOD SUGAR, NOT TAKING INSULIN FOR UNKNOWN AMOUNT OF TIME, AMS AND RECENT METH USE Source of Information: Patient, EMS Exam Limitations: Physical Impairments History of Present Illness Date Seen by Provider: Dec 28, 2022 Time Seen by Provider: 10:00 Initial Comments Here by EMS with report of altered mental status. Patient apparently was at a house that he showed up to last night and had vomited this morning and they called EMS. He was picked up from the same house a week or 2 ago with similar findings and found to be in diabetic ketoacidosis. At that point he had used methamphetamine but there is no reported methamphetamine use at this time. He is a known diabetic and did not take his insulin last night or this morning. He has been vomiting this morning. Patient is complaining of extreme thirst but o therwise is very drowsy. Denies fever. Denies chest pain or breathing problems. Timing/Duration: 12-24 Hours Severity: Severe Associated Systoms: No Chest Pain, No Cough, No Fever/Chills; Nausea/Vomiting; No Shortness of Air; Weakness Allergies and Home Medications Allergies Coded Allergies: Penicillins (Verified Allergy, Unknown, 09/20/18) tramadol (Verified Allergy, Unknown, 08/08/22) Patient Home Medication List Home Medication List Reviewed: Yes Insulin Aspart (Insulin Aspart Flexpen) 100 Unit/Ml (3 Ml) Insuln.pen, 10 UNIT SQ AC Prescribed by: BENNY IZAGUIRRE on 12/07/22 1037 Insulin Glargine,Hum.rec.anlog (Lantus Solostar) 100 Unit/Ml (3 Ml) Insuln.pen, 35 UNIT SQ HS, (Reported) Entered as Reported by: BRENDA RICHARDSON on 12/06/22 1312 Review of Systems Review of Systems Constitutional: see HPI; No chills, No fever EENTM: No nose congestion, No throat pain Respiratory: No cough, No short of breath Cardiovascular: No chest pain, No edema Gastrointestinal: nausea, vomiting Musculoskeletal: muscle weakness Psychiatric/Neurological: Weakness Past Nzbdprl-Xewrfd-Wjkpvf Hx Patient Social History Substance use?: Yes Substance type: Methamphetamine Alcohol Use?: Unable to obtain Immunizations Up To Date Tetanus Booster (TDap): Unknown First/Initial COVID19 Vaccinat: 2020 [employer] Second COVID19 Vaccination Jeffery: 2020 [employer] Third COVID19 Vaccination Date: 2020 [employer] Seasonal Allergies Seasonal Allergies: No Past Medical History Surgery/Hospitalization HX: DIABETES, R FOOT AMP TOES, LEFT FOOT TOES 4 AND 5 AMP Surgeries: Yes Amputation, Orthopedic Respiratory: No Currently Using CPAP: No Currently Using BIPAP: No Cardiac: Yes High Cholesterol, Hypertension Neurological: Yes Neuropathy Genitourinary: No Gastrointestinal: No Musculoskeletal: Yes (MULTIPLE TOE AMPUTATIONS) Amputee Endocrine: Yes (DKA; NON-COMPLIANCE) Diabetes, Insulin dep HEENT: No Cancer: No Psychosocial: Yes (SUBSTANCE ABUSE) Depression Integumentary: Yes (CHRONIC DIABETIC FOOT ULCERS) Blood Disorders: No Adverse Reaction/Blood Tranf: No Family Medical History Reviewed Nursing Family Hx Patient reports no known family medical history. No Pertinent Family Hx SOCIAL HISTORY: -PT SMOKES, UNKNOWN AMOUNT -DRUGS--EXTENSIVE METHAMPHETAMINE USE -HAS DENIED ALCOHOL USE PT HAS HISTORY OF HOMELESSNESS PAST SURGICAL HISTORY: -RIGHT GREAT TOE AMPUTATION AT [facility] 03/16/22; LATER MID FOOT AMPUTATION-PT STATES AT [facility] IN MAY 2022. -PREVIOUS RIGHT 4TH TOE AMPUTATION AND LEFT 5TH TOE AMPUTATION -PERIPHERAL ANGIOGRAM BY DR. AVILES: DATE OF SERVICE: 09/05/2020 PERIPHERAL ANGIOGRAPHY REPORT The patient is a 54-year-old gentleman who recently had amputation of the left fifth toe that was exhibiting ischemia and ulceration. 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 Accordingly, peripheral angiography was carried out and informed consent was obtained for peripheral angiography and possible ad hoc intervention. DESCRIPTION OF PROCEDURE: He was brought to the cardiac catheterization laboratory in a fasting state. Right groin was prepared and draped in the usual sterile fashion. Lidocaine 1% was used for local anesthesia. Modified Seldinger technique was used to advance a 5-Libyan sheath in right femoral artery. A 5-Libyan pigtail catheter was used to carry out abdominal aortic angiography. The pigtail catheter was then pulled back to just above the level of the aortoiliac bifurcation and bilateral leg artery angiography was carried out down to the level of the ankles. Subsequently, we used a 5-Libyan crossover catheter and advanced a StorePatientFinder wire into the left superficial femoral artery. The crossover catheter was removed and we advanced a straight catheter into the distal part of the left superficial femoral artery and carried out selective angiography of the distal left superficial femoral artery and the trifurcation vessels down to the level of the ankles. The catheter was then removed. Angiography of the right femoral artery was carried out through the sheath. Mynx was used to achieve hemostasis. He tolerated the procedure well. ABDOMINAL AORTIC ANGIOGRAPHY: Abdominal aortic angiography did not indicate any significant abdominal aortic aneurysm or dissection. No abdominal aortic stenosis is seen. The aortoiliac bifurcation is intact and does not exhibit significant disease. BILATERAL LEG ARTERY ANGIOGRAPHY: Bilateral leg artery angiography did not indicate any significant disease of the iliac arteries, common femoral arteries, popliteal arteries, or the distal vessels of the legs. 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 Selective angiography did not indicate any significant disease of the left popliteal artery or of the trifurcation arteries on the left side. CONCLUSIONS: No significant peripheral arterial disease seen on this peripheral angiographic study. Physical Exam Vital Signs Vital Signs - First Documented 12/28/22 10:00 Temp 35.7 Pulse 93 Resp 24 B/P (MAP) 114/62 (79) Pulse Ox 98 O2 Delivery Room Air Capillary Refill : Height, Weight, BMI Height: 6'1.00" Weight: 168lbs. 9.0oz. 76.715231ld; 26.00 BMI Method:Estimated General Appearance: Chronically ill, Moderate Distress, Thin HEENT: PERRL/EOMI, Other (Remains very dry with dried vomit on his face) Neck: Non Tender, Supple Respiratory: Lungs Clear, Normal Breath Sounds Cardiovascular: No Murmur, Tachycardia Gastrointestinal: Non Tender, Soft Extremity: Normal Range of Motion, Non Tender Neurologic/Psychiatric: Alert, Oriented x3, Motor Weakness Skin: Normal Color, Warm/Dry Progress/Results/Core Measures Suspected Sepsis SIRS Temperature: Pulse: 93 Respiratory Rate: 24 Laboratory Tests 12/28/22 10:02: White Blood Count 14.6H Blood Pressure 114 /62 Mean: 79 Laboratory Tests 12/28/22 10:02: Creatinine 2.40H, Platelet Count 348, Total Bilirubin 0.4 Results/Orders Lab Results Laboratory Tests Test 12/28/22 10:02 12/28/22 10:55 Range/Units White Blood Count 14.6 H 4.3-11.0 10^3/uL Red Blood Count 4.79 4.30-5.52 10^6/uL Hemoglobin 13.2 L 13.3-17.7 g/dL Hematocrit 44 40-54 % Mean Corpuscular Volume 92 80-99 fL Mean Corpuscular Hemoglobin 28 25-34 pg Mean Corpuscular Hemoglobin Concent 30 L 32-36 g/dL Red Cell Distribution Width 15.0 H 10.0-14.5 % Platelet Count 348 130-400 10^3/uL Mean Platelet Volume 11.6 9.0-12.2 fL Immature Granulocyte % (Auto) 0 % Neutrophils (%) (Auto) 85 H 42-75 % Lymphocytes (%) (Auto) 8 L 12-44 % Monocytes (%) (Auto) 6 0-12 % Eosinophils (%) (Auto) 0 0-10 % Basophils (%) (Auto) 0 0-10 % Neutrophils # (Auto) 12.4 H 1.8-7.8 10^3/uL Lymphocytes # (Auto) 1.2 1.0-4.0 10^3/uL Monocytes # (Auto) 0.9 0.0-1.0 10^3/uL Eosinophils # (Auto) 0.0 0.0-0.3 10^3/uL Basophils # (Auto) 0.1 0.0-0.1 10^3/uL Immature Granulocyte # (Auto) 0.1 0.0-0.1 10^3/uL Neutrophils % (Manual) 91 % Lymphocytes % (Manual) 6 % Monocytes % (Manual) 3 % Eosinophils % (Manual) 0 % Basophils % (Manual) 0 % Band Neutrophils 0 % Blood Morphology Comment NORMAL Sodium Level 133 L 135-145 MMOL/L Potassium Level 6.9 #*H 3.6-5.0 MMOL/L Chloride Level 96 L 98-107 MMOL/L Carbon Dioxide Level < 5 *L 21-32 MMOL/L Anion Gap 32 H 5-14 MMOL/L Blood Urea Nitrogen 41 H 7-18 MG/DL Creatinine 2.40 H 0.60-1.30 MG/DL Estimat Glomerular Filtration Rate 31 BUN/Creatinine Ratio 17 Glucose Level 841 *H 70-105 MG/DL Calcium Level 9.4 8.5-10.1 MG/DL Corrected Calcium 9.6 8.5-10.1 MG/DL Phosphorus Level 6.3 H 2.3-4.7 MG/DL Magnesium Level 2.8 H 1.6-2.4 MG/DL Total Bilirubin 0.4 0.1-1.0 MG/DL Aspartate Amino Transf (AST/SGOT) 41 H 5-34 U/L Alanine Aminotransferase (ALT/SGPT) 144 H 0-55 U/L Alkaline Phosphatase 351 H 40-136 U/L Total Protein 7.5 6.4-8.2 GM/DL Albumin 3.7 3.2-4.5 GM/DL Blood Gas Puncture Site LT RADIAL Blood Gas Patient Temperature 35.7 Arterial Blood pH 7.10 *L 7.37-7.43 Arterial Blood Partial Pressure CO2 19 *L 35-45 MMHG Arterial Blood Partial Pressure O2 107 H 79-93 MMHG Arterial Blood HCO3 6 *L 23-27 MMOL/L Arterial Blood Total CO2 6.3 *L 21.0-31.0 MMOL/L Arterial Blood Oxygen Saturation 97 94-100 % Arterial Blood Base Excess -22.5 L -2.5-2.5 MMOL/L Waqar Test YES-POS Blood Gas Ventilator Setting NO Blood Gas Inspired Oxygen ROOM AIR My Orders Orders - MARIIA ELISE MD Arterial Blood Gas (12/28/22 10:05) Cbc With Automated Diff (12/28/22 10:05) Comprehensive Metabolic Panel (12/28/22 10:05) Magnesium (12/28/22 10:05) Ua Culture If Indicated (12/28/22 10:05) Phosphorus (12/28/22 10:05) Ondansetron Injection (Zofran Injectio (12/28/22 10:15) Lactated Ringers (Lr 1000 Ml Iv Solution (12/28/22 10:05) Ed Iv/Invasive Line Start (12/28/22 10:05) Ekg Tracing (12/28/22 10:05) Monitor-Rhythm Ecg Trace Only (12/28/22 10:05) Insulin (Regular) Per Unit (Insulin (Reg (12/28/22 10:05) Manual Differential (12/28/22 10:02) Calcium Gluconate 1gm Ivpb (Calcium Gluc (12/28/22 11:30) Ns Iv 1000 Ml (Sodium Chloride 0.9%) (12/28/22 11:30) Catheter(Urinary) Insert & Ass 03,15 (12/28/22 11:23) Lidocaine 2% (Urojet) (Lidocaine 2% (Uro (12/28/22 11:30) Medications Given in ED Current Medications Medications Dose Ordered Sig/Perico Route Start Time Stop Time Status Last Admin Dose Admin Calcium Gluconate/ Sodium Chloride 100 ml @ 120 mls/hr ONCE ONCE IV 12/28/22 11:30 12/28/22 12:19 12/28/22 11:32 120 MLS/HR Lidocaine HCl 10 ml ONCE ONCE TOP 12/28/22 11:30 12/28/22 11:31 DC 12/28/22 11:31 10 ML Ondansetron HCl 4 mg ONCE ONCE IVP 12/28/22 10:15 12/28/22 10:16 DC 12/28/22 10:12 4 MG Vital Signs/I&O 12/28/22 10:00 Temp 35.7 Pulse 93 Resp 24 B/P (MAP) 114/62 (79) Pulse Ox 98 O2 Delivery Room Air Capillary Refill : Blood Pressure Mean: 79 Progress Note : Progress Note Seen and evaluated on arrival by EMS. Report by EMS to me. IV established by EMS with 1 L of normal saline running and we will continue that. Blood sugar high by EMS with ketones. Your stick blood sugar here is high meaning greater than 600. We will establish second IV and initiate LR 1 L bolus and complete normal saline bolus initiated by EMS. ABG, CBC, CMP, magnesium, phosphorus and UA ordered. Insulin 10 units IV ordered. Monitor patient. EKG ordered. Differential diagnosis includes diabetic ketoacidosis, electrolyte abnormality, dehydration 1125: ABG does show acidosis with bicarb of 6 and low CO2. CBC shows elevated white count which would be expected given concerns for dehydration but slightly low hemoglobin. No left shift. CMP is abnormal and electrolytes with potassium being 6.9 and bicarb of less than 5 and glucose of 841 with elevated serum creatinine in the twos. Medium and phosphorus are slightly elevated and I believe patient is overall significantly dehydrated. Repeat normal saline 1 L bolus ordered. I did discuss the case with Dr. Tijerina who accepts patient for admission, inpatient status to the ICU. She is requesting Gomez catheter which I will initiate. We also discussed elevated potassium and I will go ahead and initiate calcium gluconate 1 amp IV. EKG reviewed and does not show significant widening of QRS currently. I believe his potassium will correct with insulin administration. Patient agrees to plan. 1136: Report to eICU physician on-call and we reviewed current findings and therapy and she will continue care on arrival to the ICU. ECG Initial ECG Impression Date: Dec 28, 2022 Initial ECG Impression Time: 10:14 Initial ECG Rate: 93 Initial ECG Rhythm: Normal Sinus Comment Sinus rhythm with left axis deviation and normal QRS duration with QT of 360 and QTc of 410. No evidence of ST elevation KS. Interpreted by me. Critical Care Note Critical Care Start Time: 10:00 Stop Time: 11:36 Total Time (minutes) 30 Progress Critical care time includes evaluation, management and admission for critically ill patient and excludes separately billable procedures. Departure Communication (Admissions) Time/Spoke to Admitting Phy: 11:25 Time/Spoke to Consulting Phy: 11:36 Impression Primary Impression: DKA (diabetic ketoacidosis) Qualified Codes: E10.10 - Type 1 diabetes mellitus with ketoacidosis without coma Additional Impression: Hyperkalemia Disposition: ADMITTED INPATIENT Condition: Critical Admissions Decision to Admit Reason: Admit from ER (General) Decision to Admit/Date: Dec 28, 2022 Time/Decision to Admit Time: 11:25 Departure-Patient Inst. Referrals: [facility] (PCP/Family) Primary Care Physician MARIIA ELISE MD Dec 28, 2022 10:34
[2022-12-28 10:39] LABS: BAND NEUTROPHILS 0 %; BASOPHILS % (MANUAL) 0 %; EOSINOPHILS % (MANUAL) 0 %; LYMPHOCYTES % (MANUAL) 6 %; MONOCYTES % (MANUAL) 3 %; NEUTROPHILS % (MANUAL) 91 %; RBC MORPH NORMAL
[2022-12-28 10:40] LABS: CARBON DIOXIDE < 5 MMOL/L (21-32); GLUCOSE 841 MG/DL (70-105); POTASSIUM 6.9 MMOL/L (3.6-5.0)
[2022-12-28 11:03] LABS: ABG BASE EXCESS -22.5 MMOL/L (-2.5-2.5); ABG OXYGEN SATURATION 97 % (94-100); ABG PO2 107 MMHG (79-93)
[2022-12-28 11:09] LABS: ABG PCO2 19 MMHG (35-45); ABG TCO2 6.3 MMOL/L (21.0-31.0)
[2022-12-28 11:10] LABS: ALLENS TEST YES-POS; INSPIRED O2 ROOM AIR; PATIENT TEMP 35.7; VENTILATOR NO
[2022-12-28] MEDS ORDERED: CALCIUM GLUCONATE 1GM IVPB 100 ML IV ONE (11:30)
[2022-12-28] MEDS ORDERED: NS IV 1000 ML 1,000 ML IV SCH ×2 (11:30→13:30)
[2022-12-28] MEDS: LIDOCAINE UROJET 2% GEL 10 ML PKG TOP ONE ×2 (11:31→12:06)
[2022-12-28] MEDS ORDERED: 1/2 NS IV SOLUTION 1000 ML 1,000 ML IV ONE (13:25)
[2022-12-28] MEDS: 1/2 NS IV SOLUTION 1000 ML 1,000 ML IV SCH ×2 (13:26→17:24)
[2022-12-28] MEDS ORDERED: ONDANSETRON 4 MG ORAL DISSOLVE TABLET PO PRN (13:30)
[2022-12-28] MEDS ORDERED: ANTACID SUSPENSION 30 ML UDC PO PRN (13:30)
[2022-12-28] MEDS ORDERED: ONDANSETRON INJECTION 4 MG/2 ML (SDV) IV PRN (13:30)
[2022-12-28] MEDS ORDERED: diphenhydrAMINE 25 MG TABLET PO PRN (13:30)
[2022-12-28] MEDS ORDERED: CALCIUM CARBONATE 500 MG CHEW TABLET PO PRN (13:30)
[2022-12-28] MEDS ORDERED: LACTULOSE SYRUP 10GM/15ML 30ML UDC PO PRN (13:30)
[2022-12-28] MEDS ORDERED: POTASSIUM CL 10MEQ/50ML IVPB 50 ML IV SCH (13:30)
[2022-12-28] MEDS ORDERED: LIDOCAINE UROJET 2% GEL 10 ML PKG TOP ONE (13:30)
[2022-12-28] MEDS ORDERED: diphenhydrAMINE INJ 50 MG/ML VIAL IVP PRN (13:30)
[2022-12-28] MEDS ORDERED: BISACODYL 10 MG SUPPOSITORY PR PRN (13:30)
[2022-12-28] MEDS ORDERED: ACETAMINOPHEN 325 MG TABLET PO PRN (13:30)
[2022-12-28] MEDS ORDERED: NS IV 500 ML 500 ML IV PRN (13:30)
[2022-12-28] MEDS ORDERED: HYDROmorphone INJECTION 2 MG/ML VIAL IV PRN (13:30)
[2022-12-28] MEDS ORDERED: MELATONIN 3 MG TABLET PO PRN (13:30)
[2022-12-28] MEDS ORDERED: MILK OF MAGNESIA 400 MG/5 ML 30 ML UDC PO PRN (13:30)
[2022-12-28] MEDS ORDERED: oxyCODONE IMMEDIATE RELEASE 5 MG TABLET PO PRN (13:30)
--- NOTE | 2022-12-28 13:47 | History & Physical-Hospitalist ---
BRENDAN PEÑA 12/28/22 1347: History of Present Illness HPI/Chief Complaint 57-year-old male patient was taken to the ER via EMS due to altered mental status. EMS was called when patient was vomiting in the house he was staying at this morning. Patient was recently in the ED December 10 for DKA with poor management of diabetes and was on meth. This time, there is no meth found in his blood. ER note reported that he has not had his insulin last night or this morning and he was "complaining of extreme thirst & was very drowsy" in the ER. On patient visit, he had been transferred to the ICU, and patient is his usual self when coming to the ED. He is receptive to stimuli and asking questions, but he either gives one word answers, mumbles, or does not respond at all. When asked if how he was feeling and if he had pain, patient did not give any response. Patient denied fever, chills, cough, chest pain, SOB as reported by the ER. Source: RN/MD, other (ICU Nurse) Exam Limitations: clinical condition Date Seen 12/28/22 Time Seen by a Provider: 13:40 Attending Physician [facility] PCP Admitting Physician: Renetta Crowley DO Attending Physician: Renetta Crowley DO Referring Physician Date of Admission Dec 28, 2022 at 13:14 Home Medications & Allergies Home Medications Reviewed patient Home Medication Reconciliation performed by pharmacy medication reconciliations renal technician and/or nursing. Patients Allergies have been reviewed. Allergies Allergies Coded Allergies Penicillins (Verified Allergy, Unknown, 09/20/18) tramadol (Verified Allergy, Unknown, 08/08/22) Past Lvqzekt-Dqooih-Kicpvh Hx Patient Social History Substance use?: Yes Substance type: Methamphetamine Alcohol Use?: Unable to obtain Immunizations Up To Date Date of Influenza Vaccine: Apr 12, 2022 First/Initial COVID19 Vaccinat: 2020 [employer] Second COVID19 Vaccination Jeffery: 2020 [employer] Tetanus Booster (TDap): Unknown Hepatitis A: No Hepatitis B: No Seasonal Allergies Seasonal Allergies: No Current Status Communicates: Verbally Primary Language: Haitian Preferred Spoken Language: Haitian Past Medical History Surgeries: Amputation, Orthopedic Currently Using CPAP: No Currently Using BIPAP: No High Cholesterol, Hypertension Neuropathy Amputee Diabetes, Insulin dep Depression Blood Disorders: No Adverse Reaction/Blood Tranf: No DM2 - insulin dependent Amputation of R 4th Toe Depression Hx Drug Use (Amphetamine/Marijuana) Family Medical History Reviewed Nursing Family Hx Patient reports no known family medical history. No Pertinent Family Hx SOCIAL HISTORY: -PT SMOKES, UNKNOWN AMOUNT -DRUGS--EXTENSIVE METHAMPHETAMINE USE -HAS DENIED ALCOHOL USE PT HAS HISTORY OF HOMELESSNESS PAST SURGICAL HISTORY: -[facility]; LATER MID FOOT AMPUTATION-[facility]. -PREVIOUS RIGHT 4TH TOE AMPUTATION AND LEFT 5TH TOE AMPUTATION -PERIPHERAL ANGIOGRAM BY DR. AVILES: DATE OF SERVICE: 09/05/2020 PERIPHERAL ANGIOGRAPHY REPORT The patient is a 54-year-old gentleman who recently had amputation of the left fifth toe that was exhibiting ischemia and ulceration. 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 Accordingly, peripheral angiography was carried out and informed consent was obtained for peripheral angiography and possible ad hoc intervention. DESCRIPTION OF PROCEDURE: He was brought to the cardiac catheterization laboratory in a fasting state. Right groin was prepared and draped in the usual sterile fashion. Lidocaine 1% was used for local anesthesia. Modified Seldinger technique was used to advance a 5-[place] sheath in right femoral artery. A 5-[place] pigtail catheter was used to carry out abdominal aortic angiography. The pigtail catheter was then pulled back to just above the level of the aortoiliac bifurcation and bilateral leg artery angiography was carried out down to the level of the ankles. Subsequently, we used a 5-[place] crossover catheter and advanced a Storq wire into the left superficial femoral artery. The crossover catheter was removed and we advanced a straight catheter into the distal part of the left superficial femoral artery and carried out selective angiography of the distal left superficial femoral artery and the trifurcation vessels down to the level of the ankles. The catheter was then removed. Angiography of the right femoral artery was carried out through the sheath. Mynx was used to achieve hemostasis. He tolerated the procedure well. ABDOMINAL AORTIC ANGIOGRAPHY: Abdominal aortic angiography did not indicate any significant abdominal aortic aneurysm or dissection. No abdominal aortic stenosis is seen. The aortoiliac bifurcation is intact and does not exhibit significant disease. BILATERAL LEG ARTERY ANGIOGRAPHY: Bilateral leg artery angiography did not indicate any significant disease of the iliac arteries, common femoral arteries, popliteal arteries, or the distal vessels of the legs. 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 Selective angiography did not indicate any significant disease of the left popliteal artery or of the trifurcation arteries on the left side. CONCLUSIONS: No significant peripheral arterial disease seen on this peripheral angiographic study. Review of Systems Constitutional: see HPI Other No information was gathered as patient was unwilling to participate in conversation. See HPI. Physical Exam Physical Exam Vital Signs Vital Signs - First Documented 12/28/22 10:00 Temp 35.7 Pulse 93 Resp 24 B/P (MAP) 114/62 (79) Pulse Ox 98 O2 Delivery Room Air Capillary Refill : Height, Weight, BMI Height: 6'1.00" Weight: 168lbs. 9.0oz. 76.320592fi; 26.00 BMI Method:Estimated General Appearance: WD/WN, Mild Distress Respiratory: No Accessory Muscle Use, No Respiratory Distress Cardiovascular: Regular Rate, Rhythm Neurologic/Psychiatric: Alert, Depressed Affect, Other (Oriented x1, could say his name. ) Skin: Normal Color, Warm/Dry Results Results/Procedures Labs Laboratory Tests 12/28/22 10:02 Patient resulted labs reviewed. Assessment/Plan Admission Diagnosis DKA Admission Status: Inpatient Order (span 2 midnights) Reason for Inpatient Admission: DKA Assessment and Plan Asssessment: DKA Dehydration Hyperkalemia given calcium gluconate JOEL Hyponatremia History of DKA Poorly managed DM History of meth usage History of toe amputations History of HTN Neuropathy Depression Plan: Monitor in ICU Pain management IVF IV insulin Gomez catheter placement Critical Care Critically Ill Patient CROWLEYPORFIRIO MCCLENDONDerek HERNANDEZ 12/28/22 1939: Past Niolczs-Kgamnu-Xzsfnl Hx Family Medical History Patient reports no known family medical history. Assessment/Plan Admission Diagnosis DKA on insulin drip Non-compliance Admission Status: Inpatient Order (span 2 midnights) Reason for Inpatient Admission: dka Supervisory-Addendum Brief Verification & Attestation Participated in pt care: history, MDM, physical Personally performed: exam, history, MDM, supervision of care Care discussed with: Medical Student Procedures: n/a Results interpretation: Verified all documentation Verification and Attestation of Medical Student E/M Service A medical student performed and documented this service in my presence. I reviewed and verified all information documented by the medical student and made modifications to such information, when appropriate. I personally performed the physical exam and medical decision making. Renetta Crowley, Dec 28, 2022,19:38 BRENDAN PEÑA Dec 28, 2022 13:47 RENETTA CROWLEY DO Dec 28, 2022 19:39
[2022-12-28] MEDS: ENOXAPARIN 40 MG/0.4 ML SYRINGE SC SCH (13:52)
[2022-12-28 14:31] LABS: CLARITY,URINE CLEAR; COLOR,URINE YELLOW; PH,URINE 5.5 (5-9)
[2022-12-28 14:32] LABS: BACTERIA,URINE NEGATIVE /HPF; BILIRUBIN,URINE NEGATIVE (NEGATIVE); GLUCOSE, URINE (UA) 2+ (NEGATIVE); KETONES,URINE 3+ (NEGATIVE); LEUKOCYTE ESTERASE ,URINE NEGATIVE (NEGATIVE); NITRITE,URINE NEGATIVE (NEGATIVE); PROTEIN,URINE 2+ (NEGATIVE); WBC,URINE RARE /HPF; YEAST,URINE LARGE /HPF
[2022-12-28 16:16] LABS: POTASSIUM 4.8 MMOL/L (3.6-5.0)
[2022-12-28 16:17] LABS: CALCIUM 8.9 MG/DL (8.5-10.1)
[2022-12-28 16:21] LABS: CREATININE SERUM 1.79 MG/DL (0.60-1.30)
[2022-12-28] MEDS: POTASSIUM CL 10MEQ/50ML IVPB 50 ML IV SCH ×3 (17:09→23:01)
[2022-12-28 17:49] LABS: POTASSIUM 4.8 MMOL/L (3.6-5.0)
[2022-12-28 17:50] LABS: CALCIUM 9.1 MG/DL (8.5-10.1)
[2022-12-28 17:54] LABS: CREATININE SERUM 1.75 MG/DL (0.60-1.30)
--- NOTE | 2022-12-28 17:54 | Tele-ICU Progress Note ---
Subjective Date Seen by a Provider: Dec 28, 2022 Time Seen by a Provider: 17:51 Subjective/Events-last exam (Tele-ICU Physician , consultation as per request of PCP Service provided via interactive audio and video telecommunications E-CARE system to a patient admitted to ICU bed in [facility]. Available chart/ vitals / labs / Images reviewed H&P is from ER notes Patient's information available about PMH, Shx, Fhx allergy reviewed inEMR. ROS as per chart and RN report Now in ICU, hemodynamically stable Video assessment done using teleICU camera, rest of exam as per RN Discussed with RN. Hospital course: (12/28) 57M Admitted for DKA, , JOEL ,hyperkalemia and acidosis. h/o Meth abuse A/P DKA -Unclear precipitant this time , did not take his insulin last night and tyhis am - as per ER report , No suspicious for new infection *Insulin drip, continue to monitor for resolution of acidosis, AG and electrolytes. Continue hydration. *Tx Gastroparesis JOEL - dehydration, hypotension - cont IVF - received 3 L - follow closely Hyperkalemia due to JOEL - treated with IV insulin and Ca - follow closely UA unremarkable >off ABX Encephalopathy - due to above - follow - somnolent , oriented h/o Met/amphet use ( was + on admission 2 weeks ago ) - monitor for withdrawal Lines : , (Central Line Necessity Reviewed) Gomez: OG: Nutrition: Analgesia: Anxiety/ delirium VTE Prophylaxis: rayray 40 Stress Ulcer Prophylaxis: Plans in collaboration with bedside consultants and IM MDs. Discussed with RN to reach out if any questions or concerns A total of 15 minutes of critical care time was devoted to this patient today, required to treat and/or prevent further deterioration of critical care condition ( as above ) . I am remotely monitoring this patient from another state. I am unable to do the bedside exam, and history/physical and pertinent information is taken from other notes in the computer and bedside staff. . Sepsis Event Evaluation Height, Weight, BMI Height: 6'1.00" Weight: 168lbs. 9.0oz. 76.440892mu; 26.12 BMI Method:Estimated Exam Exam Patient acknowledged, consented, and participated in this virtual visit which was conducted using real time audio/video Vital Signs Date Time Temp Pulse Resp B/P (MAP) Pulse Ox O2 Delivery O2 Flow Rate FiO2 12/28/22 17:00 101 28 155/82 (106) 97 Room Air 12/28/22 16:00 98 17 139/78 (98) 96 Room Air 12/28/22 16:00 97 Room Air 12/28/22 15:34 37.0 12/28/22 15:00 108 36 160/86 (110) 98 Room Air 12/28/22 14:45 108 29 151/87 (108) 98 Room Air 12/28/22 14:30 108 13 164/89 (114) 98 Room Air 12/28/22 14:15 110 15 160/90 (113) 98 Room Air 12/28/22 14:00 109 16 127/100 (109) 99 Room Air 12/28/22 13:54 36.2 Room Air 12/28/22 13:45 111 14 139/86 (103) 98 Room Air 12/28/22 13:34 95 12/28/22 13:30 96 18 101/69 (80) 97 Room Air 12/28/22 13:17 97 Room Air 12/28/22 13:15 95 18 97/62 (74) 97 Room Air 12/28/22 12:50 35.7 108 15 118/69 96 Room Air 12/28/22 10:00 35.7 93 24 114/62 (79) 98 Room Air Height & Weight Height: 6'1.00" Weight: 168lbs. 9.0oz. 76.886231hz; 26.12 BMI Method:Estimated General Appearance: WD/WN, Mild Distress HEENT: PERRL/EOMI, Other (Remains very dry with dried vomit on his face) Neck: Non Tender, Supple Respiratory: No Accessory Muscle Use, No Respiratory Distress Cardiovascular: Regular Rate, Rhythm Extremity: Normal Range of Motion, Non Tender Neurologic/Psychiatric: Alert, Depressed Affect, Other (Oriented x1, could say his name. ) Skin: Normal Color, Warm/Dry Results Lab Laboratory Tests 12/28/22 10:02 12/28/22 15:57 12/28/22 17:33 Assessment/Plan Assessment/Plan 1 JOSE ROWE MD Dec 28, 2022 17:54
[2022-12-28] MEDS: D5 1/2 NS 1,000 ML IV 1,000 ML IV SCH ×2 (18:33→23:22)
[2022-12-28] MEDS: SENNOSIDES 8.6 MG (SENOKOT) TAB PO SCH (20:59)
[2022-12-28] MEDS: DOCUSATE SODIUM 100 MG CAPSULE PO SCH (20:59)
[2022-12-28 21:56] LABS: CALCIUM 8.6 MG/DL (8.5-10.1); CREATININE SERUM 1.61 MG/DL (0.60-1.30); POTASSIUM 4.5 MMOL/L (3.6-5.0)
[2022-12-29] MEDS: POTASSIUM CL 10MEQ/50ML IVPB 50 ML IV SCH ×3 (00:54→05:39)
[2022-12-29] MEDS: 1/2 NS IV SOLUTION 1000 ML 1,000 ML IV SCH ×4 (01:05→08:57)
[2022-12-29] MEDS: D5 1/2 NS 1,000 ML IV 1,000 ML IV SCH ×2 (03:30→07:57)
[2022-12-29 05:05] LABS: BASOPHILS % (AUTO) 0 % (0-10); EOSINOPHILS % (AUTO) 0 % (0-10); HEMATOCRIT 34 % (40-54); HEMOGLOBIN 11.4 g/dL (13.3-17.7); LYMPHOCYTES # (AUTO) 2.6 10^3/uL (1.0-4.0); LYMPHOCYTES % (AUTO) 23 % (12-44); MEAN CORPUSCULAR HEMOGLOBIN 27 pg (25-34); MEAN CORPUSCULAR HGB CONC 33 g/dL (32-36); MEAN CORPUSCULAR VOLUME 82 fL (80-99); MEAN PLATELET VOLUME 10.6 fL (9.0-12.2); MONOCYTES # (AUTO) 1.2 10^3/uL (0.0-1.0); MONOCYTES % (AUTO) 10 % (0-12); NEUTROPHILS # (AUTO) 7.6 10^3/uL (1.8-7.8); NEUTROPHILS % (AUTO) 66 % (42-75); PLATELET COUNT 245 10^3/uL (130-400); WHITE BLOOD COUNT 11.4 10^3/uL (4.3-11.0)
[2022-12-29 05:28] LABS: BILIRUBIN,TOTAL 0.4 MG/DL (0.1-1.0); CALCIUM 8.1 MG/DL (8.5-10.1); CREATININE SERUM 1.32 MG/DL (0.60-1.30); MAGNESIUM 1.7 MG/DL (1.6-2.4); PHOSPHORUS 1.8 MG/DL (2.3-4.7); POTASSIUM 4.2 MMOL/L (3.6-5.0); TOTAL PROTEIN 5.7 GM/DL (6.4-8.2)
[2022-12-29] MEDS ORDERED: MAGNESIUM 1 GM/100 ML IVPB 400 ML IV ONE (05:50)
[2022-12-29] MEDS: MAGNESIUM 1 GM/100 ML IVPB 100 ML IV SCH ×4 (05:54→08:57)
[2022-12-29] MEDS ORDERED: MAGNESIUM 1 GM/100 ML IVPB 100 ML IV SCH (06:00)
[2022-12-29] MEDS ORDERED: POTASSIUM CL 10MEQ/50ML IVPB 50 ML IV SCH (06:00)
[2022-12-29] MEDS ORDERED: inSUlin DETERMIR 1 UNIT/0.01 ML (CHARGE PER UNIT) SQ ONE (06:00)
[2022-12-29] MEDS ORDERED: POTASSIUM CHLORIDE 20 MEQ TABLET PO SCH (06:00)
[2022-12-29] MEDS: inSUlin ASPART 1 UNIT/0.01 ML (PER UNIT) SC SCH ×4 (06:16→21:02)
[2022-12-29] MEDS: DOCUSATE SODIUM 100 MG CAPSULE PO SCH ×2 (08:06→21:01)
[2022-12-29] MEDS: SENNOSIDES 8.6 MG (SENOKOT) TAB PO SCH ×2 (08:06→21:01)
[2022-12-29] MEDS ORDERED: D5 1/2 NS 1,000 ML IV 1,000 ML IV SCH (11:00)
--- NOTE | 2022-12-29 11:39 | Progress Note - Hospitalist ---
Subjective HPI/CC On Admission Date Seen by Provider: Dec 29, 2022 Time Seen by Provider: 11:30 57-year-old male patient was taken to the ER via EMS due to altered mental status. EMS was called when patient was vomiting in the house he was staying at this morning. Patient was recently in the ED December 10 for DKA with poor management of diabetes and was on meth. This time, there is no meth found in his blood. ER note reported that he has not had his insulin last night or this morning and he was "complaining of extreme thirst & was very drowsy" in the ER. On patient visit, he had been transferred to the ICU, and patient is his usual self when coming to the ED. He is receptive to stimuli and asking questions, but he either gives one word answers, mumbles, or does not respond at all. When asked if how he was feeling and if he had pain, patient did not give any response. Patient denied fever, chills, cough, chest pain, SOB as reported by the ER. Subjective/Events-last exam Patient doing well Checked meds and labs Blood sugars improved We will move to fourth floor Review of Systems General: Fatigue, Malaise Objective Exam Vital Signs Vital Signs Date Time Temp Pulse Resp B/P (MAP) Pulse Ox O2 Delivery O2 Flow Rate FiO2 12/29/22 15:13 36.7 74 16 109/68 (82) 96 Room Air Capillary Refill : General Appearance: No Apparent Distress, WD/WN Respiratory: Lungs Clear, Normal Breath Sounds Cardiovascular: Regular Rate, Rhythm Neurologic/Psychiatric: Alert, Oriented x3 Results/Procedures Lab Laboratory Tests 12/28/22 21:24 12/29/22 04:07 Patient resulted labs reviewed. Assessment/Plan Assessment and Plan Assess & Plan/Chief Complaint Assessment: DKA Meth use Plan: Move to 4th Critical Care Critically Ill Patient CARLNIEGORDON HERNANDEZ Dec 29, 2022 11:39
--- NOTE | 2022-12-29 12:20 | Tele-ICU Progress Note ---
Subjective Date Seen by a Provider: Dec 29, 2022 Time Seen by a Provider: 12:19 Subjective/Events-last exam (Tele-ICU Physician , Progress Note ) Service provided via interactive audio and video telecommunications E-CARE system to a patient admitted to ICU bed in [facility]. Patient is seen today due to persistent need of ICU care Available chart/ vitals / labs / Images reviewed Video assessment done using teleICU camera, rest of exam as per RN Discussed with RN Events overnight : Hospital course: (12/28) 57M Admitted for DKA, , JOEL ,hyperkalemia and acidosis. h/o Meth abuse A/P DKA -Unclear precipitant this time , did not take his insulin last night and tyhis am - as per ER report , No suspicious for new infection *Insulin drip, to stop , start long acting *Tx Gastroparesis JOEL - dehydration, hypotension - resolved Hyperkalemia due to JOEL -resolved UA unremarkable >off ABX Encephalopathy - due to above - follow - somnolent , oriented , better h/o Met/amphet use ( was + on admission 2 weeks ago ) - monitor for withdrawal VTE Prophylaxis: rayray 40 Stress Ulcer Prophylaxis: Plans in collaboration with bedside consultants and IM MDs. Discussed with RN to reach out if any questions or concerns A total of 10 minutes of critical care time was devoted to this patient today, required to treat and/or prevent further deterioration of critical care condition ( as above ) . I am remotely monitoring this patient from another state. I am unable to do the bedside exam, and history/physical and pertinent information is taken from other notes in the computer and bedside staff. . Sepsis Event Evaluation Height, Weight, BMI Height: 6'1.00" Weight: 168lbs. 9.0oz. 76.291634ql; 26.12 BMI Method:Estimated Exam Exam Patient acknowledged, consented, and participated in this virtual visit which was conducted using real time audio/video Vital Signs Date Time Temp Pulse Resp B/P (MAP) Pulse Ox O2 Delivery O2 Flow Rate FiO2 12/29/22 11:47 36.6 12/29/22 11:00 71 20 107/63 (78) 96 Room Air 12/29/22 10:00 77 27 132/79 (96) 96 Room Air 12/29/22 09:00 71 25 113/72 (86) 97 Room Air 12/29/22 08:03 36.8 12/29/22 08:00 75 13 108/65 (79) 97 Room Air 12/29/22 08:00 98 Room Air 12/29/22 07:22 75 12/29/22 07:00 73 13 101/64 (76) 97 Room Air 12/29/22 06:00 78 30 112/70 (84) 97 Room Air 12/29/22 05:15 77 98/62 (72) 97 Room Air 12/29/22 05:00 78 38 99/64 (75) 97 Room Air 12/29/22 04:45 80 31 116/71 (86) 97 Room Air 12/29/22 04:30 84 21 125/73 (89) 97 Room Air 12/29/22 04:15 80 115/71 (88) 97 Room Air 12/29/22 04:05 97 Room Air 12/29/22 04:00 36.8 80 106/71 (83) 97 Room Air 12/29/22 03:45 80 107/70 (83) 97 Room Air 12/29/22 03:30 82 117/77 (89) 97 Room Air 12/29/22 03:15 100/66 (76) 12/29/22 03:00 84 119/76 (90) 97 Room Air 12/29/22 02:45 87 37 132/85 (101) 97 Room Air 12/29/22 02:30 82 119/71 (87) 98 Room Air 12/29/22 02:15 111/69 (82) 12/29/22 02:00 84 48 101/62 (72) 97 Room Air 12/29/22 01:45 105/68 (87) Room Air 12/29/22 01:30 89 12 137/81 (98) 97 Room Air 12/29/22 01:15 88 19 121/74 (90) 96 Room Air 12/29/22 01:00 85 12/29/22 01:00 85 16 109/69 (80) 96 Room Air 12/29/22 00:45 87 15 121/75 (96) 97 Room Air 12/29/22 00:30 87 13 120/81 (93) 97 Room Air 12/29/22 00:15 86 16 108/70 (82) 98 Room Air 12/29/22 00:07 36.7 12/29/22 00:00 89 11 131/78 (95) 99 Room Air 12/28/22 23:59 95 Room Air 12/28/22 23:00 92 128/55 (79) 99 Room Air 12/28/22 22:00 92 123/73 (90) 97 Room Air 12/28/22 21:15 93 127/77 (92) 98 Room Air 12/28/22 21:00 94 131/77 (94) 97 Room Air 12/28/22 20:45 97 141/80 (102) 97 Room Air 12/28/22 20:30 92 111/67 (81) 99 Room Air 12/28/22 20:15 92 105 111/66 (86) 97 Room Air 12/28/22 20:05 96 Room Air 12/28/22 20:00 37.1 98 81 123/76 (97) 96 Room Air 12/28/22 19:45 97 138 146/78 (105) 96 Room Air 12/28/22 19:30 98 58 154/81 (106) 96 Room Air 12/28/22 19:15 98 18 161/89 (112) 96 Room Air 12/28/22 19:00 98 13 145/83 (103) 97 Room Air 12/28/22 19:00 78 12/28/22 18:00 98 17 146/75 (98) 97 Room Air 12/28/22 17:00 101 28 155/82 (106) 97 Room Air 12/28/22 16:00 98 17 139/78 (98) 96 Room Air 12/28/22 16:00 97 Room Air 12/28/22 15:34 37.0 12/28/22 15:00 108 36 160/86 (110) 98 Room Air 12/28/22 14:45 108 29 151/87 (108) 98 Room Air 12/28/22 14:30 108 13 164/89 (114) 98 Room Air 12/28/22 14:15 110 15 160/90 (113) 98 Room Air 12/28/22 14:00 109 16 127/100 (109) 99 Room Air 12/28/22 13:54 36.2 Room Air 12/28/22 13:45 111 14 139/86 (103) 98 Room Air 12/28/22 13:34 95 8/22/23 13:30 96 18 101/69 (80) 97 Room Air 12/28/22 13:17 97 Room Air 12/28/22 13:15 95 18 97/62 (74) 97 Room Air 12/28/22 12:50 35.7 108 15 118/69 96 Room Air I & O 12/29/22 07:00 Intake Total 6800 ml Output Total 2250 ml Balance 4550 ml Height & Weight Height: 6'1.00" Weight: 168lbs. 9.0oz. 76.757268eu; 26.12 BMI Method:Estimated General Appearance: WD/WN, Mild Distress HEENT: PERRL/EOMI, Other (Remains very dry with dried vomit on his face) Neck: Non Tender, Supple Respiratory: No Accessory Muscle Use, No Respiratory Distress Cardiovascular: Regular Rate, Rhythm Extremity: Normal Range of Motion, Non Tender Neurologic/Psychiatric: Alert, Depressed Affect, Other (Oriented x1, could say his name. ) Skin: Normal Color, Warm/Dry Results Lab Laboratory Tests 12/28/22 10:02 12/28/22 15:57 12/28/22 17:33 12/28/22 21:24 12/29/22 04:07 Assessment/Plan Assessment/Plan ` JOSE ROWE MD Dec 29, 2022 12:20
[2022-12-29] MEDS: ENOXAPARIN 40 MG/0.4 ML SYRINGE SC SCH (13:38)
[2022-12-29 15:13] VITALS: BP 109/68
--- NOTE | 2022-12-29 18:23 | Physician Query Clarification ---
PQ-Further Specificity Admission/Discharge Admission Date: Dec 28, 2022 at 13:14 Discharge Date: The medical record reflects the following clinical scenario: History/Risk Factors: Diabetic ketoacidosis Clinical Findings: Diabetic ketoacidosis, encephalopathy listed on tele-icu progress notes Treatment: IV insulin, observation Question: Do you agree with the diagnosis of encephalopathy? And if so, can you further specify encephalopathy per the clinical indicators above? Please document a response in the Progress Notes or Discharge Summary. 1. metabolic encephalopathy 2. encephalopathy, not otherwise specified 3. Other, with explanation of the clinical findings. 4. Clinically undetermined, no explanation for the clinical findings. PHYSICIAN RESPONSE Can you specify per above: 1 In responding to this query, please exercise your independent professional judgment. The purpose of this communication is to more accurately reflect the complexity of your patients condition. The fact that a question is asked does not imply that any particular answer is desired or expected. Thank you for your timely response to this clarification. Requestors name: Megan THIS PHYSICIAN QUERY FORM IS A PERMANENT PART OF THE MEDICAL RECORD MEGAN ARCHULETA Dec 29, 2022 18:23 GORDON CROWLEY DO Dec 29, 2022 19:17
[2022-12-29 19:56] VITALS: BP 108/57
[2022-12-29] MEDS ORDERED: inSUlin DETERMIR 1 UNIT/0.01 ML (CHARGE PER UNIT) SQ SCH ×2 (21:00)
[2022-12-29 23:25] VITALS: BP 124/76
[2022-12-30 04:51] VITALS: BP 104/67
[2022-12-30 05:44] LABS: BASOPHILS % (AUTO) 0 % (0-10); EOSINOPHILS % (AUTO) 1 % (0-10); HEMATOCRIT 37 % (40-54); LYMPHOCYTES # (AUTO) 3.4 10^3/uL (1.0-4.0); LYMPHOCYTES % (AUTO) 48 % (12-44); MEAN CORPUSCULAR HEMOGLOBIN 27 pg (25-34); MEAN CORPUSCULAR HGB CONC 33 g/dL (32-36); MEAN CORPUSCULAR VOLUME 84 fL (80-99); MEAN PLATELET VOLUME 10.4 fL (9.0-12.2); MONOCYTES # (AUTO) 0.7 10^3/uL (0.0-1.0); MONOCYTES % (AUTO) 10 % (0-12); NEUTROPHILS % (AUTO) 42 % (42-75); PLATELET COUNT 199 10^3/uL (130-400); WHITE BLOOD COUNT 7.2 10^3/uL (4.3-11.0)
[2022-12-30 05:57] LABS: ALBUMIN 2.9 GM/DL (3.2-4.5); POTASSIUM 3.8 MMOL/L (3.6-5.0)
[2022-12-30 05:58] LABS: CALCIUM 8.5 MG/DL (8.5-10.1)
[2022-12-30 06:01] LABS: BILIRUBIN,TOTAL 0.2 MG/DL (0.1-1.0)
[2022-12-30 06:03] LABS: CREATININE SERUM 0.99 MG/DL (0.60-1.30)
[2022-12-30 06:06] LABS: MAGNESIUM 2.2 MG/DL (1.6-2.4)
[2022-12-30] MEDS: inSUlin ASPART 1 UNIT/0.01 ML (PER UNIT) SC SCH ×2 (06:28→11:50)
[2022-12-30 07:33] VITALS: BP 143/79
[2022-12-30] MEDS: DOCUSATE SODIUM 100 MG CAPSULE PO SCH (08:12)
[2022-12-30] MEDS: SENNOSIDES 8.6 MG (SENOKOT) TAB PO SCH (08:12)
[2022-12-30 11:33] VITALS: BP 136/79
--- NOTE | 2022-12-30 12:00 | Discharge Summary ---
Discharge Summary Hospital Course Was the Problem List Reviewed?: Yes Problems/Dx: (1) DKA (diabetic ketoacidosis) Qualifiers: Qualified Codes: E10.10 - Type 1 diabetes mellitus with ketoacidosis without coma Hospital Course Date of Admission: Dec 28, 2022 at 13:14 Admission Diagnosis : Family Physician/Provider: [place] Date of Discharge: 12/30/22 Discharge Diagnosis: [ ] Hospital Course: Uneventful hospital course after he was admitted for DKA and meth use. Patient stabilized insulin drip resolved ketoacidosis he was moved down to the floor and patient was further stabilized with subcu insulin he was deemed stable for discharge but noncompliance precludes anything but a poor prognosis. Labs and Pending Lab Test: Laboratory Tests 12/29/22 16:32: Glucometer 63L 12/29/22 17:58: Glucometer 116H 12/29/22 20:34: Glucometer 286H 12/30/22 04:55: Glucometer 61L 12/30/22 05:31: White Blood Count 7.2, Red Blood Count 4.38, Hemoglobin 12.0L, Hematocrit 37L, Mean Corpuscular Volume 84, Mean Corpuscular Hemoglobin 27, Mean Corpuscular Hemoglobin Concent 33, Red Cell Distribution Width 16.2H, Platelet Count 199, Mean Platelet Volume 10.4, Immature Granulocyte % (Auto) 0, Neutrophils (%) (Auto) 42, Lymphocytes (%) (Auto) 48H, Monocytes (%) (Auto) 10, Eosinophils (%) (Auto) 1, Basophils (%) (Auto) 0, Neutrophils # (Auto) 3.0, Lymphocytes # (Auto) 3.4, Monocytes # (Auto) 0.7, Eosinophils # (Auto) 0.0, Basophils # (Auto) 0.0, Immature Granulocyte # (Auto) 0.0, Sodium Level 137, Potassium Level 3.8, Chloride Level 104, Carbon Dioxide Level 24, Anion Gap 9, Blood Urea Nitrogen 12, Creatinine 0.99, Estimat Glomerular Filtration Rate 90, BUN/Creatinine Ratio 12, Glucose Level 102, Calcium Level 8.5, Corrected Calcium 9.4, Magnesium Level 2.2, Total Bilirubin 0.2, Aspartate Amino Transf (AST/SGOT) 21, Alanine Aminotransferase (ALT/SGPT) 67H, Alkaline Phosphatase 230H, Total Protein 6.0L, Albumin 2.9L 12/30/22 11:29: Glucometer 223H Microbiology 12/28/22 Urine Culture - Preliminary, Resulted Culture In Progress 12/28/22 MRSA Screen - Final, Complete MRSA not isolated Home Meds Active Insulin Aspart Flexpen (Insulin Aspart) 100 Unit/Ml (3 Ml) Insuln.pen 10 Unit SQ AC FILLED 09-07-2022 #5 PENS/50 DAY SUPPLY Reported Lantus Solostar (Insulin Glargine,Hum.rec.anlog) 100 Unit/Ml (3 Ml) Insuln.pen 35 Unit SQ HS LAST FILLED 09-07-2022 #5 PENS/42 DAY SUPPLY Assessment/Pt Instructions PCP in 1 week Discharge Planning: <30 minutes discharge planning Discharge Instructions Discharge Diet: ADA Diet Discharge Physical Examination Vital Signs Vital Signs Date Time Temp Pulse Resp B/P (MAP) Pulse Ox O2 Delivery O2 Flow Rate FiO2 12/30/22 11:33 36.8 75 16 136/79 (98) 97 Room Air General Appearance: No Apparent Distress, WD/WN, Chronically ill Allergies: Coded Allergies: Penicillins (Verified Allergy, Unknown, 09/20/18) tramadol (Verified Allergy, Unknown, 08/08/22) Discharge Summary Date of Admission Dec 28, 2022 at 13:14 Date of Discharge Discharge Date: Dec 30, 2022 Admission Diagnosis DKA on insulin drip Non-compliance Discharge Diagnosis Assessment: DKA Meth use Plan: Move to [facility] GORDON CROWLEY DO Dec 30, 2022 12:00
[2022-12-30] MEDS: ENOXAPARIN 40 MG/0.4 ML SYRINGE SC SCH (12:02)
[2022-12-30 13:47] VITALS: BP 136/79
== END 2022-12-30 13:50 | disposition home or self-care (01) | DRG 637 ==
LOC: EDUNIT# 10:00 → ER 10:01 → ICU 13:14 → 4TH 12-29 14:46
PROVIDERS: ADMIT Internal Medicine; ATTEND Internal Medicine
DX: E11.10 Type 2 diabetes mellitus with ketoacidosis without coma (principal); G93.41 Metabolic encephalopathy; E87.1 Hypo-osmolality and hyponatremia; N17.9 Acute kidney failure, unspecified; E78.00 Pure hypercholesterolemia, unspecified; I10 Essential (primary) hypertension; F32.A Depression, unspecified; E11.40 Type 2 diabetes mellitus with diabetic neuropathy, unspecified; Z79.4 Long term (current) use of insulin; Z89.422 Acquired absence of other left toe(s); Z89.431 Acquired absence of right foot; Z88.0 Allergy status to penicillin; E86.0 Dehydration; E87.5 Hyperkalemia; Z91.148 Patient's other noncompliance with medication regimen for other reason; T38.3X6A Underdosing of insulin and oral hypoglycemic [antidiabetic] drugs, initial encounter; F15.90 Other stimulant use, unspecified, uncomplicated; I95.9 Hypotension, unspecified; E11.649 Type 2 diabetes mellitus with hypoglycemia without coma
CPT/HCPCS: 36415; 80048; 80053; 81000; 82805; 82947; 83036; 83735; 84100; 85007; 85025; 85027; 87081; 87088; 93005; 93041

== ENCOUNTER 2023-01-14 05:33 | Emergency (ER) | payer OTHER ==
[~2023-01-14] VITALS: Ht 185.5 cm; Wt 77.1 kg
--- NOTE | 2023-01-14 06:11 | ED General ---
General Chief Complaint: Skin/Wound Problems Stated Complaint: RT LEG SWOLLEN Source of Information: Patient Exam Limitations: No Limitations History of Present Illness Date Seen by Provider: Jan 14, 2023 Time Seen by Provider: 05:50 Initial Comments Here with report of wound to the right foot stump and swelling and redness of the right leg. Patient has history of diabetes that is only marginally controlled. He is homeless but is staying at different [employer] houses right now. He states that he had to do a long walk about a week ago and developed a blister on the end of the stump on the right lateral aspect. The blister popped and then started having drainage. He then noticed redness of the foot and then ankle and then lower leg. States his blood sugars have been running in the 200 range. She denies fever or chills. Denies other problems. He has his medicines with him. He has been trying to clean and dress this as best he can with the supplies that he has but is worried about infection. He has had the distal foot amputated on the right and 2 toes amputated on the left due to diabetes and infections. Timing/Duration: 1 Week, Getting Worse Severity: Moderate Associated Systoms: No Cough, No Fever/Chills, No Nausea/Vomiting Allergies and Home Medications Allergies Coded Allergies: Penicillins (Verified Allergy, Unknown, 09/20/18) tramadol (Verified Allergy, Unknown, 08/08/22) Patient Home Medication List Home Medication List Reviewed: Yes Insulin Aspart (Insulin Aspart Flexpen) 100 Unit/Ml (3 Ml) Insuln.pen, 10 UNIT SQ AC Prescribed by: BENNY IZAGUIRRE on 12/07/22 1037 Insulin Glargine,Hum.rec.anlog (Lantus Solostar) 100 Unit/Ml (3 Ml) Insuln.pen, 35 UNIT SQ HS, (Reported) Entered as Reported by: BRENDA RICHARDSON on 12/06/22 1312 Review of Systems Review of Systems Constitutional: see HPI; No chills, No fever EENTM: no symptoms reported Respiratory: No cough, No short of breath Cardiovascular: No chest pain Gastrointestinal: No nausea, No vomiting Genitourinary: no symptoms reported Musculoskeletal: muscle pain Skin: change in color, lesions Past Vmeukdx-Fxsifp-Ufivfs Hx Patient Social History Tobacco Use?: No Substance use?: Yes Substance type: Methamphetamine Immunizations Up To Date Tetanus Booster (TDap): Unknown First/Initial COVID19 Vaccinat: 2020 [employer] Second COVID19 Vaccination Jeffery: 2020 [employer] Third COVID19 Vaccination Date: 2020 [employer] Seasonal Allergies Seasonal Allergies: No Past Medical History Surgery/Hospitalization HX: DIABETES, R FOOT AMP TOES, LEFT FOOT TOES 4 AND 5 AMP Surgeries: Yes Amputation, Orthopedic Respiratory: No Currently Using CPAP: No Currently Using BIPAP: No Cardiac: Yes High Cholesterol, Hypertension Neurological: Yes Neuropathy Genitourinary: No Gastrointestinal: No Musculoskeletal: Yes (MULTIPLE TOE AMPUTATIONS) Amputee Endocrine: Yes (DKA; NON-COMPLIANCE) Diabetes, Insulin dep HEENT: No Cancer: No Psychosocial: Yes (SUBSTANCE ABUSE) Depression Integumentary: Yes (CHRONIC DIABETIC FOOT ULCERS) Blood Disorders: No Adverse Reaction/Blood Tranf: No Family Medical History Reviewed Nursing Family Hx Patient reports no known family medical history. No Pertinent Family Hx PT HAS HISTORY OF HOMELESSNESS PAST SURGICAL HISTORY: -RIGHT GREAT TOE AMPUTATION AT [facility] 03/16/22; LATER MID FOOT AMPUTATION-PT STATES AT [facility] IN MAY 2022. -PREVIOUS RIGHT 4TH TOE AMPUTATION AND LEFT 5TH TOE AMPUTATION -PERIPHERAL ANGIOGRAM BY DR. AVILES: DATE OF SERVICE: 09/05/2020 PERIPHERAL ANGIOGRAPHY REPORT The patient is a 54-year-old gentleman who recently had amputation of the left fifth toe that was exhibiting ischemia and ulceration. 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 Accordingly, peripheral angiography was carried out and informed consent was obtained for peripheral angiography and possible ad hoc intervention. DESCRIPTION OF PROCEDURE: He was brought to the cardiac catheterization laboratory in a fasting state. Right groin was prepared and draped in the usual sterile fashion. Lidocaine 1% was used for local anesthesia. Modified Seldinger technique was used to advance a 5-[place] Konger sheath in right femoral artery. A 5-[place]er pigtail catheter was used to carry out abdominal aortic angiography. The pigtail catheter was then pulled back to just above the level of the aortoiliac bifurcation and bilateral leg artery angiography was carried out down to the level of the ankles. Subsequently, we used a 5-[place] Konger crossover catheter and advanced a Bontera wire into the left superficial femoral artery. The crossover catheter was removed and we advanced a straight catheter into the distal part of the left superficial femoral artery and carried out selective angiography of the distal left superficial femoral artery and the trifurcation vessels down to the level of the ankles. The catheter was then removed. Angiography of the right femoral artery was carried out through the sheath. Mynx was used to achieve hemostasis. He tolerated the procedure well. ABDOMINAL AORTIC ANGIOGRAPHY: Abdominal aortic angiography did not indicate any significant abdominal aortic aneurysm or dissection. No abdominal aortic stenosis is seen. The aortoiliac bifurcation is intact and does not exhibit significant disease. BILATERAL LEG ARTERY ANGIOGRAPHY: Bilateral leg artery angiography did not indicate any significant disease of the iliac arteries, common femoral arteries, popliteal arteries, or the distal vessels of the legs. 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 Selective angiography did not indicate any significant disease of the left popliteal artery or of the trifurcation arteries on the left side. CONCLUSIONS: No significant peripheral arterial disease seen on this peripheral angiographic study. Physical Exam-Suspected Sepsis Physical Exam Vital Signs Vital Signs - First Documented 01/14/23 05:48 Temp 36.6 Pulse 98 Resp 20 B/P (MAP) 150/77 (101) Pulse Ox 98 O2 Delivery Room Air Capillary Refill : Height, Weight, BMI Height: 6'1.00" Weight: 168lbs. 9.0oz. [id number]; 24.42 BMI Method:Estimated General Appearance: No Apparent Distress, Thin HEENT: PERRL/EOMI, Pharynx Normal Neck: Non Tender, Supple Respiratory: Lungs Clear, Normal Breath Sounds Cardiovascular: No Murmur, Tachycardia Gastrointestinal: Non Tender, Soft Back: Normal Inspection, No CVA Tenderness, No Vertebral Tenderness Extremity: Normal Range of Motion, Non Tender, Other (Distal foot amputation on the right with wound as described below) Neurologic/Psychiatric: Alert Skin: warm/dry, other (Weeping wound to the right lateral foot stump. Has ulceration of approximately 3 cm circumference with serous drainage. There is redness and swelling of the foot and ankle and redness and warmth that extends up the leg to above the knee. Swelling also noted from the knee down.) Focused Exam Lactate Level 01/14/23 06:05: Lactic Acid Level 1.45 Lactic Acid Level Laboratory Tests Test 01/14/23 06:05 Lactic Acid Level 1.45 MMOL/L (0.50-2.00) Progress/Results/Core Measures Suspected Sepsis SIRS Temperature: Pulse: Respiratory Rate: Laboratory Tests 01/14/23 06:05: White Blood Count 7.1 Blood Pressure / Mean: 01/14/23 06:05: Lactic Acid Level 1.45 Laboratory Tests 01/14/23 06:05: Creatinine 1.24, Platelet Count 356, Total Bilirubin 0.2 Results/Orders Lab Results Laboratory Tests Test 01/14/23 06:05 01/14/23 07:50 01/14/23 07:56 Range/Units White Blood Count 7.1 4.3-11.0 10^3/uL Red Blood Count 3.81 L 4.30-5.52 10^6/uL Hemoglobin 10.7 L 13.3-17.7 g/dL Hematocrit 34 L 40-54 % Mean Corpuscular Volume 88 80-99 fL Mean Corpuscular Hemoglobin 28 25-34 pg Mean Corpuscular Hemoglobin Concent 32 32-36 g/dL Red Cell Distribution Width 14.8 H 10.0-14.5 % Platelet Count 356 130-400 10^3/uL Mean Platelet Volume 9.7 9.0-12.2 fL Immature Granulocyte % (Auto) 0 % Neutrophils (%) (Auto) 56 42-75 % Lymphocytes (%) (Auto) 31 12-44 % Monocytes (%) (Auto) 9 0-12 % Eosinophils (%) (Auto) 3 0-10 % Basophils (%) (Auto) 0 0-10 % Neutrophils # (Auto) 4.0 1.8-7.8 10^3/uL Lymphocytes # (Auto) 2.2 1.0-4.0 10^3/uL Monocytes # (Auto) 0.6 0.0-1.0 10^3/uL Eosinophils # (Auto) 0.2 0.0-0.3 10^3/uL Basophils # (Auto) 0.0 0.0-0.1 10^3/uL Immature Granulocyte # (Auto) 0.0 0.0-0.1 10^3/uL Sodium Level 131 L 135-145 MMOL/L Potassium Level 4.7 3.6-5.0 MMOL/L Chloride Level 95 L 98-107 MMOL/L Carbon Dioxide Level 27 21-32 MMOL/L Anion Gap 9 5-14 MMOL/L Blood Urea Nitrogen 23 H 7-18 MG/DL Creatinine 1.24 0.60-1.30 MG/DL Estimat Glomerular Filtration Rate 69 BUN/Creatinine Ratio 19 Glucose Level 461 *H 70-105 MG/DL Lactic Acid Level 1.45 0.50-2.00 MMOL/L Calcium Level 9.1 8.5-10.1 MG/DL Corrected Calcium 9.7 8.5-10.1 MG/DL Total Bilirubin 0.2 0.1-1.0 MG/DL Aspartate Amino Transf (AST/SGOT) 11 5-34 U/L Alanine Aminotransferase (ALT/SGPT) 8 0-55 U/L Alkaline Phosphatase 141 H 40-136 U/L C-Reactive Protein High Sensitivity 2.23 H 0.00-0.50 MG/DL Total Protein 7.1 6.4-8.2 GM/DL Albumin 3.2 3.2-4.5 GM/DL Glucometer 276 H 70-110 MG/DL Urine Color YELLOW Urine Clarity SL CLOUDY Urine pH 6.0 5-9 Urine Specific [place] 1.020 1.016-1.022 Urine Protein TRACE H NEGATIVE Urine Glucose (UA) 3+ H NEGATIVE Urine Ketones NEGATIVE NEGATIVE Urine Nitrite NEGATIVE NEGATIVE Urine Bilirubin NEGATIVE NEGATIVE Urine Urobilinogen 0.2 < = 1.0 MG/DL Urine Leukocyte Esterase NEGATIVE NEGATIVE Urine RBC (Auto) TRACE H NEGATIVE Urine RBC 2-5 H /HPF Urine WBC 2-5 /HPF Urine Crystals NONE /LPF Urine Bacteria NEGATIVE /HPF Urine Casts NONE /LPF Urine Mucus NEGATIVE /LPF Urine Yeast LARGE H /HPF Urine Culture Indicated YES My Orders Orders - MARIIA ELISE MD Cbc With Automated Diff (01/14/23 06:01) Comprehensive Metabolic Panel (01/14/23 06:01) Blood Culture (01/14/23 06:01) Urinalysis (01/14/23 06:01) Urine Culture (01/14/23 06:01) Ed Iv/Invasive Line Start (01/14/23 06:01) Vital Signs Adult Sepsis Patie Q15M (01/14/23 06:01) O2 (01/14/23 06:01) Remove Rings In Anticipation O (01/14/23 06:01) Lactic Acid Analyzer (01/14/23 06:01) Hs C Reactive Protein (01/14/23 06:01) Wound Culture (01/14/23 06:01) Ns Iv 1000 Ml (Ns Iv 1000 Ml) (01/14/23 06:15) Insulin (Regular) Per Unit (Insulin (Reg (01/14/23 06:39) Ceftriaxone Iv/Im (Ceftriaxone Iv/Im) (01/14/23 07:12) Medications Given in ED Current Medications Medications Dose Ordered Sig/Perico Route Start Time Stop Time Status Last Admin Dose Admin Sodium Chloride 1,000 ml @ 0 mls/hr Q0M ONCE IV 01/14/23 06:15 01/14/23 06:16 DC 01/14/23 06:19 0 MLS/HR Vital Signs/I&O 01/14/23 05:48 Temp 36.6 Pulse 98 Resp 20 B/P (MAP) 150/77 (101) Pulse Ox 98 O2 Delivery Room Air Capillary Refill : Progress Note : Progress Note Seen and evaluated. IV, labs including CBC, CMP, blood cultures, lactic acid, UA and urine culture as well as wound culture ordered. Normal saline 1 L bolus ordered. Differential diagnosis includes simple ulcer local soft tissue infection versus diabetic ulcer with expanding cellulitis and sepsis. Electrolyte abnormality, dehydration and uncontrolled diabetes also in the differential 0919: CBC reviewed and no elevation white count. CMP reviewed and shows elevated glucose with normal creatinine and sodium and chloride are slightly low but will correct with correction. CRP is only slightly elevated. Lactic acid is negative. UA was ordered and is done and does show glucose but no ketones. I have given him 1 g of Rocephin IV. Blood sugar has dropped to the 200s. I did discuss the case with Dr. Tijerina, on-call hospitalist for [facility] service. He does not meet admission criteria right now and I agree with that but he will need to be on outpatient antibiotics. We will initiate doxycycline outpatient and I will give him his first dose now. I did discuss with him about follow-up with wound care and he can do that but will need to fill out financial planning analyst paperwork for wound care clinic. This was discussed with him. We will give him some supplies. Discharged home with return precautions. Patient verbalized understanding instructions and agreement with plan. I will send outpatient prescription as discussed. Departure Impression Primary Impression: Diabetic foot ulcers Qualified Codes: E10.621 - Type 1 diabetes mellitus with foot ulcer; L97.411 - Non-pressure chronic ulcer of right heel and midfoot limited to breakdown of skin Disposition: HOME, SELF-CARE Condition: Stable Departure-Patient Inst. Decision time for Depature: 09:22 Referrals: [facility] [place] Primary Care Physician Patient Instructions: Wound Care (DC), Foot Care for Diabetics Add. Discharge Instructions: All discharge instructions reviewed with patient and/or family. Voiced understanding. Take medications as directed. You will need to change your dressing daily. You may use antibiotic ointment and dressing over wound and secure with Kartik wrap as shown and given. You need to keep the wound clean and you should wash it daily with the dressing change. You may also follow-up with wound care. You will need to fill out financial planning analyst paperwork and turn that in and then you can set up appointments with wound care. Alternatively, you may follow-up with the clinic as well. Return for worse pain, fever, vomiting, weakness, breathing problems, foul-smelling drainage, increasing redness of the leg or other concerns as needed. Scripts Doxycycline Hyclate (Doxycycline Hyclate) 100 Mg Tablet 100 MG PO BID, #20 TAB 0 Refills Prov: MARIIA ELISE MD 01/14/23 MARIIA ELISE MD Jan 14, 2023 06:11
[2023-01-14 06:14] LABS: BASOPHILS % (AUTO) 0 % (0-10); EOSINOPHILS # (AUTO) 0.2 10^3/uL (0.0-0.3); EOSINOPHILS % (AUTO) 3 % (0-10); HEMATOCRIT 34 % (40-54); HEMOGLOBIN 10.7 g/dL (13.3-17.7); LYMPHOCYTES # (AUTO) 2.2 10^3/uL (1.0-4.0); LYMPHOCYTES % (AUTO) 31 % (12-44); MEAN CORPUSCULAR HEMOGLOBIN 28 pg (25-34); MEAN CORPUSCULAR HGB CONC 32 g/dL (32-36); MEAN CORPUSCULAR VOLUME 88 fL (80-99); MEAN PLATELET VOLUME 9.7 fL (9.0-12.2); MONOCYTES # (AUTO) 0.6 10^3/uL (0.0-1.0); MONOCYTES % (AUTO) 9 % (0-12); NEUTROPHILS % (AUTO) 56 % (42-75); PLATELET COUNT 356 10^3/uL (130-400); WHITE BLOOD COUNT 7.1 10^3/uL (4.3-11.0)
[2023-01-14] MEDS ORDERED: NS IV 1000 ML 1,000 ML IV ONE (06:15)
[2023-01-14 06:28] LABS: ALBUMIN 3.2 GM/DL (3.2-4.5); POTASSIUM 4.7 MMOL/L (3.6-5.0)
[2023-01-14 06:29] LABS: CALCIUM 9.1 MG/DL (8.5-10.1)
[2023-01-14 06:31] LABS: TOTAL PROTEIN 7.1 GM/DL (6.4-8.2)
[2023-01-14 06:32] LABS: BILIRUBIN,TOTAL 0.2 MG/DL (0.1-1.0)
[2023-01-14 06:34] LABS: CREATININE SERUM 1.24 MG/DL (0.60-1.30)
[2023-01-14] MEDS ORDERED: inSUlin (REGULAR) HUMAN 1 UNIT/0.01 ML (CHARGE PER UNIT) SC STA (06:39)
[2023-01-14] MEDS ORDERED: cefTRIAXone IV/IM 1,000 MG in NS (IVPB) 50 ML 50 ML IV STA (07:12)
[2023-01-14] MEDS ORDERED: cefTRIAXone 1,000 MG VIAL IV/IM ONE (07:49)
[2023-01-14 08:32] LABS: CLARITY,URINE SL CLOUDY; COLOR,URINE YELLOW
[2023-01-14 08:33] LABS: BACTERIA,URINE NEGATIVE /HPF; BILIRUBIN,URINE NEGATIVE (NEGATIVE); GLUCOSE, URINE (UA) 3+ (NEGATIVE); KETONES,URINE NEGATIVE (NEGATIVE); LEUKOCYTE ESTERASE ,URINE NEGATIVE (NEGATIVE); NITRITE,URINE NEGATIVE (NEGATIVE); PROTEIN,URINE TRACE (NEGATIVE); YEAST,URINE LARGE /HPF
[2023-01-14] MEDS ORDERED: DOXY100T2 PO (09:25)
[2023-01-14 09:37] VITALS: BP 109/75
== END 2023-01-14 09:37 | disposition home or self-care (01) ==
LOC: EDUNIT# 05:33 → ER 05:37
DX: E11.621 Type 2 diabetes mellitus with foot ulcer (principal); L97.519 Non-pressure chronic ulcer of other part of right foot with unspecified severity; Z88.0 Allergy status to penicillin
CPT/HCPCS: 36415; 80053; 81000; 82947; 83605; 85025; 86141; 87040; 87070; 87077; 87088; 87205

== ENCOUNTER 2023-02-09 10:32 | Observation (INO) | payer OTHER ==
[~2023-02-09] VITALS: Ht 185 cm; Wt 74.9 kg
[~2023-02-09 10:32] MED LIST changes: +DOXY100T2 PO
[2023-02-09] MEDS ORDERED: NS IV 1000 ML 1,000 ML IV STA ×2 (10:43→14:53)
[2023-02-09 10:49] LABS: BASOPHILS % (AUTO) 0 % (0-10); EOSINOPHILS % (AUTO) 0 % (0-10); HEMATOCRIT 38 % (40-54); HEMOGLOBIN 11.9 g/dL (13.3-17.7); LYMPHOCYTES # (AUTO) 1.7 10^3/uL (1.0-4.0); LYMPHOCYTES % (AUTO) 17 % (12-44); MEAN CORPUSCULAR HEMOGLOBIN 27 pg (25-34); MEAN CORPUSCULAR HGB CONC 32 g/dL (32-36); MEAN CORPUSCULAR VOLUME 85 fL (80-99); MEAN PLATELET VOLUME 9.8 fL (9.0-12.2); MONOCYTES # (AUTO) 0.6 10^3/uL (0.0-1.0); MONOCYTES % (AUTO) 6 % (0-12); NEUTROPHILS # (AUTO) 7.8 10^3/uL (1.8-7.8); NEUTROPHILS % (AUTO) 77 % (42-75); PLATELET COUNT 567 10^3/uL (130-400); WHITE BLOOD COUNT 10.1 10^3/uL (4.3-11.0)
--- NOTE | 2023-02-09 10:55 | ED General ---
General Chief Complaint: Glucose Problems Stated Complaint: HIGH BLOOD SUGAR Nursing Triage Note: PT PRESENTS TO ED VIA EMS FROM HOME WITH COMPLAINTS OF HIGH BLOOD SUGAR STARTING SOMETIME LAST NIGHT. PT REPORTS HE TATED VOMITING ROUND 0200 THIS AM. PT STATES HIS BLOOD SUGARS WERE FINE FOR HIM YESTRDY AND WERE RUNNING IN THE 200' WHICH IS RUBIN FOR HIM. PT REPORTS HE DID TAKE HIS INSULIN THIS AM 35 U OF LONG ACTING. Source of Information: Patient Exam Limitations: No Limitations History of Present Illness Date Seen by Provider: Feb 09, 2023 Time Seen by Provider: 10:55 Initial Comments Patient is a 57-year-old male who presents to the emergency room with a chief complaint of "DKA". He states that he took his Lantus 35 units at 2 AM last night. That was about the time he started feeling nauseous and started vom iting. He denies known fever. He denies URI symptoms or cough. He states he "thinks" that he is COVID vaccinated. Denies sick contacts. He cannot recall the last time he had anything to eat. He denies chest pain or shortness of breath. He has not taken anything for his symptoms. Denies diarrhea. Black or bloody stools. No urinary complaints. 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 He is currently requesting some water or ice chips but actively holding a bucket with nausea. Admits to smoking marijuana and methamphetamine use. He states his last methamphetamine use was "a few days ago". Denies daily alcohol. Timing/Duration: 12 Hours Severity: Severe Associated Systoms: Malaise, Nausea/Vomiting, Weakness Allergies and Home Medications Allergies Coded Allergies: Penicillins (Verified Allergy, Unknown, 09/20/18) tramadol (Verified Allergy, Unknown, 08/08/22) Patient Home Medication List Home Medication List Reviewed: Yes Doxycycline Hyclate (Doxycycline Hyclate) 100 Mg Tablet, 100 MG PO BID Prescribed by: MARIIA ELISE on 01/14/23 0925 Insulin Aspart (Insulin Aspart Flexpen) 100 Unit/Ml (3 Ml) Insuln.pen, 10 UNIT SQ AC Prescribed by: BENNY IZAGUIRRE on 12/07/22 1037 Insulin Glargine,Hum.rec.anlog (Lantus Solostar) 100 Unit/Ml (3 Ml) Insuln.pen, 35 UNIT SQ HS, (Reported) Entered as Reported by: BRENDA RICHARDSON on 12/06/22 1312 Review of Systems Review of Systems Constitutional: see HPI EENTM: no symptoms reported Respiratory: no symptoms reported Cardiovascular: no symptoms reported Gastrointestinal: loss of appetite, nausea, vomiting Genitourinary: no symptoms reported Musculoskeletal: no symptoms reported Skin: no symptoms reported Psychiatric/Neurological: No Symptoms Reported All Other Systems Reviewed Negative Unless Noted: Yes Past Ipxkcrb-Cwrsev-Kevnmu Hx Patient Social History Tobacco Use?: Yes Tobacco type used: Cigarettes Smoking Status: Current Everyday Smoker Substance use?: Yes Substance type: Marijuana Alcohol Use?: No Pt feels they are or have been: No Immunizations Up To Date Tetanus Booster (TDap): Unknown First/Initial COVID19 Vaccinat: 2020 [employer] Second COVID19 Vaccination Jeffery: 2020 [employer] Third COVID19 Vaccination Date: 2020 [employer] Seasonal Allergies Seasonal Allergies: No Past Medical History Surgery/Hospitalization HX: DIABETES, R FOOT AMP TOES, LEFT FOOT TOES 4 AND 5 AMP Surgeries: Yes Amputation, Orthopedic Respiratory: No Currently Using CPAP: No Currently Using BIPAP: No Cardiac: Yes High Cholesterol, Hypertension Neurological: Yes Neuropathy Genitourinary: No Gastrointestinal: No Musculoskeletal: Yes (MULTIPLE TOE AMPUTATIONS) Amputee Endocrine: Yes (DKA; NON-COMPLIANCE) Diabetes, Insulin dep HEENT: No Cancer: No Psychosocial: Yes (SUBSTANCE ABUSE) Depression Integumentary: Yes (CHRONIC DIABETIC FOOT ULCERS) Blood Disorders: No Adverse Reaction/Blood Tranf: No Family Medical History Patient reports no known family medical history. No Pertinent Family Hx PT HAS HISTORY OF HOMELESSNESS PAST SURGICAL HISTORY: -RIGHT GREAT TOE AMPUTATION AT [facility] 03/16/22; LATER MID FOOT AMPUTATION-PT STATES AT [facility] IN MAY 2022. -PREVIOUS RIGHT 4TH TOE AMPUTATION AND LEFT 5TH TOE AMPUTATION -PERIPHERAL ANGIOGRAM BY DR. AVILES: DATE OF SERVICE: 09/05/2020 PERIPHERAL ANGIOGRAPHY REPORT The patient is a 54-year-old gentleman who recently had amputation of the left fifth toe that was exhibiting ischemia and ulceration. 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 Accordingly, peripheral angiography was carried out and informed consent was obtained for peripheral angiography and possible ad hoc intervention. DESCRIPTION OF PROCEDURE: He was brought to the cardiac catheterization laboratory in a fasting state. Right groin was prepared and draped in the usual sterile fashion. Lidocaine 1% was used for local anesthesia. Modified Seldinger technique was used to advance a 5-Georgian sheath in right femoral artery. A 5-Georgian pigtail catheter was used to carry out abdominal aortic angiography. The pigtail catheter was then pulled back to just above the level of the aortoiliac bifurcation and bilateral leg artery angiography was carried out down to the level of the ankles. Subsequently, we used a 5-Georgian crossover catheter and advanced a Storq wire into the left superficial femoral artery. The crossover catheter was removed and we advanced a straight catheter into the distal part of the left superficial femoral artery and carried out selective angiography of the distal left superficial femoral artery and the trifurcation vessels down to the level of the ankles. The catheter was then removed. Angiography of the right femoral artery was carried out through the sheath. Mynx was used to achieve hemostasis. He tolerated the procedure well. ABDOMINAL AORTIC ANGIOGRAPHY: Abdominal aortic angiography did not indicate any significant abdominal aortic aneurysm or dissection. No abdominal aortic stenosis is seen. The aortoiliac bifurcation is intact and does not exhibit significant disease. BILATERAL LEG ARTERY ANGIOGRAPHY: Bilateral leg artery angiography did not indicate any significant disease of the iliac arteries, common femoral arteries, popliteal arteries, or the distal vessels of the legs. 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 Selective angiography did not indicate any significant disease of the left popliteal artery or of the trifurcation arteries on the left side. CONCLUSIONS: No significant peripheral arterial disease seen on this peripheral angiographic study. Physical Exam Vital Signs Vital Signs - First Documented 02/09/23 10:33 Temp 35.9 Pulse 89 Resp 22 B/P (MAP) 136/84 (101) Pulse Ox 99 Capillary Refill : Less Than 3 Seconds Height, Weight, BMI Height: 6'1.00" Weight: 168lbs. 9.0oz. [id number]; 22.00 BMI Method:Estimated General Appearance: Mild Distress (Due to nausea), Thin Eyes: Bilateral Eye Normal Inspection, Bilateral Eye PERRL, Bilateral Eye EOMI HEENT: PERRL/EOMI, Pharynx Normal, Moist Mucous Membranes Neck: Normal Inspection, Supple Respiratory: Lungs Clear, Normal Breath Sounds, No Accessory Muscle Use, No Respiratory Distress Cardiovascular: Regular Rate, Rhythm, Normal Peripheral Pulses Gastrointestinal: Normal Bowel Sounds, Non Tender, Soft Extremity: Normal Capillary Refill, Normal Inspection, Normal Range of Motion, Non Tender, No Calf Tenderness Neurologic/Psychiatric: Alert, Oriented x3, No Motor/Sensory Deficits, Depressed Affect Skin: Normal Color, Warm/Dry Progress/Results/Core Measures Suspected Sepsis SIRS Temperature: Pulse: 89 Respiratory Rate: 22 Laboratory Tests 02/09/23 10:38: White Blood Count 10.1 Blood Pressure 136 /84 Mean: 101 Laboratory Tests 02/09/23 10:38: Creatinine 1.72H, Platelet Count 567H, Total Bilirubin 0.3 Results/Orders Lab Results Laboratory Tests Test 02/09/23 10:37 02/09/23 10:38 Range/Units Glucometer 512 *H 70-110 MG/DL White Blood Count 10.1 4.3-11.0 10^3/uL Red Blood Count 4.41 4.30-5.52 10^6/uL Hemoglobin 11.9 L 13.3-17.7 g/dL Hematocrit 38 L 40-54 % Mean Corpuscular Volume 85 80-99 fL Mean Corpuscular Hemoglobin 27 25-34 pg Mean Corpuscular Hemoglobin Concent 32 32-36 g/dL Red Cell Distribution Width 13.7 10.0-14.5 % Platelet Count 567 H 130-400 10^3/uL Mean Platelet Volume 9.8 9.0-12.2 fL Immature Granulocyte % (Auto) 1 % Neutrophils (%) (Auto) 77 H 42-75 % Lymphocytes (%) (Auto) 17 12-44 % Monocytes (%) (Auto) 6 0-12 % Eosinophils (%) (Auto) 0 0-10 % Basophils (%) (Auto) 0 0-10 % Neutrophils # (Auto) 7.8 1.8-7.8 10^3/uL Lymphocytes # (Auto) 1.7 1.0-4.0 10^3/uL Monocytes # (Auto) 0.6 0.0-1.0 10^3/uL Eosinophils # (Auto) 0.0 0.0-0.3 10^3/uL Basophils # (Auto) 0.0 0.0-0.1 10^3/uL Immature Granulocyte # (Auto) 0.1 0.0-0.1 10^3/uL Venous Blood pH 7.34 7.31-7.41 Venous Blood Partial Pressure CO2 32 L 40-52 MMHG Venous Blood HCO3 17 L 22-28 MMOL/L Sodium Level 134 L 135-145 MMOL/L Potassium Level 5.4 H 3.6-5.0 MMOL/L Chloride Level 98 98-107 MMOL/L Carbon Dioxide Level 14 L 21-32 MMOL/L Anion Gap 22 H 5-14 MMOL/L Blood Urea Nitrogen 24 H 7-18 MG/DL Creatinine 1.72 H 0.60-1.30 MG/DL Estimat Glomerular Filtration Rate 46 BUN/Creatinine Ratio 14 Glucose Level 532 *H 70-105 MG/DL Calcium Level 9.1 8.5-10.1 MG/DL Corrected Calcium 9.9 8.5-10.1 MG/DL Total Bilirubin 0.3 0.1-1.0 MG/DL Aspartate Amino Transf (AST/SGOT) 9 5-34 U/L Alanine Aminotransferase (ALT/SGPT) 9 0-55 U/L Alkaline Phosphatase 140 H 40-136 U/L Total Protein 8.0 6.4-8.2 GM/DL Albumin 3.0 L 3.2-4.5 GM/DL My Orders Orders - CHANEL RONDON MD Ed Iv/Invasive Line Start (02/09/23 10:43) Cbc And Automated Diff (02/09/23 10:43) Comprehensive Metabolic Panel (02/09/23 10:43) Accucheck Prn (02/09/23 10:43) Ns Iv 1000 Ml (Ns Iv 1000 Ml) (02/09/23 10:43) Venous Blood Gas (02/09/23 10:43) Insulin (Regular) Per Unit (Insulin (Reg (02/09/23 11:39) Insulin (Regular) Per Unit (Insulin (Reg (02/09/23 11:39) Prochlorperazine Injection (Prochlorpera (02/09/23 11:45) Diphenhydramine Injection (Diphenhydram (02/09/23 11:45) Vital Signs/I&O 10/4/23 10:33 Temp 35.9 Pulse 89 Resp 22 B/P (MAP) 136/84 (101) Pulse Ox 99 Capillary Refill : Less Than 3 Seconds Blood Pressure Mean: 101 Point of Care Testing Finger Stick Blood Glucose: 512 Blood Glucose Action Taken: dr notified Progress Note : Time: 12:11 Progress Note Patient seen and evaluated by me. Evaluation today includes physical exam, CBC, Chem-12, lipase, venous blood gas, beta hydroxybutyric acid level, urinalysis, chest x-ray. Patient physical exam findings thin mildly distressed individual holding an emesis basin. Stable vital signs. Moist mucous membranes. Pupils equal, not pinpoint. Lungs are clear, heart is regular, not tachycardic. Abdomen soft. Nontender, nondistended. Moves all extremities equally. No cellultitic appearing skin wounds. Differential diagnosis includes DKA, hyperglycemia in a diabetic patient, gastroenteritis, viral syndrome, UTI, electrolyte abnormality/dehydration/kidney injury Patient arrives with normal saline x1 L running. He is treated in the emergency department with 5 mg of Compazine and 25 mg of IV Benadryl. He is also given a bolus of 5 units of regular insulin both IV and subcu. His labs are independently reviewed and interpreted by me. His CBC shows a total white count of 10.1 with hemoglobin of 11.9 hematocrit of 38. Platelets increased at 567. His chemistry is remarkable for an elevated potassium at 5.4. Decreased CO2 at 14. Elevated BUN and creatinine of 24 and 1.72. Serum glucose 532. His anion gap is 22. Alk phos is 140. Venous blood gas reveals a pH of 7.34. Beta hydroxybutyric acid level is pending as is urinalysis and chest x-ray at this time. Case is discussed with Dr. Tijerina, hospitalist on for [facility] who accepts the patient for admission. Insulin drip to be started in the ICU. Patient technically is not overtly acidotic but does have wide anion gap hyperglycemia. Second liter of IV fluids is ordered Departure Communication (Admissions) Time/Spoke to Admitting Phy: 12:[address] Tijerina (Hospitalist for [facility]) Impression Primary Impression: DKA (diabetic ketoacidosis) Qualified Codes: E10.10 - Type 1 diabetes mellitus with ketoacidosis without coma Additional Impression: Acute kidney injury Disposition: ADMITTED INPATIENT Condition: Critical Admissions Decision to Admit Reason: Admit from ER (General) Decision to Admit/Date: Feb 09, 2023 Time/Decision to Admit Time: 12:16 Departure-Patient Inst. Referrals: [facility] [place] (PCP/Family) Primary Care Physician CHANEL RONDON MD Feb 09, 2023 10:55
[2023-02-09 11:14] LABS: POTASSIUM 5.4 MMOL/L (3.6-5.0)
[2023-02-09 11:15] LABS: CALCIUM 9.1 MG/DL (8.5-10.1)
[2023-02-09 11:18] LABS: BILIRUBIN,TOTAL 0.3 MG/DL (0.1-1.0)
[2023-02-09 11:20] LABS: CREATININE SERUM 1.72 MG/DL (0.60-1.30)
[2023-02-09] MEDS ORDERED: inSUlin (REGULAR) HUMAN 1 UNIT/0.01 ML (CHARGE PER UNIT) IV STA (11:39)
[2023-02-09] MEDS ORDERED: inSUlin (REGULAR) HUMAN 1 UNIT/0.01 ML (CHARGE PER UNIT) SC STA (11:39)
[2023-02-09] MEDS ORDERED: diphenhydrAMINE INJ 50 MG/ML VIAL IVP ONE (11:45)
[2023-02-09] MEDS ORDERED: PROCHLORPERAZINE INJ 10 MG/2ML VIAL IV ONE (11:45)
--- NOTE | 2023-02-09 12:20 | Diagnostic Imaging Report ---
INDICATION: Diabetic ketoacidosis Frontal chest obtained at 12:15 p.m. and compared to 12/04/2022. Heart and mediastinal silhouette are normal in appearance. The lungs are clear. There is no pneumothorax or pleural fluid. IMPRESSION: Negative chest. Dictated by: Dictated on workstation # [id number]
[2023-02-09] MEDS ORDERED: NS IV 500 ML 500 ML IV PRN (16:15)
[2023-02-09] MEDS ORDERED: NS IV 1000 ML 1,000 ML IV SCH (16:15)
[2023-02-09] MEDS ORDERED: ONDANSETRON INJECTION 4 MG/2 ML (SDV) IV PRN (16:15)
[2023-02-09] MEDS ORDERED: oxyCODONE IMMEDIATE RELEASE 5 MG TABLET PO PRN (16:15)
[2023-02-09] MEDS ORDERED: MELATONIN 3 MG TABLET PO PRN (16:15)
[2023-02-09] MEDS ORDERED: diphenhydrAMINE INJ 50 MG/ML VIAL IVP PRN (16:15)
[2023-02-09] MEDS ORDERED: HYDROmorphone INJECTION 2 MG/ML VIAL IV PRN (16:15)
[2023-02-09] MEDS ORDERED: ACETAMINOPHEN 325 MG TABLET PO PRN (16:15)
[2023-02-09] MEDS ORDERED: MILK OF MAGNESIA 400 MG/5 ML 30 ML UDC PO PRN (16:15)
[2023-02-09] MEDS ORDERED: LACTULOSE SYRUP 10GM/15ML 30ML UDC PO PRN (16:15)
[2023-02-09] MEDS ORDERED: BISACODYL 10 MG SUPPOSITORY PR PRN (16:15)
[2023-02-09] MEDS ORDERED: ONDANSETRON 4 MG ORAL DISSOLVE TABLET PO PRN (16:15)
[2023-02-09] MEDS ORDERED: diphenhydrAMINE 25 MG TABLET PO PRN (16:15)
[2023-02-09] MEDS ORDERED: POTASSIUM CL 10MEQ/50ML IVPB 50 ML IV SCH (16:15)
[2023-02-09] MEDS ORDERED: ANTACID SUSPENSION 30 ML UDC PO PRN (16:15)
[2023-02-09] MEDS ORDERED: CALCIUM CARBONATE 500 MG CHEW TABLET PO PRN (16:15)
[2023-02-09 16:31] VITALS: BP 136/84
[2023-02-09] MEDS ORDERED: RT-Ipratropium/Albuterol NEB 3 ML VIAL INH PRN (16:45)
[2023-02-09] MEDS: 1/2 NS IV SOLUTION 1000 ML 1,000 ML IV SCH ×2 (16:52→20:15)
[2023-02-09] MEDS ORDERED: ENOXAPARIN 40 MG/0.4 ML SYRINGE SC SCH (17:00)
[2023-02-09] MEDS: D5 1/2 NS 1,000 ML IV 1,000 ML IV SCH (17:44)
[2023-02-09] MEDS: SENNOSIDES 8.6 MG TABLET PO SCH (21:00)
[2023-02-09] MEDS: DOCUSATE SODIUM 100 MG CAPSULE PO SCH (21:00)
[2023-02-09] MEDS ORDERED: RT-Ipratropium/Albuterol NEB 3 ML VIAL INH SCH (21:00)
[2023-02-10] MEDS: 1/2 NS IV SOLUTION 1000 ML 1,000 ML IV SCH ×4 (00:15→12:17)
[2023-02-10] MEDS: D5 1/2 NS 1,000 ML IV 1,000 ML IV SCH ×2 (01:16→05:19)
[2023-02-10 01:54] LABS: BASOPHILS % (AUTO) 0 % (0-10); EOSINOPHILS # (AUTO) 0.1 10^3/uL (0.0-0.3); EOSINOPHILS % (AUTO) 1 % (0-10); HEMATOCRIT 32 % (40-54); HEMOGLOBIN 10.4 g/dL (13.3-17.7); LYMPHOCYTES # (AUTO) 3.4 10^3/uL (1.0-4.0); LYMPHOCYTES % (AUTO) 28 % (12-44); MEAN CORPUSCULAR HEMOGLOBIN 27 pg (25-34); MEAN CORPUSCULAR HGB CONC 33 g/dL (32-36); MEAN CORPUSCULAR VOLUME 83 fL (80-99); MEAN PLATELET VOLUME 9.8 fL (9.0-12.2); MONOCYTES # (AUTO) 0.9 10^3/uL (0.0-1.0); MONOCYTES % (AUTO) 7 % (0-12); NEUTROPHILS # (AUTO) 7.5 10^3/uL (1.8-7.8); NEUTROPHILS % (AUTO) 63 % (42-75); PLATELET COUNT 474 10^3/uL (130-400)
[2023-02-10 02:05] LABS: ALBUMIN 2.5 GM/DL (3.2-4.5)
[2023-02-10 02:06] LABS: POTASSIUM 4.1 MMOL/L (3.6-5.0)
[2023-02-10 02:07] LABS: CALCIUM 8.3 MG/DL (8.5-10.1)
[2023-02-10 02:08] LABS: TOTAL PROTEIN 6.5 GM/DL (6.4-8.2)
[2023-02-10 02:10] LABS: BILIRUBIN,TOTAL 0.2 MG/DL (0.1-1.0)
[2023-02-10 02:11] LABS: PHOSPHORUS 1.9 MG/DL (2.3-4.7)
[2023-02-10 02:12] LABS: CREATININE SERUM 1.44 MG/DL (0.60-1.30)
[2023-02-10 02:15] LABS: MAGNESIUM 2.1 MG/DL (1.6-2.4)
[2023-02-10] MEDS: POTASSIUM CL 10MEQ/50ML IVPB 50 ML IV SCH ×2 (03:57→06:08)
[2023-02-10] MEDS ORDERED: POTASSIUM CHLORIDE 20 MEQ TABLET PO SCH (06:00)
[2023-02-10] MEDS ORDERED: MAGNESIUM 1 GM/100 ML IVPB 100 ML IV SCH (06:00)
[2023-02-10] MEDS ORDERED: POTASSIUM CL 10MEQ/50ML IVPB 50 ML IV SCH (06:00)
[2023-02-10] MEDS ORDERED: inSUlin DETERMIR 1 UNIT/0.01 ML (CHARGE PER UNIT) SQ ONE (07:15)
[2023-02-10 07:23] LABS: CALCIUM 7.9 MG/DL (8.5-10.1); CREATININE SERUM 0.94 MG/DL (0.60-1.30); POTASSIUM 3.6 MMOL/L (3.6-5.0)
--- NOTE | 2023-02-10 07:41 | History & Physical-Hospitalist ---
JASON HOOKER MD,RESIDENT 02/10/23 0741: History of Present Illness HPI/Chief Complaint Pt presented to ED for N/V and weakness. Found to have BG 512 and admitted to ICU for further management. Pt is drowsy on exam today, cooperative though. Gives one-word answers to questions. Tolerated PO. Source: patient, other (ER provider notes) Exam Limitations: no limitations Date Seen 02/10/23 Time Seen by a Provider: 07:00 Attending Physician [place] PCP Admitting Physician: Renetta Tijerina DO Attending Physician: Renetta Tijerina DO Referring Physician Date of Admission Feb 09, 2023 at 16:18 Home Medications & Allergies Home Medications Reviewed patient Home Medication Reconciliation performed by pharmacy medication reconciliations signals collection technician and/or nursing. Patients Allergies have been reviewed. Allergies Allergies Coded Allergies Penicillins (Verified Allergy, Unknown, 09/20/18) tramadol (Verified Allergy, Unknown, 08/08/22) Past Asaybhp-Cgtfrp-Scychw Hx Patient Social History Tobacco Use?: Yes Tobacco type used: Cigarettes Smoking Status: Current Everyday Smoker Use of E-Cig and/or Vaping dev: No Substance use?: Yes Substance type: Amphetamines, Marijuana Alcohol Use?: No Pt feels they are or have been: No Immunizations Up To Date Date of Influenza Vaccine: Apr 12, 2022 First/Initial COVID19 Vaccinat: 2020 [employer] Second COVID19 Vaccination Jeffery: 2020 [employer] Tetanus Booster (TDap): Unknown Hepatitis A: No Hepatitis B: No Seasonal Allergies Seasonal Allergies: No Current Status Advance Directives: No Communicates: Verbally Primary Language: Norwegian Preferred Spoken Language: Norwegian Is interpretation needed?: No Implanted or Applied Medical D: None Past Medical History Surgeries: Amputation, Orthopedic Currently Using CPAP: No Currently Using BIPAP: No High Cholesterol, Hypertension Neuropathy Amputee Diabetes, Insulin dep Depression Blood Disorders: No Adverse Reaction/Blood Tranf: No 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 No Pertinent Family Hx PT HAS HISTORY OF HOMELESSNESS PAST SURGICAL HISTORY: -RIGHT GREAT TOE AMPUTATION AT [facility] 03/16/22; LATER MID FOOT AMPUTATION-PT STATES AT [facility] IN MAY 2022. -PREVIOUS RIGHT 4TH TOE AMPUTATION AND LEFT 5TH TOE AMPUTATION -PERIPHERAL ANGIOGRAM BY DR. AVILES: DATE OF SERVICE: 09/05/2020 PERIPHERAL ANGIOGRAPHY REPORT The patient is a 54-year-old gentleman who recently had amputation of the left fifth toe that was exhibiting ischemia and ulceration. 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 Accordingly, peripheral angiography was carried out and informed consent was obtained for peripheral angiography and possible ad hoc intervention. DESCRIPTION OF PROCEDURE: He was brought to the cardiac catheterization laboratory in a fasting state. Right groin was prepared and draped in the usual sterile fashion. Lidocaine 1% was used for local anesthesia. Modified Seldinger technique was used to advance a 5-Saudi Arabian sheath in right femoral artery. A 5-Saudi Arabian pigtail catheter was used to carry out abdominal aortic angiography. The pigtail catheter was then pulled back to just above the level of the aortoiliac bifurcation and bilateral leg artery angiography was carried out down to the level of the ankles. Subsequently, we used a 5-Saudi Arabian crossover catheter and advanced a Storq wire into the left superficial femoral artery. The crossover catheter was removed and we advanced a straight catheter into the distal part of the left superficial femoral artery and carried out selective angiography of the distal left superficial femoral artery and the trifurcation vessels down to the level of the ankles. The catheter was then removed. Angiography of the right femoral artery was carried out through the sheath. Mynx was used to achieve hemostasis. He tolerated the procedure well. ABDOMINAL AORTIC ANGIOGRAPHY: Abdominal aortic angiography did not indicate any significant abdominal aortic aneurysm or dissection. No abdominal aortic stenosis is seen. The aortoiliac bifurcation is intact and does not exhibit significant disease. BILATERAL LEG ARTERY ANGIOGRAPHY: Bilateral leg artery angiography did not indicate any significant disease of the iliac arteries, common femoral arteries, popliteal arteries, or the distal vessels of the legs. 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 Selective angiography did not indicate any significant disease of the left popliteal artery or of the trifurcation arteries on the left side. CONCLUSIONS: No significant peripheral arterial disease seen on this peripheral angiographic study. Review of Systems Constitutional: weakness Respiratory: no symptoms reported Cardiovascular: no symptoms reported Musculoskeletal: no symptoms reported Physical Exam Physical Exam Vital Signs Vital Signs - First Documented 02/09/23 02/09/23 02/09/23 10:33 16:10 16:31 Temp 35.9 Pulse 89 Resp 22 B/P (MAP) 136/84 (101) Pulse Ox 99 O2 Delivery Room Air FiO2 21 Capillary Refill : Less Than 3 Seconds Height, Weight, BMI Height: 6'1.00" Weight: 168lbs. 9.0oz. 76.668296kr; 21.88 BMI Method:Estimated General Appearance: No Apparent Distress Respiratory: Chest Non Tender, Normal Breath Sounds, No Accessory Muscle Use, No Respiratory Distress Cardiovascular: Regular Rate, Rhythm Gastrointestinal: Non Tender, Soft Skin: Warm/Dry Results Results/Procedures Labs Laboratory Tests 02/09/23 10:38 02/10/23 01:50 02/10/23 06:55 Patient resulted labs reviewed. Assessment/Plan Admission Diagnosis DKA Admission Status: Inpatient Order (span 2 midnights) Reason for Inpatient Admission: DKA Diagnosis/Problems Diagnosis/Problems (1) DKA, type 2 Status: Acute Assessment & Plan: Admission BG 512 N/V PLAN: insulin gtt Elyte replacement Monitor with daily CMP Plan to bridge to long-acting insulin from gtt Type C slide scale during bridge (2) DVT prophylaxis Status: Acute RENETTA TIJERINA DO 02/10/232056: History of Present Illness HPI/Chief Complaint CC: DKA HPI: This is a 57yoWM clinic patient of [facility] who presented to ER with DKA as he has had on multiple occasions. Ran out of insulin per patient. Source: patient Exam Limitations: no limitations Past Uxsgpwq-Jueysq-Qtagzn Hx Patient Social History Marrital Status: single Employed/Student: unemployed Family Medical History Patient reports no known family medical history. Review of Systems Constitutional: see HPI Gastrointestinal: nausea, vomiting Physical Exam Physical Exam General Appearance: No Apparent Distress, Chronically ill Respiratory: Lungs Clear, Normal Breath Sounds Assessment/Plan Admission Diagnosis Admission Status: Observation Reason for Inpatient Admission: STORMA JASON HOOKER MD,RESIDENT Feb 10, 2023 07:41 RENETTA TIJERINA DO Feb 10, 2023 20:57
--- NOTE | 2023-02-10 08:06 | Diagnostic Imaging Report ---
EXAMINATION: Chest 1 view HISTORY: Acute kidney injury COMPARISON: 02/09/2023 FINDINGS: The lungs are clear without edema or pneumonia. No pleural effusion or pneumothorax. Heart size is normal. IMPRESSION: 1. Clear lungs. Dictated by: Dictated on workstation # [id number]
[2023-02-10] MEDS: SENNOSIDES 8.6 MG TABLET PO SCH (09:08)
[2023-02-10] MEDS: DOCUSATE SODIUM 100 MG CAPSULE PO SCH (09:08)
[2023-02-10] MEDS ORDERED: INSU100I14 SQ (10:44)
[2023-02-10] MEDS ORDERED: inSUlin ASPART 1 UNIT/0.01 ML (PER UNIT) SC SCH (11:00)
--- NOTE | 2023-02-10 12:30 | Short Stay Summary ---
JASON HOOKER MD,RESIDENT 02/10/23 1230: Discharge Summary Hospital Course Was the Problem List Reviewed?: Yes Final Diagnosis: DKA Hospital Course Date of Admission: Feb 09, 2023 at 15:57 Admission Diagnosis : [facility]: 02/10/23 Discharge Diagnosis: DKA Hospital Course: Pt admitted for N/V and weakness, subsequently found to be in DKA. BG on admission was 512. He was admitted to ICU and started on insulin drip. Once his BG was under control and acidosis was no longer present, he was given insulin determir to bridge off the drip. His electrolytes also replaced during this time. He was medically stable for discharge on 02/10. Labs and Pending Lab Test: Laboratory Tests 02/09/23 13:22: Glucometer 354H 02/09/23 15:11: Glucometer 311H 02/09/23 16:28: Glucometer 278H 02/09/23 17:35: Glucometer 233H 02/09/23 18:36: Glucometer 201H 02/09/23 19:24: Glucometer 160H 02/09/23 20:21: Glucometer 155H 02/09/23 21:42: Glucometer 153H 02/09/23 22:37: Glucometer 176H 02/09/23 23:41: Glucometer 202H 02/10/23 00:24: Glucometer 182H 02/10/23 01:32: Glucometer 185H 02/10/23 01:50: White Blood Count 12.0H, Red Blood Count 3.86L, Hemoglobin 10.4L, Hematocrit 32L , Mean Corpuscular Volume 83, Mean Corpuscular Hemoglobin 27, Mean Corpuscular Hemoglobin Concent 33, Red Cell Distribution Width 14.0, Platelet Count 474H, Mean Platelet Volume 9.8, Immature Granulocyte % (Auto) 1, Neutrophils (%) (Auto) 63, Lymphocytes (%) (Auto) 28, Monocytes (%) (Auto) 7, Eosinophils (%) (Auto) 1, Basophils (%) (Auto) 0, Neutrophils # (Auto) 7.5, Lymphocytes # (Auto) 3.4, Monocytes # (Auto) 0.9, Eosinophils # (Auto) 0.1, Basophils # (Auto) 0.0, Immature Granulocyte # (Auto) 0.1, Sodium Level 136, Potassium Level 4.1, Chloride Level 105, Carbon Dioxide Level 20L, Anion Gap 11, Blood Urea Nitrogen 15, Creatinine 1.44H, Estimat Glomerular Filtration Rate 57, BUN/Creatinine Ratio 10, Glucose Level 206H, Calcium Level 8.3L, Corrected Calcium 9.5, Phosphorus Level 1.9L, Magnesium Level 2.1, Total Bilirubin 0.2, Aspartate Amino Transf (AST/SGOT) 10, Alanine Aminotransferase (ALT/SGPT) 9, Alkaline Phosphatase 121, Total Protein 6.5, Albumin 2.5L 02/10/23 02:33: Glucometer 193H 02/10/23 03:31: Glucometer 216H 02/10/23 04:24: Glucometer 172H 02/10/23 05:35: Glucometer 166H 02/10/23 06:33: Glucometer 131H 02/10/23 06:55: Sodium Level 136, Potassium Level 3.6, Chloride Level 105, Carbon Dioxide Level 23, Anion Gap 8, Blood Urea Nitrogen 14, Creatinine 0.94, Estimat Glomerular Filtration Rate 96, BUN/Creatinine Ratio 15, Glucose Level 134H, Calcium Level 7.9L 02/10/23 07:30: Glucometer 127H 02/10/23 08:31: Glucometer 154H 02/10/23 09:28: Glucometer 172H 02/10/23 11:02: Glucometer 162H Microbiology 02/09/23 MRSA Screen - Final, Complete MRSA not isolated Home Meds Active Reported Novolog Flexpen (Insulin Aspart) 100 Unit/Ml (3 Ml) Solution 10 Units SQ AC LAST FILLED 12-07-2022 #5PENS/50 DAY SUPPLY Lantus Solostar (Insulin Glargine,Hum.rec.anlog) 100 Unit/Ml (3 Ml) Insuln.pen 30 Unit SQ HS LAST FILLED 09-07-2022 #10 PENS/100 DAY SUPPLY Assessment/Pt Instructions DKA Pt to follow-up in 7-14 days with PCP regarding T2DM management and medication. Pt counseled on taking his insulin everyday. Discharge Instructions Discharge Diet: No Restrictions Activity as Tolerated: Yes Discharge Physical Examination General Appearance: Cooperative HEENT: Atraumatic Respiratory: Clear to Auscultation Cardiovascular: Regular Rate Abdominal: Soft Skin: No Rashes Neuro: Normal Speech Allergies: Coded Allergies: Penicillins (Verified Allergy, Unknown, 09/20/18) tramadol (Verified Allergy, Unknown, 08/08/22) Discharge Summary Date of Admission Feb 09, 2023 at 15:57 Date of Discharge 02/10/23 Admission Diagnosis DKA Discharge Diagnosis (1) DKA (diabetic ketoacidosis) Qualifiers: Qualified Codes: E11.10 - Type 2 diabetes mellitus with ketoacidosis without coma GORDON CROWLEY DO 02/10/232054: Discharge Summary Hospital Course Was the Problem List Reviewed?: Yes Assessment/Pt Instructions I personally performed the carter portions of the visit, discussed case with resident and concur with resident documentation of history, physical exam, assessment and treatment plan unless otherwise noted. Discharge Instructions Discharge Diet: No Restrictions Discharge Physical Examination General Appearance: Alert, Cooperative Allergies: Coded Allergies: Penicillins (Verified Allergy, Unknown, 09/20/18) tramadol (Verified Allergy, Unknown, 08/08/22) JASON HOOKER MD,RESIDENT Feb 10, 2023 12:30 GORDON CROWLEY DO Feb 10, 2023 20:55
== END 2023-02-10 12:22 | disposition other institution (70) ==
LOC: EDUNIT# 10:32 → ER 10:33 → UNDOADMOB 15:57 → ICU 15:57 → INTOOBSV 16:18 → OBSVTOIN 16:18 → UNDODISOB 02-10 12:22
PROVIDERS: ADMIT Internal Medicine; ATTEND Internal Medicine
DX: E11.10 Type 2 diabetes mellitus with ketoacidosis without coma (principal); N17.9 Acute kidney failure, unspecified; E11.40 Type 2 diabetes mellitus with diabetic neuropathy, unspecified; F17.210 Nicotine dependence, cigarettes, uncomplicated; Z79.4 Long term (current) use of insulin; Z89.421 Acquired absence of other right toe(s); Z89.422 Acquired absence of other left toe(s)
CPT/HCPCS: 71045 ×2; 80048; 80053 ×2; 82010; 82805; 82947 ×2; 83735; 84100; 85025 ×2; 87081; 96372; 96375; 96376 ×2; 99284; G0378; 36415; 96361; 96374